=== PATIENT | male | born 1965 | race Caucasian/White ===

== ENCOUNTER → 2016-10-06 | Outpatient (CLI) | payer OTHER ==
[~2016-10-06] MED LIST: ALBUAER2 INH; AZIT500T26 PO; CYCL0.052 OPB; FLUT1INH INH; GFNSR600 PO; GLC/500 PO; HYDR5LIQ PO; INSU100I2 SC; INSUINJ14 SC; IPRA1AER2 INH; IPRASOL34 INH; LEVO1TAB33 PO; LIRA18IN SQ; LISI5TAB PO; LPT/20 PO; LPT/40 PO; LVQ500 PO; MORP1TAB11 PO; MTR800 PO; OXYC15TA89 PO; OXYC1TAB3 PO; PRED10TA PO; PRED20TA PO; PRT/40 PO; VARE1PAK15 PO; [UNRECOGNIZED DRUG - CODE] PO; [UNRECOGNIZED DRUG - OTHER] PO
== END | disposition home or self-care (01) ==
LOC: C.RDSM 14:36
PROVIDERS: ATTEND Physical Medicine & Rehabilitation Sports Medicine
DX: M25.562 Pain in left knee (principal)

== ENCOUNTER → 2017-02-14 | Outpatient (CLI) | payer OTHER | END | disposition home or self-care (01) | LOC: C.LABPBG 08:43 | PROVIDERS: ATTEND Neuromusculoskeletal Medicine & OMM | DX: Z00.00 Encounter for general adult medical examination without abnormal findings (principal); Z11.59 Encounter for screening for other viral diseases; R35.1 Nocturia ==

== ENCOUNTER → 2017-04-05 | Day surgery (SDC) | payer OTHER ==
[2017-03-31 09:17] VITALS: BMI 34.0
[~2017-04-05] VITALS: Ht 167.6 cm; Wt 96.4 kg
[~2017-04-05] MED LIST changes: -ALBUAER2 INH; -AZIT500T26 PO; -INSUINJ14 SC; +LIDOCAINE HCL 2% 2 ML VIAL (20MG/ML) ONE; -LIRA18IN SQ; -LPT/20 PO; +PROPOFOL IV EMULSION 10 MG/ML 20 ML VIAL IV ONE; +SODIUM CHLORIDE 0.9% 500ML 500 ML IV ONE; -[UNRECOGNIZED DRUG - CODE] PO
[2017-04-05 09:14] VITALS: Ht 167.6 cm; Wt 96.4 kg
--- NOTE | 2017-04-05 10:20 | Endo History and Physical ---
History & Physical Date of Service: Apr 05, 2017. Chief Complaint: Reflux, dysphagia Referring Physician: Dr. Lomas History of Present Illness dysphagia Past Surgical History Hx Cardiac Surgery: No Hx Internal Defibrillator: No Hx Pacemaker: No Hx Abdominal Surgery: No Hx of Implantable Prosthesis: No Hx Post-Op Nausea and Vomiting: No Hx Cancer Surgery: No Hx Thoracic Surgery: Yes (LOWER LFT LOBE RESECTION, MULTIPLE BRONCHOSCOPIES, RIBS LFT 6-7 PLATES) Hx Orthopedic: Yes (CERVICAL FUSION (FULL ROM), LT KNEE SURGERY X2) Hx Urinary Tract Surgery: No Family History None Social History Smoking Status: Former Smoker Hx Substance Use: Yes (SEE MED REC) Hx Alcohol Use: No Allergies Coded Allergies: Fentanyl (Verified Allergy, Unknown, RASH WITH PATCH, 03/31/17) Current Medications Reported Home Medications Medications Dose Route/Sig Max Daily Dose Days Date Category Humalog Kwikpen (Insulin Lispro (Human)) 100 Unit/Ml Inj 10 Units SC UD PRN 03/31/17 Reported Glucophage (Metformin Hcl) 500 Mg Tab 500 Mg PO BID 03/31/17 Reported [Slimmetry] 1 Tab PO BID 03/31/17 Reported Oxycontin (Oxycodone Hcl) 15 Mg Tab 15 Mg PO QID 03/31/17 Reported Morphine Sulfate Er (Morphine Sulfate) 15 Mg Tab 1 Tab PO BID 03/31/17 Reported Prinivil (Lisinopril) 5 Mg Tab 5 Mg PO QAM 03/31/17 Reported Lipitor (Atorvastatin) 40 Mg Tab 40 Mg PO QAM 03/31/17 Reported Breo Ellipta (Fluticasone Furoate-Vilanterol) 1 Inh Inh 1 Inha INH QAM 05/22/14 Reported Ibuprofen 800 Mg Tab 800 Mg PO TID PRN 05/22/14 Reported Pantoprazole Sodium (Pantoprazole) 40 Mg Tab 40 Mg PO BID 05/22/14 Reported Combivent Respimat (Ipratropium-Albuterol) 1 Aer Aer 1 Puff INH Q4H PRN 05/22/14 Reported Restasis (Cyclosporine (Ophth)) 0.05 % Emu 1 Drop OPB BID 05/22/14 Reported Duoneb (Albuterol/Ipratropium) Farnaz 1 Treatment INH QID PRN 10/01/13 Reported Mucinex Ext Rel (Guaifenesin) 600 Mg Tabcr 600-1,200 Mg PO Q12 PRN 02/10/12 Reported Vital Signs Weight (Kilograms): 96.36 Height (Feet): 5 Height (Inches): 6 Date Time Temp Pulse Resp B/P (MAP) Pulse Ox O2 Delivery O2 Flow Rate FiO2 04/05/17 09:19 36.7 80 20 121/81 (94) 96 Room Air Physical Exam General Appearance: no apparent distress Respiratory/Chest: Auscultation: breath sounds normal Cardiovascular: Heart Auscultation: RRR Abdomen: Inspection & Palpation: soft Liver: non-tender Assessment and Plan stable for EGD
--- NOTE | 2017-04-05 10:41 | Discharge Instructions ---
Endoscopy Patient Instructions Date / Procedure(s) Performed Apr 05, 2017. EGD Allergy Information Coded Allergies: Fentanyl (Verified Allergy, Unknown, RASH WITH PATCH, 03/31/17) Discharge Date / Findings Apr 05, 2017. normal s/p dilatation. Medication Instructions Stopped Medication(s): Advil and Oxycodone Provider Instructions Activity Restrictions - No exercising or heavy lifting for 24 hours. - Do not drink alcohol the day of the procedure. - Do not drive a car or operate machinery until the day after the procedure. - Do not make any important decisions or sign important papers in 24 hours after the procedure. Following Day: - Return to full activity which may include returning to work/school. Diet Start your diet with liquids and light foods (jello, soup, juice, toast). Then eat your usual diet if not nauseated. Treatment For Common After Affects For mild abdominal pain, bloating, or excessive gas: - Rest - Eat lightly - Lie on right side Follow-Up Information Follow-up with Dr. Lomas as scheduled Anesthesia Information What You Should Know You have had a procedure that required some medicine to reduce anxiety and discomfort. This treatment is called moderate sedation. After receiving the treatment, you may be sleepy, but you will be able to breathe on your own. The effects of the treatment may last for several hours. Follow these instructions along with Activity/Diet recommendations noted above: * Do NOT do anything where dizziness or clumsiness would be dangerous. * Rest quietly at home today, then you can be up and about tomorrow. * Have a responsible person stay with you the rest of today. * You may have had an I.V. today. If so, you may take the dressing off later today. Recommendations Call your doctor if: * Trouble breathing * Continuous vomiting for more than 24 hours * Temperature above 101 degrees * Severe abdominal pain or bloating * Pain not relieved by pain medicine ordered * There is increased drainage or redness from any incision * A large amount of rectal bleeding greater than 2-3 tablespoons. (If you had a polyp/s removed or have hemorrhoids, a small amount of blood - from the rectum is to be expected.) * You have any unanswered questions or concerns. IN THE EVENT OF A SERIOUS EMERGENCY, GO TO THE NEAREST EMERGENCY ROOM Your discharge instructions were prepared by provider Aly Hopkins. Patient Instructions Signature Page John Ashley Patient (or Guardian) Signature/Date: I have read and understand the instructions given to me by my caregivers. Caregiver/RN/Doctor Signature/Date: The above-named patient and/or guardian has received patient instructions on this date. + Original Patient Signature Page (only) stays with chart. Please make copy for patient.
--- NOTE | 2017-04-05 10:57 | GI REPORT ---
Procedure Date: 04/05/2017 10:15 AM Procedure: Upper GI endoscopy Indications: Dysphagia, Heartburn Medicines: See the Anesthesia note for documentation of the administered medications Complications: No immediate complications. Estimated Blood Loss: Estimated blood loss: none. Procedure: Pre-Anesthesia Assessment: - Prior to the procedure, a History and Physical was performed, and patient medications, allergies and sensitivities were reviewed. The patient's tolerance of previous anesthesia was reviewed. - The risks and benefits of the procedure and the sedation options and risks were discussed with the patient. All questions were answered and informed consent was obtained. - Patient identification and proposed procedure were verified prior to the procedure by the physician and the nurse. The procedure was verified in the pre-procedure area. - Pre-procedure physical examination revealed no contraindications to sedation. - After reviewing the risks and benefits, the patient was deemed in satisfactory condition to undergo the procedure. After obtaining informed consent, the endoscope was passed under direct vision. Throughout the procedure, the patient's blood pressure, pulse, and oxygen saturations were monitored continuously. The scope was introduced through the mouth, and advanced to the third part of duodenum. The upper GI endoscopy was accomplished without difficulty. The patient tolerated the procedure well. Findings: Areas of ectopic gastric mucosa were found in the upper third of the esophagus. The rest of the examined esophagus was normal. The scope was withdrawn. Dilation was performed with a Lincoln dilator with no resistance at 52 Fr because of symptoms. The stomach was normal. The examined duodenum was normal. The cardia and gastric fundus were normal on retroflexion. Impression: - Ectopic gastric mucosa in the upper third of the esophagus. - Normal esophagus otherwise ( no obvious stricture). Dilated for symptoms. - Normal stomach. - Normal examined duodenum. - No specimens collected. Recommendation: - Discharge patient to home. Aly Hopkins M.D. Aly Hopkins MD 04/05/2017 10:56:50 AM This report has been signed electronically. Note Initiated On: 04/05/2017 10:15 AM I attest to the content of the Intraoperative Record and orders documented therein, exceptions below
[2017-04-05 11:12] VITALS: BP 121/76; PULSE 75; O2SAT 97
--- NOTE | 2017-04-05 11:13 | Anesthesiology Progress Note ---
Anesthesia Post Op Note Date & Time Apr 05, 2017 at 11:12 Vital Signs Pain Intensity: 0 Vital Signs Past 12 Hours Date Time Temp Pulse Resp B/P (MAP) Pulse Ox O2 Delivery O2 Flow Rate FiO2 04/05/17 10:57 79 20 118/78 (91) 97 Room Air 04/05/17 10:42 78 18 153/99 (117) 98 Room Air 04/05/17 09:19 36.7 80 20 121/81 (94) 96 Room Air Notes Mental Status: alert / awake / arousable, participated in evaluation Pt Amnestic to Procedure: Yes Nausea / Vomiting: adequately controlled Pain: adequately controlled Airway Patency, RR, SpO2: stable & adequate BP & HR: stable & adequate Hydration State: stable & adequate Anesthetic Complications: no major complications apparent patient had some subjective dyspnea on emergence in recovery. o2 sats acceptable on room air and good air movement on exam. he was not in distress. i offered a nebulizer treatment which he declined and he felt back to his subjective baseline breathing within 10 minutes.
== END | disposition home or self-care (01) ==
LOC: C.GI 08:40
PROVIDERS: ATTEND Internal Medicine Gastroenterology
DX: K21.9 Gastro-esophageal reflux disease without esophagitis (principal); R13.10 Dysphagia, unspecified; R12 Heartburn; Z98.1 Arthrodesis status; Z87.891 Personal history of nicotine dependence; J44.9 Chronic obstructive pulmonary disease, unspecified; G47.33 Obstructive sleep apnea (adult) (pediatric); E78.5 Hyperlipidemia, unspecified; I71.4 Abdominal aortic aneurysm, without rupture; M19.90 Unspecified osteoarthritis, unspecified site; M93.962 Osteochondropathy, unspecified, left lower leg; E11.9 Type 2 diabetes mellitus without complications; Z79.84 Long term (current) use of oral hypoglycemic drugs; Z79.4 Long term (current) use of insulin

== ENCOUNTER → 2017-04-25 | Outpatient (CLI) | payer OTHER ==
[~2017-04-25] MED LIST changes: -LIDOCAINE HCL 2% 2 ML VIAL (20MG/ML) ONE; -PROPOFOL IV EMULSION 10 MG/ML 20 ML VIAL IV ONE; -SODIUM CHLORIDE 0.9% 500ML 500 ML IV ONE
--- NOTE | 2017-04-25 09:23 | DIAGNOSTIC IMAGING REPORT ---
AORTIC ANEURYSM RETRO SUYAPA CLINICAL HISTORY: AAA aneurysm TECHNIQUE: Ultrasound COMPARISON STUDY: CT 11/02/2011 FINDINGS: Distal abdominal aorta has a maximum diameter 4.3 cm. This is increased from the prior study of 2.7 cm. Moderate generalized atherosclerotic change and ectasia of all remaining components of the abdominal aorta as well as proximal iliac vasculature. IMPRESSION: Aneurysm distal abdominal aorta having a maximum diameter 4.3 cm. This is increased from a prior study of 2.7 cm. The above report was generated using voice recognition software. It may contain grammatical, syntax or spelling errors. Electronically signed by: August Stephens M.D. 04/25/2017 9:21 AM Dictated Date/Time: 04/25/2017 9:19 AM
== END | disposition home or self-care (01) ==
LOC: C.ULTR 08:37
PROVIDERS: ATTEND Neuromusculoskeletal Medicine & OMM
DX: I71.4 Abdominal aortic aneurysm, without rupture (principal)

== ENCOUNTER 2017-05-02 08:57 | Inpatient (IN) | payer OTHER ==
[~2017-05-02] VITALS: Ht 167.6 cm; Wt 98.3 kg
[~2017-05-02 08:57] MED LIST changes: -HYDR5LIQ PO; -LEVO1TAB33 PO; -LVQ500 PO; -OXYC1TAB3 PO; -PRED10TA PO; -PRED20TA PO; -VARE1PAK15 PO
[2017-05-02 11:12] VITALS: BP 171/80; PULSE 69; TEMP 36.9; O2SAT 94
[2017-05-02] MEDS ORDERED: PRED20TA PO (12:36)
[2017-05-02] MEDS ORDERED: LEVO1TAB33 PO (12:36)
[2017-05-02] MEDS ORDERED: GLUCOSE 10 TABS/TUBE PO PRN (13:00)
[2017-05-02] MEDS ORDERED: ZOLPIDEM TARTRATE 5 MG TAB PO PRN (13:00)
[2017-05-02] MEDS ORDERED: DEXTROSE 50% 50 ML SYR IV PRN (13:00)
[2017-05-02] MEDS ORDERED: GLUCOSE 40% GEL 15 GM TUBE PO PRN (13:00)
[2017-05-02] MEDS ORDERED: GLUCAGON FOR INJ 1 MG VIAL SQ PRN (13:00)
[2017-05-02] MEDS ORDERED: ONDANSETRON INJ 2 MG/ML 2 ML VIAL IV PRN ×2 (13:00)
[2017-05-02] MEDS ORDERED: ACETAMINOPHEN 325 MG TAB PO PRN (13:00)
[2017-05-02 13:14] LABS: BASO % 0.1 %; BASO ABS # 0.01 K/uL (0-0.2); COMPLETE YES; EOS % 1.3 %; HEMATOCRIT 43.4 % (42-52); IG% 0.2 %; LYMPH % 27.6 %; LYMPH ABS # 3.75 K/uL (1.2-3.4); MEAN CELL VOLUME 79.8 fL (80-100); MEAN CORPUSCULAR HGB CONC 31.3 g/dl (32-36); MEAN PLATELET VOLUME 10.5 fL (7.4-10.4); NEUT % 63.8 %; PLATELET COUNT 228 K/uL (130-400); RED BLOOD COUNT 5.44 M/uL (4.7-6.1); WHITE BLOOD COUNT 13.58 K/uL (4.8-10.8)
[2017-05-02 13:15] VITALS: O2SAT 94; BMI 34.3
[2017-05-02] MEDS ORDERED: OXYC1TAB3 PO (13:21)
[2017-05-02] MEDS ORDERED: VARE1PAK15 PO (13:28)
[2017-05-02] MEDS ORDERED: LEVALBUTEROL 1.25MG/0.5ML NEB INH PRN (13:30)
[2017-05-02] MEDS ORDERED: IPRATROPIUM BROMIDE NEB SOLN 0.02% 2.5 ML VIAL INH PRN (13:30)
[2017-05-02] MEDS ORDERED: PATIENT'S HEIGHT AND/OR WEIGHT NEEDED SCH (13:30)
[2017-05-02] MEDS ORDERED: PIPERACILL/TAZOBAC IV 3.375 GM in DEXTROSE 5% 100ML 100 ML IV ONE (13:38)
[2017-05-02 13:39] LABS: BUN/CREATININE RATIO 9.1 (10-20); CREATININE 1.1 mg/dl (0.60-1.40); MAGNESIUM 2.4 mg/dl (1.8-2.4); POTASSIUM 3.9 mmol/L (3.5-5.1)
[2017-05-02 13:42] LABS: ALB/GLOB RATIO 0.9 (0.9-2)
[2017-05-02] MEDS ORDERED: VANCOMYCIN INJ 2,250 MG in SODIUM CHLORIDE 0.9% 500ML 500 ML IV STA (13:58)
--- NOTE | 2017-05-02 13:58 | DIAGNOSTIC IMAGING REPORT ---
CHEST ONE VIEW PORTABLE CLINICAL HISTORY: copd exacerbation dyspnea COMPARISON STUDY: 05/20/2014 FINDINGS: Findings consistent with prior operative repair of rib fractures on the left. Lungs are considered clear. Diaphragms smooth. No evidence for cardiac enlargement. IMPRESSION: No acute process. Pre-existing postoperative changes to several left ribs with unchanging chronic pleural thickening left lateral chest. The above report was generated using voice recognition software. It may contain grammatical, syntax or spelling errors. Electronically signed by: August Stephens M.D. 05/02/2017 1:57 PM Dictated Date/Time: 05/02/2017 1:56 PM
[2017-05-02] MEDS ORDERED: VARENICLINE (CHANTIX) 1 MG TAB PO ONE (14:00)
[2017-05-02] MEDS: IPRATROPIUM BROMIDE NEB SOLN 0.02% 2.5 ML VIAL INH SCH ×2 (14:03→19:31)
[2017-05-02] MEDS: LEVALBUTEROL 1.25MG/0.5ML NEB INH SCH ×2 (14:03→19:31)
[2017-05-02 14:04] VITALS: PULSE 66; O2SAT 97
[2017-05-02] MEDS: METHYLPREDNISOLONE IV 60 MG in SYRINGE 0 ML IV SCH ×2 (14:21→21:10)
[2017-05-02] MEDS: OXYCODONE HCL IR 5 MG TAB (IMMEDIATE RELEASE) PO PRN ×2 (14:27→20:38)
[2017-05-02] MEDS ORDERED: LEVALBUTEROL/IPRATROPIUM NEB INH SCH (15:00)
[2017-05-02 15:10] VITALS: BP 153/78; PULSE 71; TEMP 36.6; O2SAT 94
--- NOTE | 2017-05-02 16:43 | Pharmacy Progress Note ---
Pharmacy Antibiotic Consult Date of Service: May 02, 2017. Pharmacy Dosing Scope Pharmacy is consulted to initiate Vancomycin IV dosing therapy, order appropriate labs and adjust drug dose/frequency. Subjective The patient is a 52 year old male admitted on May 02, 2017 at 11:02. Objective Height (Feet): 5 Height (Inches): 6.00 Weight (Kilograms): 96.364 Lab Results (24hrs): Test 05/02/17 12:57 White Blood Count 13.58 K/uL (4.8-10.8) Red Blood Count 5.44 M/uL (4.7-6.1) Hemoglobin 13.6 g/dL (14.0-18.0) Hematocrit 43.4 % (42-52) Mean Corpuscular Volume 79.8 fL (80-100) Mean Corpuscular Hemoglobin 25.0 pg (25-34) Mean Corpuscular Hemoglobin Concent 31.3 g/dl (32-36) Platelet Count 228 K/uL (130-400) Mean Platelet Volume 10.5 fL (7.4-10.4) Neutrophils (%) (Auto) 63.8 % Lymphocytes (%) (Auto) 27.6 % Monocytes (%) (Auto) 7.0 % Eosinophils (%) (Auto) 1.3 % Basophils (%) (Auto) 0.1 % Neutrophils # (Auto) 8.67 K/uL (1.4-6.5) Lymphocytes # (Auto) 3.75 K/uL (1.2-3.4) Monocytes # (Auto) 0.95 K/uL (0.11-0.59) Eosinophils # (Auto) 0.17 K/uL (0-0.5) Basophils # (Auto) 0.01 K/uL (0-0.2) RDW Standard Deviation 43.0 fL (36.4-46.3) RDW Coefficient of Variation 14.9 % (11.5-14.5) Immature Granulocyte % (Auto) 0.2 % Immature Granulocyte # (Auto) 0.03 K/uL (0.00-0.02) Sodium Level 139 mmol/L (136-145) Potassium Level 3.9 mmol/L (3.5-5.1) Chloride Level 106 mmol/L (98-107) Carbon Dioxide Level 24 mmol/L (21-32) Anion Gap 9.0 mmol/L (3-11) Blood Urea Nitrogen 10 mg/dl (7-18) Creatinine 1.10 mg/dl (0.60-1.40) Est Creatinine Clear Calc Drug Dose 84.4 ml/min Estimated GFR () 88.4 Estimated GFR (Non- 76.2 BUN/Creatinine Ratio 9.1 (10-20) Random Glucose 107 mg/dl (70-99) Calcium Level 9.0 mg/dl (8.5-10.1) Magnesium Level 2.4 mg/dl (1.8-2.4) Total Bilirubin 0.2 mg/dl (0.2-1) Aspartate Amino Transf (AST/SGOT) 27 U/L (15-37) Alanine Aminotransferase (ALT/SGPT) 42 U/L (12-78) Alkaline Phosphatase 118 U/L (45-117) Total Protein 8.2 gm/dl (6.4-8.2) Albumin 3.8 gm/dl (3.4-5.0) Globulin 4.4 gm/dl (2.5-4.0) Albumin/Globulin Ratio 0.9 (0.9-2) Micro Results: Item Value Date Time MRSA DNA Surveillance Screen Ordered 05/02/17 1328 Nasal Pending Recent Pertinent Medications Item Value Date Time Vancomycin HCl 545 ml @ 200 mls/hr 05/02/17 1358 2250 mg/Sodium NOW STAT/IV 05/02/17 1426 Chloride Piperacillin Sod/ 115 ml @ 230 mls/hr 05/02/17 1338 Tazobactam Sod NOW ONCE/IV 05/02/17 1426 3.375 gm/Dextrose Levofloxacin 500 100 ml @ 100 mls/hr 05/02/17 1600 mg/Prmx DAILY@1600/IV Assessment & Plan [age] yo male patient admitted with COPD exacerbation empirically starting IV Vancomycin, IV Zosyn and IV Levofloxacin Loading dose: Vancomycin 2250 mg (~23 mg/kg) IV X 1 dose then: Vancomycin 1250 mg (~13 mg/kg) IV every 12 hours. Goal peak level estimate: between 25 - 40 mcg/mL. Goal trough level estimate: between 15 - 20 mcg/mL. Peak and trough or random level has been ordered for: 05/04/17 prior to the 1400 hours dose. Pharmacy will continue to follow and will adjust dose/frequency as necessary. Thank you
[2017-05-02] MEDS ORDERED: PIPERACILL/TAZOBAC CONSULT ACTIVE PRN (16:45)
[2017-05-02] MEDS: LEVOFLOXACIN / D5W 500 MG in PREMIXED IN D5W 100 ML IV SCH (16:59)
[2017-05-02] MEDS ORDERED: OXYCODONE HCL 15 MG TABCR (OXYCONTIN) PO SCH (17:00)
[2017-05-02 18:00] VITALS: O2SAT 94
[2017-05-02] MEDS: INSULIN ASPART 100 UNITS/ML 3 ML PEN SC SCH ×2 (18:25→20:25)
[2017-05-02 19:33] VITALS: PULSE 69; O2SAT 96
[2017-05-02] MEDS ORDERED: GUAIFENESIN 200 MG TAB PO SCH (20:00)
[2017-05-02] MEDS: MoRPHine SULFATE CR 15 MG TAB (MS CONTIN) PO SCH (20:22)
[2017-05-02] MEDS: PIPERACILL/TAZOBAC IV 3.375 GM in DEXTROSE 5% 100ML IV SCH (20:22)
[2017-05-02] MEDS: PANTOprazole SOD 40 MG TAB PO SCH (20:22)
[2017-05-02] MEDS ORDERED: GUAIFENESIN 600 MG TABCR PO PRN (21:00)
[2017-05-02 21:40] LABS: CKMB/CK RATIO 1.4 (0-3.0)
[2017-05-03] VITALS (10 sets, daily range): BP systolic 117–147; BP diastolic 60–74; PULSE 64–78; TEMP 36.5–37.2; O2SAT 92–98
[2017-05-03] MEDS: LEVALBUTEROL 1.25MG/0.5ML NEB INH SCH ×5 (01:32→19:48)
[2017-05-03] MEDS: IPRATROPIUM BROMIDE NEB SOLN 0.02% 2.5 ML VIAL INH SCH ×5 (01:32→19:48)
[2017-05-03] MEDS: PIPERACILL/TAZOBAC IV 3.375 GM in DEXTROSE 5% 100ML IV SCH (04:37)
[2017-05-03] MEDS: OXYCODONE HCL IR 5 MG TAB (IMMEDIATE RELEASE) PO PRN ×3 (04:37→15:51)
[2017-05-03 04:51] LABS: BASO % 0.1 %; BASO ABS # 0.01 K/uL (0-0.2); COMPLETE YES; EOS % 0.1 %; HEMATOCRIT 40.5 % (42-52); IG% 0.3 %; LYMPH % 8.4 %; LYMPH ABS # 1.08 K/uL (1.2-3.4); MEAN CELL VOLUME 79.3 fL (80-100); MEAN CORPUSCULAR HGB CONC 32.8 g/dl (32-36); MEAN PLATELET VOLUME 10.6 fL (7.4-10.4); MONO % 2.6 %; NEUT % 88.5 %; PLATELET COUNT 215 K/uL (130-400); RED BLOOD COUNT 5.11 M/uL (4.7-6.1); WHITE BLOOD COUNT 12.92 K/uL (4.8-10.8)
[2017-05-03] MEDS: METHYLPREDNISOLONE IV 60 MG in SYRINGE 0 ML IV SCH ×3 (05:02→21:56)
[2017-05-03 05:06] LABS: PARTIAL THROMBOPLASTIN RATIO 1.1; PROTHROMBIN TIME (PATIENT) 10.7 SECONDS (9.0-12.0)
[2017-05-03 05:08] LABS: BLOOD UREA NITROGEN 12 mg/dl (7-18); BUN/CREATININE RATIO 9.9 (10-20); CALCIUM 8.7 mg/dl (8.5-10.1); CARBON DIOXIDE 26 mmol/L (21-32); CHLORIDE 107 mmol/L (98-107); GLUCOSE 287 mg/dl (70-99); MAGNESIUM 2.5 mg/dl (1.8-2.4); POTASSIUM 4.4 mmol/L (3.5-5.1); SODIUM 140 mmol/L (136-145)
[2017-05-03 05:13] LABS: CKMB/CK RATIO 2.2 (0-3.0)
[2017-05-03] MEDS: ATORVASTATIN 20 MG TAB PO SCH (07:45)
[2017-05-03] MEDS: LISINOPRIL 5 MG TAB PO SCH (07:45)
[2017-05-03] MEDS: PANTOprazole SOD 40 MG TAB PO SCH ×2 (07:45→20:31)
[2017-05-03] MEDS: MoRPHine SULFATE CR 15 MG TAB (MS CONTIN) PO SCH ×2 (07:45→20:31)
[2017-05-03] MEDS: VARENICLINE (CHANTIX) 1 MG TAB PO SCH (07:45)
[2017-05-03] MEDS: INSULIN ASPART 100 UNITS/ML 3 ML PEN SC SCH ×4 (09:11→20:39)
--- NOTE | 2017-05-03 10:37 | History and Physical ---
History & Physical Date & Time of Service: May 03, 2017 at 10:25 Chief Complaint: Copd Exacerbation Primary Care Physician: Oriana Burrell DO History of Present Illness Source: patient, clinic records The patient is a 52-year-old male referred from his PCPs office worsening shortness of breath over the past week. He was seen in the outpatient office and given a course of Medrol Dosepak and Levaquin, along with these his home nebulizers. His symptoms have continued to worsen, with significant chest tightness and shortness of breath, and is being directly admitted to the hospital for further treatment. He has not had any recent travels or sick exposures. Past Medical/Surgical History Medical Problems: (1) Chronic obstructive lung disease Status: Chronic (2) Diab Juliana Wo Compl, Type Ii Or Unspec Type, Not Uncntrld Status: Chronic (3) Hyperlipidemia Nec/Nos Status: Chronic (4) Hypertension Nos Status: Chronic (5) Lobectomy of lung Status: Resolved (6) Pleurisy W/O Effus Or Tb Status: Chronic (7) Pneumonia, Organism Nos Status: Chronic Family History Diabetes mellitus Heart disease Lung disease Social History Smoking Status: Current Every Day Smoker Smokeless Tobacco Use: No Alcohol Use: none Drug Use: none Marital Status: Housing status: lives with family Occupational Status: unemployed Immunizations History of Influenza Vaccine: Yes Influenza Vaccine Date: May 24, 2011 History of Tetanus Vaccine?: Yes History of Pneumococcal: Yes Pneumococcal Date: Nov 02, 2005 History of Hepatitis B Vaccine: No Multi-Drug Resistant Organisms History of MDRO: No Allergies Coded Allergies: Fentanyl (Verified Allergy, Unknown, RASH WITH PATCH, 03/31/17) Home Medications Scheduled Atorvastatin (Lipitor), 40 MG PO QAM Cyclosporine (Ophth) (Restasis), 1 DROP OPB BID Fluticasone Furoate-Vilanterol (Breo Ellipta), 1 INHA INH QAM Levofloxacin (Levaquin), 1 TAB PO DAILY Lisinopril (Prinivil), 5 MG PO QAM Metformin Hcl (Glucophage), 500 MG PO BID Morphine Sulfate (Morphine Sulfate Er), 1 TAB PO BID Pantoprazole (Pantoprazole Sodium), 40 MG PO BID Varenicline Tartrate (Chantix Starting Month Pa), PO UD Scheduled PRN Ibuprofen (Ibuprofen), 800 MG PO TID PRN for Pain Insulin Lispro (Human) (Humalog Kwikpen), 10 UNITS SC UD PRN for >200 BS Ipratropium-Albuterol (Duoneb), 1 TREATMENT INH QID PRN for SOB/Wheezing Ipratropium-Albuterol (Combivent Respimat), 1 PUFF INH Q4H PRN for Shortness of Breath Oxycodone Immediate Rel Tab (Roxicodone Ir), 3 TAB PO QID PRN for Pain Miscellaneous Medications Prednisone (Prednisone), 20 MG PO Review of Systems The patient denies palpitations, cough, lower extremity swelling, vision change , hearing change, sore throat, fevers, chills, sweats, weight change, fatigue, nausea, vomiting, diarrhea or constipation, abdominal pain, pelvic pain, blood in urine or stool, dysuria, urinary frequency or urgency, lightheadedness, dizziness, headache, memory loss, rash, abnormal bruising or bleeding, imbalance , focal or generalized weakness, numbness or tingling in arms or legs, generalized arthralgias or myalgias, back or neck pain, night sweats. The review of systems is otherwise negative other than for that already noted above, and at least 10 systems have been reviewed. Physical Exam Vital Signs Date Time Temp Pulse Resp B/P (MAP) Pulse Ox O2 Delivery O2 Flow Rate FiO2 05/03/17 08:59 Room Air 05/03/17 08:58 96 Room Air 05/03/17 07:20 36.5 71 18 147/74 (98) 96 Room Air 05/03/17 01:32 71 16 95 Room Air 05/03/17 00:00 Room Air 05/03/17 00:00 36.7 65 18 146/69 (94) 94 Room Air 05/02/17 19:33 69 16 96 Room Air 05/02/17 18:00 94 Room Air 05/02/17 15:10 36.6 71 18 153/78 (103) 94 Room Air 05/02/17 14:04 66 16 97 Room Air 05/02/17 13:15 94 Room Air 05/02/17 11:12 36.9 69 20 171/80 (110) 94 Room Air The patient is awake, well-developed and adequately nourished, alert and oriented 3, normocephalic and atraumatic, sitting upright on the edge of the bed and in no acute distress. HEENT--PERRL, EOMI, mucous membranes and oropharynx normal. Neck--supple, no JVD or bruits, thyroid normal, trachea midline, no adenopathy. Heart--normal S1 and S2, no extra beats, no murmurs, rubs or gallops. Lungs--scattered wheezes diminished breath sounds bilaterally. No respiratory distress, no accessory muscle use. Abdomen--normal bowel sounds and soft, nontender and nondistended, no hernias or masses, no organomegaly. Extremities--no cyanosis, clubbing or edema. There are good distal pulses b/l. Dermatologic--normal skin turgor, normal color, warm and dry, no abnormal lymph nodes, no rash. Neurologic--cranial nerves II through XII grossly intact, motor and sensory examination normal. Rheumatologic--normal range of motion, nontender, muscles and joints. Psychiatric--normal affect. Diagnostics Laboratory Results Results Past 24 Hours Test 05/02/17 12:57 05/02/17 16:24 05/02/17 20:22 05/02/17 21:05 Range/Units White Blood Count 13.58 4.8-10.8 K/uL Red Blood Count 5.44 4.7-6.1 M/uL Hemoglobin 13.6 14.0-18.0 g/dL Hematocrit 43.4 42-52 % Mean Corpuscular Volume 79.8 80-100 fL Mean Corpuscular Hemoglobin 25.0 25-34 pg Mean Corpuscular Hemoglobin Concent 31.3 32-36 g/dl Platelet Count 228 130-400 K/uL Mean Platelet Volume 10.5 7.4-10.4 fL Neutrophils (%) (Auto) 63.8 % Lymphocytes (%) (Auto) 27.6 % Monocytes (%) (Auto) 7.0 % Eosinophils (%) (Auto) 1.3 % Basophils (%) (Auto) 0.1 % Neutrophils # (Auto) 8.67 1.4-6.5 K/uL Lymphocytes # (Auto) 3.75 1.2-3.4 K/uL Monocytes # (Auto) 0.95 0.11-0.59 K/uL Eosinophils # (Auto) 0.17 0-0.5 K/uL Basophils # (Auto) 0.01 0-0.2 K/uL RDW Standard Deviation 43.0 36.4-46.3 fL RDW Coefficient of Variation 14.9 11.5-14.5 % Immature Granulocyte % (Auto) 0.2 % Immature Granulocyte # (Auto) 0.03 0.00-0.02 K/uL Sodium Level 139 136-145 mmol/L Potassium Level 3.9 3.5-5.1 mmol/L Chloride Level 106 98-107 mmol/L Carbon Dioxide Level 24 21-32 mmol/L Anion Gap 9.0 3-11 mmol/L Blood Urea Nitrogen 10 7-18 mg/dl Creatinine 1.10 0.60-1.40 mg/dl Est Creatinine Clear Calc Drug Dose 84.4 ml/min Estimated GFR () 88.4 Estimated GFR (Non- 76.2 BUN/Creatinine Ratio 9.1 10-20 Random Glucose 107 70-99 mg/dl Calcium Level 9.0 8.5-10.1 mg/dl Magnesium Level 2.4 1.8-2.4 mg/dl Total Bilirubin 0.2 0.2-1 mg/dl Aspartate Amino Transf (AST/SGOT) 27 15-37 U/L Alanine Aminotransferase (ALT/SGPT) 42 12-78 U/L Alkaline Phosphatase 118 45-117 U/L Total Protein 8.2 6.4-8.2 gm/dl Albumin 3.8 3.4-5.0 gm/dl Globulin 4.4 2.5-4.0 gm/dl Albumin/Globulin Ratio 0.9 0.9-2 Bedside Glucose 155 290 70-99 mg/dl Total Creatine Kinase 153 39-308 U/L Creatine Kinase MB 2.2 0.5-3.6 ng/ml Creatine Kinase MB Ratio 1.4 0-3.0 Troponin I < 0.015 0-0.045 ng/ml Test 05/03/17 04:42 05/03/17 07:40 Range/Units White Blood Count 12.92 4.8-10.8 K/uL Red Blood Count 5.11 4.7-6.1 M/uL Hemoglobin 13.3 14.0-18.0 g/dL Hematocrit 40.5 42-52 % Mean Corpuscular Volume 79.3 80-100 fL Mean Corpuscular Hemoglobin 26.0 25-34 pg Mean Corpuscular Hemoglobin Concent 32.8 32-36 g/dl Platelet Count 215 130-400 K/uL Mean Platelet Volume 10.6 7.4-10.4 fL Neutrophils (%) (Auto) 88.5 % Lymphocytes (%) (Auto) 8.4 % Monocytes (%) (Auto) 2.6 % Eosinophils (%) (Auto) 0.1 % Basophils (%) (Auto) 0.1 % Neutrophils # (Auto) 11.45 1.4-6.5 K/uL Lymphocytes # (Auto) 1.08 1.2-3.4 K/uL Monocytes # (Auto) 0.33 0.11-0.59 K/uL Eosinophils # (Auto) 0.01 0-0.5 K/uL Basophils # (Auto) 0.01 0-0.2 K/uL RDW Standard Deviation 42.7 36.4-46.3 fL RDW Coefficient of Variation 14.7 11.5-14.5 % Immature Granulocyte % (Auto) 0.3 % Immature Granulocyte # (Auto) 0.04 0.00-0.02 K/uL Prothrombin Time 10.7 9.0-12.0 SECONDS Prothromb Time International Ratio 1.0 0.9-1.1 Activated Partial Thromboplast Time 27.5 21.0-31.0 SECONDS Partial Thromboplastin Ratio 1.1 Sodium Level 140 136-145 mmol/L Potassium Level 4.4 3.5-5.1 mmol/L Chloride Level 107 98-107 mmol/L Carbon Dioxide Level 26 21-32 mmol/L Anion Gap 7.0 3-11 mmol/L Blood Urea Nitrogen 12 7-18 mg/dl Creatinine 1.20 0.60-1.40 mg/dl Est Creatinine Clear Calc Drug Dose 77.3 ml/min Estimated GFR () 79.5 Estimated GFR (Non- 68.6 BUN/Creatinine Ratio 9.9 10-20 Random Glucose 287 70-99 mg/dl Calcium Level 8.7 8.5-10.1 mg/dl Magnesium Level 2.5 1.8-2.4 mg/dl Total Creatine Kinase 136 39-308 U/L Creatine Kinase MB 3.0 0.5-3.6 ng/ml Creatine Kinase MB Ratio 2.2 0-3.0 Troponin I < 0.015 0-0.045 ng/ml Bedside Glucose 281 70-99 mg/dl Microbiology Results 05/02/17 MRSA DNA Surveillance Screen - Final, Complete Specimen Negative for MRSA by DNA Probe Diagnostic Radiology Patient Name: JACKIE POST Unit Number: [id number] Dictated: 05/02/[id number] Transcribed: 05/02/17 1356 MS Printed Date/Time: [~ rep prt dt]/[~ rep prt tm] [~ rep ct labl] - [~ rep ct ivnm] [facility] [place] [address] Dictated: 05/02/17 1356 Transcribed: 05/02/17 1356 MS Printed Date/Time: [~ rep prt dt]/[~ rep prt tm] [~ rep ct labl] - [~ rep ct ivnm] [facility] PORTABLE CLINICAL HISTORY: copd exacerbation dyspnea COMPARISON STUDY: 05/20/2014 FINDINGS: Findings consistent with prior operative repair of rib fractures on the left. Lungs are considered clear. Diaphragms smooth. No evidence for cardiac enlargement. IMPRESSION: No acute process. Pre-existing postoperative changes to several left ribs with unchanging chronic pleural thickening left lateral chest. The above report was generated using voice recognition software. It may contain grammatical, syntax or spelling errors. Electronically signed by: August Stephens M.D. 05/02/2017 1:57 PM Dictated Date/Time: 05/02/2017 1:56 PM The status of this report is Signed. Draft = Not yet reviewed or approved by Radiologist. Signed = Reviewed and approved by Radiologist. <AttendingPhy>Kirit Salmeron MD</AttendingPhy> <FamilyPhy>Oriana Burrell, DO</FamilyPhy> <PrimaryPhy>Oriana Burrell, DO</PrimaryPhy> <UnitNumber> [id number]</UnitNumber> <VisitNumber>[id number]</VisitNumber> <PatientName> JACKIE POST</PatientName> <DateOfBirth>1965</DateOfBirth> <Location>[facility] </Location> <ServiceDate></ServiceDate> <MNE>ESINDI</MNE> <OrderingPhy> Margarito Carney M.D.</OrderingPhy> <OrderingPhyMNE>f rep ord dr ahumada</ OrderingPhyMNE> <DictatingPhyMNE>f rep dict dr ahumada</DictatingPhyMNE> <CCListMNE> f rep ct brandyn</CCListMNE> <AdmittingPhyMNE>f pt admit dr ahumada</AdmittingPhyMNE> < AttendingPhyMNE>f pt attend dr ahumada</AttendingPhyMNE> <ConsultingPhyMNE>f pt consult dr ahumada</ConsultingPhyMNE> <FamilyPhyMNE>f pt fam dr ahumada</FamilyPhyMNE> <OtherPhyMNE>f pt other dr ahumada</OtherPhyMNE> < PrimaryPhyMNE>f pt prim care dr ahumada</PrimaryPhyMNE> <ReferringPhyMNE>f pt referring dr ahumada</ReferringPhyMNE> EKG EKG shows normal sinus rhythm at 66 bpm, right bundle branch block, no change compared to 10/01/2013 Impression Assessment and Plan COPD exacerbation-- Admitted to the medical floor. Ceftriaxone 1 g IV daily. Levofloxacin 500 mg IV every 24 hours. Guaifenesin extended release 600 mg by mouth twice a day. Solu-Medrol 60 mg IV every 8 hours. Xopenex/Atrovent high flow nebulizer every 6 hours while awake and every 2 hours when necessary. Hold Combivent and Breo Ellipta. Diabetes mellitus-- Hold metformin. Place on Accu-Cheks before meals and at bedtime with NovoLog coverage per scale. Follow blood sugars closely while on IV steroids. Hypertension-- Continue lisinopril 5 mg by mouth daily. GERD--continue pantoprazole 40 mg by mouth daily. Tobacco cessation-- patient was about to start Chantix Start Chantix 0.5 mg by mouth daily. Hyperlipidemia-- Continue atorvastatin 20 mg by mouth daily. Abdominal aortic aneurysm-- 4.3 cm in size. This will be continued to follow by his PCP in the outpatient setting. Osteoarthritis-- continue morphine sulfate ER 15 mg by mouth twice a day and Roxicodone 15 mg by mouth 4 times a day when necessary. Dry eye-- Continue Restasis. Level of Care Med/Surg Advanced Directives Existing Advance Directive: No Existing Living Will: Yes Existing Power of Greeting Card Maker: Yes Resuscitation Status FULL RESUSCITATION VTE Prophylaxis VTE Risk Assessment Done? Y/N: Yes Risk Level: Moderate Given or contraindicated: SCD's Social Service Consult None Apply
[2017-05-03] MEDS ORDERED: INSULIN GLARGINE SOLOSTAR 100 UNITS/ML 3 ML PEN SC SCH (11:30)
[2017-05-03] MEDS: GUAIFENESIN 600 MG TABCR PO SCH ×2 (11:59→20:41)
[2017-05-03] MEDS: LEVOFLOXACIN / D5W 500 MG in PREMIXED IN D5W 100 ML IV SCH (15:51)
--- NOTE | 2017-05-03 16:50 | Medical Student: [facility] ---
Med Student History & Physical Date & Time of Service: May 03, 2017 at 16:23 Chief Complaint: Copd Exacerbation Primary Care Physician: Oriana Burrell DO History of Present Illness Source: patient, clinic records, hospital records Pt is a 52 yo male with a hx of COPD, HTN and T2DM who experienced increased chest tightness, cough and difficulty moving air over the last week. He presented to his PCP four days ago and was prescribed Prednisone and levofloxacin. He was also completing duo-nebs 3-4x daily. He was also smoking 6 cigarettes per day. Three days later he did not notice any relief from the abx and steroids and was directly admitted to the hospital. He does note that he was around some people with flu-like symptoms last week. He denies any s/s of infection including productive cough, fever, chills, sweats. Past Medical/Surgical History PMH: COPD T2Dm HTN Hyperlipidemia Abdominal Aortic Aneurysms. OA in Left Knee PSH: Left Lower Lobectomy. Left 6th and 7th rib plating dt recurrent fractures Left knee arthroscopy Vasectomy C5-C6 surgery in 1993 Breast lumpectomy - benign calcification. Family History Mother - -COPD Father - - Emphysema Younger Brother - GA at age 49 Father: COPD Mother: COPD Sibling(s): heart disease Social History Smoking Status: Current Every Day Smoker (6 cigarettes daily. Prior 35 year, 1.5 ppd smoking history.) Smokeless Tobacco Use: No Alcohol Use: occasionally (wine or beer once a week. ) Drug Use: none Marital Status: Housing status: lives with family Occupational Status: disabled, other ([employer]) Immunizations History of Influenza Vaccine: Yes Influenza Vaccine Date: May 24, 2011 History of Tetanus Vaccine?: Yes History of Pneumococcal: Yes Pneumococcal Date: Nov 02, 2005 History of Hepatitis B Vaccine: No Allergies Coded Allergies: Fentanyl (Verified Allergy, Unknown, RASH WITH PATCH, 03/31/17) Medications Atorvastatin (Lipitor), 40 MG PO QAM Cyclosporine (Ophth) (Restasis), 1 DROP OPB BID Fluticasone Furoate-Vilanterol (Breo Ellipta), 1 INHA INH QAM Ibuprofen (Ibuprofen), 800 MG PO TID PRN for Pain Insulin Lispro (Human) (Humalog Kwikpen), 10 UNITS SC UD PRN for >200 BS Ipratropium-Albuterol (Duoneb), 1 TREATMENT INH QID PRN for SOB/Wheezing Ipratropium-Albuterol (Combivent Respimat), 1 PUFF INH Q4H PRN for Shortness of Breath Levofloxacin (Levaquin), 1 TAB PO DAILY Lisinopril (Prinivil), 5 MG PO QAM Metformin Hcl (Glucophage), 500 MG PO BID Morphine Sulfate (Morphine Sulfate Er), 1 TAB PO BID Oxycodone Immediate Rel Tab (Roxicodone Ir), 3 TAB PO QID PRN for Pain Pantoprazole (Pantoprazole Sodium), 40 MG PO BID Prednisone (Prednisone), 20 MG PO Varenicline Tartrate (Chantix Starting Month Pa), PO UD Review of Systems Constitutional: + fatigue (not sleeping well dt cough), No fever, No chills, No sweats, No weakness Eyes: No worsening of vision ENT: No hearing loss, No nasal symptoms, No sore throat, No trouble swallowing Respiratory: + cough (non-productive), + shortness of breath Cardiovascular: No chest pain, No palpitations Abdomen: No pain, No nausea, No vomiting, No diarrhea, No constipation Musculoskeletal: + joint pain (left knee ), + problem reported (left rib pain) Genitourinary - Male: No hematuria, No dysuria, No urinary frequency Neurologic: No weakness, No numbness/tingling Integumentary: No rash, No itch Physical Exam Vital Signs (24 Hours) Date Time Temp Pulse Resp B/P (MAP) Pulse Ox O2 Delivery O2 Flow Rate FiO2 05/03/17 15:29 37.2 74 16 117/65 (82) 92 Room Air 05/03/17 14:11 76 16 98 Room Air 05/03/17 11:17 64 16 97 Room Air 05/03/17 11:02 36.6 78 18 127/60 (82) 95 Room Air 05/03/17 08:59 Room Air 05/03/17 08:58 96 Room Air 05/03/17 07:20 36.5 71 18 147/74 (98) 96 Room Air 05/03/17 01:32 71 16 95 Room Air 05/03/17 00:00 Room Air 05/03/17 00:00 36.7 65 18 146/69 (94) 94 Room Air 05/02/17 19:33 69 16 96 Room Air 05/02/17 18:00 94 Room Air General Appearance: WD/WN, + mild distress, + obese Head: normocephalic, atraumatic Eyes: PERRL, EOMI ENT: hearing grossly normal Neck: supple, no adenopathy, thyroid normal, no JVD Respiratory/Chest: no accessory muscle use, + decreased breath sounds ( bilaterally. ), + pertinent finding (exhalation difficulty present while talking ) Cardiovascular: regular rate, rhythm, no edema, no JVD, + systolic murmur Abdomen/GI: normal bowel sounds, soft, no organomegaly, no pulsatile mass ( none appreciated) Extremities/Musculoskelatal: normal inspection, no calf tenderness, no pedal edema Neurologic/Psych: alert, normal mood/affect, oriented x 3 Skin: normal color, warm/dry, no rash Diagnostics Laboratory Results Results Past 24 Hours Test 05/02/17 16:24 05/02/17 20:22 05/02/17 21:05 05/03/17 04:42 Range/Units Bedside Glucose 155 290 70-99 mg/dl Total Creatine Kinase 153 136 39-308 U/L Creatine Kinase MB 2.2 3.0 0.5-3.6 ng/ml Creatine Kinase MB Ratio 1.4 2.2 0-3.0 Troponin I < 0.015 < 0.015 0-0.045 ng/ml White Blood Count 12.92 4.8-10.8 K/uL Red Blood Count 5.11 4.7-6.1 M/uL Hemoglobin 13.3 14.0-18.0 g/dL Hematocrit 40.5 42-52 % Mean Corpuscular Volume 79.3 80-100 fL Mean Corpuscular Hemoglobin 26.0 25-34 pg Mean Corpuscular Hemoglobin Concent 32.8 32-36 g/dl Platelet Count 215 130-400 K/uL Mean Platelet Volume 10.6 7.4-10.4 fL Neutrophils (%) (Auto) 88.5 % Lymphocytes (%) (Auto) 8.4 % Monocytes (%) (Auto) 2.6 % Eosinophils (%) (Auto) 0.1 % Basophils (%) (Auto) 0.1 % Neutrophils # (Auto) 11.45 1.4-6.5 K/uL Lymphocytes # (Auto) 1.08 1.2-3.4 K/uL Monocytes # (Auto) 0.33 0.11-0.59 K/uL Eosinophils # (Auto) 0.01 0-0.5 K/uL Basophils # (Auto) 0.01 0-0.2 K/uL RDW Standard Deviation 42.7 36.4-46.3 fL RDW Coefficient of Variation 14.7 11.5-14.5 % Immature Granulocyte % (Auto) 0.3 % Immature Granulocyte # (Auto) 0.04 0.00-0.02 K/uL Prothrombin Time 10.7 9.0-12.0 SECONDS Prothromb Time International Ratio 1.0 0.9-1.1 Activated Partial Thromboplast Time 27.5 21.0-31.0 SECONDS Partial Thromboplastin Ratio 1.1 Sodium Level 140 136-145 mmol/L Potassium Level 4.4 3.5-5.1 mmol/L Chloride Level 107 98-107 mmol/L Carbon Dioxide Level 26 21-32 mmol/L Anion Gap 7.0 3-11 mmol/L Blood Urea Nitrogen 12 7-18 mg/dl Creatinine 1.20 0.60-1.40 mg/dl Est Creatinine Clear Calc Drug Dose 77.3 ml/min Estimated GFR () 79.5 Estimated GFR (Non- 68.6 BUN/Creatinine Ratio 9.9 10-20 Random Glucose 287 70-99 mg/dl Calcium Level 8.7 8.5-10.1 mg/dl Magnesium Level 2.5 1.8-2.4 mg/dl Test 05/03/17 07:40 05/03/17 11:43 Range/Units Bedside Glucose 281 196 70-99 mg/dl Impression Assessment and Plan Pt is 52 year old male with hx of COPD, T2DM and HTN who presented for admission with COPD exacerbation refractory to PO treatment. Plan: Neuro * Pain Medications- continue on Morphine Sulfate ER 15 mg and Roxicodone 15 mg PRN. * Ambien 5 mg PRN Cardiovascular * HTN - continue home Lisinopril 5 mg daily. * AAA - monitored outpatient. Will see Dr. Paredes in May. * Hyperlipidemia - continue Atorvastatin 20 mg daily. Pulmonology * COPD * Guaifenesin 1200 mg q 12 hrs * Levofloxacin 500 mg IV daily. * Atrovent q6 hrs scheduled, PRN. * Levalbuterol q 6 scheduled, PRN. * Methylprednisolone 60 mg q 8 hrs. * Aggressive pulmonary toilet - ISB and up and walking as tolerated. GI * GERD - continue home Protonix 40 mg bid. Renal * No concerns at this time. Daily BMP. Endocrine * T2DM * Hold Metformin. SSI, blood glucose checks per nursing protocol. * Diabetic Diet. MSK * Left Knee OA and Left rib plating - continue on Morphine Sulfate ER 15 mg and Roxicodone 15 mg PRN. Infectious Disease * No concerns at this time. Continue to monitor for s/s of infection. Hematology * no concerns at this time. Daily CBC. Level of Care Med/Surg Advanced Directives Existing Advance Directive: No Existing Living Will: Yes Existing Power of [employer] App[employer] Tech: Yes Resuscitation Status FULL RESUSCITATION
[2017-05-03] MEDS ORDERED: CHLORPH/HYDROCOD EXT REL LIQ 5ML UDP PO PRN (18:45)
[2017-05-03] MEDS: INSULIN GLARGINE SOLOSTAR 100 UNITS/ML 3 ML PEN SC SCH (20:40)
[2017-05-04] VITALS (7 sets, daily range): BP systolic 103–154; BP diastolic 64–74; PULSE 64–82; TEMP 36.5–37; O2SAT 93–98; BMI 34.7
[2017-05-04] MEDS: LEVALBUTEROL 1.25MG/0.5ML NEB INH SCH ×4 (01:33→19:48)
[2017-05-04] MEDS: IPRATROPIUM BROMIDE NEB SOLN 0.02% 2.5 ML VIAL INH SCH ×4 (01:33→19:48)
--- NOTE | 2017-05-04 05:12 | Progress Note ---
Subjective Date of Service: May 03, 2017. Subjective Pt evaluation today including: conversation w/ patient, physical exam, chart review, lab review, review of studies (cxr), review of inpatient medication list Pain: chronic - ribs PO Intake: normal Voiding: no voiding problems still with cough, largely nonproductive still with dyspnea wheezing ongoing "I can't take a deep breath" despite the above he is walking the hallways frequently declines nicoderm patch Review of Systems Constitutional: No fever Respiratory: No sputum Cardiac: + see HPI, + chest pain, No orthopnea Abdomen: No pain Objective Vital Signs Date Time Temp Pulse Resp B/P (MAP) Pulse Ox O2 Delivery O2 Flow Rate FiO2 05/03/17 19:05 77 18 95 Room Air 05/03/17 16:00 92 Room Air 05/03/17 15:29 37.2 74 16 117/65 (82) 92 Room Air 05/03/17 14:11 76 16 98 Room Air 05/03/17 11:17 64 16 97 Room Air 05/03/17 11:02 36.6 78 18 127/60 (82) 95 Room Air 05/03/17 08:59 Room Air 05/03/17 08:58 96 Room Air 05/03/17 07:20 36.5 71 18 147/74 (98) 96 Room Air 05/03/17 01:32 71 16 95 Room Air 05/03/17 00:00 Room Air 05/03/17 00:00 36.7 65 18 146/69 (94) 94 Room Air Physical Exam General Appearance: no apparent distress ENT: pharynx normal Neck: no JVD Respiratory/Chest: no respiratory distress, no accessory muscle use, + wheezing (mild), + pertinent finding (airation fair at best with restriction in air movement) Cardiovascular: regular rate, rhythm, no gallop, + systolic murmur (1-2/6 LLSB) Abdomen: normal bowel sounds, non tender, soft, no organomegaly Extremities: no pedal edema Neurologic/Psychiatric: alert, oriented x 3 Laboratory Results Last 24 Hours Test 05/03/17 04:42 05/03/17 07:40 05/03/17 11:43 05/03/17 16:47 White Blood Count 12.92 K/uL Red Blood Count 5.11 M/uL Hemoglobin 13.3 g/dL Hematocrit 40.5 % Mean Corpuscular Volume 79.3 fL Mean Corpuscular Hemoglobin 26.0 pg Mean Corpuscular Hemoglobin Concent 32.8 g/dl Platelet Count 215 K/uL Mean Platelet Volume 10.6 fL Neutrophils (%) (Auto) 88.5 % Lymphocytes (%) (Auto) 8.4 % Monocytes (%) (Auto) 2.6 % Eosinophils (%) (Auto) 0.1 % Basophils (%) (Auto) 0.1 % Neutrophils # (Auto) 11.45 K/uL Lymphocytes # (Auto) 1.08 K/uL Monocytes # (Auto) 0.33 K/uL Eosinophils # (Auto) 0.01 K/uL Basophils # (Auto) 0.01 K/uL RDW Standard Deviation 42.7 fL RDW Coefficient of Variation 14.7 % Immature Granulocyte % (Auto) 0.3 % Immature Granulocyte # (Auto) 0.04 K/uL Prothrombin Time 10.7 SECONDS Prothromb Time International Ratio 1.0 Activated Partial Thromboplast Time 27.5 SECONDS Partial Thromboplastin Ratio 1.1 Sodium Level 140 mmol/L Potassium Level 4.4 mmol/L Chloride Level 107 mmol/L Carbon Dioxide Level 26 mmol/L Anion Gap 7.0 mmol/L Blood Urea Nitrogen 12 mg/dl Creatinine 1.20 mg/dl Est Creatinine Clear Calc Drug Dose 77.3 ml/min Estimated GFR () 79.5 Estimated GFR (Non- 68.6 BUN/Creatinine Ratio 9.9 Random Glucose 287 mg/dl Calcium Level 8.7 mg/dl Magnesium Level 2.5 mg/dl Total Creatine Kinase 136 U/L Creatine Kinase MB 3.0 ng/ml Creatine Kinase MB Ratio 2.2 Troponin I < 0.015 ng/ml Bedside Glucose 281 mg/dl 196 mg/dl 282 mg/dl Test 05/03/17 19:46 Bedside Glucose 335 mg/dl Assessment and Plan 52yo male - 1. COPD exacerbation - ongoing. leave steroids as is - currently getting about 2mg/kg/day of solumedrol add incentive nehemiah add mucinex BID aggressive pulm toilet no obvious pneumonia on imaging - stop zosyn, stop vanco reasonable to cont levaquin 2. microcytic anemia - check iron studies in am 3. uncontrolled T2DM - due to steroids. check a1c in am. add lantus - initially once daily but suspect may need BID dosing adjust novolog as needed 4. DVT proph - add lovenox 40mg daily. 5. tobacco dependence - patient determined to quit and requests we continue chantix while hospitalized. 6. HTN - controlled. 7. chronic pain syndrome - continue outpatient meds. apparently he had multiple rib fractures in the past requiring plating and takes chronic narcotics for this. Continued [facility] stay due to: multiple IV medications needed Discharge planning: home
[2017-05-04] MEDS: METHYLPREDNISOLONE IV 60 MG in SYRINGE 0 ML IV SCH ×2 (06:02→14:28)
[2017-05-04] MEDS: OXYCODONE HCL IR 5 MG TAB (IMMEDIATE RELEASE) PO PRN ×3 (06:17→22:41)
[2017-05-04 07:15] LABS: BUN/CREATININE RATIO 17.7 (10-20); CREATININE 1.1 mg/dl (0.60-1.40); POTASSIUM 4.5 mmol/L (3.5-5.1)
[2017-05-04 07:19] LABS: FERRITIN 84.2 ng/ml (8.0-388.0)
[2017-05-04 07:27] LABS: ESTIMATED AVERAGE GLUCOSE 143 mg/dl; HA1C FLAG Normal (Normal)
[2017-05-04] MEDS: PANTOprazole SOD 40 MG TAB PO SCH ×2 (08:50→20:53)
[2017-05-04] MEDS: VARENICLINE (CHANTIX) 1 MG TAB PO SCH (08:50)
[2017-05-04] MEDS: ATORVASTATIN 20 MG TAB PO SCH (08:50)
[2017-05-04] MEDS: LISINOPRIL 5 MG TAB PO SCH (08:50)
[2017-05-04] MEDS: GUAIFENESIN 600 MG TABCR PO SCH ×2 (08:51→20:53)
[2017-05-04] MEDS: MoRPHine SULFATE CR 15 MG TAB (MS CONTIN) PO SCH ×2 (08:51→20:53)
[2017-05-04] MEDS: ENOXAPARIN 40 MG/0.4 ML SYR SQ SCH (08:51)
[2017-05-04] MEDS: INSULIN ASPART 100 UNITS/ML 3 ML PEN SC SCH ×4 (08:59→20:51)
[2017-05-04] MEDS: INSULIN GLARGINE SOLOSTAR 100 UNITS/ML 3 ML PEN SC SCH ×2 (09:13→20:49)
[2017-05-04] MEDS ORDERED: VANCOMYCIN TROUGH SCH (13:30)
[2017-05-04] MEDS: FLUTICASONE/SALMETEROL (ADVAIR) 500/50 INH 14 PUFF INH SCH ×2 (15:59→20:52)
[2017-05-04] MEDS: LEVOFLOXACIN 500 MG TAB PO SCH (16:09)
--- NOTE | 2017-05-04 16:23 | Medical Student: [facility] ---
Med Student Progress Note Date of Service May 04, 2017. Subjective Pt evaluation today including: conversation w/ patient, conversation w/ family , physical exam, chart review, lab review, review of inpatient medication list Pt is a 52 year old male who was admitted two days ago for a COPD exacerbation refractory to PO meds. Pt states that he was able to get some "much needed sleep " overnight with the assistance of the anti-tussive medication. He notes that his chest feels less tight today and that he is breathing a little bit better. He has been up and walking and can obtain 1750 on his ISB. He does request a nicotine patch "to do everything possible to make sure to quit smoking" while inpt. He does not have any complaints otherwise and is looking forward to going home as soon as possible. Review of Systems Constitutional: + fatigue, No fever, No chills, No sweats, No weakness ENT: No nasal symptoms, No sore throat, No trouble swallowing Respiratory: + cough (dry), No sputum Cardiac: No chest pain, No orthopnea, No palpitations Abdomen: No pain, No nausea, No vomiting, No diarrhea, No constipation Musculoskeletal: + joint pain (knee pain, rib pain) Male : No dysuria, No urinary frequency Neurologic: No weakness, No numbness/tingling Skin: No rash, No itch Objective Vital Signs Date Time Temp Pulse Resp B/P (MAP) Pulse Ox O2 Delivery O2 Flow Rate FiO2 05/04/17 14:44 36.5 64 18 103/64 (77) 95 Room Air 05/04/17 14:06 65 16 98 Room Air 05/04/17 11:27 Room Air 05/04/17 11:06 37.0 74 18 154/73 (100) 96 Room Air 05/04/17 10:58 Room Air 05/04/17 07:14 76 12 96 Room Air 05/04/17 00:54 36.6 67 19 132/74 (93) 93 Room Air 05/04/17 00:00 Room Air 05/03/17 19:05 77 18 95 Room Air 05/03/17 16:00 92 Room Air Physical Exam General Appearance: WD/WN, no apparent distress ENT: hearing grossly normal, pharynx normal Neck: no adenopathy, thyroid normal, no JVD Respiratory/Chest: no accessory muscle use, + decreased breath sounds (at bases bilaterally), + wheezing (in mid lung ziegler. ), + pertinent finding ( improved air movement since yesterday. ) Cardiovascular: regular rate, rhythm, + systolic murmur (early. 09/13) Abdomen: non tender, soft, no organomegaly Extremities: non-tender, normal inspection, no pedal edema Neurologic/Psychiatric: alert, normal mood/affect, oriented x 3 Skin: normal color, warm/dry, no rash Laboratory Results Last 24 Hours Test 05/03/17 16:47 05/03/17 19:46 05/04/17 05:56 05/04/17 06:46 Bedside Glucose 282 mg/dl 335 mg/dl 207 mg/dl Sodium Level 139 mmol/L Potassium Level 4.5 mmol/L Chloride Level 108 mmol/L Carbon Dioxide Level 23 mmol/L Anion Gap 8.0 mmol/L Blood Urea Nitrogen 19 mg/dl Creatinine 1.10 mg/dl Est Creatinine Clear Calc Drug Dose 84.4 ml/min Estimated GFR () 88.4 Estimated GFR (Non- 76.2 BUN/Creatinine Ratio 17.7 Random Glucose 226 mg/dl Estimated Average Glucose 143 mg/dl Hemoglobin A1c 6.6 % Calcium Level 9.0 mg/dl Iron Level 86 mcg/dl Total Iron Binding Capacity 335 mcg/dl Transferrin 258 mg/dl Transferrin % Saturation 24 % Ferritin 84.2 ng/ml Test 05/04/17 07:40 05/04/17 08:12 05/04/17 11:25 Bedside Glucose 212 mg/dl 209 mg/dl 275 mg/dl Assessment and Plan Assessment and Plan: Pt is 52 year old male with hx of COPD, T2DM and HTN who presented for admission with COPD exacerbation refractory to PO treatment. Plan: Neuro * Pain Medications- continue on Morphine Sulfate ER 15 mg and Roxicodone 15 mg PRN. * Ambien 5 mg PRN Cardiovascular * HTN - continue home Lisinopril 5 mg daily. * AAA - monitored outpatient. Will see Dr. Paredes in May. * Hyperlipidemia - continue Atorvastatin 20 mg daily. Pulmonology * COPD * Guaifenesin 1200 mg q 12 hrs * Levofloxacin 500 mg IV switched to PO. * Atrovent q6 hrs scheduled, and PRN. * Levalbuterol q 6 scheduled, and PRN. * Methylprednisolone 60 mg q 12 hrs - since improved clinically overnight. * Advair diskus in place of home Breo - BID. * Aggressive pulmonary toilet - ISB and up and walking as tolerated. * Smoking Cessation * Begin 7 mg Nicotine Patch * Continue Chantix 0.5 mg q day. GI * GERD - continue home Protonix 40 mg bid. Renal * No concerns at this time. Daily BMP. Endocrine * T2DM * Hold Metformin. SSI, blood glucose checks per nursing protocol. * Diabetic Diet. * A1c 6.6 - thus DM is well controlled at home. Suspect current episodes of hyperglycemia are dt steroid use. MSK * Left Knee OA and Left rib plating - continue on Morphine Sulfate ER 15 mg and Roxicodone 15 mg PRN. Infectious Disease * No concerns at this time. Continue to monitor for s/s of infection. Hematology * Microcytic Anemia with normal iron studies. ? Thalassemia or ACD. Dispo:Med/Surg Full Resuscitation DVT PPX: Lovenox Continued [facility] stay due to: multiple IV medications needed Discharge planning: home
[2017-05-04] MEDS ORDERED: INSULIN HUMAN REGULAR PER UNIT 8 UNITS in SYRINGE 0 ML IV STA (20:43)
[2017-05-04] MEDS ORDERED: INSULIN HUMAN REGULAR PER UNIT 8 UNITS in SYRINGE 7.92 ML IV SCH (21:00)
[2017-05-04] MEDS: METHYLPREDNISOLONE IV 30 MG in SYRINGE 0 ML IV SCH (22:35)
[2017-05-05 00:29] VITALS: BP 133/64; PULSE 65; TEMP 36.8; O2SAT 94
[2017-05-05] MEDS: INSULIN ASPART 100 UNITS/ML 3 ML PEN SC SCH ×4 (00:42→12:40)
--- NOTE | 2017-05-05 01:33 | Progress Note ---
Subjective Date of Service: late entry for visit on May 04, 2017. Subjective Pt evaluation today including: conversation w/ patient, conversation w/ family ( at bedside), physical exam, chart review, lab review Pain: chronic rib pain only PO Intake: normal Voiding: no voiding problems breathing is improved still w/ cough but not as severe still no sputum production walking the hallways w/o difficulty hyperglycemia remains asks for pulmonary consult after discharge Review of Systems Constitutional: No fever, No chills Cardiac: No orthopnea Abdomen: + constipation, No pain Objective Vital Signs Date Time Temp Pulse Resp B/P (MAP) Pulse Ox O2 Delivery O2 Flow Rate FiO2 05/05/17 00:29 36.8 65 16 133/64 (87) 94 Room Air 05/05/17 00:00 Room Air 05/04/17 19:51 82 16 97 Room Air 05/04/17 16:00 95 Room Air 05/04/17 14:44 36.5 64 18 103/64 (77) 95 Room Air 05/04/17 14:06 65 16 98 Room Air 05/04/17 11:27 Room Air 05/04/17 11:06 37.0 74 18 154/73 (100) 96 Room Air 05/04/17 10:58 Room Air 05/04/17 07:14 76 12 96 Room Air Physical Exam General Appearance: no apparent distress ENT: pharynx normal Neck: no JVD Respiratory/Chest: no respiratory distress, no accessory muscle use, + wheezing (mild), + pertinent finding (airation/air movement improved today, especially posteriorly at the bases) Cardiovascular: regular rate, rhythm, no gallop, + systolic murmur (2/6 LSB) Abdomen: normal bowel sounds, non tender, soft, no organomegaly Extremities: no pedal edema Neurologic/Psychiatric: alert, oriented x 3 Laboratory Results Last 24 Hours Test 05/04/17 05:56 05/04/17 06:46 05/04/17 07:40 05/04/17 08:12 Sodium Level 139 mmol/L Potassium Level 4.5 mmol/L Chloride Level 108 mmol/L Carbon Dioxide Level 23 mmol/L Anion Gap 8.0 mmol/L Blood Urea Nitrogen 19 mg/dl Creatinine 1.10 mg/dl Est Creatinine Clear Calc Drug Dose 84.4 ml/min Estimated GFR () 88.4 Estimated GFR (Non- 76.2 BUN/Creatinine Ratio 17.7 Random Glucose 226 mg/dl Estimated Average Glucose 143 mg/dl Hemoglobin A1c 6.6 % Calcium Level 9.0 mg/dl Iron Level 86 mcg/dl Total Iron Binding Capacity 335 mcg/dl Transferrin 258 mg/dl Transferrin % Saturation 24 % Ferritin 84.2 ng/ml Bedside Glucose 207 mg/dl 212 mg/dl 209 mg/dl Test 05/04/17 11:25 05/04/17 17:10 05/04/17 20:14 05/05/17 00:37 Bedside Glucose 275 mg/dl 263 mg/dl 310 mg/dl 196 mg/dl Assessment and Plan 52yo male - 1. COPD exacerbation - ongoing but improved today. Decrease solumedrol to 30mg q8h. cont aggressive pulmonary toilet including incentive nehemiah cont mucinex; cont duonebs no obvious pneumonia on imaging cont levaquin but change to PO formulation we do not have breo on formulary at [facility] - use advair 500/50 BID while hospitalized; change back to breo at d/c 2. microcytic anemia - iron studies nl. could have thalaseemia. outpatient f/u. 3. uncontrolled T2DM - due to steroids. restart metformin 500mg BID increase lantus to BID dosing increase novolog correction factor and carb ratio should also improve w/ cutting back steroids 4. DVT proph - lovenox 40mg daily. 5. tobacco dependence - patient determined to quit and requests we continue chantix while hospitalized. 6. HTN - controlled. 7. chronic pain syndrome - continue outpatient meds. apparently he had multiple rib fractures in the past requiring plating and takes chronic narcotics for this. 8. constipation - add senna and miralax patient requesting to establish care with pulmonary as outpatient - this appt has been set up (see d/c instructions) updated progressing maybe 1-2 more days Continued [facility] stay due to: multiple IV medications needed Discharge planning: home
[2017-05-05 01:55] VITALS: PULSE 87; O2SAT 95
[2017-05-05] MEDS: IPRATROPIUM BROMIDE NEB SOLN 0.02% 2.5 ML VIAL INH SCH ×2 (01:55→07:08)
[2017-05-05] MEDS: LEVALBUTEROL 1.25MG/0.5ML NEB INH SCH ×2 (01:55→07:08)
[2017-05-05] MEDS: OXYCODONE HCL IR 5 MG TAB (IMMEDIATE RELEASE) PO PRN ×2 (05:16→12:34)
[2017-05-05] MEDS: METHYLPREDNISOLONE IV 30 MG in SYRINGE 0 ML IV SCH (05:17)
[2017-05-05 07:10] VITALS: PULSE 61; O2SAT 96
[2017-05-05] MEDS: FLUTICASONE/SALMETEROL (ADVAIR) 500/50 INH 14 PUFF INH SCH (07:45)
[2017-05-05] MEDS: ATORVASTATIN 20 MG TAB PO SCH (07:46)
[2017-05-05] MEDS: VARENICLINE (CHANTIX) 1 MG TAB PO SCH (07:46)
[2017-05-05] MEDS: PANTOprazole SOD 40 MG TAB PO SCH (07:47)
[2017-05-05] MEDS: LISINOPRIL 5 MG TAB PO SCH (07:47)
[2017-05-05] MEDS: MoRPHine SULFATE CR 15 MG TAB (MS CONTIN) PO SCH (07:47)
[2017-05-05] MEDS: ENOXAPARIN 40 MG/0.4 ML SYR SQ SCH (07:48)
[2017-05-05] MEDS: GUAIFENESIN 600 MG TABCR PO SCH (07:48)
[2017-05-05 07:49] VITALS: BP 136/70; PULSE 63; TEMP 36.5; O2SAT 95
[2017-05-05] MEDS: INSULIN GLARGINE SOLOSTAR 100 UNITS/ML 3 ML PEN SC SCH (07:51)
[2017-05-05] MEDS ORDERED: SENNA 8.6 MG TAB PO SCH (08:00)
[2017-05-05] MEDS ORDERED: POLYETHYLENE (MIRALAX) 17 GM PACK PO SCH (08:00)
[2017-05-05] MEDS ORDERED: METFORMIN HCL 500 MG TAB PO SCH (08:00)
[2017-05-05] MEDS: LEVOFLOXACIN 500 MG TAB PO SCH (12:34)
[2017-05-05] MEDS ORDERED: INSU100I2 SC (12:42)
[2017-05-05] MEDS ORDERED: HYDR5LIQ PO (12:42)
[2017-05-05] MEDS ORDERED: LVQ500 PO (12:42)
[2017-05-05] MEDS ORDERED: PRED10TA PO (12:42)
--- NOTE | 2017-05-05 12:47 | Discharge Instructions ---
Discharge Instructions Date of Service May 05, 2017. Admission Reason for Admission: Copd Exacerbation Discharge Discharge Diagnosis / Problem: copd exacerbation Discharge Goals Goal(s): Diagnostic testing, Therapeutic intervention Activity Recommendations Activity Limitations: resume your previous activity . Current Hospital Diet Patient's current hospital diet: Diabetes Type 2 Diet Discharge Diet Recommended Diet: Diabetes Type 2 Diet Pending Studies Studies pending at discharge: no Laboratory Results Hemoglobin A1c Test 05/04/17 05:56 Range/Units Estimated Average Glucose 143 mg/dl Hemoglobin A1c 6.6 H 4.5-5.6 % Medical Emergencies . Who to Call and When: Medical Emergencies: If at any time you feel your situation is an emergency, please call 911 immediately. . Non-Emergent Contact Non-Emergency issues call your: Primary Care Provider, Avionics Manager Call Non-Emergent contact if: temperature is above 101, your pain is unusual for you . . "Provider Documentation" section prepared by Leno Smith. . VTE Core Measure Inpt VTE Proph given/why not?: SCD's
[2017-05-05 13:03] VITALS: Ht 167.6 cm; Wt 98.3 kg
[2017-05-05 13:16] VITALS: BP 136/70; PULSE 63; TEMP 36.5; O2SAT 95
[2017-05-05] MEDS ORDERED: NICOTINE 7 MG/24 HR TDSY TD SCH (13:30)
--- NOTE | 2017-05-05 15:36 | Medical Student: [facility] ---
Discharge Summary Admission Date: May 02, 2017 at 13:05 Discharge Date: May 05, 2017 Discharge Disposition: Home Principal Diagnosis: COPD exacerbation Problems/Secondary Diagnoses: T2DM, HTN Immunizations: Have You Had Influenza Vaccine: Yes Influenza Vaccine Date: May 24, 2011 History of Tetanus Vaccine?: Yes History of Pneumococcal: Yes Pneumococcal Date: Nov 02, 2005 History of Hepatitis B Vaccine: No Discharge Exam Review of Systems: Constitutional: No fever, No chills, No sweats, No weakness Respiratory: + cough, + sputum, + wheezing, + dyspnea on exertion (much improved) Cardiovascular: No chest pain, No palpitations Abdomen: No pain, No nausea, No vomiting, No diarrhea, No constipation Musculoskeletal: No joint pain, No swelling Genitourinary - Male: No dysuria, No urinary frequency Neurologic: No weakness, No numbness/tingling Physical Exam: General Appearance: WD/WN, no apparent distress (resting comfortably in bed) Eyes: PERRL, EOMI ENT: hearing grossly normal, pharynx normal Neck: supple, no adenopathy, thyroid normal Respiratory/Chest: no respiratory distress, no accessory muscle use, + wheezing (bilaterally, improved. ) Cardiovascular: regular rate, rhythm, no JVD, + systolic murmur (2/6, early systolic) Abdomen / GI: normal bowel sounds, non tender, soft, no organomegaly Extremities: normal inspection, no calf tenderness, no pedal edema Neurologic/Psychiatric: alert, normal mood/affect, oriented x 3 Skin: normal color, warm/dry, no rash Hospital Course Mr. Ashley is a 52 year old male with COPD, T2DM and HTN who was admitted four days ago for a COPD exacerbation (chest tightness,shortness of breath, nonproductive cough) refractory to PO Levaquin and prednisone 20mg. He was admitted to the floor and placed on 60 mg of IV salu medrol q 8 hrs and IV Levaquin, in addition to his home medications. A CXR was obtained that showed no acute process. On the third day of admission his symptoms had improved and his dose of salu medrol was decreased by 50%. On the fourth and final day of admission he was give PO Levaquin and 40mg of Prednisone that he will taper over the coming weeks. The patient experienced significant increases in blood glucoses and required rather high doses of lantus (20 units bid) and novolog for control. D/c instruction include SSI while he completes the prednisone taper. Total Time Spent: Greater than 30 minutes This includes examination of the patient, discharge planning, medication reconciliation, and communication with other providers. Discharge Instructions Please refer to the electronic Patient Visit Report (Discharge Instructions) for additional information. Follow-Up Congratulations on quitting smoking! This is very important for your lung health. Follow-up with your PCP in the next week. Pulmonology appt will be scheduled for you. It is important to keep this appointment. Follow instructions given for insulin requirements based on blood sugars.
--- NOTE | 2017-05-05 18:11 | Discharge Summary ---
Discharge Summary Date of Service May 05, 2017. Discharge Summary Admission Date: May 02, 2017 at 13:05 Discharge Date: May 05, 2017 Discharge Disposition: Home Principal Diagnosis: copd exacerbation with bronchitis Immunizations: Have You Had Influenza Vaccine: Yes Influenza Vaccine Date: May 24, 2011 History of Tetanus Vaccine?: Yes History of Pneumococcal: Yes Pneumococcal Date: Nov 02, 2005 History of Hepatitis B Vaccine: No Medication Reconciliation New Medications: Prednisone Tab (Prednisone) 10 Mg Tab 10 MG PO UD, #42 TAB 4 pills a day x 4 days then 3 pills a day x 4 days then 2 pills a day x 4 days then 1 pill a day Hydrocodone Polistirex-Chlorph (Hydrocodone Polistirex/Ch 10-8 mg/5Ml) 1 Liq Liq 5 ML PO Q12H PRN for Cough, #50 ML Levofloxacin (Levofloxacin) 500 Mg Tab 500 MG PO DAILY@11, #6 TAB Changed Medications: Insulin Lispro (Human) (Humalog Kwikpen) 100 Unit/Ml Inj 10 UNITS SC ACHS, #1 PEN 6 Refills (Changed from: UD; Removed Reason; Refills: ) 150-200 5 units 201-250 10 units 251-300 15 units 301-350 20 unit 351+ call your doctor for advice Continued Medications: Atorvastatin (Lipitor) 40 Mg Tab 40 MG PO QAM Cyclosporine (Ophth) (Restasis) 0.05 % Emu 1 DROP OPB BID Fluticasone Furoate-Vilanterol (Breo Ellipta) 1 Inh Inh 1 INHA INH QAM Ibuprofen (Ibuprofen) 800 Mg Tab 800 MG PO TID PRN for Pain Ipratropium-Albuterol (Duoneb) Farnaz 1 TREATMENT INH QID, #120 INHA and every 2 hours as needed Lisinopril (Prinivil) 5 Mg Tab 5 MG PO QAM Metformin Hcl (Glucophage) 500 Mg Tab 500 MG PO BID Morphine Sulfate (Morphine Sulfate Er) 15 Mg Tab 1 TAB PO BID Oxycodone Immediate Rel Tab (Roxicodone Ir) 5 Mg Tab 3 TAB PO QID PRN for Pain for 30 Days, #120 TAB Pantoprazole (Pantoprazole Sodium) 40 Mg Tab 40 MG PO BID Varenicline Tartrate (Chantix Starting Month Pa) 1 Lam Lam PO UD for 28 Days, #1 PKT Discontinued Medications: Ipratropium-Albuterol (Combivent Respimat) 1 Aer Aer 1 PUFF INH Q4H PRN for Shortness of Breath Levofloxacin (Levaquin) 500 Mg Tab 1 TAB PO DAILY for 7 Days, TAB Prednisone (Prednisone) 20 Mg Tab 20 MG PO, TAB TAPER DOSE. STARTED SUNDAY 04/29 Discharge Exam Review of Systems: Constitutional: No fever, No chills Respiratory: No cough, No sputum, No dyspnea on exertion Cardiovascular: No chest pain, No orthopnea Musculoskeletal: No joint pain, No muscle pain, No swelling Physical Exam: General Appearance: WD/WN, no apparent distress Neck: supple Respiratory/Chest: chest non-tender, lungs clear, normal breath sounds Cardiovascular: regular rate, rhythm, no murmur Abdomen / GI: normal bowel sounds, non tender, soft Hospital Course 52yo male -with copd exacerbation with bronchitis COPD exacerbation - taper solumedrol to oral steroids mucinex may be continued otc, ; cont duonebs pt states has enought at home levaquin to treat bronchitis advair 500/50 BID while hospitalized; change back to breo at d/c uncontrolled T2DM - due to steroids. restart metformin 500mg BID will have on sliding scale at discharge to hope will improve as we taper steroids, given instructions to test 4 times a day and follow up with pcp next week tobacco dependence - councelled, patient determined to quit and will continue chantix HTN - controlled. chronic pain syndrome - secondary to multiple rib fractures requiring surgery, chronic opiate therapy. Constipation - add senna and miralax, in hospital but pt thinks he can get back on track at home without RX known AAA will need outpt follow up as recent change in size, no bruit heard on exam patient requesting to establish care with pulmonary as outpatient - this appt has been set up (see d/c instructions) Total Time Spent: Greater than 30 minutes This includes examination of the patient, discharge planning, medication reconciliation, and communication with other providers. Discharge Instructions Please refer to the electronic Patient Visit Report (Discharge Instructions) for additional information.
== END 2017-05-05 13:50 | disposition home or self-care (01) | DRG 192 ==
LOC: UNDOADMIN 11:02 → C.4E 11:02
PROVIDERS: ADMIT Internal Medicine; ATTEND Internal Medicine
DX: J44.1 Chronic obstructive pulmonary disease with (acute) exacerbation (principal); D50.9 Iron deficiency anemia, unspecified; E11.9 Type 2 diabetes mellitus without complications; I10 Essential (primary) hypertension; E78.5 Hyperlipidemia, unspecified; F17.200 Nicotine dependence, unspecified, uncomplicated; K21.9 Gastro-esophageal reflux disease without esophagitis; G89.29 Other chronic pain; K59.00 Constipation, unspecified; Z87.01 Personal history of pneumonia (recurrent); Z83.3 Family history of diabetes mellitus; Z82.49 Family history of ischemic heart disease and other diseases of the circulatory system

== ENCOUNTER → 2017-08-23 | Outpatient (CLI) | payer OTHER ==
[~2017-08-23] MED LIST changes: -GFNSR600 PO; +HYDR5LIQ PO; -IPRA1AER2 INH; +LVQ500 PO; -OXYC15TA89 PO; +OXYC1TAB3 PO; +PANT40TA2 PO; +PRED10TA PO; -PRT/40 PO; +VARE1PAK15 PO; -[UNRECOGNIZED DRUG - OTHER] PO
[2017-08-23 12:43] LABS: HEMOGLOBIN A1C 6.4 % (4.5-5.6)
[2017-08-23 12:44] LABS: ALBUMIN 3.6 gm/dl (3.4-5.0); ALT/SGPT 36 U/L (12-78); AST/SGOT 26 U/L (15-37); BLOOD UREA NITROGEN 7 mg/dl (7-18); CALCIUM 8.7 mg/dl (8.5-10.1); CARBON DIOXIDE 27 mmol/L (21-32); CREATININE 0.97 mg/dl (0.60-1.40); GLUCOSE 111 mg/dl (70-99); POTASSIUM 4.3 mmol/L (3.5-5.1); SODIUM 136 mmol/L (136-145)
[2017-08-23 12:48] LABS: ALKALINE PHOSPHATASE 114 U/L (45-117); CHOLESTEROL 202 mg/dl (0-200); LDL CHOLESTEROL CALCULATED 135 mg/dl; TOTAL PROTEIN 8.2 gm/dl (6.4-8.2)
== END | disposition home or self-care (01) ==
LOC: C.LABPBG 09:28
PROVIDERS: ATTEND Family Medicine
DX: Z00.00 Encounter for general adult medical examination without abnormal findings (principal); E11.9 Type 2 diabetes mellitus without complications; E78.5 Hyperlipidemia, unspecified

== ENCOUNTER → 2017-11-23 | Outpatient (CLI) | payer OTHER ==
[~2017-11-23] MED LIST changes: -PRED10TA PO
--- NOTE | 2017-11-23 09:00 | DIAGNOSTIC IMAGING REPORT ---
CHEST 2 VIEWS ROUTINE HISTORY: Cough. COMPARISON: Chest 05/02/2017. FINDINGS: No focal lung consolidations to suggest pneumonia. No evidence for pulmonary edema. The heart is normal in size. Cervical spinal fusion hardware. Suture material within the left lung base. Metallic plates along the left lateral ribs. IMPRESSION: No significant change compared to the prior study. No acute process. Electronically signed by: Cody Benedict M.D. 11/23/2017 8:59 AM Dictated Date/Time: 11/23/2017 8:58 AM
== END | disposition home or self-care (01) ==
LOC: C.RAD1850 08:45
PROVIDERS: ATTEND Physician Assistant
DX: R05 Cough (principal)

== ENCOUNTER 2019-06-12 14:11 | Inpatient (IN) ==
[2019-06-12] MEDS ORDERED: GLUCOSE 40% GEL 15 GM TUBE PO PRN (15:49)
[2019-06-12] MEDS ORDERED: MoRPHine SULFATE 2 MG/ML CARP IV PRN (15:49)
[2019-06-12] MEDS ORDERED: GLUCOSE 10 TABS/TUBE PO PRN (15:49)
[2019-06-12] MEDS ORDERED: ACETAMINOPHEN 325 MG TAB PO PRN (15:49)
[2019-06-12] MEDS ORDERED: CARBOHYDRATES FOR HYPOGLYCEMIA PO PRN (15:49)
[2019-06-12] MEDS ORDERED: GLUCAGON FOR INJ 1 MG VIAL SQ PRN (15:49)
[2019-06-12] MEDS ORDERED: ALBUTEROL 0.5% NEB SOLN 2.5 MG/0.5 ML VIAL NEB PRN (15:49)
[2019-06-12] MEDS ORDERED: DEXTROSE 50% 50 ML SYRINGE IV PRN (15:49)
[2019-06-12] MEDS ORDERED: IBUPROFEN 800 MG TAB PO PRN (16:00)
[2019-06-12] MEDS: HYDROCODONE/ACETAMOPHEN 5/325MG TAB PO SCH (16:31)
[2019-06-12 16:38] LABS: Basophils # (auto) 0.02 K/uL (0-0.2); Basophils % (auto) 0.1 %; Eosinophils # (auto) 0.18 K/uL (0-0.5); Eosinophils % (auto) 1.3 %; Hematocrit (blood only) 42.3 % (42-52); Hemoglobin 13.9 g/dL (14.0-18.0); Immature Granulocytes # (auto) 0.02 K/uL (0.00-0.02); Immature Granulocytes % (auto) 0.1 %; Lymphocytes # (auto) 3.74 K/uL (1.2-3.4); Lymphocytes % (auto) 27.5 %; Mean Corpuscular Hemoglobin 25.8 pg (25-34); Mean Corpuscular Hgb Conc 32.9 g/dL (32-36); Mean Corpuscular Volume 78.6 fL (80-100); Mean Platelet Volume 9.8 fL (7.4-10.4); Monocytes % (auto) 8.8 %; Neutrophils # (auto) 8.42 K/uL (1.4-6.5); Neutrophils % (auto) 62.2 %; Platelet Count 195 K/uL (130-400); RDW Coefficient of Variation 15.3 % (11.5-14.5); Red Blood Count 5.38 M/uL (4.7-6.1); White Blood Count 13.58 K/uL (4.8-10.8)
[2019-06-12 16:54] LABS: BUN Creatinine Ratio 10.3 (10-20); Blood Urea Nitrogen 11 mg/dl (7-18); C Reactive Protein < 0.29 mg/dl (0-0.29); Calcium 9.3 mg/dl (8.5-10.1); Carbon Dioxide 28 mmol/L (21-32); Chloride 106 mmol/L (98-107); Est GFR (African American) 87.1; Est GFR (Non-African American) 75.2; Glucose 138 mg/dl (70-99); Magnesium 2.3 mg/dl (1.8-2.4); Phosphorus 4.8 mg/dl (2.5-4.9); Potassium 3.9 mmol/L (3.5-5.1); Sodium 139 mmol/L (136-145)
[2019-06-12 16:55] LABS: D Dimer 790 ug/L FEU (0-500)
[2019-06-12 16:59] LABS: NT Pro B Type Natriuretic Pept 223 pg/ml (0-900); Troponin I 0.026 ng/ml (0-0.045)
[2019-06-12] MEDS ORDERED: PATIENT'S HEIGHT AND/OR WEIGHT NEEDED SCH (17:15)
[2019-06-12] MEDS: lisinopriL 20 MG TAB PO SCH (17:37)
[2019-06-12] MEDS: AMLODIPINE BESYLATE 5 MG TAB PO SCH (17:37)
[2019-06-12] MEDS: PANTOprazole 40 MG TAB PO SCH (17:38)
[2019-06-12] MEDS: INSULIN ASPART 100 UNITS/ML 3 ML PEN SC SCH ×2 (18:02→21:10)
[2019-06-12] MEDS: ALBUT/IPRATROP 3MG/0.5MG NEB 3 ML VIAL NEB SCH ×2 (19:14→23:20)
--- NOTE | 2019-06-12 19:38 | History & Physical Report ---
Date of Service June 12, 2019 Assessment & Plan (1) COPD (chronic obstructive pulmonary disease): Patient with COPD presenting in acute exacerbation. Symptoms have been ongoing for the last month and a half, fairly refractory to outpatient treatmentreceived 2 courses of steroids and antibiotics as well. Patient with no respiratory distress however with very poor air movement and persistent symptoms of dyspnea on exertion and shortness of breath. Patient also with left-sided pleuritic rib pain from prior fracture with some splinting. Patient with elevated d-dimer of 790. CTA chest negative for PE or pneumonia. -Admit to medical floor -Duo nebs every 4 hours -Albuterol every 2 hours as needed -Solu-Medrol 40 mg IV 3 times daily -Incentive spirometry -Pain control Present on Admission?: Yes (2) Left rib fracture: Chronic. Patient takes hydrocodone for pain relief. He was to have a nerve block which was postponed. -Continue hydrocodone -Morphine as needed -Incentive spirometry Present on Admission?: Yes (3) GERD (gastroesophageal reflux disease): Chronic. Stable. -Continue Protonix 40 mg p.o. daily Present on Admission?: Yes (4) Hyperlipidemia: Chronic. -Continue Crestor 40 mg p.o. nightly Present on Admission?: Yes (5) Type 2 diabetes mellitus: Chronic. Blood sugar = 138 at present. Patient reports taking Lantus 25 units in the morning. -Lantus 10 units twice daily -Insulin sliding scale -May need to adjust due to IV steroid use -Goal blood sugar 100-140 while inpatient Present on Admission?: Yes (6) Benign essential hypertension: Blood pressure well controlled, presently 126/74. Continue lisinopril and amlodipine. -Continue to monitor Present on Admission?: Yes (7) Vitamin D deficiency: Chronic. -Holding vitamin D supplement while inpatient. May continue on discharge Chronic dry eye -continue cyclosporine drops FENHep-Lock. Monitor electrolytes and replete as needed. Consistent carb diet as tolerated. 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 Patient presents from PCPs office with persistent dyspnea, COPD exacerbation refractory to outpatient therapy. He reports that his dyspnea has been ongoing for the last month and a half. He was seen by his primary care provider on May 02 with complaint of 3 days of cough, congestion and dyspnea on exertion. He was treated with prednisone 40 mg p.o. daily x5 days and azithromycin with no improvement in symptoms. He was seen again in the outpatient setting on May 31 with productive cough and shortness of breath. At that time he was prescribed a 10-day prednisone taper. He was seen by Dr. izaguirre on June 04 and had his prednisone taper increased and was started on doxycycline 100 mg p.o. twice daily. He was seen in the pulmonary clinic on June 05 and was started on Brovana and Qvar for 3 days. Patient with persistent symptoms. He was seen by Dr. Izaguirre again today in follow-up was still complaining of dyspnea on exertion and shortness of breath as well as chest tightness and cough productive for small amounts of white sputum. He was subsequently sent to the ER for inpatient management.. Upon arrival he was found to be afebrile, hemodynamically stable, no respiratory distress. He complains of chest tightness as well as left-sided rib pain specifically with inspiration. He comes that he was to have a nerve block performed for his chronic pain from rib fracture however, this was placed on hold secondary to him being on antibiotics for COPD. Patient denies fevers/chills/sweats/malaise. Denies chest pain/palpitations/dizziness/syncope. Denies nausea/vomiting/abdominal pain/diarrhea/constipation. No additional complaints at this time Allergies Allergy/AdvReac Type Severity Reaction Status Date / Time fentanyl Allergy Unknown RASH WITH Verified 06/12/19 13:07 PATCH Home Medications Home Medications Medication Instructions Recorded Confirmed Type albuterol sulfate HFA 90 2 puff INHALATION Q6H PRN 01/31/19 06/12/19 History mcg/actuation aerosol inhaler cholecalciferol (vitamin D3) 25 1,000 unit PO QAM tab 01/31/19 06/12/19 History mcg (1,000 unit) tablet insulin aspar prt-insulin aspart 10 unit SUBCUT DIRECTED PRN #10 01/31/19 06/12/19 Rx 100 unit/mL (70-30) subcutaneous ml soln lisinopril 20 mg tablet 20 mg PO QAM #30 tab 01/31/19 06/12/19 Rx metformin 500 mg tablet 500 mg PO BID #60 tab 01/31/19 06/12/19 Rx pantoprazole 40 mg tablet,delayed 40 mg PO QAM #30 tab 01/31/19 06/12/19 Rx release rosuvastatin 40 mg tablet 40 mg PO HS #30 tab 01/31/19 06/12/19 Rx insulin glargine (U-100) 100 25 units SQ DAILY #15 ml 02/06/19 06/12/19 Rx unit/mL (3 mL) subcutaneous pen cyclosporine 0.05 % eye drops in a See Rx Instructions OPHTHALMIC 03/27/19 06/12/19 Rx dropperette (EYE) Q12H PRN #60 ea flash glucose sensor kit #1 ea 03/29/19 06/12/19 Rx flash glucose sensor kit #1 ea 03/29/19 06/12/19 Rx amlodipine [Norvasc] 10 mg PO QAM 04/01/19 06/12/19 History fluticasone furoate-vilanterol 1 inh INHALATION QAM 04/01/19 06/12/19 History [Breo Ellipta] ibuprofen 800 mg tablet See Rx Instructions .ROUTE 04/16/19 06/12/19 Rx .COMPLEX #270 tablet hydrocodone 5 mg-acetaminophen 325 1 tab PO BID #60 tab 05/03/19 06/12/19 Rx mg tablet doxycycline hyclate 100 mg tablet 100 mg PO BID 10 Days #20 tab 06/04/19 06/12/19 Rx ipratropium-albuterol 0.5 mg-3 3 ml INH QID #90 ml 06/05/19 06/12/19 Rx mg(2.5 mg base)/3 mL nebulization soln miscellaneous medical supply misc #1 ea 06/06/19 06/12/19 Rx Past Med/Surg History Social History Preferred Language: [place] Communication Ability: Effective Visual Impairment: No Limitations Hearing Ability: Normal Radio Sportscaster Required: No Beliefs That Will Affect Care: None marital status: marital status details: 3 children Current Living Situation: Spouse current occupational status: disabled Other Information That Helps Us Care for You: No Feels Safe at Home: Yes Safety Concerns: Feels Safe At This Time Smoking Status: Current every day smoker Tobacco Type: cigarettes ; packs per day: 0.5 ; Cigarettes Per Day: 5 ; Do You Dip or Chew Tobacco: No ; Hx Alcohol Use: Yes Alcohol type: wine Alcohol type Comment: Drank heavily around 01/14, now 6 pack per week 10/15, 08/18-rare, 03/19 none Hx Substance Use: No Childhood Exposure to Second-Hand Smoke: Yes Other Diet Comment: regular caffeine: Yes during the past year weight has: decreased > 10 lbs Dental Care, Regularly: No Physical Activity Frequency: Other Seatbelt Use: always Sunscreen Use: No Review of Systems Review of Systems: All systems reviewed & are unremarkable except as noted in HPI & below Physical Exam Physical Exam: General: patient resting comfortably, NAD, non-toxic in appearance, AA&O x 4 Skin: warm, dry, intact, no rashes or lesions HEENT: NC/AT, PERRL, EOMI, anicteric sclera, conjunctiva without injection, external ear normal to inspection and nontender, nares patent, moist mucus membranes, dentition intact, no oropharyngeal lesions, neck supple, trachea m idline, no LAD, no thyromegaly, no JVD Heart: +S1/S2, regular, no m/r/g Lungs: Markedly diminished breath sounds bilaterally, few scattered end expiratory wheezing heard at the apices, + pleuritic pain left side, + rib tenderness to palpation. No crepitus Abd: +BS, soft, NT/ND, no masses/organomegaly/ascites Ext: warm, 2+ pulses in UE/LE bilaterally, no clubbing/cyanosis or edema Neuro: nonfocal, patient AA&O x 4, speech intact, no facial droop, moving all extremities on command with equal strength 5/5 Results & Data Vital Signs (Past 12 Hours) Vital Signs Temp Pulse Resp BP Pulse Ox 06/12/19 19:14 71 17 95 06/12/19 15:29 36.6 C 87 18 149/79 H 94 Laboratory Results Lab Results 06/12/19 06/12/19 06/12/19 Range/Units 16:22 16:22 16:22 WBC 13.58 H (4.8-10.8) K/uL RBC 5.38 (4.7-6.1) M/uL Hgb 13.9 L (14.0-18.0) g/dL Hct 42.3 (42-52) % MCV 78.6 L (80-100) fL MCH 25.8 (25-34) pg MCHC 32.9 (32-36) g/dL RDW Std Deviation 44.0 (36.4-46.3) fL RDW Coeff of Ledy 15.3 H (11.5-14.5) % Plt Count 195 (130-400) K/uL MPV 9.8 (7.4-10.4) fL Immature Gran % (Auto) 0.1 % Neut % (Auto) 62.2 % Lymph % (Auto) 27.5 % [place] % (Auto) 8.8 % Eos % (Auto) 1.3 % Baso % (Auto) 0.1 % Immature Gran # (Auto) 0.02 (0.00-0.02) K/uL Neut # (Auto) 8.42 H (1.4-6.5) K/uL Lymph # (Auto) 3.74 H (1.2-3.4) K/uL [place] # (Auto) 1.20 H (0.11-0.59) K/uL Eos # (Auto) 0.18 (0-0.5) K/uL Baso # (Auto) 0.02 (0-0.2) K/uL D-Dimer 790 H* (0-500) ug/L FEU Sodium Cancelled Potassium Cancelled Chloride Cancelled Carbon Dioxide Cancelled Anion Gap Cancelled BUN Cancelled Creatinine Cancelled Est Cr Clr Drug Dosing Cancelled Est GFR ( Amer) Cancelled Est GFR (Non-Af Amer) Cancelled BUN/Creatinine Ratio Cancelled Glucose Cancelled POC Glucose (70-99) Calcium Cancelled Phosphorus (2.5-4.9) mg/dl Magnesium (1.8-2.4) mg/dl Troponin I (0-0.045) ng/ml C-Reactive Protein (0-0.29) mg/dl NT-Pro-B Natriuret Pep (0-900) pg/ml 06/12/19 06/12/19 06/12/19 Range/Units 16:22 17:01 20:42 WBC (4.8-10.8) K/uL RBC (4.7-6.1) M/uL Hgb (14.0-18.0) g/dL Hct (42-52) % MCV (80-100) fL MCH (25-34) pg MCHC (32-36) g/dL RDW Std Deviation (36.4-46.3) fL RDW Coeff of Ledy (11.5-14.5) % Plt Count (130-400) K/uL MPV (7.4-10.4) fL Immature Gran % (Auto) % Neut % (Auto) % Lymph % (Auto) % [place] % (Auto) % Eos % (Auto) % Baso % (Auto) % Immature Gran # (Auto) (0.00-0.02) K/uL Neut # (Auto) (1.4-6.5) K/uL Lymph # (Auto) (1.2-3.4) K/uL [place] # (Auto) (0.11-0.59) K/uL Eos # (Auto) (0-0.5) K/uL Baso # (Auto) (0-0.2) K/uL D-Dimer (0-500) ug/L FEU Sodium 139 Potassium 3.9 Chloride 106 Carbon Dioxide 28 Anion Gap 5.0 BUN 11 Creatinine 1.10 Est Cr Clr Drug Dosing Not Reportable Est GFR ( Amer) 87.1 Est GFR (Non-Af Amer) 75.2 BUN/Creatinine Ratio 10.3 Glucose 138 H POC Glucose 116 H 126 H (70-99) Calcium 9.3 Phosphorus 4.8 (2.5-4.9) mg/dl Magnesium 2.3 (1.8-2.4) mg/dl Troponin I 0.026 (0-0.045) ng/ml C-Reactive Protein < 0.29 (0-0.29) mg/dl NT-Pro-B Natriuret Pep 223 (0-900) pg/ml Diagnostic Findings CT ANGIOGRAM OF THE CHEST CLINICAL HISTORY: Chest tightness. COMPARISON STUDY: Chest x-ray dated 04/01/2019. Chest CT scans dated 10/05/2018 and 05/15/2013. TECHNIQUE: Following the IV administration of 120 cc of Optiray 320, CT angiogram of the chest was performed from the upper abdomen to the thoracic inlet utilizing the pulmonary embolus protocol. Images are reviewed in the axial, sagittal, and coronal planes. 3-D MIPS images are created and assessed. IV contrast was administered without complication. A dose lowering technique was utilized adhering to the principles of ALARA. CT DOSE: 772.57 mGy.cm FINDINGS: Thyroid: Imaged portions of the thyroid gland are normal in size and attenuation. Thoracic aorta: There is atherosclerotic calcification of the thoracic aorta, which is normal in caliber and demonstrates standard 3-vessel arch anatomy. No dissection is seen. Pulmonary vasculature: The pulmonary trunk is normal in caliber. There are no filling defects identified in main, lobar, or segmental pulmonary branches to suggest pulmonary embolus. Heart: The heart is normal in size and without pericardial effusion. The coronary arteries are densely calcified. Lungs and pleural spaces: Emphysematous change is identified. Postoperative change is noted in the lingula. There is bibasilar scarring/atelectasis, greatest in the right middle lobe and lingula. No airspace consolidation or pleural effusion is identified. Mild diffuse peribronchial thickening is noted. The trachea and central airways are clear. A calcified granuloma is noted at the left lung base. Mediastinum: There is no mediastinal lymphadenopathy. There are calcified mediastinal nodes. Ana: There is no hilar adenopathy. Calcified left hilar nodes are noted. Axillae: There is no axillary lymphadenopathy. Upper abdomen: Partially visualized upper abdominal viscera is within normal limits. Skeletal structures: No lytic or blastic bony lesions are seen. Fusion hardware is noted in the lower cervical spine. There has been buttress plate fixation of left lateral 6th and 7th rib fractures. There is a nonunited left lateral 7th rib fracture anterior to the buttress plate. This was also seen on the 04/01/2019 rib series. Additional chronic/healed left-sided rib fractures are noted. No acute fracture is seen. IMPRESSION: 1. There is no evidence of pulmonary embolus in the main, lobar, or segmental pulmonary arteries. 2. Emphysema an postoperative change in the lingula are similar to previous. 3. There is no airspace consolidation or pleural effusion. 4. Mild diffuse peribronchial thickening suggests reactive airway disease. Clinical correlation will be required. 5. There are chronic left-sided rib fractures as above with postoperative change. There is a nonunited fracture of the left lateral 7th rib which was also seen on 04/01/2019. Electronically signed by: Jose Alberto Domingo M.D. 06/12/2019 8:44 PM Dictated: 06/12/192034 Transcribed: 06/12/192034 Code Status & VTE Plan Code Status Full code VTE Prophylaxis Plan VTE Prophylaxis will be ordered: Yes PG Care Time/CCT Total # of Minutes Spent Total Time Spent with Patient: Total time spent is greater than 50% in coordination of care (as documented) at patient's floor/unit and/or counseling patient: (1) COPD (chronic obstructive pulmonary disease) COPD type: emphysema Emphysema type: unspecified Qualified Code(s): J43.9 - Emphysema, unspecified (2) GERD (gastroesophageal reflux disease) Esophagitis presence: esophagitis presence not specified Qualified Code(s): K21.9 - Gastro-esophageal reflux disease without esophagitis (3) Hyperlipidemia Hyperlipidemia type: unspecified Qualified Code(s): E78.5 - Hyperlipidemia, unspecified (4) Type 2 diabetes mellitus Diabetes mellitus [facility] insulin use: with medical terminologist use Diabetes mellitus complication status: without complication Qualified Code(s): E11.9 - Type 2 diabetes mellitus without complications; Z79.4 - intermediate (current) use of insulin
[2019-06-12] MEDS ORDERED: OPTIRAY 320 125ml IV PRN (20:01)
--- NOTE | 2019-06-12 20:45 | CT Scan Report ---
CT ANGIOGRAM OF THE CHEST CLINICAL HISTORY: Chest tightness. COMPARISON STUDY: Chest x-ray dated 04/01/2019. Chest CT scans dated 10/05/2018 and 05/15/2013. TECHNIQUE: Following the IV administration of 120 cc of Optiray 320, CT angiogram of the chest was pe rformed from the upper abdomen to the thoracic inlet utilizing the pulmonary embolus protocol. Images are reviewed in the axial, sagittal, and coronal planes. 3-D MIPS images are created and assessed. I V contrast was administered without complication. A dose lowering technique was utilized adhering to the principles of ALARA. CT DOSE: 772.57 mGy.cm FINDINGS: Thyroid: Imaged portions of the thyroid gland are normal in size and attenuation. Thoracic aorta: There is atherosclerotic calcification of the thoracic aorta, which is normal in bubba radha and demonstrates standard 3-vessel arch anatomy. No dissection is seen. Pulmonary vasculature: The pulmonary trunk is normal in caliber. There are no filling defects identif ied in main, lobar, or segmental pulmonary branches to suggest pulmonary embolus. Heart: The heart is normal in size and without pericardial effusion. The coronary arteries are densel y calcified. Lungs and pleural spaces: Emphysematous change is identified. Postoperative change is noted in the li ngula. There is bibasilar scarring/atelectasis, greatest in the right middle lobe and lingula. No air space consolidation or pleural effusion is identified. Mild diffuse peribronchial thickening is noted . The trachea and central airways are clear. A calcified granuloma is noted at the left lung base. Mediastinum: There is no mediastinal lymphadenopathy. There are calcified mediastinal nodes. Ana: There is no hilar adenopathy. Calcified left hilar nodes are noted. Axillae: There is no axillary lymphadenopathy. Upper abdomen: Partially visualized upper abdominal viscera is within normal limits. Skeletal structures: No lytic or blastic bony lesions are seen. Fusion hardware is noted in the lower cervical spine. There has been buttress plate fixation of left lateral 6th and 7th rib fractures. Th ere is a nonunited left lateral 7th rib fracture anterior to the buttress plate. This was also seen o n the 04/01/2019 rib series. Additional chronic/healed left-sided rib fractures are noted. No acute fr acture is seen. IMPRESSION: 1. There is no evidence of pulmonary embolus in the main, lobar, or segmental pulmonary arteries. 2. Emphysema an postoperative change in the lingula are similar to previous. 3. There is no airspace consolidation or pleural effusion. 4. Mild diffuse peribronchial thickening suggests reactive airway disease. Clinical correlation will be required. 5. There are chronic left-sided rib fractures as above with postoperative change. There is a nonunite d fracture of the left lateral 7th rib which was also seen on 04/01/2019. Electronically signed by: Jose Alberto Domingo M.D. 06/12/2019 8:44 PM
[2019-06-12] MEDS: ROSUVASTATIN CALCIUM 20 MG TAB PO SCH (21:10)
[2019-06-12] MEDS: INSULIN GLARGINE SOLOSTAR 100 UNITS/ML 3 ML PEN SC SCH (21:10)
[2019-06-12] MEDS: methylPREDNISolone 40 MG in SYRINGE 0 ML IV SCH (21:10)
[2019-06-12] MEDS: ENOXAPARIN INJ 40 MG/0.4 ML SYR SQ SCH (21:44)
[2019-06-12] MEDS: LIDOCAINE 5% 1 PATCH TD SCH (23:04)
[2019-06-13] MEDS: RESTASIS: ORDER AWAITING ACTION SCH ×3 (00:04→16:05)
[2019-06-13] MEDS: ALBUT/IPRATROP 3MG/0.5MG NEB 3 ML VIAL NEB SCH ×6 (03:17→23:14)
[2019-06-13] MEDS: MoRPHine SULFATE 2 MG/ML CARP IV PRN ×3 (05:43→20:55)
[2019-06-13] MEDS: lisinopriL 20 MG TAB PO SCH (08:17)
[2019-06-13] MEDS: NICOTINE 7 MG/24 HR TDSY TD SCH (08:18)
[2019-06-13] MEDS: INSULIN GLARGINE SOLOSTAR 100 UNITS/ML 3 ML PEN SC SCH (08:19)
[2019-06-13] MEDS: INSULIN ASPART 100 UNITS/ML 3 ML PEN SC SCH ×4 (08:21→20:38)
[2019-06-13] MEDS: PANTOprazole 40 MG TAB PO SCH (08:21)
[2019-06-13] MEDS: AMLODIPINE BESYLATE 5 MG TAB PO SCH (08:21)
[2019-06-13] MEDS: methylPREDNISolone 40 MG in SYRINGE 0 ML IV SCH ×3 (08:31→20:40)
[2019-06-13] MEDS: HYDROCODONE/ACETAMOPHEN 5/325MG TAB PO SCH (08:31)
[2019-06-13] MEDS: guaiFENesin 600 MG TABCR PO SCH ×2 (10:51→20:40)
[2019-06-13] MEDS: FLUTICASONE/SALMETEROL 250/50 (ADVAIR) 14 PUFF/1 INHALER INH SCH ×2 (13:52→20:40)
--- NOTE | 2019-06-13 16:17 | Hospitalist Progress Note ---
Date of Service June 13, 2019 Assessment & Plan (1) COPD (chronic obstructive pulmonary disease): With refractory symptoms / ongoing exacerbation since April 2019. Previously followed with Dr Bennett; now with NANCY Macias. Continues to smoke. Smoking cessation discussed. CTA chest reviewed. Uncertain if having frequent respiratory viruses/bacteria leading to prolonged/refractory symptoms (sounds like has had similar course as well). Plan - * flutter valve and incentive spirometry * IV solumedrol 40mg TID * use advair in sahil of Breo * duonebs q4h * add mucinex 1200mg BID * consider adding mucomyst to his nebs * I discussed his case with Dr Daniel who will consult in am; he advised ABG in am * smoking cessation * chronic left rib pain, etc likely making symptoms worse * cannot r/o sinus disease or GERD contributing to ongoing symptoms * if any sputum send for culture (2) Left rib fracture: Chronic. Multiple. s/p plating procedure years ago at [facility] to help promote healing and pain - was not successful. Patient takes hydrocodone for pain relief on chronic basis - PDMP shows 60 tabs of such monthly. Due to coughing patient asking for adjustment while inpatient; will make it q6h prn for now. needs bowel regimen. (3) GERD (gastroesophageal reflux disease): Continue Protonix 40 mg p.o. daily Cannot rule out that GERD is contributing to chronic cough/COPD issues (4) Hyperlipidemia: Continue Crestor 40 mg p.o. nightly (5) Type 2 diabetes mellitus: Uncontrolled- due to steroid use. Increase lantus - may need double his usual dose. Titrate novolog correction and carb ratio. Low threshold for insulin infusion for optimal control, if necessary. Most recent a1c was <7%. (6) Benign essential hypertension: Continue lisinopril and amlodipine. Controlled. 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 this is despite 2 rounds of steroids and 2 rounds of abx. he continues to smoke. has asthma and has also had respiratory illnesses in the same time frame. 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 [place] but no travel since. no other unusual sick contacts. c/o chronic sinus issues but no significant drainage. cough is largely dry - occasional sputum. he also c/o left sided chest wall pain from prior plating procedure done for left-sided rib fractures. the plating procedure was done at [facility] and was "experimental". sounds like it was ineffective as it was done to help with rib healing and promote pain control - neither happened. he follows w/ pain management and is under a pain contract. has received nerve blocks in the past for the chronic rib pain as well. Review of Systems Constitutional: + weight loss (some weight loss over last few months; 5+ pounds); no fever and no chills Ear, Nose, Mouth, Throat: no nasal congestion and no sinus pain/pressure Respiratory: + cough, + chest congestion, + dyspnea, + dyspnea on exertion, + sputum production and + wheezing; no change in sputum and no hemoptysis Cardiovascular: no chest pain, no orthopnea, no paroxysmal nocturnal dyspnea and no edema Gastrointestinal: no abdominal pain, no belching, no heartburn, no nausea and no vomiting Physical Exam Constitutional: + obese; no acute distress and no altered mental status ENMT: Mouth: + oropharynx abnormality (crowded posterior pharynx; no thrush; MMM) Respiratory: no respiratory distress Auscultation: + diminished lung sounds (overall poor airmovement all lung segments) and + wheezes; no rales Cardiovascular: Rate/Rhythm: regular rate and regular rhythm Heart Sounds: normal S1, normal S2 and + murmur (2/6 systolic RUSB/LSB) Vessels: posterior tibial pulses present and dorsalis pedis pulses present; no JVD Extremities: no edema Gastrointestinal (Abdomen): normal bowel sounds, soft, nontender, no hepatosplenomegaly Psychiatric: Orientation: alert and oriented x 3 Results & Data Vital Signs (Past 12 Hours) Vital Signs Temp Pulse Resp BP Pulse Ox 06/13/19 16:10 122/64 06/13/19 15:12 36.7 C 111 H 20 182/78 H 95 06/13/19 15:09 91 H 18 96 06/13/19 11:05 85 16 96 06/13/19 07:18 36.8 C 55 L 18 160/84 H 96 06/13/19 07:10 73 16 98 Laboratory Results Laboratory Results - last 24 hr 06/12/19 06/12/19 06/12/19 16:22 16:22 16:22 WBC 13.58 H RBC 5.38 Hgb 13.9 L Hct 42.3 MCV 78.6 L MCH 25.8 MCHC 32.9 RDW Std Deviation 44.0 RDW Coeff of Ledy 15.3 H Plt Count 195 MPV 9.8 Immature Gran % (Auto) 0.1 Neut % (Auto) 62.2 Lymph % (Auto) 27.5 Morrill % (Auto) 8.8 Eos % (Auto) 1.3 Baso % (Auto) 0.1 Immature Gran # (Auto) 0.02 Neut # (Auto) 8.42 H Lymph # (Auto) 3.74 H Morrill # (Auto) 1.20 H Eos # (Auto) 0.18 Baso # (Auto) 0.02 D-Dimer 790 H* Sodium Cancelled Potassium Cancelled Chloride Cancelled Carbon Dioxide Cancelled Anion Gap Cancelled BUN Cancelled Creatinine Cancelled Est Cr Clr Drug Dosing Cancelled Est GFR ( Amer) Cancelled Est GFR (Non-Af Amer) Cancelled BUN/Creatinine Ratio Cancelled Glucose Cancelled POC Glucose Calcium Cancelled Phosphorus Magnesium Troponin I C-Reactive Protein NT-Pro-B Natriuret Pep 06/12/19 06/12/19 06/12/19 16:22 17:01 20:42 WBC RBC Hgb Hct MCV MCH MCHC RDW Std Deviation RDW Coeff of Ledy Plt Count MPV Immature Gran % (Auto) Neut % (Auto) Lymph % (Auto) Morrill % (Auto) Eos % (Auto) Baso % (Auto) Immature Gran # (Auto) Neut # (Auto) Lymph # (Auto) Morrill # (Auto) Eos # (Auto) Baso # (Auto) D-Dimer Sodium 139 Potassium 3.9 Chloride 106 Carbon Dioxide 28 Anion Gap 5.0 BUN 11 Creatinine 1.10 Est Cr Clr Drug Dosing Not Reportable Est GFR ( Amer) 87.1 Est GFR (Non-Af Amer) 75.2 BUN/Creatinine Ratio 10.3 Glucose 138 H POC Glucose 116 H 126 H Calcium 9.3 Phosphorus 4.8 Magnesium 2.3 Troponin I 0.026 C-Reactive Protein < 0.29 NT-Pro-B Natriuret Pep 223 06/13/19 06/13/19 06/13/19 08:03 08:04 11:48 WBC RBC Hgb Hct MCV MCH MCHC RDW Std Deviation RDW Coeff of Ledy Plt Count MPV Immature Gran % (Auto) Neut % (Auto) Lymph % (Auto) Morrill % (Auto) Eos % (Auto) Baso % (Auto) Immature Gran # (Auto) Neut # (Auto) Lymph # (Auto) Morrill # (Auto) Eos # (Auto) Baso # (Auto) D-Dimer Sodium Potassium Chloride Carbon Dioxide Anion Gap BUN Creatinine Est Cr Clr Drug Dosing Est GFR ( Amer) Est GFR (Non-Af Amer) BUN/Creatinine Ratio Glucose POC Glucose 325 H* 298 H 207 H Calcium Phosphorus Magnesium Troponin I C-Reactive Protein NT-Pro-B Natriuret Pep Diagnostic Findings CTA chest results reviewed - emphysema, lingular post-op changes; bronchial inflammation, no lobar infiltrates; chronic left-sided rib fractures PG Care Time/CCT Total # of Minutes Spent Total Time Spent with Patient: Total time spent is greater than 50% in coordination of care (as documented) at patient's floor/unit and/or counseling patient: (1) COPD (chronic obstructive pulmonary disease) COPD type: emphysema Emphysema type: unspecified Qualified Code(s): J43.9 - Emphysema, unspecified (2) Left rib fracture Encounter type: sequela Rib fracture type: multiple ribs Fracture type: closed Qualified Code(s): S22.42XS - Multiple fractures of ribs, left side, se quela (3) GERD (gastroesophageal reflux disease) Esophagitis presence: esophagitis presence not specified Qualified Code(s): K21.9 - Gastro-esophageal reflux disease without esophagitis (4) Hyperlipidemia Hyperlipidemia type: unspecified Qualified Code(s): E78.5 - Hyperlipidemia, unspecified (5) Type 2 diabetes mellitus Diabetes mellitus senior living insulin use: with senior living use Diabetes mellitus complication status: without complication Qualified Code(s): E11.9 - Type 2 diabetes mellitus without complications; Z79.4 - ocean transportation intermediary (current) use of insulin (6) Abdominal aortic aneurysm Presence of rupture: without rupture Qualified Code(s): I71.4 - Abdominal aortic aneurysm, without rupture (7) Aortic stenosis Cardiac valve disease etiology: etiology unspecified Qualified Code(s): I35.0 - Nonrheumatic aortic (valve) stenosis
[2019-06-13] MEDS: HYDROCODONE/ACETAMOPHEN 5/325MG TAB PO PRN (17:39)
[2019-06-13] MEDS: ROSUVASTATIN CALCIUM 20 MG TAB PO SCH (20:40)
[2019-06-13] MEDS: LIDOCAINE 5% 1 PATCH TD SCH (20:41)
[2019-06-13] MEDS: ENOXAPARIN INJ 40 MG/0.4 ML SYR SQ SCH (20:42)
[2019-06-13] MEDS ORDERED: INSULIN GLARGINE SOLOSTAR 100 UNITS/ML 3 ML PEN SC SCH (21:00)
[2019-06-14] MEDS: RESTASIS: ORDER AWAITING ACTION SCH ×2 (00:17→08:53)
[2019-06-14] MEDS: HYDROCODONE/ACETAMOPHEN 5/325MG TAB PO PRN ×3 (00:18→12:13)
[2019-06-14] MEDS ORDERED: INSULIN ASPART PER SC STA (00:45)
[2019-06-14] MEDS ORDERED: INSULIN ASPART PER UNIT 10 UNITS in SYRINGE 0 ML SC STA (01:14)
[2019-06-14] MEDS: ALBUT/IPRATROP 3MG/0.5MG NEB 3 ML VIAL NEB SCH ×3 (03:18→11:21)
[2019-06-14 06:38] LABS: Calcium 8.8 mg/dl (8.5-10.1); Creatinine Clr Calc Pharmacy 75.9 ml/min; Est GFR (Non-African American) 69.1; Potassium 4.3 mmol/L (3.5-5.1)
[2019-06-14 06:42] LABS: Ferritin 74.9 ng/ml (8-388)
[2019-06-14] MEDS: guaiFENesin 600 MG TABCR PO SCH (08:48)
[2019-06-14] MEDS: PANTOprazole 40 MG TAB PO SCH (08:48)
[2019-06-14] MEDS: AMLODIPINE BESYLATE 5 MG TAB PO SCH (08:48)
[2019-06-14] MEDS: NICOTINE 7 MG/24 HR TDSY TD SCH (08:48)
[2019-06-14] MEDS: FLUTICASONE/SALMETEROL 250/50 (ADVAIR) 14 PUFF/1 INHALER INH SCH (08:49)
[2019-06-14] MEDS: methylPREDNISolone 40 MG in SYRINGE 0 ML IV SCH (08:50)
[2019-06-14] MEDS: INSULIN ASPART 100 UNITS/ML 3 ML PEN SC SCH ×2 (08:53→12:16)
--- NOTE | 2019-06-14 08:54 | Hospitalist Progress Note ---
Date of Service June 14, 2019 Results & Data Vital Signs (Past 12 Hours) Vital Signs Temp Pulse Resp BP Pulse Ox 06/14/19 07:12 36.4 C L 79 18 145/64 H 95 06/14/19 07:01 86 19 95 06/13/19 23:19 36.7 C 80 20 150/62 H 96 06/13/19 23:15 102 H 22 96 Laboratory Results 06/14/19 06/14/19 06/14/19 Range/Units 07:47 05:29 05:09 ABG pH Cancelled ABG pCO2 Cancelled ABG pO2 Cancelled ABG HCO3 Cancelled ABG O2 Saturation Cancelled ABG Base Excess Cancelled Linus Test Cancelled Barometric Pressure Cancelled Oxygen Given Cancelled Sodium 138 (136-145) mmol/L Potassium 4.3 (3.5-5.1) mmol/L Chloride 106 (98-107) mmol/L Carbon Dioxide 27 (21-32) mmol/L Anion Gap 5.0 (3-11) BUN 22 H D (7-18) mg/dl Creatinine 1.18 (0.6-1.4) mg/dl Est Cr Clr Drug Dosing 75.9 ml/min Est GFR ( Amer) 80.0 Est GFR (Non-Af Amer) 69.1 BUN/Creatinine Ratio 19.0 (10-20) Glucose 207 H (70-99) mg/dl POC Glucose 216 H (70-99) Calcium 8.8 (8.5-10.1) mg/dl Iron 80 (35-175) mcg/dl Transferrin 259 (200-360) mg/dl Transferrin % Sat 22 (20-50) % Ferritin 74.9 (8-388) ng/ml 06/14/19 06/14/19 06/14/19 Range/Units 00:12 00:11 00:09 ABG pH ABG pCO2 ABG pO2 ABG HCO3 ABG O2 Saturation ABG Base Excess Linus Test Barometric Pressure Oxygen Given Sodium (136-145) mmol/L Potassium (3.5-5.1) mmol/L Chloride (98-107) mmol/L Carbon Dioxide (21-32) mmol/L Anion Gap (3-11) BUN (7-18) mg/dl Creatinine (0.6-1.4) mg/dl Est Cr Clr Drug Dosing ml/min Est GFR ( Amer) Est GFR (Non-Af Amer) BUN/Creatinine Ratio (10-20) Glucose (70-99) mg/dl POC Glucose 329 H* 330 H* 334 H* (70-99) Calcium (8.5-10.1) mg/dl Iron (35-175) mcg/dl Transferrin (200-360) mg/dl Transferrin % Sat (20-50) % Ferritin (8-388) ng/ml 06/13/19 06/13/19 06/13/19 Range/Units 20:21 20:18 16:56 ABG pH ABG pCO2 ABG pO2 ABG HCO3 ABG O2 Saturation ABG Base Excess Linus Test Barometric Pressure Oxygen Given Sodium (136-145) mmol/L Potassium (3.5-5.1) mmol/L Chloride (98-107) mmol/L Carbon Dioxide (21-32) mmol/L Anion Gap (3-11) BUN (7-18) mg/dl Creatinine (0.6-1.4) mg/dl Est Cr Clr Drug Dosing ml/min Est GFR ( Amer) Est GFR (Non-Af Amer) BUN/Creatinine Ratio (20) Glucose (70-99) mg/dl POC Glucose 335 H* 350 H* 183 H (70-99) Calcium (8.5-10.1) mg/dl Iron (35-175) mcg/dl Transferrin (200-360) mg/dl Transferrin % Sat (20-50) % Ferritin (8-388) ng/ml 06/13/19 Range/Units 11:48 ABG pH ABG pCO2 ABG pO2 ABG HCO3 ABG O2 Saturation ABG Base Excess Linus Test Barometric Pressure Oxygen Given Sodium (136-145) mmol/L Potassium (3.5-5.1) mmol/L Chloride (98-107) mmol/L Carbon Dioxide (21-32) mmol/L Anion Gap (3-11) BUN (7-18) mg/dl Creatinine (0.6-1.4) mg/dl Est Cr Clr Drug Dosing ml/min Est GFR ( Amer) Est GFR (Non-Af Amer) BUN/Creatinine Ratio (10-20) Glucose (70-99) mg/dl POC Glucose 207 H (70-99) Calcium (8.5-10.1) mg/dl Iron (35-175) mcg/dl Transferrin (200-360) mg/dl Transferrin % Sat (20-50) % Ferritin (8-388) ng/ml PG Care Time/CCT Total # of Minutes Spent Total Time Spent with Patient: Total time spent is greater than 50% in coordination of care (as documented) at patient's floor/unit and/or counseling patient:
[2019-06-14] MEDS ORDERED: SENNA 8.6 MG TAB PO SCH (09:00)
[2019-06-14] MEDS ORDERED: INSULIN GLARGINE SOLOSTAR 100 UNITS/ML 3 ML PEN SC SCH (09:00)
[2019-06-14] MEDS ORDERED: POLYETHYLENE (MIRALAX) 17 GM PACK PO SCH (09:00)
[2019-06-14] MEDS: MoRPHine SULFATE 2 MG/ML CARP IV PRN (09:10)
--- NOTE | 2019-06-14 10:23 | Pulmonary Consultation ---
Date of Consultation June 14, 2019 Assessment & Plan (1) COPD exacerbation: I think the patient is stable to be discharged home. He needs a 7-day course of 40 mg of prednisone. No taper is required. Recommend switching him to Trelegy inhaler to simplify his regimen. He could use duo nebs and albuterol as needed. He needs pulmonary rehab and will think about this. He also needs to completely abstain from smoking. He has nicotine patches and gum at home. I advised him to set a date along with his . They will consider this. He does have severe COPD and chronic bronchitis phenotype and may benefit from Roflumilast in the future. He also needs to adhere to his CPAP, but a cknowledges that he cannot afford it currently despite being on Medicare. He should follow-up with sleep clinic. I would like to follow-up with him in the clinic. Present on Admission?: Yes (2) Severe chronic obstructive pulmonary disease: Present on Admission?: Yes (3) Obesity (BMI 30.0-34.9): Present on Admission?: Yes (4) TIESHA and COPD overlap syndrome: (5) Nocturnal hypoxemia: Present on Admission?: Yes History of Present Illness Reason for Consultation: COPD Requesting Physician: Dr. Salmeron Attending Physician: Kirit Salmeron History of Present Illness 54-year-old male with past medical history of COPD (FEV1 36% predicted and FEV1 with significant postbronchodilator on spirometry in 2018), CPAP noncompliant with therapy, obesity and history of hypertension who came to the hospital due to increasing shortness of breath. He was directly admitted by his primary care physician a couple days ago. He has been on at least two courses of antibiotics over the last month or 2. He has been followed by the pulmonary clinic and is last been seen by NANCY Peters. He has had 2 doses of steroids as well with some mild improvement in symptoms, and he has been noticing worsening cough with some thick productive sputum. He notes that he is able to ambulate around the hallways several times. His symptoms have improved since admission. He has been on IV Solu-Medrol. He has not had any fevers. He had some mild left-sided chest pain which is old to him. He had prior rib fractures and titanium rods placed in the left. He apparently had a biopsy of his lung about 30 years ago on the left side. He uses Brio Ellipta at home and DuoNeb's 4 times a day. He also uses albuterol twice a day. He does endorse a 14 pound weight loss over the last month and a half. Weight loss has been unintentional. He did have a CT scan this admission that demonstrated emphysema and thickened bronchi bilaterally. No concerning nodules seen. Patient has smoked for 35 years. He smokes about 3 to 4 cigarettes a day now. He has smoked upwards of 2 packs/day at his height. 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 He did not see any combat. His is a heavy smoker and smokes at home. They do open to lower at home as well. They have all unit air conditioning and forced oil heating in the house. They have some carpeting in the house as well. Allergies Allergy/AdvReac Type Severity Reaction Status Date / Time fentanyl Allergy Unknown RASH WITH Verified 06/12/19 13:07 PATCH Home Medications Home Medications Medication Instructions Recorded Confirmed Type albuterol sulfate HFA 90 2 puff INHALATION Q6H PRN 01/31/19 06/12/19 History mcg/actuation aerosol inhaler cholecalciferol (vitamin D3) 25 1,000 unit PO QAM tab 01/31/19 06/12/19 History mcg (1,000 unit) tablet insulin aspar prt-insulin aspart 10 unit SUBCUT DIRECTED PRN #10 01/31/19 06/12/19 Rx 100 unit/mL (70-30) subcutaneous ml soln lisinopril 20 mg tablet 20 mg PO QAM #30 tab 01/31/19 06/12/19 Rx metformin 500 mg tablet 500 mg PO BID #60 tab 01/31/19 06/12/19 Rx pantoprazole 40 mg tablet,delayed 40 mg PO QAM #30 tab 01/31/19 06/12/19 Rx release rosuvastatin 40 mg tablet 40 mg PO HS #30 tab 01/31/19 06/12/19 Rx insulin glargine (U-100) 100 25 units SQ DAILY #15 ml 02/06/19 06/12/19 Rx unit/mL (3 mL) subcutaneous pen cyclosporine 0.05 % eye drops in a See Rx Instructions OPHTHALMIC 03/27/19 06/12/19 Rx dropperette (EYE) Q12H PRN #60 ea flash glucose sensor kit #1 ea 03/29/19 06/12/19 Rx flash glucose sensor kit #1 ea 03/29/19 06/12/19 Rx amlodipine [Norvasc] 10 mg PO QAM 04/01/19 06/12/19 History fluticasone furoate-vilanterol 1 inh INHALATION QAM 04/01/19 06/12/19 History [Breo Ellipta] ibuprofen 800 mg tablet See Rx Instructions .ROUTE 04/16/19 06/12/19 Rx .COMPLEX #270 tablet hydrocodone 5 mg-acetaminophen 325 1 tab PO BID #60 tab 05/03/19 06/12/19 Rx mg tablet doxycycline hyclate 100 mg tablet 100 mg PO BID 10 Days #20 tab 06/04/19 06/12/19 Rx ipratropium-albuterol 0.5 mg-3 3 ml INH QID #90 ml 06/05/19 06/12/19 Rx mg(2.5 mg base)/3 mL nebulization soln miscellaneous medical supply misc #1 ea 06/06/19 06/12/19 Rx Patient History Medical History Hx of fracture of rib (Resolved) fx 6-7 from coughing - Surigical intervention - titanium plates - surgery in [place] - 5 yr ago GERD (gastroesophageal reflux disease) (Chronic) Aortic stenosis (Chronic) mild-moderate per 06/01/18 echo Diverticular disease (Chronic) Hyperlipidemia (Chronic) Vitamin D deficiency (Chronic) Type 2 diabetes mellitus (Chronic) Steatohepatitis, non-alcoholic (Chronic) Osteoarthritis (Chronic) Nocturnal hypoxemia (Chronic) Impotence, organic (Chronic) Dry eye syndrome (Chronic) Diaphragmatic hernia (Chronic) COPD (chronic obstructive pulmonary disease) (Chronic) Benign essential hypertension (Chronic) Asthma-COPD overlap syndrome (Chronic) Chronic obstructive pulmonary disease (Resolved) Diabetes mellitus, type 2 (Resolved) Hypertension (Resolved) Surgical History History of lobectomy of lung (Chronic) removal lower left d/t benign tumor - 20 yr ago History of abdominal aortic aneurysm (AAA) repair (Resolved 06/07/18) 07 Jun 2018; Dr. Paredes History of colonoscopy (Resolved) @ [facility] History of tooth extraction (Resolved) History of vasectomy (Resolved) Hx of resection of rib (Resolved) January 16, 2014 S/P cervical spinal fusion C5-C6, C6-C7 Status post arthroscopic partial medial meniscectomy L knee x 2 Family History Uncle Amyotrophic lateral sclerosis Father Cardiac disorder Grandmother Cardiac disorder Mother Lung disease Brother Myocardial infarction Social History Preferred Language: Norwegian Communication Ability: Effective Visual Impairment: No Limitations Hearing Ability: Normal Skirt Maker Required: No Beliefs That Will Affect Care: None marital status: marital status details: 3 children Current Living Situation: Spouse current occupational status: disabled Other Information That Helps Us Care for You: No Feels Safe at Home: Yes Safety Concerns: Feels Safe At This Time Smoking Status: Current every day smoker Tobacco Type: cigarettes ; packs per day: 0.5 ; Cigarettes Per Day: 5 ; Do You Dip or Chew Tobacco: No ; Second Hand Exposure: No ; Hx Alcohol Use: Yes Alcohol type: wine Alcohol type Comment: Drank heavily around 01/14, now 6 pack per week 10/15, 08/18-rare, 03/19 none Hx Substance Use: No Childhood Exposure to Second-Hand Smoke: Yes Other Diet Comment: regular caffeine: Yes during the past year weight has: decreased > 10 lbs Dental Care, Regularly: No Physical Activity Frequency: Other Seatbelt Use: always Sunscreen Use: No Review of Systems Review of Systems: All systems reviewed & are unremarkable except as noted in HPI & below Physical Exam Constitutional: WD/WN, vitals as above Eyes: PERRL, conjunctivae normal, anicteric sclerae ENMT: external ear and nose normal, oropharynx normal Neck: normal visual inspection Respiratory: normal respiratory effort, lungs clear to auscultation Cardiovascular: RRR, no murmur, no edema Gastrointestinal (Abdomen): normal bowel sounds, soft, nontender, no hepatosplenomegaly Musculoskeletal: no cyanosis or clubbing, extremities motor strength 5/5 Skin: Old scar noted on the left chest Neurologic: PERRL, EOMI, accommodation nl, no face palsy, no dysarthria Psychiatric: A+Ox3, euthymic affect Lymphatic: no cervical or axillary lymphadenopathy Results & Data Vital Signs (Past 12 Hours) Vital Signs Temp Pulse Resp BP Pulse Ox 06/14/19 07:12 97.5 F L 79 18 145/64 H 95 06/14/19 07:01 86 19 95 06/13/19 23:19 98.1 F 80 20 150/62 H 96 06/13/19 23:15 102 H 22 96 I personally reviewed pertinent labs and chest imaging PG Care Time/CCT Total # of Minutes Spent Total Time Spent with Patient: Total time spent is greater than 50% in coordination of care (as documented) at patient's floor/unit and/or counseling patient:
[2019-06-14] MEDS: lisinopriL 20 MG TAB PO SCH (10:25)
--- NOTE | 2019-06-14 10:35 | Discharge Summary ---
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 Patient presents from PCPs office with persistent dyspnea, COPD exacerbation refractory to outpatient therapy. He reports that his dyspnea has been ongoing for the last month and a half. He was seen by his primary care provider on May 02 with complaint of 3 days of cough, congestion and dyspnea on exertion. He was treated with prednisone 40 mg p.o. daily x5 days and azithromy maurilio with no improvement in symptoms. He was seen again in the outpatient setting on May 31 with productive cough and shortness of breath. At that time he was prescribed a 10-day prednisone taper. He was seen by Dr. burrell on June 04 and had his prednisone taper increased and was started on doxycycline 100 mg p.o. twice daily. He was seen in the pulmonary clinic on June 05 and was started on Brovana and Qvar for 3 days. Patient with persistent symptoms. He was seen by Dr. Burrell again today in follow-up was still complaining of dyspnea on exertion and shortness of breath as well as chest tightness and cough productive for small amounts of white sputum. He was subsequently sent to the ER for inpatient management.. Upon arrival he was found to be afebrile, hemodynamically stable, no respiratory distress. He complains of chest tightness as well as left-sided rib pain specifically with inspiration. He comes that he was to have a nerve block performed for his chronic pain from rib fracture however, this was placed on hold secondary to him being on antibiotics for COPD. Patient denies fevers/chills/sweats/malaise. Denies chest pain/palpitations/dizziness/syncope. Denies nausea/vomiting/abdominal pain/diarrhea/constipation. No additional complaints at this time Admission Exam Per Admitting Provider General: patient resting comfortably, NAD, non-toxic in appearance, AA&O x 4 Skin: warm, dry, intact, no rashes or lesions HEENT: NC/AT, PERRL, EOMI, anicteric sclera, conjunctiva without injection, external ear normal to inspection and nontender, nares patent, moist mucus membranes, dentition intact, no oropharyngeal lesions, neck supple, trachea midline, no LAD, no thyromegaly, no JVD Heart: +S1/S2, regular, no m/r/g Lungs: Markedly diminished breath sounds bilaterally, few scattered end expiratory wheezing heard at the apices, + pleuritic pain left side, + rib tenderness to palpation. No crepitus Abd: +BS, soft, NT/ND, no masses/organomegaly/ascites Ext: warm, 2+ pulses in UE/LE bilaterally, no clubbing/cyanosis or edema Neuro: nonfocal, patient AA&O x 4, speech intact, no facial droop, moving all extremities on command with equal strength 5/5 Principal Diagnosis COPD Exacerbation Discharge Exam Constitutional WD/WN, vitals as above Eyes PERRL, conjunctivae normal, anicteric sclerae ENMT external ear and nose normal, oropharynx normal Respiratory normal respiratory effort; no respiratory distress and no labored breathing Auscultation: + crackles (bibasilar crackles); no wheezes Cardiovascular RRR, no murmur, no edema Gastrointestinal (Abdomen) normal bowel sounds, soft, nontender, no hepatosplenomegaly Musculoskeletal no cyanosis or clubbing, extremities motor strength 5/5 Skin no rashes, warm and dry Neurologic PERRL, EOMI, accommodation nl, no face palsy, no dysarthria Psychiatric A+Ox3, euthymic affect Lymphatic no cervical or axillary lymphadenopathy Discharge Data Allergies Allergy/AdvReac Type Severity Reaction Status Date / Time fentanyl Allergy Unknown RASH WITH Verified 06/12/19 13:07 PATCH Consultations 06/13/19 23:00 Consult Pulmonology Routine Ordered Studies 06/12/19 17:10 CT angio chest PE protocol Urgent Hospital Course (1) COPD (chronic obstructive pulmonary disease): With refractory symptoms / ongoing exacerbation since April 2019. Previously followed with Dr Bennett; now with NANCY Macias. Continues to smoke. Smoking cessation discussed. CTA without evidence of PE. * Flutter valve and incentive spirometry * IV Solumedrol 40mg TID * Advair and duonebs * Mucinex 1200mg BID * Consult pulmonary -- rec to discharge with 40mg prednisone taper and trelegy inhaler. Discussed importance of not only smoking cessation but smoking in the house as well. Patient's significant other with upwards of two packs daily. -To follow up with Dr. 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 s/p plating procedure years ago at [facility] to help promote healing and pain - was not successful. * Patient takes hydrocodone for pain relief on chronic basis - PDMP shows 60 tabs of such monthly. * Patient received q6h while inpatient to help with coughing. * Requested additional medication at discharge, but per conversation with Pain Management, advised against. (3) GERD (gastroesophageal reflux disease): * Protonix 40 mg p.o. daily * Cannot rule out that GERD is contributing to chronic cough/COPD issues (4) Hyperlipidemia: * Continue Crestor 40 mg p.o. nightly (5) Type 2 diabetes mellitus: Uncontrolled- due to steroid use. Had not been taking any novolog prior to steroid use. Most recent A1c <7% Sent with lantus 25, Novolog (6) Benign essential hypertension: * Controlled * Lisinopril and amlodipine. 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 * 20+ years ago (10) Aortic stenosis: * murmur on exam c/w * may need ECHO as outpatient for further workup as patient without ACS (11) Tobacco dependence: * nicoderm patch * psychologist counseling to quit (12) Chronic pain syndrome: * followed by [facility] Pain management * on pain contract * PDMP reviewed * previously was on oxycodone; now on hydrocone BID at home * 2nd to chronic left-sided chest wall pain from multiple chronic rib fractures (13) Obesity (BMI 30.0-34.9): * with comorbidities including T2DM, HTN, hyperlipidemia (14) DVT prophylaxis: lovenox 40mg daily while inpatient Total Time Total Time Spent Total Time Spent (In Minutes): 45 Discharge Plan Discharge Items Patient Disposition: Home - Self-Care Reason For Visit: COPD EXCABERBATION Discharge Diagnosis: COPD Exacerbation Health Concerns: You have been hospitalized for an acute medical problem. During your stay at [facility], we have made an effort to correct the problem that brought you to the hospital while keeping you as comfortable as possible. Medications were used to bring your condition under control and your discharge instructions will include directions for any medications you should take after leaving the hospital. Please make sure you see your Primary Care Provider as part of your follow up plan. Activity: Resume your previous activity Non-emergency contact: Primary Care Provider Call non-emergency contact if: you have any medication questions and your symptoms worsen Follow-up/Referrals: Oriana Burrell, [Primary Care Provider] - Diet: Carb Consistent or DM2 and Heart Healthy Addtl Attending Provider Instructions: You have been sent a prescription for Trelegy. It has been electronically sent to [facility] as requested. Please take as instructed. - You should ONLY take your duoneb and albuterol NEEDED during this time. - You may add mucinex over the counter to thin secretions, and may continue to use your flutter valve to loosen things up. You have also been sent a prescription for prednisone (40mg) to be taken for seven days. You may require additional insulin while on prednisone therapy: -- Continue to take 25 units Lantus daily. -- Prescription sent for straight Novolog -- please take 15 units after lunch and dinner. -- HOLD your 70-30 Novolog during this time -- RESUME home Metformin TONIGHT It is recommended that you abstain from all smoking. Nicotine gum and patches are appropriate smoking cessation. It is also recommended that no one smoke in the house, as this may further worsen your breathing. You will be set up with an appointment with Dr. Jimenes for further evaluation and possible initiation of additional maintenance medications. You may also want to discuss sleep study/CPAP during that time. Please attend all follow up appointments. You should be seen by your primary care provider in the next 3-5 days. Report to the emergency room with any worsening shortness of breath, or for any symptoms that are concerning for you. Pending Studies at Discharge: No Stand-Alone Forms: My [employer], Smoking Cessation Medications and DC Order Prescriptions: New Trelegy Ellipta 100-62.5-25 mcg blister with device 1 puffs INH DAILY 90 Days Qty: 60 RF: 0 prednisone 20 mg tablet 40 mg PO DAILY 7 Days Qty: 14 RF: 0 Novolog Flexpen U-100 Insulin 100 unit/mL (3 mL) insulin pen 15 units SQ BID Qty: 15 RF: 0 Continued Lantus Solostar U-100 Insulin 100 unit/mL (3 mL) insulin pen 25 units SQ DAILY Qty: 15 RF: 5 Restasis 0.05 % dropperette See Rx Instructions ophthalmic (eye) Q12H PRN (Reason: dry eyes) Qty: 60 RF: 2 FreeStyle Fern 14 Day Sensor kit .ROUTE .MEDSUPPLY Qty: 1 RF: 0 FreeStyle Fern 14 Day Sensor kit .ROUTE .MEDSUPPLY Qty: 1 RF: 0 ibuprofen 800 mg tablet See Rx Instructions .ROUTE .COMPLEX Qty: 270 RF: 0 hydrocodone-acetaminophen 5-325 mg tablet 1 tab PO BID Qty: 60 RF: 0 miscellaneous medical supply misc .ROUTE .MEDSUPPLY Qty: 1 RF: 0 lisinopril 20 mg tablet 20 mg PO QAM Qty: 30 RF: 3 metformin 500 mg tablet 500 mg PO BID Qty: 60 RF: 0 rosuvastatin [Crestor] 40 mg tablet 40 mg PO HS Qty: 30 RF: 0 cholecalciferol (vitamin D3) 1,000 unit tablet 1,000 unit PO QAM RF: 0 ipratropium-albuterol 0.5 mg-3 mg(2.5 mg base)/3 mL solution for nebulization 3 ml INH QID Qty: 90 RF: 2 albuterol sulfate 90 mcg/actuation HFA aerosol inhaler 2 puff INHALATION Q6H PRN (Reason: Shortness Of Breath) RF: 0 amlodipine [Norvasc] 10 mg tablet 10 mg PO QAM RF: 0 Discontinued Novolog Mix 70-30 U-100 Insuln 100 unit/mL (70-30) solution 10 unit SUBCUT DIRECTED PRN (Reason: Hyperglycemia) Qty: 10 RF: 0 doxycycline hyclate 100 mg tablet 100 mg PO BID 10 Days Qty: 20 RF: 0 Breo Ellipta 200-25 mcg/dose blister with device 1 inh inhalation QAM RF: 0 No Action pantoprazole [Protonix] 40 mg tablet,delayed release (DR/EC) 40 mg PO QAM Qty: 90 RF: 1 Discharge Orders: Discharge Order (Routine); Ordered 06/14/19 Ordered By: Rehana Brown Admission Data Admit Date/Time: 06/12/19 14:51 Attending Provider: Kirit Salmeron Admit Provider: Geri Bhatt Primary Care Provider: Oriana Burrell. Other Providers: Lazaro Daniel Other Interventions: Discharge Summary Assessment (RN) Last Done: 06/14/19 11:24 DC Date/Time DO NOT enter until pt leaves facility: 06/14/19 13:08 Supervising Physician Co-Signing Physician Notes Attending Attestation & Discharge Note: Pt seen/examined, chart reviewed, discharge care plan d/w PA Rehana Brown. I agree w/ the simpson components of her documentation. 54yo male with COPD, T2DM, and ongoing tobacco dependence who presented with COPD exacerbation. Refractory symptoms since late Apr 2019. Underwent CTA chest - no PE but evidence of bronchial inflammation & prior left- sided rib fractures w/ nonunion. Treated in customary fashion with IV steroids, nebs, pulmonary toilet. Made rapid improvement in all pulmonary symptoms. Never required NC O2. Seen by pulmonary who will f/u with him in the clinic; repeat PFTs will be obtained then. Will complete prednisone taper post-d/c. Advised to quit smoking. Discharge exam: gen - NAD neck - No JVD heart - RRR, s1 s2, 2/6 systolic murmur RUSB lungs - airation improved relative to prior exams; no wheeze; no rales abd - soft NT ND BS+ ext - no edema Kirit Salmeron MD
[2019-06-15] MEDS ORDERED: predniSONE 50 MG TAB PO SCH (09:00)
== END 2019-06-14 13:08 | disposition home or self-care (01) | DRG 191 ==
LOC: SUATTDRO 14:51 → 4W 14:51

== ENCOUNTER 2019-12-02 04:53 | Inpatient (IN) ==
[2019-12-02] MEDS ORDERED: methylPREDNISolone 125 MG/2 ML VIAL IV STA (04:57)
[2019-12-02] MEDS ORDERED: LORazepam 1 MG/2 ML VIAL IV STA (04:57)
[2019-12-02] MEDS ORDERED: ALBUT/IPRATROP 3MG/0.5MG NEB 3 ML VIAL NEB ONE (04:57)
[2019-12-02 05:10] LABS: Basophils # (auto) 0.02 K/uL (0-0.2); Basophils % (auto) 0.2 %; Eosinophils # (auto) 0.03 K/uL (0-0.5); Eosinophils % (auto) 0.4 %; Hemoglobin 13.9 g/dL (14.0-18.0); Immature Granulocytes # (auto) 0.03 K/uL (0.00-0.02); Immature Granulocytes % (auto) 0.4 %; Lymphocytes % (auto) 19.9 %; Mean Corpuscular Hemoglobin 25.1 pg (25-34); Mean Corpuscular Hgb Conc 30.9 g/dL (32-36); Mean Corpuscular Volume 81.2 fL (80-100); Mean Platelet Volume 9.9 fL (7.4-10.4); Monocytes # (auto) 0.89 K/uL (0.11-0.59); Monocytes % (auto) 11.1 %; Neutrophils # (auto) 5.47 K/uL (1.4-6.5); Platelet Count 228 K/uL (130-400); RDW Coefficient of Variation 15.4 % (11.5-14.5); RDW Standard Deviation 45.4 fL (36.4-46.3); Red Blood Count 5.54 M/uL (4.7-6.1); White Blood Count 8.04 K/uL (4.8-10.8)
--- NOTE | 2019-12-02 05:17 | Emergency Department Note ---
History of Present Illness General Chief complaint: Respiratory Distress Stated complaint: Respiratory Distress Time Seen by Provider: 12/02/19 04:57 Source: patient and EMS Mode of arrival: EMS Limitations: physical limitation and clinical acuity History of Present Illness Provider complaint: shortness of breath Onset (ago): day(s) 2 Exacerbated By: + movement Associated symptoms: + chest pain and + cough This is a 54 yo man brought in by EMS for shortness of breath that started Tuesday. Pt states on Tuesday he began feeling slightly more short of breath with increased cough. Patient states he has had similar episodes previously. States he does have a history of COPD and sees pulmonary, Dr. Max. States last time he saw him was in September before the pandemic. Patient does not use home oxygen, is not on chronic steroids. Patient does have several different inhalers as well as his albuterol that he uses. Patient states last night he could not sleep and was up every 1/2 hour trying to find improved breathing and comfort. Patient states tonight it was every 15 minutes and he finally felt like it was continuing to get worse so he and his called 911. Patient states he no longer smokes, however his still smokes whom he lives with. Patient denies any fevers or chills. Denies any sick contacts. Denies any known contact with a COVID positive individual. Patient denies any recent hospitalizations. Patient states he has been hospitalized before for difficulty breathing, but is never been intubated. EMS reports they did give him a DuoNeb in route and tried to start him on CPAP however he could not tolerate it due to claustrophobia. Pt seen during a time of high acuity and national emergency pandemic while wearing PPE. Home Medications Home Medications Medication Instructions Recorded Confirmed Type cholecalciferol (vitamin D3) 25 1,000 unit PO QAM tab 01/31/19 12/02/19 History mcg (1,000 unit) tablet lisinopril 20 mg tablet 20 mg PO QAM #30 tab 01/31/19 12/02/19 Rx metformin 500 mg tablet 500 mg PO BID #60 tab 01/31/19 12/02/19 Rx rosuvastatin 40 mg tablet 40 mg PO HS #30 tab 01/31/19 12/02/19 Rx amlodipine [Norvasc] 10 mg PO QAM 04/01/19 12/02/19 History ipratropium-albuterol 3 ml INH QID PRN 08/02/19 12/02/19 History Lantus Solostar U-100 Insulin 25 units SQ QAM 08/17/19 12/02/19 History Restasis 1 drp OPHTHALMIC (EYE) Q12H PRN 08/17/19 12/02/19 History gabapentin 300 mg PO HS 08/17/19 12/02/19 History albuterol sulfate 90 mcg/actuation 2 puffs INH Q4H PRN #3 inhaler 08/22/19 12/02/19 Rx breath activated powder inhaler pantoprazole [Protonix] 40 mg PO QAM PRN 09/11/19 12/02/19 History roflumilast 500 mcg tablet 500 mcg PO DAILY #30 tab 09/24/19 12/02/19 Rx insulin lispro [Humalog KwikPen 15 units SQ BIDM 10/06/19 12/02/19 History Insulin] ibuprofen 800 mg tablet 800 mg PO TID PRN #270 tab 11/05/19 12/02/19 Rx fluticasone fur. 100 mcg-umeclid 1 puffs INH DAILY #3 inhaler 11/12/19 12/02/19 Rx 62.5 mcg-vilant 25 mcg inhalat.powder hydrocodone 5 mg-acetaminophen 325 1 tab PO TID PRN #90 tab 11/21/19 12/02/19 Rx mg tablet cefuroxime axetil 500 mg tablet 500 mg PO BID #20 tab 11/30/19 12/02/19 Rx prednisone 20 mg tablet See Rx Instructions .ROUTE 11/30/19 12/02/19 Rx .COMPLEX #21 tab Allergies Allergy/AdvReac Type Severity Reaction Status Date / Time fentanyl Allergy Unknown RASH WITH Verified 12/02/19 05:34 PATCH Past Med/Surg History Medical History AAA (abdominal aortic aneurysm) s/p PEVAR (2018) Acute exacerbation of chronic obstructive pulmonary disease Aortic stenosis mild-moderate per 06/01/18 echo Asthma-COPD overlap syndrome stable Benign essential hypertension Diabetes IDDM Diaphragmatic hernia Diverticular disease Dry eye syndrome GERD (gastroesophageal reflux disease) controlled Hx of fracture of rib (Resolved) fx 6-7 from coughing s/p surigical intervention - titanium plates - 5 yr ago Hyperlipidemia Hypertension (Resolved) Obesity (BMI 30.0-34.9) (Chronic) Opioid dependence (Chronic) Osteoarthritis Sleep apnea no device 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, PCP/neurology monitoring Surgical History History of abdominal aortic aneurysm (AAA) repair (Resolved 06/07/18) repair x2 (+ stent)/PEVAR: 06/07/18:P MAC sedation at [facility] History of colonoscopy (Resolved) @ [facility] [place] History of lobectomy of lung (Inactive) removal lower left d/t benign tumor - 20 yr ago History of tooth extraction (Resolved) History of vasectomy (Resolved) Hx of arthroscopy of left knee X2 Hx of cervical spine surgery Hx of resection of rib (Resolved) January 16, 2014 Motor nerve conduction block Family History Uncle Amyotrophic lateral sclerosis Father Cardiac disorder Grandmother Cardiac disorder Mother Lung disease Brother Myocardial infarction Denies family history of Ovarian cancer Prostate cancer Breast cancer Colorectal cancer Social History Preferred Language: Hebrew Communication Ability: Effective Visual Impairment: No Limitations Hearing Ability: Normal Service Technician Required: No Beliefs That Will Affect Care: None marital status: marital status details: 3 children Current Living Situation: Spouse current occupational status: disabled Feels Safe at Home: Yes Smoking Status: Former smoker Tobacco Type: cigarettes ; packs per day: 0.5 ; Cigarettes Per Day: 5 ; Second Hand Exposure: No ; Hx Alcohol Use: Yes Alcohol type: wine Alcohol type Comment: Drank heavily around 01/14, now 6 pack per week 10/15, 08/18-rare, 03/19 none Hx Substance Use: No Childhood Exposure to Second-Hand Smoke: Yes Diet Comment: regular caffeine: Yes during the past year weight has: decreased > 10 lbs Dental Care, Regularly: No Physical Activity Frequency: Other Seatbelt Use: always Sunscreen Use: No Review of Systems Other (limited by dyspnea and work of breathing) Physical Exam Vital Signs Vital Signs - 24 hr 12/02/19 04:58 12/02/19 05:01 12/02/19 05:14 Temperature 37.7 C H Temperature Source Oral Pulse Rate 125 H 134 H 123 H Pulse Rate [Right Radial] 128 H Pulse Rate from SpO2 Sensor 125 H Pulse Rhythm Respiratory Rate 32 H 32 H 28 H Respiratory Effort / Characteristics Spontaneous Labored Short of Breath Tripoding Spontaneous Accessory Muscle Use Gasping/Agonal Labored Nasal Flaring Pursed Lip Retracting Short of Breath SOB on Exertion Respiratory Depth Normal Normal Respiratory Pattern Tachypnea Tachypnea Blood Pressure 188/143 H 183/157 H Blood Pressure Mean 158 160 Blood Pressure Position Sitting Pulse Oximetry 98 83 L 98 Oxygen Delivery Method BiPAP Room Air Room Air BiPAP Oxygen Flow Rate 9 0 Fraction of Inspired Oxygen 30 SaO2/FiO2 Ratio Sepsis Recent Fever Within 48 Hours No Sepsis New/Unexplained Change in Mental Status No Sepsis Action Taken by Nursing No Action Required Fraction of Inspired Oxygen - Titration 30 Pulse Oximetry Post Tiitration 99 12/02/19 05:15 12/02/19 05:16 12/02/19 05:30 Temperature Temperature Source Pulse Rate 124 H 128 H 125 H Pulse Rate [Right Radial] Pulse Rate from SpO2 Sensor 125 H 121 H Pulse Rhythm Regular Respiratory Rate 26 H 30 H 24 Respiratory Effort / Characteristics Respiratory Depth Respiratory Pattern Blood Pressure 173/89 H 196/100 H Blood Pressure Mean 131 141 Blood Pressure Position Pulse Oximetry 99 99 97 Oxygen Delivery Method BiPAP Oxygen Flow Rate Fraction of Inspired Oxygen 30 SaO2/FiO2 Ratio 330 Sepsis Recent Fever Within 48 Hours Sepsis New/Unexplained Change in Mental Status Sepsis Action Taken by Nursing Fraction of Inspired Oxygen - Titration Pulse Oximetry Post Tiitration 12/02/19 06:00 Temperature Temperature Source Pulse Rate 128 H Pulse Rate [Right Radial] Pulse Rate from SpO2 Sensor Pulse Rhythm Respiratory Rate 26 H Respiratory Effort / Characteristics Respiratory Depth Respiratory Pattern Blood Pressure 173/90 H Blood Pressure Mean 99 Blood Pressure Position Pulse Oximetry Oxygen Delivery Method Oxygen Flow Rate Fraction of Inspired Oxygen SaO2/FiO2 Ratio Sepsis Recent Fever Within 48 Hours Sepsis New/Unexplained Change in Mental Status Sepsis Action Taken by Nursing Fraction of Inspired Oxygen - Titration Pulse Oximetry Post Tiitration GENERAL: alert, ill appearing, well nourished, severe distress, tripoding EYE EXAM: normal conjunctiva, PERRL and EOM's grossly intact OROPHARYNX: no exudate, no erythema, lips, buccal mucosa, and tongue normal and mucous membranes are moist NECK: supple, no nuchal rigidity, no adenopathy, non-tender LUNGS: Bilateral wheezing throughout both lung ziegler, tripoding, tachypnea, increased work of breathing, mild intercostal retractions, room air oxygen saturation 80%. HEART: no murmurs, S1 normal and S2 normal, sinus tachycardia on the monitor at 118 ABDOMEN: abdomen soft, non-tender, normo-active bowel sounds, no masses, no rebound or guarding. BACK: Back is symmetrical on inspection and there is no deformity, no midline tenderness, no CVA tenderness. SKIN: no rashes and no bruising, no petechiae UPPER EXTREMITIES: upper extremities are grossly normal. FROM, nml pulses b/l. LOWER EXTREMITIES: No pitting edema. FROM, nml pulses b/l. NEURO EXAM: Normal sensorium, cranial nerves II-XII grossly intact, normal speech, no gross weakness of arms, no gross weakness of legs. Gross sensation intact. Patient cannot cooperate for additional neuro testing due to severity of illness. Patient continued to tripod and even at 1 point got out of bed on his own to get down to his knees and leaning up against the bed in order to lean further forward to aid in his breathing. Course Course 0510: IV started patient being given Ativan to try and help him tolerate BiPAP. I did discuss with patient if he could maintain BiPAP in place or was not helping that our only other option was intubation. 0520: Patient refusing ABG. 0550: Patient's work of breathing is slightly improved. Patient is tolerating BiPAP at this point. Repeat auscultation of the lungs still with bilateral wheezing but slightly improved. Patient states he feels improved. Updated patient on results and plan. Patient in agreement with plan for additional inpatient evaluation. 0611: Case discussed with Dr. Bhatt for additional inpatient evaluation and management. Administered Medications Hydrocodone Bitart/Acetaminophen ([place] 5/325) 1 tab PO TID PRN PRN Reason: Pain Stop: 12/16/19 08:09 Last Admin: 12/02/19 22:15 Dose: 1 tab Documented by: [id number] Admin: 12/02/19 15:24 Dose: 1 tab Documented by: [id number] Admin: 12/02/19 09:07 Dose: 1 tab Documented by: [id number] Amlodipine Besylate (Norvasc) 10 mg PO QAM [facility] Stop: 01/01/20 08:59 Last Admin: 12/02/19 08:55 Dose: 10 mg Documented by: [id number] Fluticasone/Vilanterol (Breo Ellipta 100/25 Mcg Inh) 1 puffs INH DAILY ALESHA Stop: 01/01/20 08:59 Last Admin: 12/02/19 08:56 Dose: 1 puffs Documented by: [id number] Gabapentin (Neurontin) 300 mg PO HS ALESHA Stop: 01/01/20 20:59 Last Admin: 12/02/19 21:19 Dose: 300 mg Documented by: [id number] Methylprednisolone 40 mg/ (Syringe) 0.64 mls @ 1.5 mls/min IV Q12H ALESHA Stop: 01/01/20 20:59 Last Admin: 12/02/19 21:19 Dose: 1.5 mls/min Documented by: [id number] Ibuprofen (Motrin) 800 mg PO TID PRN PRN Reason: Pain Stop: 01/01/20 07:52 Last Admin: 12/02/19 18:38 Dose: 800 mg Documented by: [id number] Insulin Aspart (Novolog Flexpen) 0 units SC ACHS ALESHA Stop: 01/01/20 08:14 Last Admin: 12/02/19 21:12 Dose: Not Given Documented by: [id number] Cosigned by: [id number] Admin: 12/02/19 18:38 Dose: 3 units Documented by: [id number] Cosigned by: [id number] Admin: 12/02/19 13:00 Dose: 2 units Documented by: [id number] Cosigned by: [id number] Admin: 12/02/19 08:58 Dose: 3 units Documented by: [id number] Cosigned by: [id number] Insulin Glargine (Lantus Solostar Pen) 13 units SC BID ALESHA Stop: 01/01/20 08:59 Last Admin: 12/02/19 21:19 Dose: 13 units Documented by: [id number] Cosigned by: [id number] Admin: 12/02/19 08:59 Dose: 13 units Documented by: [id number] Cosigned by: [id number] Lisinopril (Zestril) 20 mg PO QAM ALESHA Stop: 01/01/20 08:59 Last Admin: 12/02/19 08:56 Dose: 20 mg Documented by: [id number] Pantoprazole Sodium (Protonix) 40 mg PO QAM PRN PRN Reason: Acid Reflux Stop: 01/01/20 07:52 Last Admin: 12/02/19 08:55 Dose: 40 mg Documented by: [id number] Roflumilast (Daliresp) 500 mcg PO DAILY ALESHA Stop: 01/01/20 08:59 Last Admin: 12/02/19 08:55 Dose: 500 mcg Documented by: [id number] Rosuvastatin Calcium (Crestor) 40 mg PO HS ALESHA Stop: 01/01/20 20:59 Last Admin: 12/02/19 21:18 Dose: 40 mg Documented by: [id number] Discontinued Medications Acetaminophen (Tylenol) 650 mg PO NOW STA Stop: 12/02/19 07:05 Last Admin: 12/02/19 07:10 Dose: 650 mg Documented by: [id number] Albuterol (Duoneb) 12 ml NEB ONE ONE Stop: 12/02/19 04:58 Last Admin: 12/02/19 04:58 Dose: 12 ml Documented by: [id number] Azithromycin (Zithromax) 500 mg PO NOW ONE Stop: 12/02/19 08:16 Last Admin: 12/02/19 08:56 Dose: 500 mg Documented by: [id number] Lorazepam (Ativan) 1 mg in 2 mls @ 2 mls/min IV NOW STA Stop: 12/02/19 04:58 Last Admin: 12/02/19 05:15 Dose: 2 mls/min Documented by: [id number] Sodium Chloride (Nss 1000ml) 500 mls @ 999 mls/hr IV .Q31M ONE Stop: 12/02/19 08:45 Last Infusion: 12/02/19 10:19 Dose: 0 mls/hr Documented by: [id number] Admin: 12/02/19 08:55 Dose: 999 mls/hr Documented by: [id number] Methylprednisolone (Solumedrol) 125 mg IV NOW STA Stop: 12/02/19 04:58 Last Admin: 12/02/19 05:15 Dose: 125 mg Documented by: [id number] Oxycodone HCl (Roxicodone Immediate Rel) 5 mg PO NOW STA Stop: 12/02/19 18:37 Last Admin: 12/02/19 18:46 Dose: 5 mg Documented by: [id number] Critical Care Time Critical Care Time: Yes Total Critical Care Time: 44 Critical care of 44 min performed to assess and manage high likelihood of life- threatening respiratory distress/failure, involving labs, imaging, BiPAP, nebulizer treatments performed with assessment to evaluation dyspnea and hypoxia diagnosis with frequent reassessment. This time includes bedside time, treatment discussions with patient/family/consultants, documentation time and excludes procedure time. Medical Decision Making Differential Diagnosis Differential diagnoses includes but is not limited to pneumonia, bronchitis, COPD/Asthma exacerbation, pneumothorax, pulmonary embolism, congestive heart failure, acute coronary syndrome Medical Records Attestation: I reviewed the patient's medical records. Home Medications Current Medication List: was personally reviewed by me Laboratory Data Attestation: I reviewed the patient's lab results. Result diagrams: 12/02/19 05:00 12/02/19 12:54 Lab Results 12/02/19 12/02/19 12/02/19 Range/Units 05:00 05:00 05:00 WBC 8.04 (4.8-10.8) K/uL RBC 5.54 (4.7-6.1) M/uL Hgb 13.9 L (14.0-18.0) g/dL Hct 45.0 (42-52) % MCV 81.2 (80-100) fL MCH 25.1 (25-34) pg MCHC 30.9 L (32-36) g/dL RDW Std Deviation 45.4 (36.4-46.3) fL RDW Coeff of Ledy 15.4 H (11.5-14.5) % Plt Count 228 (130-400) K/uL MPV 9.9 (7.4-10.4) fL Immature Gran % (Auto) 0.4 % Neut % (Auto) 68.0 % Lymph % (Auto) 19.9 % [place] % (Auto) 11.1 % Eos % (Auto) 0.4 % Baso % (Auto) 0.2 % Immature Gran # (Auto) 0.03 H (0.00-0.02) K/uL Neut # (Auto) 5.47 (1.4-6.5) K/uL Lymph # (Auto) 1.60 (1.2-3.4) K/uL [place] # (Auto) 0.89 H (0.11-0.59) K/uL Eos # (Auto) 0.03 (0-0.5) K/uL Baso # (Auto) 0.02 (0-0.2) K/uL Sodium 139 (136-145) mmol/L Potassium 4.5 (3.5-5.1) mmol/L Chloride 108 H (98-107) mmol/L Carbon Dioxide 30 (21-32) mmol/L Anion Gap 1.0 L (3-11) BUN 19 H (7-18) mg/dl Creatinine 1.15 (0.6-1.4) mg/dl Est Cr Clr Drug Dosing 78.1 ml/min Est GFR ( Amer) 82.6 Est GFR (Non-Af Amer) 71.2 BUN/Creatinine Ratio 16.6 (10-20) Glucose 137 H (70-99) mg/dl Calcium 8.9 (8.5-10.1) mg/dl Total Bilirubin 0.2 (0.2-1) mg/dl AST 48 H (15-37) U/L ALT 31 (12-78) U/L Alkaline Phosphatase 122 H (45-117) U/L Troponin I 0.059 H* (0-0.045) ng/ml NT-Pro-B Natriuret Pep 478 (0-900) pg/ml Total Protein 8.5 H (6.4-8.2) gm/dl Albumin 3.8 (3.4-5.0) gm/dl Globulin 4.7 H (2.5-4.0) gm/dl Albumin/Globulin Ratio 0.8 L (0.9-2) Procalcitonin 0.12 (0-0.5) ng/ml Imaging Data Attestation: I personally reviewed and interpreted this imaging study as follows: My Impression: X-ray: I interpreted the following studies. Chest: A single view study of the chest was reviewed and was negative for cardiomegaly, focal infiltrate, effusion, pulmonary edema, or wide mediastinum. Hardware noted from prior rib surgery. ECG Data Attestation: I personally reviewed and interpreted this ECG as follows: Indication: + SOB/dyspnea Rate (beats per minute): 130 Rhythm: + sinus tachycardia ECG Intervals/blocks: + Right Bundle branch block and + Normal QT ECG [place]: + Normal ECG ST segments: + Nonspecific ST abnormalities Comparison ECG Date: from (10/05/2019) Change: no significant change Blood Pressure Blood Pressure Findings: Elevated blood pressure Blood Pressure Disposition: further management by hospitalist KARY Narrative An order was placed for continuous cardiac monitoring. The monitor shows a rate of 128 with sinus tachycardia rhythm. Patient presented in acute distress with significant difficulty breathing. Patient was hypoxic to 80% on room air, was barely tolerating a facemask applied by EMS and EMS stated he could not tolerate CPAP in route. Patient was given a DuoNeb prior to arrival with no improvement. Patient tripoding, tachypneic, mild retractions noted. Patient does have a significant COPD history. Patient initially refused BiPAP here, however after brief bedside conversation regarding BiPAP versus intubation, was willing to try if I could give him something to help with his claustrophobia. Patient given 1 mg Ativan and was able to tolerate BiPAP better. I remained at patient's bedside the first 15 minutes he was here carefully monitoring due to potential need for emergent intubation. Patient given a continuous nebulizer treatment, and 125 of Solu-Medrol. Patient was slowly beginning to show improvement. Patient did refuse ABG. Patient's labs otherwise fairly reassuring. Patient denied any recent illness, no known contact with any COVID positive individuals. Patient only recently quit smoking. No evidence of pneumonia or CHF on chest x-ray. Patient slowly improved on the emergency room although still on BiPAP. Patient's tachypnea was improved, and work of breathing improved. Case discussed with hospitalist for additional inpatient management. Do feel patient is still critically ill in this time and I did explain this to him. Discussed potential initiation of antibiotics with hospitalist team, they will evaluate the patient first, I deferred final decision on this to them. I do not suspect PE. No recent leg sw elling or calf tenderness. No prior history of DVT/PE. Despite elevated troponin, I do not suspect ACS. Given patient's cardiovascular risk factors, I feel this is likely secondary to demand. No acute EKG changes compared to prior. Impression & Plan Acute dyspnea, COPD (chronic obstructive pulmonary disease), Hypoxia, Elevated troponin, Hypertension, Hyperglycemia Discharge Plan Visit Data *Final* Discharge Date/Time: 12/02/19 07:31 Chief Complaint: Respiratory Distress Stated Complaint: Respiratory Distress ED Provider: Kelly Duncan Discharge Problem: Acute dyspnea, COPD (chronic obstructive pulmonary disease), Hypoxia, Elevated troponin, Hypertension, Hyperglycemia Patient Disposition: Admitted As Inpatient Discharge Instructions Interventions: ED Discharge Assessment Last Done: 12/02/19 07:31 Discharge Problem: COPD (chronic obstructive pulmonary disease) Qualifiers: COPD type: COPD with acute exacerbation Qualified Code(s): J44.1 - Chronic obstructive pulmonary disease with (acute) exacerbation Hypertension Qualifiers: Hypertension type: essential hypertension Qualified Code(s): I10 - Essential (primary) hypertension
[2019-12-02 05:28] LABS: Albumin Level 3.8 gm/dl (3.4-5.0); BUN Creatinine Ratio 16.6 (10-20); Calcium 8.9 mg/dl (8.5-10.1); Creatinine Clr Calc Pharmacy 78.1 ml/min; Est GFR (African American) 82.6; Est GFR (Non-African American) 71.2; Potassium 4.5 mmol/L (3.5-5.1)
[2019-12-02 05:37] LABS: Albumin Globulin Ratio 0.8 (0.9-2); Bilirubin,Total 0.2 mg/dl (0.2-1); Globulin 4.7 gm/dl (2.5-4.0); Total Protein 8.5 gm/dl (6.4-8.2); Troponin I 0.059 ng/ml (0-0.045)
--- NOTE | 2019-12-02 06:05 | XRay Report ---
XR chest 1V portable CLINICAL HISTORY: Resiratory Distress dyspnea COMPARISON STUDY: 10/06/2019 FINDINGS: Mild stable emphysematous change. Stable postoperative changes to several left sided ribs. Slight interstitial prominence left lung base. Lungs otherwise appear clear. IMPRESSION: 1. Slight interstitial prominence left base. 2. Chronic and postoperative change. ACT 112: Negative or not required by law. The above report was generated using voice recognition software. It may contain grammatical, syntax or spelling errors. Electronically signed by: August Stehpens M.D. 12/02/2019 6:03 AM
[2019-12-02] MEDS ORDERED: ACETAMINOPHEN 325 MG TAB PO STA (07:04)
--- NOTE | 2019-12-02 07:08 | History & Physical Report ---
Date of Service December 02, 2019 Assessment & Plan (1) COPD (chronic obstructive pulmonary disease): is a 54-year-old male with a past medical history of COPD, hypertension, Horvath, TIESHA, GERD, type 2 diabetes mellitus, AAA status post PERC repair with most recent follow-up stable at 3.8 cm, and no history of OR who presents with 2 days of increased cough and shortness of breath Acute COPD exacerbation Chest x-ray with mild left basilar prominence, left postsurgical changes, diffuse emphysema Convert outpatient inhaler to Breo DuoNebs as needed Flutter valve 4 times daily. Methylprednisolone 40 mg twice daily Azithromycin 5-day course CPAP as needed Given patient's underlying postsurgical anatomy and slight left basilar prominence with concern for worsening illness with increasing fever curve pro- Adndy ordered Troponin leak Mild elevation of troponin, suspect demand with COPD exacerbation EKG similar to prior on admission Trend troponin every 8 hours x2 Follow clinically for symptoms, no cardiac symptoms at time of admission Hypertension/HLD Continue amlodipine, Continue lisinopril Continue atorvastatin Type 2 diabetes mellitus Glucose checks AC/at bedtime Lantus 13 units twice daily Insulin aspart SSI Hold MILLED RICE BROKER metformin BMP daily Diabetic diet GERD Continue Protonix 40 mg daily IVF M: Encourage p.o. intake. NSS bolus given on transfer Diet: Type II diabetic diet DVT prophylaxis: SCDs CODE STATUS: Full code Disposition: Observation, medical with telemetry (2) Acute dyspnea: (3) Elevated troponin: (4) Steatohepatitis, non-alcoholic: (5) TIESHA and COPD overlap syndrome: (6) Asthma-COPD overlap syndrome: (7) GERD (gastroesophageal reflux disease): (8) Aortic stenosis: (9) Type 2 diabetes mellitus: (10) Benign essential hypertension: History of Present Illness Chief Complaint: Cough, shortness of breath Primary Care Provider: Oriana Burrell DO is a 54-year-old male with a past medical history of COPD, hypertension, Horvath, TIESHA, GERD, type 2 diabetes mellitus, AAA status post PERC repair with most recent follow-up stable at 3.8 cm, and no history of OR who presents with 2 days of increased cough and shortness of breath. reports that Tuesday, 2 days before admission, he developed chest tightness, mild shortness of breath, and a nonproductive cough. He denies, fever, chills, sweats, chest pain, chest pressure, palpitations, syncope, presyncope, abdominal pain, nausea/vomiting/diarrhea/constipation, rash, leg swelling. He has not had any sick contacts, has not had any recent travel. He lives at home with his who is in good health and has had no recent illness. He is experiencing lower symptoms with COPD exacerbations in the past and is followed by Dr. Matta. He was seen by his outpatient provider on Tuesday who prescribed him a 5-day prednisone burst and cefuroxime. He does not feel improved on these medications. He has been taking his prior to admission inhalers which include fluticasoneVilanterol/Umeclidinium as prescribed. Medical history: Reviewed Surgical history: Reviewed Allergies: Reviewed, fentanyl. No medication allergies Family history: Reviewed in EMR Social: Former smoker. Secondhand smoke exposure from his who is a current smoker. Rare alcohol use. No recreational drug use. CODE STATUS: Full code Allergies Allergy/AdvReac Type Severity Reaction Status Date / Time fentanyl Allergy Unknown RASH WITH Verified 12/02/19 05:34 PATCH Home Medications Home Medications Medication Instructions Recorded Confirmed Type cholecalciferol (vitamin D3) 25 1,000 unit PO QAM tab 01/31/19 12/02/19 History mcg (1,000 unit) tablet lisinopril 20 mg tablet 20 mg PO QAM #30 tab 01/31/19 12/02/19 Rx metformin 500 mg tablet 500 mg PO BID #60 tab 01/31/19 12/02/19 Rx rosuvastatin 40 mg tablet 40 mg PO HS #30 tab 01/31/19 12/02/19 Rx amlodipine [Norvasc] 10 mg PO QAM 04/01/19 12/02/19 History ipratropium-albuterol 3 ml INH QID PRN 08/02/19 12/02/19 History Lantus Solostar U-100 Insulin 25 units SQ QAM 08/17/19 12/02/19 History Restasis 1 drp OPHTHALMIC (EYE) Q12H PRN 08/17/19 12/02/19 History gabapentin 300 mg PO HS 08/17/19 12/02/19 History albuterol sulfate 90 mcg/actuation 2 puffs INH Q4H PRN #3 inhaler 08/22/19 12/02/19 Rx breath activated powder inhaler pantoprazole [Protonix] 40 mg PO QAM PRN 09/11/19 12/02/19 History roflumilast 500 mcg tablet 500 mcg PO DAILY #30 tab 09/24/19 12/02/19 Rx insulin lispro [Humalog KwikPen 15 units SQ BIDM 10/06/19 12/02/19 History Insulin] ibuprofen 800 mg tablet 800 mg PO TID PRN #270 tab 11/05/19 12/02/19 Rx fluticasone fur. 100 mcg-umeclid 1 puffs INH DAILY #3 inhaler 11/12/19 12/02/19 Rx 62.5 mcg-vilant 25 mcg inhalat.powder hydrocodone 5 mg-acetaminophen 325 1 tab PO TID PRN #90 tab 11/21/19 12/02/19 Rx mg tablet cefuroxime axetil 500 mg tablet 500 mg PO BID #20 tab 11/30/19 12/02/19 Rx prednisone 20 mg tablet See Rx Instructions .ROUTE 11/30/19 12/02/19 Rx .COMPLEX #21 tab Past Med/Surg History Medical History AAA (abdominal aortic aneurysm) s/p PEVAR (2018) Acute exacerbation of chronic obstructive pulmonary disease Aortic stenosis mild-moderate per 06/01/18 echo Asthma-COPD overlap syndrome stable Benign essential hypertension Diabetes IDDM Diaphragmatic hernia Diverticular disease Dry eye syndrome GERD (gastroesophageal reflux disease) controlled Hx of fracture of rib (Resolved) fx 6-7 from coughing s/p surigical intervention - titanium plates - 5 yr ago Hyperlipidemia Hypertension (Resolved) Obesity (BMI 30.0-34.9) (Chronic) Opioid dependence (Chronic) Osteoarthritis Sleep apnea no device 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, PCP/neurology monitoring Surgical History History of abdominal aortic aneurysm (AAA) repair (Resolved 06/07/18) repair x2 (+ stent)/PEVAR: 06/07/18:P MAC sedation at [facility] History of colonoscopy (Resolved) @ [facility] [place] History of lobectomy of lung (Inactive) removal lower left d/t benign tumor - 20 yr ago History of tooth extraction (Resolved) History of vasectomy (Resolved) Hx of arthroscopy of left knee X2 Hx of cervical spine surgery Hx of resection of rib (Resolved) January 16, 2014 Motor nerve conduction block Family History Uncle Amyotrophic lateral sclerosis Father Cardiac disorder Grandmother Cardiac disorder Mother Lung disease Brother Myocardial infarction Denies family history of Ovarian cancer Prostate cancer Breast cancer Colorectal cancer Social History Preferred Language: Telugu Communication Ability: Effective Visual Impairment: No Limitations Hearing Ability: Normal Seamless Tube Mill Operator Required: No Beliefs That Will Affect Care: None marital status: marital status details: 3 children Current Living Situation: Spouse current occupational status: disabled Feels Safe at Home: Yes Smoking Status: Former smoker Tobacco Type: cigarettes ; packs per day: 0.5 ; Cigarettes Per Day: 5 ; Second Hand Exposure: No ; Hx Alcohol Use: Yes Alcohol type: wine Alcohol type Comment: Drank heavily around 01/14, now 6 pack per week 10/15, 08/18-, 03/19 none Hx Substance Use: No Childhood Exposure to Second-Hand Smoke: Yes Diet Comment: regular caffeine: Yes during the past year weight has: decreased > 10 lbs Dental Care, Regularly: No Physical Activity Frequency: Other Seatbelt Use: always Sunscreen Use: No Review of Systems Review of Systems: Constitutional: Denies fever, chills, malaise, weight change Eyes: Denies vision change ENT: Denies ear pain, sore throat, sinus pain Cardiovascular: Denies Chest pain, chest pressure, palpitations, extremity swelling Respiratory: See HPI Gastrointestinal: Denies abdominal pain, nausea, vomiting, constipation, diarrhea Genitourinary: Denies pain with urination, urinary urgency, urinary frequency Musculoskeletal: Denies weakness, muscle aches/pain, joint aches/pain Integumentary:Denies rash, lesions, bruising Neurological: Denies endorses mild intermittent headache. Denies numbness, tingling, focal weakness Physical Exam Physical Exam: General: A&Ox3. NAD. Cooperative. Sitting up in bed wearing CPAP, appears comfortable and nontoxic. HEENT: Atraumatic, normocephalic. No JVD. Mucous membranes tacky/dry. Pulm: Air movement globally diminished, trace diffuse and expiratory wheezes. Cardiac: RRR, -mrg. Radial pulses intact and symmetrical. Abdominal: Nontender, nondistended, soft. BS present. Extremities: Intact, atraumatic. Moving all extremities equally. Sensation is soft touch intact in fingertips and toes. Results & Data Results & Data ([facility]) Vital Signs (Past 12 Hours) Vital Signs Temp Pulse Pulse Resp BP Pulse Ox 12/02/19 06:00 128 H 26 H 173/90 H 12/02/19 05:30 125 H 24 196/100 H 97 12/02/19 05:16 128 H 30 H 99 12/02/19 05:15 124 H 26 H 173/89 H 99 12/02/19 05:14 123 H 28 H 183/157 H 98 12/02/19 05:01 37.7 C H 134 H 32 H 188/143 H 83 L 12/02/19 04:58 125 H 128 H 32 H 98 Code Status & VTE Plan VTE Prophylaxis Plan VTE Prophylaxis will be ordered: Yes Supervising Physician Co-Signing Physician Notes Patient seen and examined, chart reviewed, case discussed with Dr. Palmer and I agree with his assessment and plan as documented above. Briefly, patient is a 54yo C male presenting with SOB, cough/wheeze. On arrival he was tachycardic, tachypneic with respiratory distress. He was placed on BiPAP on arrival with improvement in symptoms On exam he is afebrile, tachycardic, no respiratory distress at present. BiPAP in place Skin - no rash HEENT - NC/AT, MMM, neck supple Heart- +S1/S2, regular, tachycardic Lungs - diminished breath sounds, scattered end expiratory wheezing Abd - +BS, soft, NT/ND Ext - no edema Labs and images reviewed Assessment/Plan: -Observation to medical floor -Nebs, steroids -Trend troponin -Remainder of plan as above Resident Activity Tracking Resident Involvement: Resident Care Provided Care Provided: Adult Hospital Medicine (1) Type 2 diabetes mellitus Diabetes mellitus complication status: without complication Diabetes mellitus long term care pharmacist insulin use: with detention use Qualified Code(s): E11.9 - Type 2 diabetes mellitus without complications; Z79.4 - longterm (current) use of insulin (2) Aortic stenosis Cardiac valve disease etiology: etiology unspecified Qualified Code(s): I35.0 - Nonrheumatic aortic (valve) stenosis (3) COPD (chronic obstructive pulmonary disease) COPD type: COPD with acute exacerbation Qualified Code(s): J44.1 - Chronic obstructive pulmonary disease with (acute) exacerbation (4) GERD (gastroesophageal reflux disease) Esophagitis presence: esophagitis presence not specified Qualified Code(s): K21.9 - Gastro-esophageal reflux disease without esophagitis
--- NOTE | 2019-12-02 07:24 | Billing Data ---
Date of Service December 02, 2019 Coding Level of Care Code 49941 OBS Care - Level 3
[2019-12-02] MEDS ORDERED: PANTOprazole 40 MG TAB PO PRN (07:53)
[2019-12-02] MEDS ORDERED: CARBOHYDRATES FOR HYPOGLYCEMIA PO PRN (07:53)
[2019-12-02] MEDS ORDERED: GLUCOSE 10 TABS/TUBE PO PRN (07:53)
[2019-12-02] MEDS ORDERED: GLUCAGON FOR INJ 1 MG VIAL SQ PRN (07:53)
[2019-12-02] MEDS ORDERED: ALBUT/IPRATROP 3MG/0.5MG NEB 3 ML VIAL NEB PRN (07:53)
[2019-12-02] MEDS ORDERED: DEXTROSE 50% 50 ML SYRINGE IV PRN (07:53)
[2019-12-02] MEDS ORDERED: GLUCOSE 40% GEL 15 GM TUBE PO PRN (07:53)
[2019-12-02] MEDS ORDERED: SODIUM CHLORIDE 0.9% 1000ML 500 ML IV ONE (08:15)
[2019-12-02] MEDS ORDERED: AZITHROMYCIN 250 MG TAB PO ONE (08:15)
[2019-12-02] MEDS: ROFLUMILAST 500 MCG TAB PO SCH (08:55)
[2019-12-02] MEDS: AMLODIPINE BESYLATE 5 MG TAB PO SCH (08:55)
[2019-12-02] MEDS: lisinopriL 20 MG TAB PO SCH (08:56)
[2019-12-02] MEDS: FLUTICASONE/VILANTEROL 100/25MCG 14 PUFFS/INHALER INH SCH (08:56)
[2019-12-02] MEDS: INSULIN ASPART 100 UNITS/ML 3 ML PEN SC SCH ×4 (08:58→21:12)
[2019-12-02] MEDS: INSULIN GLARGINE SOLOSTAR 100 UNITS/ML 3 ML PEN SC SCH ×2 (08:59→21:19)
[2019-12-02] MEDS: HYDROCODONE/ACETAMOPHEN 5/325MG TAB PO PRN ×3 (09:07→22:15)
--- NOTE | 2019-12-02 10:52 | Electrocardiogram Report ---
Test Reason : Blood Pressure : / mmHG Vent. Rate : 130 BPM Atrial Rate : 130 BPM P-R Int : 138 ms QRS Dur : 124 ms QT Int : 304 ms P-R-T Axes : 078 080 046 degrees QTc Int : 447 ms Poor data quality, interpretation may be adversely affected Sinus tachycardia Right bundle branch block Abnormal ECG When compared with ECG of 05-OCT-2019 22:51, No significant change Confirmed by Joe Yancey ([id number]) on 12/02/2019 10:51:51 AM Referred By: Confirmed By:Joe Yancey
[2019-12-02] MEDS ORDERED: ACETAMINOPHEN 325 MG TAB PO PRN (12:05)
[2019-12-02 13:04] LABS: Base Excess VBG 1.8 mEq/L; Oxygen Saturation VBG 90.6 %; pH VBG 7.3 (7.36-7.41)
[2019-12-02 13:21] LABS: BUN Creatinine Ratio 19.8 (10-20); Calcium 8.7 mg/dl (8.5-10.1); Creatinine Clr Calc Pharmacy 85.5 ml/min; Est GFR (African American) 92.2; Est GFR (Non-African American) 79.5; Potassium 4.3 mmol/L (3.5-5.1)
[2019-12-02] MEDS ORDERED: OXYCODONE HCL IR 5 MG TAB (IMMEDIATE RELEASE) PO STA (18:36)
[2019-12-02] MEDS: IBUPROFEN 800 MG TAB PO PRN (18:38)
[2019-12-02] MEDS: ROSUVASTATIN CALCIUM 20 MG TAB PO SCH (21:18)
[2019-12-02] MEDS: GABAPENTIN 300 MG CAP PO SCH (21:19)
[2019-12-02] MEDS: methylPREDNISolone 40 MG in SYRINGE 0 ML IV SCH (21:19)
[2019-12-03] MEDS: IBUPROFEN 800 MG TAB PO PRN (04:27)
[2019-12-03 06:27] LABS: Albumin Globulin Ratio 0.8 (0.9-2); Albumin Level 3.3 gm/dl (3.4-5.0); BUN Creatinine Ratio 25.4 (10-20); Bilirubin,Total 0.3 mg/dl (0.2-1); Calcium 8.7 mg/dl (8.5-10.1); Creatinine Clr Calc Pharmacy 95.3 ml/min; Est GFR (African American) 105.4; Est GFR (Non-African American) 90.9; Globulin 4.2 gm/dl (2.5-4.0); Potassium 4.6 mmol/L (3.5-5.1); Total Protein 7.5 gm/dl (6.4-8.2)
[2019-12-03] MEDS: FLUTICASONE/VILANTEROL 100/25MCG 14 PUFFS/INHALER INH SCH (08:00)
[2019-12-03] MEDS: AMLODIPINE BESYLATE 5 MG TAB PO SCH (08:01)
[2019-12-03] MEDS: AZITHROMYCIN 250 MG TAB PO SCH (08:01)
[2019-12-03] MEDS: lisinopriL 20 MG TAB PO SCH (08:01)
[2019-12-03] MEDS: methylPREDNISolone 40 MG in SYRINGE 0 ML IV SCH (08:01)
[2019-12-03] MEDS: INSULIN GLARGINE SOLOSTAR 100 UNITS/ML 3 ML PEN SC SCH ×2 (08:02→20:42)
[2019-12-03] MEDS: ROFLUMILAST 500 MCG TAB PO SCH (08:02)
[2019-12-03] MEDS: HYDROCODONE/ACETAMOPHEN 5/325MG TAB PO PRN (08:10)
[2019-12-03] MEDS: INSULIN ASPART 100 UNITS/ML 3 ML PEN SC SCH ×4 (08:16→20:42)
[2019-12-03 09:46] LABS: Base Excess VBG 1.1 mEq/L; Oxygen Saturation VBG 88.7 %; pH VBG 7.35 (7.36-7.41)
[2019-12-03] MEDS: OXYCODONE HCL IR 5 MG TAB (IMMEDIATE RELEASE) PO PRN ×3 (12:14→23:42)
[2019-12-03 13:02] LABS: Basophils # (auto) 0.01 K/uL (0-0.2); Basophils % (auto) 0.1 %; Hematocrit (blood only) 42.4 % (42-52); Hemoglobin 13.3 g/dL (14.0-18.0); Immature Granulocytes # (auto) 0.03 K/uL (0.00-0.02); Immature Granulocytes % (auto) 0.3 %; Lymphocytes # (auto) 0.98 K/uL (1.2-3.4); Lymphocytes % (auto) 8.8 %; Mean Corpuscular Hemoglobin 25.3 pg (25-34); Mean Corpuscular Hgb Conc 31.4 g/dL (32-36); Mean Corpuscular Volume 80.8 fL (80-100); Mean Platelet Volume 9.9 fL (7.4-10.4); Monocytes # (auto) 0.55 K/uL (0.11-0.59); Neutrophils # (auto) 9.51 K/uL (1.4-6.5); Neutrophils % (auto) 85.8 %; Platelet Count 232 K/uL (130-400); RDW Coefficient of Variation 15.4 % (11.5-14.5); Red Blood Count 5.25 M/uL (4.7-6.1); White Blood Count 11.08 K/uL (4.8-10.8)
[2019-12-03] MEDS: LEVALBUTEROL HCL 1.25 MG/3 ML NEB NEB SCH ×2 (13:11→19:06)
[2019-12-03] MEDS: GABAPENTIN 300 MG CAP PO SCH (20:40)
[2019-12-03] MEDS: ROSUVASTATIN CALCIUM 20 MG TAB PO SCH (20:40)
[2019-12-03 21:02] LABS: Basophils # (auto) 0.03 K/uL (0-0.2); Basophils % (auto) 0.3 %; Eosinophils # (auto) 0.01 K/uL (0-0.5); Eosinophils % (auto) 0.1 %; Hematocrit (blood only) 41.8 % (42-52); Hemoglobin 13.1 g/dL (14.0-18.0); Immature Granulocytes # (auto) 0.07 K/uL (0.00-0.02); Immature Granulocytes % (auto) 0.6 %; Lymphocytes # (auto) 1.43 K/uL (1.2-3.4); Lymphocytes % (auto) 12.1 %; Mean Corpuscular Hemoglobin 24.8 pg (25-34); Mean Corpuscular Hgb Conc 31.3 g/dL (32-36); Mean Corpuscular Volume 79.2 fL (80-100); Mean Platelet Volume 10.2 fL (7.4-10.4); Monocytes # (auto) 1.36 K/uL (0.11-0.59); Monocytes % (auto) 11.5 %; Neutrophils # (auto) 8.96 K/uL (1.4-6.5); Neutrophils % (auto) 75.4 %; Platelet Count 240 K/uL (130-400); RDW Coefficient of Variation 15.1 % (11.5-14.5); RDW Standard Deviation 43.9 fL (36.4-46.3); Red Blood Count 5.28 M/uL (4.7-6.1); White Blood Count 11.86 K/uL (4.8-10.8)
--- NOTE | 2019-12-03 22:49 | Hospitalist Progress Note ---
Date of Service December 03, 2019 Assessment & Plan (1) COPD (chronic obstructive pulmonary disease): is a 54-year-old male with a past medical history of COPD, hypertension, Horvath, TIESHA, GERD, type 2 diabetes mellitus, AAA status post PERC repair with most recent follow-up stable at 3.8 cm, and no history of CA who presents with 2 days of increased cough and shortness of breath Acute COPD exacerbation Chest x-ray with mild left basilar prominence, left postsurgical changes, diffuse emphysema Convert outpatient inhaler to Breo DuoNebs as needed Flutter valve 4 times daily. Methylprednisolone 40 mg twice daily, ruba transition to daily. Azithromycin 5-day course, will not order additional antibiotics, as patient is improving. Now off bipap, on nasal cannula. will continue to taper oxygen as O2 sat goal 88-92%. Patient appears signifcantly improved, doubt COVID, will not test for this. Curious though for other viral infection, will obtain biofire: as of 4pm biofire had not been collected. -If patient is off oxygen tomorrow, will have him ambulate with pulse ox, either with provider or nurse, if desats, will then order 2 step. Update: BIOFIRE POSITIVE FOR RSV. Troponin leak Mild elevation of troponin, suspect demand with COPD exacerbation EKG similar to prior on admission Trend troponin every 8 hours x2 Follow clinically for symptoms, no cardiac symptoms at time of admission Hypertension/HLD Continue amlodipine, Continue lisinopril Continue atorvastatin Type 2 diabetes mellitus Glucose checks AC/at bedtime Lantus 13 units twice daily Insulin aspart SSI Hold ACOUSTICAL INSTALLER metformin BMP daily Diabetic diet GERD Continue Protonix 40 mg daily Diet: Type II diabetic diet DVT prophylaxis: SCDs CODE STATUS: Full code (2) Acute dyspnea: (3) Elevated troponin: (4) Steatohepatitis, non-alcoholic: (5) TIESHA and COPD overlap syndrome: (6) Asthma-COPD overlap syndrome: (7) GERD (gastroesophageal reflux disease): (8) Aortic stenosis: (9) Type 2 diabetes mellitus: (10) Benign essential hypertension: Admission and Anticipated Discharge Date Admission Date: December 03, 2019 Subjective Patient reports feeling significantly better. However he is not at his baseline. He continues to require oxygen here as it makes him feel better, but he does not take it at home. He requests a 2 step as he wants to see if he can qualify for oxygen. Review of Systems Review of Systems: All systems reviewed & are unremarkable except as noted in HPI & below Physical Exam Constitutional: WD/WN, vitals as above well developed and well nourished ENMT: external ear and nose normal, oropharynx normal Neck: trachea midline, no thyromegaly Respiratory: normal respiratory effort, lungs clear to auscultation dec reased air movement Cardiovascular: RRR, no murmur, no edema Gastrointestinal (Abdomen): normal bowel sounds, soft, nontender, no hepatosplenomegaly Musculoskeletal: no cyanosis or clubbing, extremities motor strength 5/5 Neurologic: PERRL, EOMI, accommodation nl, no face palsy, no dysarthria Psychiatric: A+Ox3, euthymic affect Results & Data Results & Data ([facility]) Vital Signs (Past 12 Hours) Vital Signs Temp Pulse Pulse Resp BP Pulse Ox 12/03/19 19:06 94 H 16 89 L 12/03/19 18:01 83 12/03/19 15:05 37.0 C 87 18 160/76 H 91 12/03/19 13:11 77 19 94 12/03/19 12:37 36.8 C 97 H 17 161/93 H 92 PG Care Time/CCT Total # of Minutes Spent Total Time Spent with Patient: Total time spent is greater than 50% in coordination of care (as documented) at patient's floor/unit and/or counseling patient: Coding Level of Care Code 84757 Subseq Hosp Care Lvl 3 Diagnoses COPD (chronic obstructive pulmonary disease) J44.1 COPD type: COPD with acute exacerbation Acute dyspnea R06.00 Elevated troponin R79.89 Steatohepatitis, non-alcoholic K75.81 TIESHA and COPD overlap syndrome G47.33; J44.9 Asthma-COPD overlap syndrome J44.9 GERD (gastroesophageal reflux disease) K21.9 Esophagitis presence: esophagitis presence not specified Aortic stenosis I35.0 Cardiac valve disease etiology: etiology unspecified Type 2 diabetes mellitus E11.9; Z79.4 Diabetes mellitus complication status: without complication Diabetes mellitus alf insulin use: with intermodal owner operator truck driver use Benign essential hypertension I10 Time Spent (min) 35 (1) Type 2 diabetes mellitus Diabetes mellitus complication status: without complication Diabetes mellitus alf insulin use: with alf use Qualified Code(s): E11.9 - Type 2 diabetes mellitus without complications; Z79.4 - termite control representative (current) use of insulin (2) Aortic stenosis Cardiac valve disease etiology: etiology unspecified Qualified Code(s): I35.0 - Nonrheumatic aortic (valve) stenosis (3) COPD (chronic obstructive pulmonary disease) COPD type: COPD with acute exacerbation Qualified Code(s): J44.1 - Chronic obstructive pulmonary disease with (acute) exacerbation (4) GERD (gastroesophageal reflux disease) Esophagitis presence: esophagitis presence not specified Qualified Code(s): K21.9 - Gastro-esophageal reflux disease without esophagitis
[2019-12-03 23:52] LABS: Adenovirus PCR Not Detected (NotDetected); Bordetella parapertussis PCR Not Detected (NotDetected); Bordetella pertussis PCR Not Detected (NotDetected); Chlamydia pneumoniae PCR Not Detected (NotDetected); Coronavirus 229E PCR Not Detected (NotDetected); Coronavirus HKU1 PCR Not Detected (NotDetected); Coronavirus NL63 PCR Not Detected (NotDetected); Coronavirus OC43PCR Not Detected (NotDetected); Human Metapneumovirus PCR Not Detected (NotDetected); Influenza A PCR Not Detected (NotDetected); Influenza B PCR Not Detected (NotDetected); Mycoplasma pneumoniae PCR Not Detected (NotDetected); Parainfluenza Virus 1 PCR Not Detected (NotDetected); Parainfluenza Virus 2 PCR Not Detected (NotDetected); Parainfluenza Virus 3 PCR Not Detected (NotDetected); Parainfluenza Virus 4 PCR Not Detected (NotDetected); Rhinovirus/Enterovirus PCR Not Detected (NotDetected)
[2019-12-03 23:53] LABS: Respiratory Syncytial VirusPCR DETECTED (NotDetected)
[2019-12-04] MEDS: BENZONATATE 100 MG CAPSULE PO PRN ×2 (00:36→09:21)
[2019-12-04] MEDS: guaiFENesin SUGAR FREE 100 MG/5 ML UDC PO PRN ×2 (00:36→09:21)
[2019-12-04] MEDS: LEVALBUTEROL HCL 1.25 MG/3 ML NEB NEB SCH (00:45)
[2019-12-04] MEDS: OXYCODONE HCL IR 5 MG TAB (IMMEDIATE RELEASE) PO PRN ×2 (05:10→09:21)
[2019-12-04] MEDS ORDERED: UMECLIDINIUM BROMIDE 62.5MCG/BLISTER 7 PUFFS/INHALER INH SCH (09:00)
[2019-12-04] MEDS ORDERED: methylPREDNISolone 40 MG in SYRINGE 0 ML IV SCH (09:00)
[2019-12-04] MEDS: ROFLUMILAST 500 MCG TAB PO SCH (09:11)
[2019-12-04] MEDS: lisinopriL 20 MG TAB PO SCH (09:11)
[2019-12-04] MEDS: AZITHROMYCIN 250 MG TAB PO SCH (09:11)
[2019-12-04] MEDS: AMLODIPINE BESYLATE 5 MG TAB PO SCH (09:11)
[2019-12-04] MEDS: FLUTICASONE/VILANTEROL 100/25MCG 14 PUFFS/INHALER INH SCH (09:12)
[2019-12-04] MEDS: INSULIN GLARGINE SOLOSTAR 100 UNITS/ML 3 ML PEN SC SCH (09:13)
[2019-12-04] MEDS: INSULIN ASPART 100 UNITS/ML 3 ML PEN SC SCH ×2 (09:14→12:28)
--- NOTE | 2019-12-04 16:16 | Discharge Summary ---
Date of Service December 04, 2019 Admission HPI Per Admitting Provider is a 54-year-old male with a past medical history of COPD, hypertension, Horvath, TIESHA, GERD, type 2 diabetes mellitus, AAA status post PERC repair with most recent follow-up stable at 3.8 cm, and no history of TX who presents with 2 days of increased cough and shortness of breath. reports that Tuesday, 2 days before admission, he developed chest tightness, mild shortness of breath, and a nonproductive cough. He denies, fever, chills, sweats, chest pain, chest pressure, palpitations, syncope, presyncope, abdominal pain, nausea/vomiting/diarrhea/constipation, rash, leg swelling. He has not had any sick contacts, has not had any recent travel. He lives at home with his who is in good health and has had no recent illness. He is experiencing lower symptoms with COPD exacerbations in the past and is followed by Dr. Matta. He was seen by his outpatient provider on Tuesday who prescribed him a 5-day prednisone burst and cefuroxime. He does not feel improved on these medications. He has been taking his prior to admission inhalers which include fluticasoneVilanterol/Umeclidinium as prescribed. Medical history: Reviewed Surgical history: Reviewed Allergies: Reviewed, fentanyl. No medication allergies Family history: Reviewed in EMR Social: Former smoker. Secondhand smoke exposure from his who is a current smoker. Rare alcohol use. No recreational drug use. CODE STATUS: Full code Principal Diagnosis COPD exacerbation related to RSV infection (acute hypoxic respiratory failure related to RSV inflicted COPD exacerbation POA) Discharge Exam vitals noted nad heent nc at mmm breathing unlabored no accessory muscles good effort no conversational dyspnea no respiratory distress. skin no rashes no pallor or icterus. neuro no focal deficits. Discharge Data Allergies Allergy/AdvReac Type Severity Reaction Status Date / Time fentanyl Allergy Unknown RASH WITH Verified 12/02/19 05:34 PATCH Consultations 12/02/19 06:16 ED Decision to Admit Stat 12/04/19 09:02 Consult Case Management - Discharge Planning Routine Hospital Course (1) COPD (chronic obstructive pulmonary disease): is a 54-year-old male with a past medical history of COPD, hypertension, Horvath, TIESHA, GERD, type 2 diabetes mellitus, AAA status post PERC repair with most recent follow-up stable at 3.8 cm, and no history of TX who presents with 2 days of increased cough and shortness of breath Acute COPD exacerbation w acute hypoxic respiratory failure caused by RSV infection POA fortunately improved quickly. stable for home - still needs O2 with exertion but otherwise doing well on RA - stable for discharge. home O2 set up. steroid taper, finish course of zithromax myocardial demand ischemia Mild elevation of troponin, suspect demand with COPD exacerbation/hypoxia EKG similar to prior on admission no cardiac symptoms or concern on true TX - but would recommend ongoing clinical f/u with low threshold for formal stress testing once he is recovered from COPD exacerbation -asa 81mg daily for presumed secondary risk reduction; much of the rest of his med regimen (ACEi, statin) are rounding out a rather robust CAD med management regimen anyway. to monitor for sx, outpt PCP f/u +/- formal stress testing as above Hypertension/HLD continue home meds Type 2 diabetes mellitus A1c in august was 6.8%; stable for home/outpt f/u GERD Continue Protonix 40 mg daily Diet: Type II diabetic diet DVT prophylaxis: SCDs utilized during his stay CODE STATUS: Full code stable for home see discharge instructions for further details (2) Acute dyspnea: (3) Elevated troponin: (4) Steatohepatitis, non-alcoholic: (5) TIESHA and COPD overlap syndrome: (6) Asthma-COPD overlap syndrome: (7) GERD (gastroesophageal reflux disease): (8) Aortic stenosis: (9) Type 2 diabetes mellitus: (10) Benign essential hypertension: Total Time Total Time Spent Total Time Spent (In Minutes): >30 Discharge Plan Discharge Items Patient Disposition: Home - Home Health Services Reason For Visit: COPD EXACERBATION Discharge Diagnosis: COPD exacerbation - related to RSV (see below) Activity: Per Instructions section Non-emergency contact: Primary Care Provider and Tutor Coordinator Call non-emergency contact if: you have any medication questions, your symptoms worsen, your pain is not controlled, your pain is worsening, your pain is unusual for you, your pain is concerning for you, you have a fever, your rectal temperature is above 100.4, your temperature is above 101, your temperature is above 101.5, your wound has increased redness, your wound has increased drainage and your wound pain has increased Follow-up/Referrals: Ricotta,Oriana M., DO [Primary Care Provider] - Lazaro Daniel MD [Physician] - 12/11/19 1:00 pm (Please, follow up at the [facility] Pulmonology with Dr. Hermelinda mejia. I have arranged an appointment for you with Dr. Daniel on TuesdayDecember 10 at 1:00 pm. *THIS APPOINTMENT WILL MOST LIKELY BE A TELEPHONIC OR VIRTUAL VISIT. If you have any questions, call the office at [phone].) Diet: Carb Consistent or DM2 and Heart Healthy Addtl Attending Provider Instructions: COPD exacerbation - -this time it appears that you picked up a viral infection - RSV (respiratory syncytial virus) which is pretty notorious at causing fairly ugly respiratory infections -fortunately you're getting better and are safe to go home -at this time you're needing oxygen with exertion - this is being set up for you at home -we'll need to finish a course of antibiotics with zithromax (azithromycin) 250mg for another 2 days (which will complete a 5 day course of treatment) - next dose tomorrow (despite RSV being a viral infection, there is a lot of data that strongly shows that when you have a COPD exacerbation you get better faster /stay better more when we treat with specifically antibiotics that cover what are called "atypical bacteria" (such as mycoplasma) -- whether it's that there is more of a propensity for people with COPD to get bacterial overgrowth on top of a viral infection or if it's because of a pulmonary anti-inflammatory effect is not clear - but usually antibiotics such as zithromax work the best in this situation -we'll also need to finish a course of steroids (prednisone) to stay on top of the inflammation that is in your lungs -i've sent a prescription for oxycodone to help with the rib pain as you rec over; obviously due to problems with constipation, mental slowing, and physical dependency, 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 -as we discussed, for COPD we have three classes of inhalers to have someone on --- the trelegy has all 3 in one, the breo and incruse they were giving you here add up to all three classes as well (the breo has 2, the incruse has 1) - so when you go home, go back to taking your trelegy as before, but keep the breo and incruse in the back of the cabinet together so that if you were to run out of trelegy you could use breo + incruse as a backup pulmonary rehab -as we discussed, while you're waiting for formal pulmonary rehab to start, you can at least start to gently work for progress at home -- the main "gist" of pulmonary rehab is a gradual increase in exercise with close monitoring as a safety net. while you won't want to push as hard as they might have you push at formal pulmonary rehab, at home you can try to do a little more each day than you did the day before, and use symptoms and your pulse ox readings as a guide -for now, don't push to anything that makes you feel significantly short of breath - just push "a little" to where you know you're working harder than you have before. if you feel true shortness of breath or any chest discomfort, then stop what you're doing and rest; but if you're feeling OK then follow your pulse ox readings and as long as your number stay above 90 and you're feeling OK it's OK to continue -once you're able to start formal pulmonary rehab, they can guide you better, but since it's unclear when we'll be able to get that started, it's better to at least start to work towards improvement so that you don't waste time troponin bump -when you first came in, the ER did what they have to do - which is "cast a wide net" of testing - during this they caught a minimal elevation of a heart enzyme called troponin. when people have COPD exacerbations - especially as sick as you were when you arrived, it's very common to see a little bump in troponin just relative to how hard your body is working; that said, i usually look at ANY troponin elevation with scrutiny - to be on the safe side, once you're over the COPD exacerbation and able to do so, i would recommend a treadmill stress test just to make sure there's no overt signs of strain on your heart under "fair" conditions -otherwise for now about the only change would be adding an 81mg aspirin to your daily regimen (and probably therefore trying to hold off on the ibuprofen if you can to protect your stomach) -- the rest of your medications for blood pressure and cholesterol actually constitute a very good heart regimen Pending Studies at Discharge: No Stand-Alone Forms: My [facility], Smoking Cessation Medications and DC Order Prescriptions: New azithromycin [Zithromax] 250 mg Tablet 250 mg PO QAM Qty: 2 RF: 0 oxycodone 5 mg Tablet 5 mg PO Q4H PRN (Reason: breakthrough pain, severe) Qty: 8 RF: 0 aspirin 81 mg tablet,delayed release (DR/EC) 81 mg PO DAILY Qty: 30 RF: 0 prednisone 10 mg tablet 10 mg PO UD Qty: 42 RF: 0 Continued albuterol sulfate 90 mcg/actuation aerosol powdr breath activated 2 puffs INH Q4H PRN (Reason: Shortness Of Breath) Qty: 3 RF: 1 ibuprofen 800 mg tablet 800 mg PO TID PRN (Reason: Pain) Qty: 270 RF: 0 Trelegy Ellipta 100-62.5-25 mcg blister with device 1 puffs INH DAILY Qty: 3 RF: 1 hydrocodone-acetaminophen 5-325 mg tablet 1 tab PO TID PRN (Reason: pain) Qty: 90 RF: 0 lisinopril 20 mg tablet 20 mg PO QAM Qty: 30 RF: 3 metformin 500 mg tablet 500 mg PO BID Qty: 60 RF: 0 rosuvastatin [Crestor] 40 mg tablet 40 mg PO HS Qty: 30 RF: 0 cholecalciferol (vitamin D3) 1,000 unit tablet 1,000 unit PO QAM RF: 0 roflumilast 500 mcg tablet 500 mcg PO DAILY Qty: 30 RF: 2 gabapentin 100 mg capsule 300 mg PO HS RF: 0 Restasis 0.05 % dropperette 1 drp ophthalmic (eye) Q12H PRN (Reason: dry eyes) RF: 0 Lantus Solostar U-100 Insulin 100 unit/mL (3 mL) insulin pen 25 units SQ QAM RF: 0 pantoprazole [Protonix] 40 mg tablet,delayed release (DR/EC) 40 mg PO QAM PRN (Reason: Acid Reflux) RF: 0 amlodipine [Norvasc] 10 mg tablet 10 mg PO QAM RF: 0 ipratropium-albuterol 0.5 mg-3 mg(2.5 mg base)/3 mL solution for nebulization 3 ml INH QID PRN (Reason: Shortness Of Breath) RF: 0 insulin lispro [Humalog KwikPen Insulin] 100 unit/mL insulin pen 15 units SQ BIDM RF: 0 Discontinued prednisone 20 mg tablet See Rx Instructions .Route .COMPLEX Qty: 21 RF: 0 cefuroxime axetil 500 mg tablet 500 mg PO BID Qty: 20 RF: 0 Discharge Orders: Discharge Order (Routine); Ordered 12/04/19 Ordered By: Johnnie Burgos Admission Data Admit Date/Time: 12/03/19 09:39 Attending Provider: Johnnie Burgos Admit Provider: Gt Palmer Primary Care Provider: Oriana Burrell. Other Providers: Geri Bhatt ; Carlos Hull Other Interventions: Discharge Summary Assessment (RN) Last Done: 12/04/19 13:06 DC Date/Time DO NOT enter until pt leaves facility: 12/04/19 14:04 Coding Level of Care Code D/C Day Management >30 mins Diagnoses COPD (chronic obstructive pulmonary disease) J44.1 COPD type: COPD with acute exacerbation Acute dyspnea R06.00 Elevated troponin R79.89 Steatohepatitis, non-alcoholic K75.81 TIESHA and COPD overlap syndrome G47.33; J44.9 Asthma-COPD overlap syndrome J44.9 GERD (gastroesophageal reflux disease) K21.9 Esophagitis presence: esophagitis presence not specified Aortic stenosis I35.0 Cardiac valve disease etiology: etiology unspecified Type 2 diabetes mellitus E11.9; Z79.4 Diabetes mellitus [facility] insulin use: with [facility] use Diabetes mellitus complication status: without complication Benign essential hypertension I10
== END 2019-12-04 14:04 | disposition home or self-care (01) | DRG 190 ==
LOC: ED 04:53 → 2N 04:53 → SUATTDRO 06:53 → 2N 07:31 → SUATTDRO 12-03 09:39

== ENCOUNTER 2024-01-21 11:47 | Inpatient (IN) ==
--- NOTE | 2024-01-21 11:58 | Emergency Department Note ---
Impression & Plan Acute exacerbation of chronic obstructive pulmonary disease, Acute bronchitis ED Provider Note NAME: JACKIE POST AGE: 58 SEX: M : 1965 ARRIVES VIA: Ambulance INFORMANT: Patient, EMS ED PROVIDER(S): Joe Perez DO CHIEF COMPLAINT: Shortness of breath HPI: The patient is a 58-year-old male who presented to the emergency department for shortness of breath. The patient describes shortness of breath that began over the course the last few weeks. He has a history of COPD. He has been noticing worsening coughing especially with exertion. He has been compliant with his outpatient medications. He has been on steroids multiple times since the beginning of the year. The patient went to see his family doctor this week and was advised to come to the emergency department for admission. His family doctor discussed his condition with his primary pulmonary physician as well. He was not started on steroids at that time. The patient received 2 DuoNeb treatments prior to arrival. He states his shortness of breath is mildly improved. He denies having any orthopnea. He denies having any chest pain except with cough. He denies having any lower extremity swelling. ROS: See above HPI for pertinent positives & negatives. A total of 10 systems reviewed and were otherwise negative. PAST MEDICAL HISTORY: See Below PAST SURGICAL HISTORY: See Below FAMILY HISTORY: See Below SOCIAL HISTORY: See Below HOME MEDICATIONS: See Below ALLERGIES: See Below VITALS: See Below PHYSICAL EXAMINATION: GENERAL: The patient is awake and alert. The patient is very anxious appearing. EYES: The conjunctivae are clear. The pupils are round and reactive. EARS, NOSE, MOUTH AND THROAT: The nose is without any evidence of any deformity. NECK: The neck is nontender and supple. RESPIRATORY: Shallow respirations were noted. Diminished breath sounds are noted throughout with expiratory wheezing in all lung ziegler. There was mild conversational dyspnea appreciated. CARDIOVASCULAR: Regular rate and rhythm noted there no murmurs rubs or gallops normal S1 normal S2. GASTROINTESTINAL: The abdomen is soft. Abdomen is nontender. MUSCULOSKELETAL/EXTREMITIES: There is no evidence of gross deformity full range of motion is noted in the hips and shoulders. SKIN: There is no obvious evidence of any rash. There are no petechiae, pallor or cyanosis noted. NEUROLOGIC: Patient is awake alert and oriented x3 MEDICAL DECISION MAKING: The patient is a 58-year-old male who presented to the emergency department for an evaluation of difficulty breathing. The patient is a history of COPD. The patient has had a cough which is minimally productive over the course the last several days. The patient was seen by his family doctor and it was advised to come to the emergency department for inpatient management. Initially the patient did not wish to come and he stayed at home for a few more days. He continued to worsen until today he called 911. The patient was treated with DuoNeb therapy prior to arrival. He was further treated with IV fluids DuoNeb therapy as well as IV steroids in the emergency department. On reevaluation he was minimally improved. Given the ongoing symptoms for several days I do not feel the patient would be a good candidate for outpatient management. I discussed patient's condition with the on-call [facility] hospitalist. The patient did have borderline oxygen saturation and was placed on supplemental oxygen. Triage Nursing notes reviewed. Prior medical records reviewed Vital Signs: reviewed and remarkable for hypertension tachycardia and hypoxia. Differential diagnosis: Reactive airway disease, pneumonia, pneumothorax, COPD, CHF, infections, cardiac ischemia, pulmonary embolism, musculoskeletal, gastrointestinal, as well as other pathologies. ER treatment provided: See below Diagnostics interpreted by me: ECG: EKG was obtained in the emergency department. My interpretation is sinus tachycardia at 102 bpm. There was ectopy noted. Right bundle branch block pattern was noted with nonspecific ST depressions noted. This was compared to a tracing from March 08, 2022. There is an increase in the rate otherwise no significant changes were noted. Cardiac Monitoring: An order was placed for continuous cardiac monitoring. The monitor shows a rate of 122 bpm with sinus tachycardia. Laboratory studies: As stated above and show below. Imaging studies: See below. Radiographic imaging was reviewed by myself Consultation(s): I discussed this case with Dr. Miranda [facility] ED COURSE: Procedures: none Critical Care: I have personally spent greater than 45 minutes of critical care time in the direct management of this patient. This includes bedside care, interpretation of diagnostic studies, and testing, discussion with consultants, patient, and family members, and other required patient management activities. This 45 minutes is in excess of all separately billable procedures. 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 Hypertension Osteoarthritis, knee PVD (peripheral vascular disease) Chronic dyspnea COPD, group D, by GOLD 2017 classification History of tobacco abuse "once in awhile" Coronary artery calcification Type 2 diabetes mellitus IDDM Opioid dependence (Chronic) Asthma-COPD overlap syndrome GERD (gastroesophageal reflux disease) controlled Aortic stenosis mild-moderate per 06/01/18 echo Diverticular disease Hyperlipidemia Osteoarthritis Dry eye syndrome Diaphragmatic hernia Medical History COVID Esophageal dysphagia Esophageal dysphagia 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, PCP/neurology monitoring Sleep apnea no device AAA (abdominal aortic aneurysm) s/p PEVAR (2017)--pt states is currently 3.2cm Hx of fracture of rib fx 6-7 from coughing s/p surigical intervention - titanium plates - 7 yr ago Hypertension Surgical History S/P cataract extraction (04/2022) b/l eyes History of left cataract surgery History of bronchoscopy History of colonoscopy History of esophagogastroduodenoscopy (EGD) History of arthroplasty of left knee (08/2020) partial replacement Hx of arthroscopy of left knee X2 Hx of cervical spine surgery Hx of resection of rib January 16, 2014 History of vasectomy History of abdominal aortic aneurysm (AAA) repair (06/07/18) repair x2 (+ stent)/PEVAR: 06/07/18:P MAC sedation at [facility] History of tooth extraction 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 Family History Uncle Amyotrophic lateral sclerosis Father Cardiac disorder Grandmother Cardiac disorder Mother Lung disease Brother Myocardial infarction Family history of diabetes mellitus Other No family history of adverse response to anesthesia Denies family history of Ovarian cancer Prostate cancer Breast cancer Colorectal cancer Social History Smoking Status: Former smoker Tobacco Type: Cigarettes Age Started Using Tobacco: 17; Age Quit Using Tobacco: 56; packs per day: 0.5; Cigarettes Per Day: 10; Second Hand Exposure: No; Do You Dip or Chew Tobacco: No; Hx Alcohol Use: Yes Alcohol type: wine Alcohol Intake Frequency: Monthly or Less Hx Substance Use: No Preferred Language: Indonesian Communication Ability: Effective Visual Impairment: No Limitations Hearing Ability: Normal Baker Helper Required: No Beliefs That Will Affect Care: Buddhism Buddhism Beliefs: SHINTO marital status: marital status details: 3 children Current Living Situation: Spouse current occupational status: disabled How many Children do You have: 3 Feels Safe at Home: Yes Childhood Exposure to Second-Hand Smoke: Yes Diet: regular Diet Comment: regular caffeine: Yes during the past year weight has: remained stable Dental Care, Regularly: No Physical Activity Frequency: Daily Seatbelt Use: always Sunscreen Use: No Assistive Devices: Denture - Upper and Nebulizer Allergies Allergies Allergy/AdvReac Type Severity Reaction Status Date / Time fentanyl Allergy Mild RASH WITH Verified 01/13/24 10:31 PATCH Home Meds Home Medications Medication Instructions Recorded Confirmed cholecalciferol (vitamin D3) 25 1,000 unit PO QAM 01/31/19 01/13/24 mcg (1,000 unit) tablet losartan 100 mg tablet 100 mg PO QAM 12/09/21 01/13/24 insulin lispro 100 unit/mL 15 unit subcut BID 04/02/22 01/13/24 subcutaneous pen (Humalog KwikPen (U-100) Insulin) aspirin 81 mg tablet,delayed 81 mg PO DAILY 09/01/23 01/13/24 release alirocumab [Praluent Pen] 150 mg subcut .bi-weekly 10/26/23 01/13/24 Previous Rx's Medication Instructions Recorded rosuvastatin 40 mg tablet (Crestor) 40 mg PO HS #30 tabs 01/31/19 insulin glargine 100 unit/mL (3 25 unit (0.25 mL) subcut QAM #15 mL 08/05/20 mL) subcutaneous pen (Lantus Solostar U-100 Insulin) carvedilol 3.125 mg tablet (Coreg) 3.125 mg PO BID #60 tabs 08/28/20 flash glucose sensor (FreeStyle #1 ea 09/10/21 Fern 14 Day Sensor kit) amlodipine 10 mg tablet (Norvasc) 10 mg PO QAM #90 tabs 05/18/22 semaglutide 0.25 mg or 0.5 mg (2 0.5 mg (0.736 mL) subcut .weekly 01/31/23 mg/3 mL) subcutaneous pen injector #9 mL sildenafil 25 mg tablet (Viagra) 25 mg PO UD PRN Sexual Activity 04/13/23 #90 tabs ibuprofen 800 mg tablet 800 mg PO TID PRN Pain #270 tabs 08/09/23 albuterol sulfate 90 mcg/actuation 2 inh inhalation Q6H PRN shortness 08/17/23 breath activated powder inhaler of breath or wheezing #3 Inhalers fluticasone fur. 200 mcg-umeclid 1 inh inhalation DAILY #3 Inhalers 08/17/23 62.5 mcg-vilant 25 mcg inhalat.powder (Trelegy Ellipta) roflumilast 500 mcg tablet 50 mcg (0.1 x 500 mcg) PO QAM #90 09/15/23 tabs ipratropium 0.5 mg-albuterol 3 mg 3 ml inhalation QID PRN Shortness 12/05/23 (2.5 mg base)/3 mL nebulization Of Breath #90 mL soln ondansetron HCl 8 mg tablet 8 mg PO Q8H PRN nausea and 12/12/23 vomiting #10 tabs pantoprazole 40 mg tablet,delayed 40 mg PO BID #60 tabs 12/26/23 release oxycodone 5 mg tablet 5 mg PO Q4H PRN breakthrough pain, 01/13/24 severe #10 tabs Results & Data (ED) Vital Signs Vital Signs - 24 hr 01/21/24 12:00 01/21/24 12:05 01/21/24 12:59 Temperature 36.7 C Temperature Source Oral Pulse Rate 104 H 104 H Pulse Rate [Apical] 109 H Pulse Rhythm Respiratory Rate 24 20 Respiratory Effort / Characteristics Spontaneous Labored Short of Breath Respiratory Depth Deep Blood Pressure 110/89 Blood Pressure [Right Arm] Blood Pressure Mean 96 Blood Pressure Mean [Right Arm] Blood Pressure Position Sitting Blood Pressure Position [Right Arm] Pulse Oximetry 97 91 Oxygen Delivery Method Nasal Cannula Room Air Oxygen Flow Rate 2 Sepsis Recent Fever Within 48 Hours No Sepsis New/Unexplained Change in Mental Status N/A Sepsis Action Taken by Nursing No Action Required Oxygen Flow Rate - Titration Pulse Oximetry Post Tiitration 01/21/24 13:20 01/21/24 13:28 01/21/24 13:30 Temperature Temperature Source Pulse Rate 123 H Pulse Rate [Apical] 114 H Pulse Rhythm Regular Respiratory Rate 22 24 Respiratory Effort / Characteristics Labored Short of Breath Tripoding Respiratory Depth Deep Blood Pressure Blood Pressure [Right Arm] 162/91 H Blood Pressure Mean Blood Pressure Mean [Right Arm] 114 Blood Pressure Position Blood Pressure Position [Right Arm] Sitting Pulse Oximetry 93 91 91 Oxygen Delivery Method Nasal Cannula Nasal Cannula Room Air Oxygen Flow Rate 2 2 0 Sepsis Recent Fever Within 48 Hours Sepsis New/Unexplained Change in Mental Status Sepsis Action Taken by Nursing Oxygen Flow Rate - Titration 2 Pulse Oximetry Post Tiitration 95 Home Medications Current Medication List: was personally reviewed by me Laboratory Data Attestation: I reviewed the patient's lab results. 01/21/24 12:03 01/21/24 12:03 Lab Results 01/21/24 01/21/24 01/21/24 Range/Units 12:03 12:30 12:51 WBC 9.49 (4.8-10.8) K/ul RBC 5.45 (4.70-6.10) M/uL Hgb 13.2 L (14.0-18.0) g/dl Hct 42.5 (42.0-52.0) % MCV 78.0 L (80.0-100.0) fL MCH 24.2 L (25.0-34.0) pg MCHC 31.1 L (32.0-36.0) g/dL RDW Std Deviation 40.9 (36.4-46.3) fL RDW Coeff of Ledy 14.7 H (11.5-14.5) % Plt Count 267 (130-400) K/uL MPV 9.4 (9.4-12.4) fL Immature Gran % (Auto) 0.3 % Neut % (Auto) 73.4 % Lymph % (Auto) 17.4 % [place] % (Auto) 6.5 % Eos % (Auto) 2.0 % Baso % (Auto) 0.4 % Neut # (Auto) 6.96 H (1.40-6.50) K/uL Lymph # (Auto) 1.65 (1.20-3.40) K/uL [place] # (Auto) 0.62 H (0.11-0.59) K/uL Eos # (Auto) 0.19 (0.00-0.50) K/uL Baso # (Auto) 0.04 (0.00-0.20) K/uL Immature Gran # (Auto) 0.03 (0.01-0.20) K/uL PT 10.5 (9.0-12.0) Seconds INR 1.0 (0.9-1.1) APTT 27 (21-31) Seconds PTT Ratio 1.0 VBG pH 7.35 L (7.36-7.41) VBG pCO2 57 H (38-50) mmHg VBG pO2 48 mmHg VBG HCO3 32 mmol/L VBG O2 Saturation 83.3 % VBG Base Excess 4.3 mEq/L Sodium 135 L (136-145) mmol/L Potassium 4.4 (3.5-5.1) mmol/L Chloride 98 (98-107) mmol/L Carbon Dioxide 30 (21-32) mmol/L Anion Gap 7 (3-11) BUN 7 (6-23) mg/dl Creatinine 1.05 (0.6-1.4) mg/dl Est Cr Clr Drug Dosing 81.0 ml/min Est GFR ( Amer) 89.6 ml/min Est GFR (Non-Af Amer) 77.3 ml/min BUN/Creatinine Ratio 6.7 L (10-20) Glucose 152 H (70-99(Fasting)) mg/dl Calcium 9.6 (8.6-10.3) mg/dl Magnesium 2.1 (1.7-2.4) mg/dl Total Bilirubin 0.4 (0.2-1.0) mg/dl AST 18 (13-39) U/L ALT 10 (7-52) U/L Alkaline Phosphatase 103 (34-104) U/L Troponin I High Sens 27.5 H (0-20) pg/ml C-Reactive Protein 3.52 H (0-0.5) mg/dl B-Natriuretic Peptide 100 (0-100) pg/ml Total Protein 8.5 H (6.0-8.3) gm/dl Albumin 4.2 (3.4-5.0) gm/dl Globulin 4.3 H (2.5-4.0) gm/dl Albumin/Globulin Ratio 1.0 (0.9-2) Procalcitonin 0.05 (0-0.5) ng/ml Urine Color Yellow Urine Appearance Clear (Clear) Urine pH 7.0 (4.5-7.5) Ur Specific [place] 1.006 (1.000-1.030) Urine Protein Trace H (Negative) Urine Glucose (UA) Negative (Negative) Urine Ketones Negative (Negative) Urine Blood Negative (Negative) Urine Nitrite Negative (Negative) Urine Bilirubin Negative (Negative) Urine Urobilinogen Negative (Negative) Ur Leukocyte Esterase Negative (Negative) Urine WBC (Auto) 0-5 (0-5) /hpf Urine RBC (Auto) 0-2 (0-2) /hpf U Hyaline Cast (Auto) 0-2 (0-2) /lpf U Epithel Cells (Auto) 0-2 (0-2) /hpf Urine Bacteria (Auto) None Seen (None Seen) Adenovirus (PCR) Not Detected (NotDetected) B. pertussis DNA (PCR) Not Detected (NotDetected) B.parapertussis DNA PCR Not Detected (NotDetected) C. pneumoniae DNA (PCR) Not Detected (NotDetected) Coronavirus OC43 (PCR) Not Detected (NotDetected) Coronavirus HKU1 (PCR) Not Detected (NotDetected) Coronavirus 229E (PCR) Not Detected (NotDetected) SARS-CoV-2 (PCR) Not Detected (NotDetected) Coronavirus NL63 (PCR) Not Detected (NotDetected) Human Metapneumovir PCR Not Detected (NotDetected) Influenza Type A (PCR) Not Detected (NotDetected) Influenza Type B (PCR) Not Detected (NotDetected) M. pneumoniae (PCR) Not Detected (NotDetected) Parainfluenza 1 (PCR) Not Detected (NotDetected) Parainfluenza 2 (PCR) Not Detected (NotDetected) Parainfluenza 3 (PCR) Not Detected (NotDetected) Parainfluenza 4 (PCR) Not Detected (NotDetected) RSV (PCR) Not Detected (NotDetected) Entero/Rhino (PCR) DETECTED A (NotDetected) Administered Medications Discontinued Medications Albuterol (Albut/Ipratrop 3mg/0.5mg Neb 3 Ml Vial) 12 ml NEB ONE ONE; Protocol Stop: 01/21/24 11:53 Last Admin: 01/21/24 12:00 Dose: 12 ml Documented By: TIMOTHY Sodium Chloride (Nss) 500 mls @ 999 mls/hr IV .Q31M STA Stop: 01/21/24 12:22 Last Admin: 01/21/24 12:46 Dose: 999 mls/hr Documented By: RICHY Methylprednisolone (Methylprednisolone 125 Mg/2 Ml Vial) 125 mg IV NOW STA Stop: 01/21/24 11:53 Last Admin: 01/21/24 12:46 Dose: 125 mg Documented By: RICHY Morphine Sulfate (Morphine Sulfate 4 Mg/Ml 1 Ml Carp\\Vial) 4 mg IV NOW STA Stop: 01/21/24 13:01 Last Admin: 01/21/24 13:12 Dose: 4 mg Documented By: RICHY Ondansetron HCl (Ondansetron Inj 2 Mg/Ml 2 Ml Vial) 4 mg IV NOW STA Stop: 01/21/24 13:01 Last Admin: 01/21/24 13:12 Dose: 4 mg Documented By: RICHY Imaging Data Attestation: I personally reviewed and interpreted this imaging study as follows: My Impression: 1 view chest x-ray was obtained in the emergency department. My interpretation is no free air or definite infiltrate, final report below. Radiologist's Impression: Chest X-Ray 01/21/24 11:52 XR chest 1V portable HISTORY: 58 years-old Male Dyspnea COMPARISON: 07/25/2023 TECHNIQUE: AP view of the chest FINDINGS: Cardiomediastinal and hilar silhouettes are within normal limits. Emphysema with chronic interstitial coarsening. Surgical suture material the left lung base. Left rib fusion hardware with chronic fracture deformities. Lungs are clear. No pneumothorax or pleural effusion. IMPRESSION: Emphysema without acute process. ACT 112: Negative or not required by law. The above report was generated using voice recognition software. It may contain grammatical, syntax or spelling errors. Electronically signed by: Mukesh Price M.D. 01/21/2024 1:06 PM Discharge Plan Visit Data Chief Complaint: Respiratory Problems ED Provider: Joe Perez Discharge Problem: Acute exacerbation of chronic obstructive pulmonary disease, Acute bronchitis Patient Disposition: Being Evaluated by Hospitalist Forms Stand Alone Forms: My [facility] Prescriptions Prescriptions: No Action carvedilol [Coreg] 3.125 mg tablet 3.125 mg PO BID Qty: 60 3RF Rx Instructions: must administer with a meal/food (to replace Bystolic, Bystolic is not covered) (DME) Netflix 14 Day Sensor Kit See Dose Instructions .ROUTE .MEDSUPPLY Qty: 1 0RF Dose Instruction: As directed Rx Instructions: As directed, testing QID. Dx: E11.9 amlodipine [Norvasc] 10 mg tablet 10 mg PO QAM Qty: 90 3RF sildenafil [Viagra] 25 mg tablet 25 mg PO UD PRN (Reason: Sexual Activity) Qty: 90 0RF Rx Instructions: 25 mg PO 30 prior to intercourse.; ibuprofen 800 mg tablet 800 mg PO TID PRN (Reason: Pain) Qty: 270 1RF roflumilast 500 mcg tablet 50 mcg PO QAM Qty: 90 3RF ipratropium-albuterol 0.5 mg-3 mg(2.5 mg base)/3 mL solution for nebulization 3 ml INH QID PRN (Reason: Shortness Of Breath) Qty: 90 3RF pantoprazole 40 mg tablet,delayed release (DR/EC) 40 mg PO BID Qty: 60 5RF rosuvastatin [Crestor] 40 mg tablet 40 mg PO HS Qty: 30 0RF cholecalciferol (vitamin D3) 1,000 unit tablet 1,000 unit PO QAM semaglutide 0.25 mg or 0.5 mg (2 mg/3 mL) pen injector 0.5 mg subcut .weekly Qty: 9 3RF alirocumab [Praluent Pen] 150 mg subcut .bi-weekly aspirin 81 mg tablet,delayed release (DR/EC) 81 mg PO DAILY Lantus Solostar U-100 Insulin 100 unit/mL (3 mL) insulin pen 25 unit SQ QAM Qty: 15 5RF Rx Instructions: took 25 units losartan 100 mg tablet 100 mg PO QAM albuterol sulfate 90 mcg/actuation aerosol powdr breath activated 2 inh inhalation Q6H PRN (Reason: shortness of breath or wheezing) Qty: 3 3RF Trelegy Ellipta 200-62.5-25 mcg blister with device 1 inh inhalation DAILY Qty: 3 3RF oxycodone 5 mg tablet 5 mg PO Q4H PRN (Reason: breakthrough pain, severe) Qty: 10 0RF ondansetron HCl 8 mg tablet 8 mg PO Q8H PRN (Reason: nausea and vomiting) Qty: 10 0RF insulin lispro [Humalog KwikPen Insulin] 100 unit/mL insulin pen 15 unit SQ BID Rx Instructions: 15 Units subcut twice a day; WITH SLIDING SCALE PER BLOOD SUGAR Referrals Referrals: Oriana Burrell DO [Primary Care Provider] - Discharge Problem: Acute bronchitis Qualifiers: Bronchitis organism: unspecified organism Qualified Code(s): J20.9 - Acute bronchitis, unspecified
[2024-01-21] MEDS: ALBUT/IPRATROP 3MG/0.5MG NEB 3 ML VIAL NEB ONE (12:00)
[2024-01-21 12:21] LABS: Base Excess VBG 4.3 mEq/L; HCO3 VBG 32 mmol/L; Oxygen Saturation VBG 83.3 %; PCO2 VBG 57 mmHg (38-50); PO2 VBG 48 mmHg; pH VBG 7.35 (7.36-7.41)
[2024-01-21 12:29] LABS: Basophils # (auto) 0.04 K/uL (0.00-0.20); Basophils % (auto) 0.4 %; Eosinophils # (auto) 0.19 K/uL (0.00-0.50); Hematocrit (blood only) 42.5 % (42.0-52.0); Hemoglobin 13.2 g/dl (14.0-18.0); Immature Granulocytes # (auto) 0.03 K/uL (0.01-0.20); Immature Granulocytes % (auto) 0.3 %; Lymphocytes # (auto) 1.65 K/uL (1.20-3.40); Lymphocytes % (auto) 17.4 %; Mean Corpuscular Hemoglobin 24.2 pg (25.0-34.0); Mean Corpuscular Hgb Conc 31.1 g/dL (32.0-36.0); Mean Platelet Volume 9.4 fL (9.4-12.4); Monocytes # (auto) 0.62 K/uL (0.11-0.59); Monocytes % (auto) 6.5 %; Neutrophils # (auto) 6.96 K/uL (1.40-6.50); Neutrophils % (auto) 73.4 %; Platelet Count 267 K/uL (130-400); RDW Coefficient of Variation 14.7 % (11.5-14.5); RDW Standard Deviation 40.9 fL (36.4-46.3); Red Blood Count 5.45 M/uL (4.70-6.10); White Blood Count 9.49 K/ul (4.8-10.8)
[2024-01-21 12:42] LABS: Albumin Level 4.2 gm/dl (3.4-5.0); BUN Creatinine Ratio 6.7 (10-20); Bilirubin,Total 0.4 mg/dl (0.2-1.0); C Reactive Protein 3.52 mg/dl (0-0.5); Calcium 9.6 mg/dl (8.6-10.3); Est GFR (African American) 89.6 ml/min; Est GFR (Non-African American) 77.3 ml/min; Globulin 4.3 gm/dl (2.5-4.0); Magnesium 2.1 mg/dl (1.7-2.4); Potassium 4.4 mmol/L (3.5-5.1); Total Protein 8.5 gm/dl (6.0-8.3)
[2024-01-21] MEDS: SODIUM CHLORIDE 0.9% 500 ML IV STA (12:46)
[2024-01-21] MEDS: methylPREDNISolone 125 MG/2 ML VIAL IV STA (12:46)
[2024-01-21 12:49] LABS: Troponin I High Sensitivity 27.5 pg/ml (0-20)
[2024-01-21 13:05] LABS: Partial Thromboplastin Time 27 Seconds (21-31); Prothrombin Time 10.5 Seconds (9.0-12.0)
--- NOTE | 2024-01-21 13:07 | XRay Report ---
XR chest 1V portable HISTORY: 58 years-old Male Dyspnea COMPARISON: 07/25/2023 TECHNIQUE: AP view of the chest FINDINGS: Cardiomediastinal and hilar silhouettes are within normal limits. Emphysema with chronic interstitial coarsening. Surgical suture material the left lung base. Left rib fusion hardware with chronic fract ure deformities. Lungs are clear. No pneumothorax or pleural effusion. IMPRESSION: Emphysema without acute process. ACT 112: Negative or not required by law. The above report was generated using voice recognition software. It may contain grammatical, syntax o r spelling errors. Electronically signed by: Mukesh Price M.D. 01/21/2024 1:06 PM
[2024-01-21 13:10] LABS: Adenovirus PCR Not Detected (NotDetected); Bordetella parapertussis PCR Not Detected (NotDetected); Bordetella pertussis PCR Not Detected (NotDetected); Chlamydia pneumoniae PCR Not Detected (NotDetected); Coronavirus 229E PCR Not Detected (NotDetected); Coronavirus CoV-2 (COVID19)PCR Not Detected (NotDetected); Coronavirus HKU1 PCR Not Detected (NotDetected); Coronavirus NL63 PCR Not Detected (NotDetected); Coronavirus OC43PCR Not Detected (NotDetected); Human Metapneumovirus PCR Not Detected (NotDetected); Influenza A PCR Not Detected (NotDetected); Influenza B PCR Not Detected (NotDetected); Mycoplasma pneumoniae PCR Not Detected (NotDetected); Parainfluenza Virus 1 PCR Not Detected (NotDetected); Parainfluenza Virus 2 PCR Not Detected (NotDetected); Parainfluenza Virus 3 PCR Not Detected (NotDetected); Parainfluenza Virus 4 PCR Not Detected (NotDetected); Respiratory Syncytial VirusPCR Not Detected (NotDetected); Rhinovirus/Enterovirus PCR DETECTED (NotDetected)
[2024-01-21] MEDS: MoRPHine SULFATE 4 MG/ML 1 ML CARP\\VIAL IV STA (13:12)
[2024-01-21] MEDS: ONDANSETRON INJ 2 MG/ML 2 ML VIAL IV STA (13:12)
[2024-01-21 13:15] LABS: Appearance Urine Clear (Clear); Bacteria Urine Automated None Seen (None Seen); Bilirubin Urine Negative (Negative); Blood Urine Negative (Negative); Cast Urine Automated 0-2 /lpf (0-2); Color Urine Yellow; Epithelial Cell Urine Auto 0-2 /hpf (0-2); Glucose Urine UA Negative (Negative); Ketones Urine Negative (Negative); Leukocyte Esterase Urine Negative (Negative); Nitrite Urine Negative (Negative); Protein Urine Trace (Negative); RBC Urine Automated 0-2 /hpf (0-2); Specific Gravity Urine 1.006 (1.000-1.030); Urobilinogen Urine Negative (Negative); WBC Urine Automated 0-5 /hpf (0-5)
--- NOTE | 2024-01-21 13:48 | History & Physical Report ---
Date of Service January 21, 2024 Assessment & Plan (1) Acute exacerbation of chronic obstructive pulmonary disease: Plan: Admit to the PCU/telemetry on pulse oximetry Currently hemodynamically stable, stable on 2 L nasal cannula, sinus tachycardia Presented to the ED today for ongoing shortness of breath consistent with recurrent COPD exacerbations Found to be rhinovirus positive today in the ED, chest x-ray negative for acute findings When at rest and not in a coughing fit the patient is relatively stable, however, he is significantly bronchospastic when he begins to cough Status post 125 mg IV Solu-Medrol, an hour-long albuterol treatment, 4 mg IV m orphine, 500 mL normal saline, and 4 mg IV Zofran in the ED Will continue treatment for COPD/asthma exacerbation with 60 mg IV Solu-Medrol 3 times daily, 4 times daily DuoNebs, twice daily budesonide and formoterol nebs, every 6 hours as needed guaifenesin/codeine, incentive spirometry, flutter therapy, every 12 hours doxycycline As needed O2 to keep SpO2 between 89-92% Will try and obtain sputum culture however, he has been unable to provide a sample in the recent past SQ Lovenox for DVT prophylaxis Heart healthy/diabetes #2 diet AM CBC, BMP, mag, PT/INR (2) Rhinovirus infection: Plan: See acute on chronic COPD exacerbation (3) Elevated troponin: Plan: Initial high-sensitivity troponin elevated at 27 Patient denies chest pain at rest, only has bilateral rib pain when he is coughing, denies any chest pain with inspiration No acute ST segment or T wave changes on ECG today Likely due to demand Will follow 2-hour repeat high-sensitivity troponin and continue to monitor on telemetry for now Continue home aspirin and statin (4) Tachycardia: Plan: Patient has been in sinus tachycardia in the low 100s to 120s since arrival Suspect he became more tachycardic after the hour-long albuterol nebulizing treatment he received in the ED May need to convert albuterol nebulizers to levalbuterol if remains persistently tachycardic moving forward Continue to monitor on telemetry (5) Tobacco dependence: Plan: Patient stopped smoking approximately 3 days ago, he is motivated to quit pe rmanently due to his declining respiratory status over the past year States he has been using nicotine gum outpatient Will continue as needed nicotine gum for now, can add on nicotine patch later at patient's request Continue to stress the importance of cessation moving forward (6) Type 2 diabetes mellitus: Plan: Hold semaglutide Monitor BSG ACHS, goal is 110/60 Patient normally takes 5 units of glargine in the a.m., suspect he will have increased hyperglycemia with high-dose IV steroids Will start 15 units Lantus twice daily for now Start correction factor 45 and carb ratio of 15 Pharmacy glycemic consult has been placed for IV steroids Adjust regimen as needed Plan The patient was discussed with Dr. Miranda at the time of the admission History of Present Illness Chief Complaint: SOB Primary Care Provider: Oriana Burrell DO is a 58-year-old male with a past medical history significant for tobacco dependence, asthmaCOPD overlap syndrome, esophageal dysphagia TIESHA, aortic stenosis, GERD, diabetes mellitus type 2, and peripheral arterial disease who presented to the [facility] ED on 01/21/2024 via EMS due to ongoing shortness of breath. Patient has been having recurrent COPD exacerbations outpatient which his PCP has been trying to treat with recurrent courses of steroids tapers. However, he continued to have progressively worsening symptoms and called EMS this morning. EMS reported that the patient remained stable on room air, he was given 2 DuoNeb treatments and route. On arrival to the ED he was noted to be tachycardic with heart rate in the 110s but otherwise stable. Labs were significant for a VBG pH of 7.35, pCO2 of 57, pCO2 within normal limits, initial high-sensitivity troponin of 27, negative Pro-Dandy and full respiratory bio fire positive for rhinovirus. Chest x-ray was read as emphysema without acute process. Prior to admission the patient was given an hour-long DuoNeb treatment, 125 mg IV Solu-Medrol, 500 mL normal saline, 4 mg IV morphine, and 4 mg IV Zofran. Patient was sitting in a bedside chair, leaning forward in tripod position, but in no acute distress at the time of exam with his significant other at bedside. He is currently stable on 2 L nasal cannula. States that since August of this year he has had recurrent COPD exacerbations requiring multiple courses of oral steroids, he feels as though he has never gotten back to his baseline since August. Quit smoking approximately 3 days ago, he knows he needs to quit completely in order to improve his respiratory status and is motivated. Has been using his home breathing treatments/nebulizer treatments as prescribed without improvement in symptoms. He was instructed by his PCP/sanitation worker hosing machinery to come to the ED today as he has failed outpatient treatment multiple times now. When asked, states that his most severe symptoms are spasms with coughs making it very difficult for him to get air in along with bilateral rib pain with his coughs. Denies chest pain at rest, productive cough, hemoptysis, ABD pain, nausea/vomiting, dysuria, hematuria, melena, diarrhea, lower extremity swelling, recent trauma. He is a full code. Please refer to Dr. Miranda's attestation for any changes to the treatment plan Allergies Allergy/AdvReac Type Severity Reaction Status Date / Time fentanyl Allergy Mild RASH WITH Verified 01/21/24 14:18 PATCH Home Medications Medication Instructions Recorded Confirmed Type cholecalciferol (vitamin D3) 25 1,000 unit PO QAM 01/31/19 01/21/24 History mcg (1,000 unit) tablet rosuvastatin 40 mg tablet (Crestor) 40 mg PO HS #30 tabs 01/31/19 01/21/24 Rx insulin glargine 100 unit/mL (3 25 unit (0.25 mL) subcut QAM #15 mL 08/05/20 01/21/24 Rx mL) subcutaneous pen (Lantus Solostar U-100 Insulin) carvedilol 3.125 mg tablet (Coreg) 3.125 mg PO BID #60 tabs 08/28/20 01/21/24 Rx flash glucose sensor (FreeStyle #1 ea 09/10/21 01/13/24 Rx Fern 14 Day Sensor kit) losartan 100 mg tablet 100 mg PO QAM 12/09/21 01/21/24 History insulin lispro 100 unit/mL 15 unit subcut BID 04/02/22 01/21/24 History subcutaneous pen (Humalog KwikPen (U-100) Insulin) amlodipine 10 mg tablet (Norvasc) 10 mg PO QAM #90 tabs 05/18/22 01/21/24 Rx sildenafil 25 mg tablet (Viagra) 25 mg PO UD PRN Sexual Activity 04/13/23 01/21/24 Rx #90 tabs ibuprofen 800 mg tablet 800 mg PO TID PRN Pain #270 tabs 08/09/23 01/21/24 Rx albuterol sulfate 90 mcg/actuation 2 inh inhalation Q6H PRN shortness 08/17/23 01/21/24 Rx breath activated powder inhaler of breath or wheezing #3 Inhalers aspirin 81 mg tablet,delayed 81 mg PO DAILY 09/01/23 01/21/24 History release roflumilast 500 mcg tablet 50 mcg (0.1 x 500 mcg) PO QAM #90 09/15/23 01/21/24 Rx tabs ipratropium 0.5 mg-albuterol 3 mg 3 ml inhalation QID PRN Shortness 12/05/23 01/21/24 Rx (2.5 mg base)/3 mL nebulization Of Breath #90 mL soln ondansetron HCl 8 mg tablet 8 mg PO Q8H PRN nausea and 12/12/23 01/21/24 Rx vomiting #10 tabs pantoprazole 40 mg tablet,delayed 40 mg PO BID #60 tabs 12/26/23 01/21/24 Rx release oxycodone 5 mg tablet 5 mg PO Q4H PRN breakthrough pain, 01/13/24 01/21/24 Rx severe #10 tabs alirocumab 150 mg/mL subcutaneous 150 mg subcut UD 01/21/24 01/21/24 History pen injector (Praluent Pen) fluticasone fur. 200 mcg-umeclid 1 inh inhalation HS 01/21/24 01/21/24 History 62.5 mcg-vilant 25 mcg inhalat.powder (Trelegy Ellipta) semaglutide 0.25 mg or 0.5 mg (2 2 mg subcut WK 01/21/24 01/21/24 History mg/3 mL) subcutaneous pen injector (Ozempic) Past Med/Surg History Problem List (Updated 01/22/24 @ 12:02 by Rehana Brown PA-C) Diastolic heart failure Hyperkalemia Microcytosis TIESHA (obstructive sleep apnea) Tachycardia Elevated troponin Rhinovirus infection Acute bronchitis (Acute) Acute exacerbation of chronic obstructive pulmonary disease (Acute) Abnormal ECG Impotence, organic Nocturnal hypoxemia Steatohepatitis, non-alcoholic Vitamin D deficiency Intercostal neuralgia (Chronic) Cervical radiculopathy Abdominal aortic aneurysm Tobacco dependence Chronic pain syndrome Obesity (BMI 30.0-34.9) Severe chronic obstructive pulmonary disease (Chronic) TIESHA and COPD overlap syndrome Cubital tunnel syndrome 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 Hypertension Osteoarthritis, knee PVD (peripheral vascular disease) Chronic dyspnea COPD, group D, by GOLD 2017 classification History of tobacco abuse "once in awhile" Coronary artery calcification Type 2 diabetes mellitus IDDM Opioid dependence (Chronic) Asthma-COPD overlap syndrome GERD (gastroesophageal reflux disease) controlled Aortic stenosis mild-moderate per 06/01/18 echo Diverticular disease Hyperlipidemia Osteoarthritis Dry eye syndrome Diaphragmatic hernia Medical History COVID Esophageal dysphagia Esophageal dysphagia 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, PCP/neurology monitoring Sleep apnea no device AAA (abdominal aortic aneurysm) s/p PEVAR (2017)--pt states is currently 3.2cm Hx of fracture of rib fx 6-7 from coughing s/p surigical intervention - titanium plates - 7 yr ago Hypertension Surgical History S/P cataract extraction (04/2022) b/l eyes History of left cataract surgery History of bronchoscopy History of colonoscopy History of esophagogastroduodenoscopy (EGD) History of arthroplasty of left knee (08/2020) partial replacement Hx of arthroscopy of left knee X2 Hx of cervical spine surgery Hx of resection of rib January 16, 2014 History of vasectomy History of abdominal aortic aneurysm (AAA) repair (06/07/18) repair x2 (+ stent)/PEVAR: 06/07/18:P MAC sedation at [facility] History of tooth extraction 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 Family History Uncle Amyotrophic lateral sclerosis Father Cardiac disorder Grandmother Cardiac disorder Mother Lung disease Brother Myocardial infarction Family history of diabetes mellitus Other No family history of adverse response to anesthesia Denies family history of Ovarian cancer Prostate cancer Breast cancer Colorectal cancer Social History Smoking Status: Current some day smoker Tobacco Type: Cigarettes Age Started Using Tobacco: 17; Age Quit Using Tobacco: 56; packs per day: 0.5; Cigarettes Per Day: 10; Second Hand Exposure: No; Do You Dip or Chew Tobacco: No; Hx Alcohol Use: Yes Alcohol type: wine Alcohol Intake Frequency: Monthly or Less Hx Substance Use: No Preferred Language: Telugu Communication Ability: Effective Visual Impairment: No Limitations Hearing Ability: Normal Credit Operations Processor Required: No Beliefs That Will Affect Care: None marital status: marital status details: 3 children Current Living Situation: Spouse current occupational status: disabled How many Children do You have: 3 Feels Safe at Home: Yes Childhood Exposure to Second-Hand Smoke: Yes Diet: regular Diet Comment: regular caffeine: Yes during the past year weight has: remained stable Dental Care, Regularly: No Physical Activity Frequency: Daily Seatbelt Use: always Sunscreen Use: No Assistive Devices: Denture - Upper and Nebulizer Physical Exam Physical Exam: Physical Exam: General: In mild distress during coughing episodes, stated age, ill but non- toxic appearing HEENT: Normocephalic, atraumatic, no scleral icterus, pupils around round, symmetrical, and reactive to light, moist mucus membranes, trachea midline, no thyromegaly Chest/Pulm: Mild respiratory distress, symmetrical chest expansion, expiratory wheezing throughout Cardiac: tachycardic rate, regular rhythm, no murmurs noted Abdomen: Negative for ascites and bruising, normoactive bowel sounds, soft, non-tender to palpation throughout Musculoskeletal: Symmetrical and without signs of acute trauma, upper and lower extremities with full ROM, no atrophy, spasticity, or flaccidity Extremities: Radial, dorsalis pedis, and posterior tibial pulses are intact and symmetrical, no edema noted in the BL LE's Skin: Warm, dry, no rashes , lesions, or scars noted Neuro: Alert and oriented to person, place, month, year, and president, no focal defects, no tremors noted Psych: Mild distress during severe coughing episodes, but polite and cooperative during the exam Results & Data Results & Data Vital Signs (Past 12 Hours) Vital Signs Temp Pulse Pulse Resp BP BP Pulse Ox 01/21/24 13:30 91 01/21/24 13:28 123 H 24 91 01/21/24 13:20 114 H 22 162/91 H 93 01/21/24 12:59 104 H 01/21/24 12:05 36.7 C 104 H 20 110/89 91 01/21/24 12:00 109 H 24 97 O2 Del Method O2 Flow Rate 01/21/24 13:30 Room Air 0 01/21/24 13:28 Nasal Cannula 2 01/21/24 13:20 Nasal Cannula 2 01/21/24 12:59 01/21/24 12:05 Room Air 01/21/24 12:00 Nasal Cannula 2 Laboratory Results Abnormal lab results 01/21/24 01/21/24 Range/Units 12:03 12:51 Hgb 13.2 L (14.0-18.0) g/dl MCV 78.0 L (80.0-100.0) fL MCH 24.2 L (25.0-34.0) pg MCHC 31.1 L (32.0-36.0) g/dL RDW Coeff of Ledy 14.7 H (11.5-14.5) % Neut # (Auto) 6.96 H (1.40-6.50) K/uL Stokes # (Auto) 0.62 H (0.11-0.59) K/uL VBG pH 7.35 L (7.36-7.41) VBG pCO2 57 H (38-50) mmHg Sodium 135 L (136-145) mmol/L BUN/Creatinine Ratio 6.7 L (10-20) Glucose 152 H (70-99(Fasting)) mg/dl Troponin I High Sens 27.5 H (0-20) pg/ml C-Reactive Protein 3.52 H (0-0.5) mg/dl Total Protein 8.5 H (6.0-8.3) gm/dl Globulin 4.3 H (2.5-4.0) gm/dl Urine Protein Trace H (Negative) Entero/Rhino (PCR) DETECTED A (NotDetected) Diagnostic Findings Chest X-Ray 01/21/24 11:52 XR chest 1V portable HISTORY: 58 years-old Male Dyspnea COMPARISON: 07/25/2023 TECHNIQUE: AP view of the chest FINDINGS: Cardiomediastinal and hilar silhouettes are within normal limits. Emphysema with chronic interstitial coarsening. Surgical suture material the left lung base. Left rib fusion hardware with chronic fracture deformities. Lungs are clear. No pneumothorax or pleural effusion. IMPRESSION: Emphysema without acute process. ACT 112: Negative or not required by law. The above report was generated using voice recognition software. It may contain grammatical, syntax or spelling errors. Electronically signed by: Mukesh Price M.D. 01/21/2024 1:06 PM ECG Additional Comments: Sinus tachycardia with Premature atrial complexes with Aberrant conduction Right bundle branch block Abnormal ECG When compared with ECG of 08-MAR-2022 11:58, Aberrant conduction is now Present Vent. rate has increased BY 45 BPM T wave inversion now evident in Anterior leads Code Status & VTE Plan Code Status Full code VTE Prophylaxis Plan VTE Prophylaxis will be ordered: Yes Supervising Physician Co-Signing Physician Notes I personally saw and examined the patient. I verified all simpson points and agree with Arnaud Santos PA-C with the following exceptions and/or additions: 58 year old male presents ot the ER with shortness of breath. Known COPD and feels like prior exacerbations. Non-productive cough. O/E HS RRR, no murmurs, no respiratory distress, expiratory wheezing, no crackles. Abdo SNT A/P COPD exacerbation - Much improved when see in 203 from when PA seen in the ER. No longer in respiratory distress. Solu-medrol, duonebs, formoterol/budesonide Nebs BID, doxycycline. Ibuprofen ALESHA as he reports taking this regularly at home Nicotine patch given per patient request for craving but declines nicotine gum Notably patient refused Lovenox for VTE Prophylaxis - benefits and risks of this medications was discussed with the patient who demonstrated understanding PG Care Time/CCT Total # of Minutes Spent Total Time Spent with Patient: Total time spent is greater than 50% in coordination of care (as documented) at patient's floor/unit and/or counseling patient: Coding [place] [address] INT INP/OBS CARE 3/75MIN Patient Type Established Medical Decision Making High Complexity Diagnoses Acute exacerbation of chronic obstructive pulmonary disease J44.1 Rhinovirus infection B34.8 Elevated troponin R79.89 Tachycardia R00.0 Tobacco dependence F17.200 Type 2 diabetes mellitus without complication, with long-term current use of insulin E11.9; Z79.4 Diabetes mellitus complication status: without complication Diabetes mellitus terminal computer operator insulin use: with terminal computer operator use (6) Type 2 diabetes mellitus Diabetes mellitus complication status: without complication Diabetes mellitus terminal computer operator insulin use: with terminal computer operator use Qualified Code(s): E11.9 - Type 2 diabetes mellitus without complications; Z79.4 - FDC (current) use of insulin
[2024-01-21] MEDS ORDERED: GLUCOSE 40% GEL 15 GM TUBE PO PRN (13:50)
[2024-01-21] MEDS ORDERED: DEXTROSE 50% 50 ML SYRINGE IV PRN (13:50)
[2024-01-21] MEDS ORDERED: PHARMACY GLYCEMIC MGMT CONSULT PRN (13:50)
[2024-01-21] MEDS ORDERED: GLUCOSE 10 TAB/TUBE PO PRN (13:50)
[2024-01-21] MEDS ORDERED: CARBOHYDRATES FOR HYPOGLYCEMIA PO PRN (13:50)
[2024-01-21] MEDS ORDERED: GLUCAGON FOR INJ 1 MG VIAL SQ PRN (13:50)
[2024-01-21] MEDS ORDERED: ACETAMINOPHEN 325 MG TAB PO PRN (13:53)
[2024-01-21] MEDS ORDERED: NICOTINE POLACRILEX 2 MG GUM MT PRN (14:19)
[2024-01-21] MEDS: ALBUT/IPRATROP 3MG/0.5MG NEB 3 ML VIAL NEB SCH (14:36)
[2024-01-21] MEDS: ACETAMINOPHEN 1,000 MG/100 ML VIAL IV STA (15:15)
[2024-01-21] MEDS: INSULIN ASPART PER UNIT CHARGE SC SCH (15:51)
[2024-01-21] MEDS: guaiFENesin/CODEINE 100MG/10MG 5ML UDC PO STA (15:53)
[2024-01-21] MEDS: DOXYCYCLINE HYCLATE 100 MG in DEXTROSE 5% MINI-B 100 ML IV ONE (15:57)
[2024-01-21] MEDS: guaiFENesin 600 MG TABCR PO SCH (16:16)
--- NOTE | 2024-01-21 17:54 | Electrocardiogram Report ---
Test Reason : Blood Pressure : / mmHG Vent. Rate : 102 BPM Atrial Rate : 102 BPM P-R Int : 138 ms QRS Dur : 134 ms QT Int : 366 ms P-R-T Axes : 085 093 047 degrees QTc Int : 477 ms Sinus tachycardia with Premature atrial complexes with Aberrant conduction Right bundle branch block Abnormal ECG When compared with ECG of 08-MAR-2022 11:58, Aberrant conduction is now Present Vent. rate has increased BY 45 BPM T wave inversion now evident in Anterior leads Confirmed by Jose Vieira ([id number]) on 01/21/2024 5:53:53 PM Referred By: REFERRED SELF Confirmed By:Bobby Vieira
[2024-01-21] MEDS ORDERED: guaiFENesin/CODEINE 100MG/10MG 5ML UDC PO PRN (19:05)
[2024-01-21] MEDS: BUDESONIDE 0.5 MG/2 ML VIAL (PULMICORT) NEB SCH (19:46)
[2024-01-21] MEDS: FORMOTEROL 20 MCG/2 ML VIAL NEB SCH (19:46)
[2024-01-21] MEDS ORDERED: LANTUS PER UNIT CHARGE SQ SCH (21:00)
[2024-01-21] MEDS: LANTUS PER UNIT CHARGE SC SCH (21:21)
[2024-01-21] MEDS: ENOXAPARIN INJ 40 MG/0.4 ML SYR SQ SCH (21:22)
[2024-01-21] MEDS: guaiFENesin/CODEINE 100MG/10MG 5ML UDC PO PRN (21:54)
[2024-01-21] MEDS: NICOTINE 14 MG/24 HR PATCH TD SCH (22:22)
[2024-01-21] MEDS: IBUPROFEN 800 MG TAB PO SCH (22:23)
[2024-01-21] MEDS: ROSUVASTATIN CALCIUM 20 MG TAB PO SCH (22:24)
[2024-01-21] MEDS: PANTOprazole 40 MG TAB PO SCH (22:25)
[2024-01-22] MEDS: DOXYCYCLINE HYCLATE 100 MG in DEXTROSE 5% MINI-B 100 ML IV SCH (03:29)
[2024-01-22 07:24] LABS: Basophils # (auto) 0.01 K/uL (0.00-0.20); Basophils % (auto) 0.1 %; Hematocrit (blood only) 42.2 % (42.0-52.0); Hemoglobin 12.9 g/dl (14.0-18.0); Immature Granulocytes # (auto) 0.07 K/uL (0.01-0.20); Immature Granulocytes % (auto) 0.4 %; Lymphocytes # (auto) 0.86 K/uL (1.20-3.40); Lymphocytes % (auto) 5.4 %; Mean Corpuscular Hemoglobin 24.2 pg (25.0-34.0); Mean Corpuscular Hgb Conc 30.6 g/dL (32.0-36.0); Mean Platelet Volume 9.2 fL (9.4-12.4); Monocytes # (auto) 0.85 K/uL (0.11-0.59); Monocytes % (auto) 5.4 %; Neutrophils # (auto) 14.05 K/uL (1.40-6.50); Neutrophils % (auto) 88.7 %; Platelet Count 258 K/uL (130-400); RDW Coefficient of Variation 14.6 % (11.5-14.5); RDW Standard Deviation 41.5 fL (36.4-46.3); Red Blood Count 5.34 M/uL (4.70-6.10); White Blood Count 15.84 K/ul (4.8-10.8)
--- NOTE | 2024-01-22 07:42 | Hospitalist Progress Note ---
Date of Service January 22, 2024 Assessment & Plan (1) Acute exacerbation of chronic obstructive pulmonary disease: Plan: On 2L, sinus tachycardia on admission w/ SOB and COPD exacerbation w/ positive biofire testing +rhinovirus with significant bronchospasm w/ coughing fit Status post 125 mg IV Solu-Medrol, an hour-long albuterol treatment, 4 mg IV morphine, 500 mL normal saline, and 4 mg IV Zofran in the ED On admission, to continue treatment for COPD/asthma exacerbation with 60 mg IV Solu-Medrol 3 times daily, 4 times daily DuoNebs, twice daily budesonide and formoterol nebs, every 6 hours as needed guaifenesin/codeine, incentive spirometry, flutter therapy, every 12 hours doxycycline and supplemental O2. Sputum cx as able to obtain and Lovenox SQ for DVT proph 01/21 Admitted for acute COPD exacerbation, suspected 2nd to rhinovirus infection on biofire testing. * Typically follows with Dr Daniel, also has moderate aortic stenosis (prior to Aug visit did have some syncopal type sx reported) * Per prior pulm notes "The single most important factor which can be modified to help reduce the number of exacerbations and progression of COPD symptoms is for him to quit smoking and avoid secondhand smoke exposure" however HAD NOW QUIT as of 3 days ago and using nicotine patch/lozenges (patch to R arm in place on exam) - continued cessation encouraged * Does also have hx esophageal narrowing requiring "stretches" in the past. Last EGD in system 2021 w/ Case noting mildly severe reflux esophagitis and recs to continue PPI BID and discussed to limit ibuprofen and made PRN rather than scheduled. MCV <80 but iron studies alright and TSH wnl s/p 125IV solumedrol w/ albuterol neb tx, 500ccNSS and zofran/morphine CXR on admission w/ Emphysema without acute process Solumedrol continued 60mg TID this morning, but decreasing to 40mg TID for today given significant improvement in wheezing and plan for BID dosing for tomorrow Duonebs QID changed to levalbuteral scheduled Continue pulmonary toilet w/ incentive spirometer. ADDED flutter valve (RN to provide) ADDED hypertonic saline NEBS, first dose now, to help w/ expectorating sputum. Also added mucinex PO BID. Cough syrup available prn WBC elevation suspected 2nd to steroids, afebrile Follow up sputum cx Labs/exam in AM (2) Diastolic heart failure: Plan: Prior ECHO w/ normal EF, does have aortic stenosis, moderate. BNP 100 on admission/CXR w/o acute process but provided 500cc NSS and high dose steroids Appeared slightly volume up, provided 20mg IV lasix but also to help w/ hyperkalemia Monitor volume status - may need additional lasix dosing pending weight gain w/ reduction in IV steroids as above and will monitor daily weights/I&Os (3) Aortic stenosis: Plan: noted, lasix IV x 1 as above. Monitoring on telemetry. minimal trop elevation likely demand ischemia from tachycardia/COPD exacerbation and trended down on repeat. No CP reported Monitor volume status as above (4) Hyperkalemia: Plan: Labs not yet back this AM but was already provided losartan 100mg PO, placed on hold for now. BP 146/58 Ordered 10u regular insulin/Dextrose/calcium gluconate, lasix 20mg IV x 1 for volume overload, possible from IVF on admit/high dose steroids w/ fluid retention w/ patient w/ moderate at baseline Repeat labs pending for this evening/further adjustments/meds as needed and continued telemetry monitoring/BMP in AM (5) Rhinovirus infection: Plan: suspected as cause for above Isolation precautions, tx as above (6) Elevated troponin: Plan: 27.5--> [address] changes on EKG or CP reported and suspect demand ischemia as above and will monitor on tele for next 24 hours but downgrade if no issues (7) Tachycardia: Plan: 2nd to exacerbation/coughing fit/rhinovirus as above and tx as outlined Improvement in HR since tx and changed duoneb to levalbuterol telemetry w/ NSR, downgrade in AM if no issues but continued monitoring given K 5.5 as above on AM labs (8) Tobacco dependence: Plan: Quit 3 days prior to admission, motivated to stop. Patch in place to R arm on exam, has been using the lozenges as does not like the gum Continued cessation encouraged (9) Type 2 diabetes mellitus: Plan: Hold omezmpic, BSG AC/HS and pharmacy on consult for glycemic management while on high dose steroids. Last POC 96/well controlled and will monitor w/ reduction in steroids (10) Microcytosis: Plan: Review of labs w/ MCV consistently <80 Do note patient w/ ibuprofen on his home medication list Iron studies added for AM labs as well as TSH as not last checked since 2021 -- no acute issue. Educated to limit NSAIDs/changed to prn. (11) TIESHA (obstructive sleep apnea): Plan continued inpatient stay Admission and Anticipated Discharge Date Admission Date: January 21, 2024 Supervising Physician Co-Signing Physician Notes The patient was not seen by me. The chart was reviewed. Case discussed with NANCY Bridges. Agree with assessment and plan Subjective Eval this morning, sitting up in bed. Continued coughing fits at times but wheezing much improved. Able to expectorate sputum last night for sample, yellowish in color. On Doxy. Has been using incentive spirometer every hour. No flutter valve in room, asked RN to provide. Discussed nebs, inquired about hypertonic saline and was added. He used to get bronched all the time w/ Dr Gold, recently been following w/ Dr Daniel but getting second opinion. Quit smoking last week, patch to his R arm, also uses lozenges. Discussed K/meds and lasix provided. Did have some LE edema this morning and improved since treatment and will monitor on steroids to see if needing any additional dosing. Plan to decreased steroids for today/to alert of any worsening. Consideration for pulm consult if needed but wanting to hold off for now. Does take ibuprofen TID, encouraged limiting. He thinks could be fine on once daily, discussed changed to prn. Has been ambulating in the room, inquiring about declining SQ proph. Will add SCDs, ambulation in room encouraged and discussed can decline if desired and ambulating/SCDs. Questions/concerns addressed at this time. Physical Exam Physical Exam: General: WD/WN male sitting up in bed, female in room, NAD, on computer HEENT: head atraumatic, normocephalic, mmm, trachea midline Resp; diminished in the bases, no significant wheezing at present, able to talk in complete sentences, occassional cough, on room air CV: RRR, +systolic murmur, trace pedal edema, no calf tenderness, pulses present GI: +BS, soft/NT : no aguilar MSK/Neuro: non focal, answering questions appropriately, no slurred speech/facial droop or confusion noted Psych: Aox3, cooperative with exam Results & Data Results & Data Vital Signs (Past 12 Hours) Vital Signs Temp Pulse Resp BP Pulse Ox O2 Del Method O2 Flow Rate 01/22/24 07:21 36.4 C L 65 18 171/77 H 100 Room Air, Nebulizer 01/22/24 07:13 106 H 18 91 Room Air 01/22/24 02:16 36.6 C 76 19 160/70 H 93 Room Air 01/21/24 22:30 36.6 C 89 20 134/65 92 Room Air 01/21/24 20:10 36.4 C L 87 18 153/68 H 93 Room Air 01/21/24 20:00 Room Air 01/21/24 19:49 105 H 18 90 Nasal Cannula 2 01/21/24 19:42 36.7 C 95 H 24 150/68 H 91 Room Air Laboratory Results 01/22/24 01/22/24 01/22/24 Range/Units 11:24 10:25 07:20 WBC (4.8-10.8) K/ul RBC (4.70-6.10) M/uL Hgb (14.0-18.0) g/dl Hct (42.0-52.0) % MCV (80.0-100.0) fL MCH (25.0-34.0) pg MCHC (32.0-36.0) g/dL RDW Std Deviation (36.4-46.3) fL RDW Coeff of Ledy (11.5-14.5) % Plt Count (130-400) K/uL MPV (9.4-12.4) fL Immature Gran % (Auto) % Neut % (Auto) % Lymph % (Auto) % Carson % (Auto) % Eos % (Auto) % Baso % (Auto) % Neut # (Auto) (1.40-6.50) K/uL Lymph # (Auto) (1.20-3.40) K/uL Carson # (Auto) (0.11-0.59) K/uL Eos # (Auto) (0.00-0.50) K/uL Baso # (Auto) (0.00-0.20) K/uL Immature Gran # (Auto) (0.01-0.20) K/uL PT (9.0-12.0) Seconds INR (0.9-1.1) APTT (21-31) Seconds PTT Ratio VBG pH (7.36-7.41) VBG pCO2 (38-50) mmHg VBG pO2 mmHg VBG HCO3 mmol/L VBG O2 Saturation % VBG Base Excess mEq/L Sodium (136-145) mmol/L Potassium (3.5-5.1) mmol/L Chloride (98-107) mmol/L Carbon Dioxide (21-32) mmol/L Anion Gap (3-11) BUN (6-23) mg/dl Creatinine (0.6-1.4) mg/dl Est Cr Clr Drug Dosing ml/min Est GFR ( Amer) ml/min Est GFR (Non-Af Amer) ml/min BUN/Creatinine Ratio (10-20) Glucose (70-99(Fasting)) mg/dl POC Glucose 96 175 H 127 H (70-99) mg/dl Calcium (8.6-10.3) mg/dl Magnesium (1.7-2.4) mg/dl Iron (35-175) mcg/dl TIBC (250-450) mcg/dl Unsaturated IBC (155-355) mcg/dl Transferrin % Sat (20-50) % Ferritin (8-388) ng/ml Total Bilirubin (0.2-1.0) mg/dl AST (13-39) U/L ALT (7-52) U/L Alkaline Phosphatase (34-104) U/L Troponin I High Sens (0-20) pg/ml C-Reactive Protein (0-0.5) mg/dl B-Natriuretic Peptide (0-100) pg/ml Total Protein (6.0-8.3) gm/dl Albumin (3.4-5.0) gm/dl Globulin (2.5-4.0) gm/dl Albumin/Globulin Ratio (0.9-2) Procalcitonin (0-0.5) ng/ml TSH (0.300-4.500) uIu/ml Urine Color Urine Appearance (Clear) Urine pH (4.5-7.5) Ur Specific [place] (1.000-1.030) Urine Protein (Negative) Urine Glucose (UA) (Negative) Urine Ketones (Negative) Urine Blood (Negative) Urine Nitrite (Negative) Urine Bilirubin (Negative) Urine Urobilinogen (Negative) Ur Leukocyte Esterase (Negative) Urine WBC (Auto) (0-5) /hpf Urine RBC (Auto) (0-2) /hpf U Hyaline Cast (Auto) (0-2) /lpf U Epithel Cells (Auto) (0-2) /hpf Urine Bacteria (Auto) (None Seen) Adenovirus (PCR) (NotDetected) B. pertussis DNA (PCR) (NotDetected) B.parapertussis DNA PCR (NotDetected) C. pneumoniae DNA (PCR) (NotDetected) Coronavirus OC43 (PCR) (NotDetected) Coronavirus HKU1 (PCR) (NotDetected) Coronavirus 229E (PCR) (NotDetected) SARS-CoV-2 (PCR) (NotDetected) Coronavirus NL63 (PCR) (NotDetected) Human Metapneumovir PCR (NotDetected) Influenza Type A (PCR) (NotDetected) Influenza Type B (PCR) (NotDetected) M. pneumoniae (PCR) (NotDetected) Parainfluenza 1 (PCR) (NotDetected) Parainfluenza 2 (PCR) (NotDetected) Parainfluenza 3 (PCR) (NotDetected) Parainfluenza 4 (PCR) (NotDetected) RSV (PCR) (NotDetected) Entero/Rhino (PCR) (NotDetected) 01/22/24 01/21/24 01/21/24 Range/Units 07:05 20:46 15:20 WBC 15.84 H (4.8-10.8) K/ul RBC 5.34 (4.70-6.10) M/uL Hgb 12.9 L (14.0-18.0) g/dl Hct 42.2 (42.0-52.0) % MCV 79.0 L (80.0-100.0) fL MCH 24.2 L (25.0-34.0) pg MCHC 30.6 L (32.0-36.0) g/dL RDW Std Deviation 41.5 (36.4-46.3) fL RDW Coeff of Ledy 14.6 H (11.5-14.5) % Plt Count 258 (130-400) K/uL MPV 9.2 L (9.4-12.4) fL Immature Gran % (Auto) 0.4 % Neut % (Auto) 88.7 % Lymph % (Auto) 5.4 % Carson % (Auto) 5.4 % Eos % (Auto) 0.0 % Baso % (Auto) 0.1 % Neut # (Auto) 14.05 H (1.40-6.50) K/uL Lymph # (Auto) 0.86 L (1.20-3.40) K/uL Carson # (Auto) 0.85 H (0.11-0.59) K/uL Eos # (Auto) 0.00 (0.00-0.50) K/uL Baso # (Auto) 0.01 (0.00-0.20) K/uL Immature Gran # (Auto) 0.07 (0.01-0.20) K/uL PT 10.6 (9.0-12.0) Seconds INR 1.0 (0.9-1.1) APTT (21-31) Seconds PTT Ratio VBG pH (7.36-7.41) VBG pCO2 (38-50) mmHg VBG pO2 mmHg VBG HCO3 mmol/L VBG O2 Saturation % VBG Base Excess mEq/L Sodium 135 L (136-145) mmol/L Potassium 5.5 H D (3.5-5.1) mmol/L Chloride 101 (98-107) mmol/L Carbon Dioxide 28 (21-32) mmol/L Anion Gap 6 (3-11) BUN 17 (6-23) mg/dl Creatinine 1.17 (0.6-1.4) mg/dl Est Cr Clr Drug Dosing 70.5 ml/min Est GFR ( Amer) 78.6 ml/min Est GFR (Non-Af Amer) 67.8 ml/min BUN/Creatinine Ratio 14.5 (10-20) Glucose 141 H (70-99(Fasting)) mg/dl POC Glucose 193 H 206 H (70-99) mg/dl Calcium 9.6 (8.6-10.3) mg/dl Magnesium 2.2 (1.7-2.4) mg/dl Iron 46 (35-175) mcg/dl TIBC 321 (250-450) mcg/dl Unsaturated IBC 275 (155-355) mcg/dl Transferrin % Sat 14 L (20-50) % Ferritin 102.0 (8-388) ng/ml Total Bilirubin (0.2-1.0) mg/dl AST (13-39) U/L ALT (7-52) U/L Alkaline Phosphatase (34-104) U/L Troponin I High Sens (0-20) pg/ml C-Reactive Protein (0-0.5) mg/dl B-Natriuretic Peptide (0-100) pg/ml Total Protein (6.0-8.3) gm/dl Albumin (3.4-5.0) gm/dl Globulin (2.5-4.0) gm/dl Albumin/Globulin Ratio (0.9-2) Procalcitonin (0-0.5) ng/ml TSH 1.012 (0.300-4.500) uIu/ml Urine Color Urine Appearance (Clear) Urine pH (4.5-7.5) Ur Specific [place] (1.000-1.030) Urine Protein (Negative) Urine Glucose (UA) (Negative) Urine Ketones (Negative) Urine Blood (Negative) Urine Nitrite (Negative) Urine Bilirubin (Negative) Urine Urobilinogen (Negative) Ur Leukocyte Esterase (Negative) Urine WBC (Auto) (0-5) /hpf Urine RBC (Auto) (0-2) /hpf U Hyaline Cast (Auto) (0-2) /lpf U Epithel Cells (Auto) (0-2) /hpf Urine Bacteria (Auto) (None Seen) Adenovirus (PCR) (NotDetected) B. pertussis DNA (PCR) (NotDetected) B.parapertussis DNA PCR (NotDetected) C. pneumoniae DNA (PCR) (NotDetected) Coronavirus OC43 (PCR) (NotDetected) Coronavirus HKU1 (PCR) (NotDetected) Coronavirus 229E (PCR) (NotDetected) SARS-CoV-2 (PCR) (NotDetected) Coronavirus NL63 (PCR) (NotDetected) Human Metapneumovir PCR (NotDetected) Influenza Type A (PCR) (NotDetected) Influenza Type B (PCR) (NotDetected) M. pneumoniae (PCR) (NotDetected) Parainfluenza 1 (PCR) (NotDetected) Parainfluenza 2 (PCR) (NotDetected) Parainfluenza 3 (PCR) (NotDetected) Parainfluenza 4 (PCR) (NotDetected) RSV (PCR) (NotDetected) Entero/Rhino (PCR) (NotDetected) 01/21/24 01/21/24 01/21/24 Range/Units 14:14 12:51 12:30 WBC (4.8-10.8) K/ul RBC (4.70-6.10) M/uL Hgb (14.0-18.0) g/dl Hct (42.0-52.0) % MCV (80.0-100.0) fL MCH (25.0-34.0) pg MCHC (32.0-36.0) g/dL RDW Std Deviation (36.4-46.3) fL RDW Coeff of Ledy (11.5-14.5) % Plt Count (130-400) K/uL MPV (9.4-12.4) fL Immature Gran % (Auto) % Neut % (Auto) % Lymph % (Auto) % Carson % (Auto) % Eos % (Auto) % Baso % (Auto) % Neut # (Auto) (1.40-6.50) K/uL Lymph # (Auto) (1.20-3.40) K/uL Carson # (Auto) (0.11-0.59) K/uL Eos # (Auto) (0.00-0.50) K/uL Baso # (Auto) (0.00-0.20) K/uL Immature Gran # (Auto) (0.01-0.20) K/uL PT (9.0-12.0) Seconds INR (0.9-1.1) APTT (21-31) Seconds PTT Ratio VBG pH (7.36-7.41) VBG pCO2 (38-50) mmHg VBG pO2 mmHg VBG HCO3 mmol/L VBG O2 Saturation % VBG Base Excess mEq/L Sodium (136-145) mmol/L Potassium (3.5-5.1) mmol/L Chloride (98-107) mmol/L Carbon Dioxide (21-32) mmol/L Anion Gap (3-11) BUN (6-23) mg/dl Creatinine (0.6-1.4) mg/dl Est Cr Clr Drug Dosing ml/min Est GFR ( Amer) ml/min Est GFR (Non-Af Amer) ml/min BUN/Creatinine Ratio (10-20) Glucose (70-99(Fasting)) mg/dl POC Glucose (70-99) mg/dl Calcium (8.6-10.3) mg/dl Magnesium (1.7-2.4) mg/dl Iron (35-175) mcg/dl TIBC (250-450) mcg/dl Unsaturated IBC (155-355) mcg/dl Transferrin % Sat (20-50) % Ferritin (8-388) ng/ml Total Bilirubin (0.2-1.0) mg/dl AST (13-39) U/L ALT (7-52) U/L Alkaline Phosphatase (34-104) U/L Troponin I High Sens 27.0 H (0-20) pg/ml C-Reactive Protein (0-0.5) mg/dl B-Natriuretic Peptide 100 (0-100) pg/ml Total Protein (6.0-8.3) gm/dl Albumin (3.4-5.0) gm/dl Globulin (2.5-4.0) gm/dl Albumin/Globulin Ratio (0.9-2) Procalcitonin (0-0.5) ng/ml TSH (0.300-4.500) uIu/ml Urine Color Yellow Urine Appearance Clear (Clear) Urine pH 7.0 (4.5-7.5) Ur Specific [place] 1.006 (1.000-1.030) Urine Protein Trace H (Negative) Urine Glucose (UA) Negative (Negative) Urine Ketones Negative (Negative) Urine Blood Negative (Negative) Urine Nitrite Negative (Negative) Urine Bilirubin Negative (Negative) Urine Urobilinogen Negative (Negative) Ur Leukocyte Esterase Negative (Negative) Urine WBC (Auto) 0-5 (0-5) /hpf Urine RBC (Auto) 0-2 (0-2) /hpf U Hyaline Cast (Auto) 0-2 (0-2) /lpf U Epithel Cells (Auto) 0-2 (0-2) /hpf Urine Bacteria (Auto) None Seen (None Seen) Adenovirus (PCR) (NotDetected) B. pertussis DNA (PCR) (NotDetected) B.parapertussis DNA PCR (NotDetected) C. pneumoniae DNA (PCR) (NotDetected) Coronavirus OC43 (PCR) (NotDetected) Coronavirus HKU1 (PCR) (NotDetected) Coronavirus 229E (PCR) (NotDetected) SARS-CoV-2 (PCR) (NotDetected) Coronavirus NL63 (PCR) (NotDetected) Human Metapneumovir PCR (NotDetected) Influenza Type A (PCR) (NotDetected) Influenza Type B (PCR) (NotDetected) M. pneumoniae (PCR) (NotDetected) Parainfluenza 1 (PCR) (NotDetected) Parainfluenza 2 (PCR) (NotDetected) Parainfluenza 3 (PCR) (NotDetected) Parainfluenza 4 (PCR) (NotDetected) RSV (PCR) (NotDetected) Entero/Rhino (PCR) (NotDetected) 01/21/24 Range/Units 12:03 WBC 9.49 (4.8-10.8) K/ul RBC 5.45 (4.70-6.10) M/uL Hgb 13.2 L (14.0-18.0) g/dl Hct 42.5 (42.0-52.0) % MCV 78.0 L (80.0-100.0) fL MCH 24.2 L (25.0-34.0) pg MCHC 31.1 L (32.0-36.0) g/dL RDW Std Deviation 40.9 (36.4-46.3) fL RDW Coeff of Ledy 14.7 H (11.5-14.5) % Plt Count 267 (130-400) K/uL MPV 9.4 (9.4-12.4) fL Immature Gran % (Auto) 0.3 % Neut % (Auto) 73.4 % Lymph % (Auto) 17.4 % Carson % (Auto) 6.5 % Eos % (Auto) 2.0 % Baso % (Auto) 0.4 % Neut # (Auto) 6.96 H (1.40-6.50) K/uL Lymph # (Auto) 1.65 (1.20-3.40) K/uL Carson # (Auto) 0.62 H (0.11-0.59) K/uL Eos # (Auto) 0.19 (0.00-0.50) K/uL Baso # (Auto) 0.04 (0.00-0.20) K/uL Immature Gran # (Auto) 0.03 (0.01-0.20) K/uL PT 10.5 (9.0-12.0) Seconds INR 1.0 (0.9-1.1) APTT 27 (21-31) Seconds PTT Ratio 1.0 VBG pH 7.35 L (7.36-7.41) VBG pCO2 57 H (38-50) mmHg VBG pO2 48 mmHg VBG HCO3 32 mmol/L VBG O2 Saturation 83.3 % VBG Base Excess 4.3 mEq/L Sodium 135 L (136-145) mmol/L Potassium 4.4 (3.5-5.1) mmol/L Chloride 98 (98-107) mmol/L Carbon Dioxide 30 (21-32) mmol/L Anion Gap 7 (3-11) BUN 7 (6-23) mg/dl Creatinine 1.05 (0.6-1.4) mg/dl Est Cr Clr Drug Dosing 81.0 ml/min Est GFR ( Amer) 89.6 ml/min Est GFR (Non-Af Amer) 77.3 ml/min BUN/Creatinine Ratio 6.7 L (10-20) Glucose 152 H (70-99(Fasting)) mg/dl POC Glucose (70-99) mg/dl Calcium 9.6 (8.6-10.3) mg/dl Magnesium 2.1 (1.7-2.4) mg/dl Iron (35-175) mcg/dl TIBC (250-450) mcg/dl Unsaturated IBC (155-355) mcg/dl Transferrin % Sat (20-50) % Ferritin (8-388) ng/ml Total Bilirubin 0.4 (0.2-1.0) mg/dl AST 18 (13-39) U/L ALT 10 (7-52) U/L Alkaline Phosphatase 103 (34-104) U/L Troponin I High Sens 27.5 H (0-20) pg/ml C-Reactive Protein 3.52 H (0-0.5) mg/dl B-Natriuretic Peptide (0-100) pg/ml Total Protein 8.5 H (6.0-8.3) gm/dl Albumin 4.2 (3.4-5.0) gm/dl Globulin 4.3 H (2.5-4.0) gm/dl Albumin/Globulin Ratio 1.0 (0.9-2) Procalcitonin 0.05 (0-0.5) ng/ml TSH (0.300-4.500) uIu/ml Urine Color Urine Appearance (Clear) Urine pH (4.5-7.5) Ur Specific [place] (1.000-1.030) Urine Protein (Negative) Urine Glucose (UA) (Negative) Urine Ketones (Negative) Urine Blood (Negative) Urine Nitrite (Negative) Urine Bilirubin (Negative) Urine Urobilinogen (Negative) Ur Leukocyte Esterase (Negative) Urine WBC (Auto) (0-5) /hpf Urine RBC (Auto) (0-2) /hpf U Hyaline Cast (Auto) (0-2) /lpf U Epithel Cells (Auto) (0-2) /hpf Urine Bacteria (Auto) (None Seen) Adenovirus (PCR) Not Detected (NotDetected) B. pertussis DNA (PCR) Not Detected (NotDetected) B.parapertussis DNA PCR Not Detected (NotDetected) C. pneumoniae DNA (PCR) Not Detected (NotDetected) Coronavirus OC43 (PCR) Not Detected (NotDetected) Coronavirus HKU1 (PCR) Not Detected (NotDetected) Coronavirus 229E (PCR) Not Detected (NotDetected) SARS-CoV-2 (PCR) Not Detected (NotDetected) Coronavirus NL63 (PCR) Not Detected (NotDetected) Human Metapneumovir PCR Not Detected (NotDetected) Influenza Type A (PCR) Not Detected (NotDetected) Influenza Type B (PCR) Not Detected (NotDetected) M. pneumoniae (PCR) Not Detected (NotDetected) Parainfluenza 1 (PCR) Not Detected (NotDetected) Parainfluenza 2 (PCR) Not Detected (NotDetected) Parainfluenza 3 (PCR) Not Detected (NotDetected) Parainfluenza 4 (PCR) Not Detected (NotDetected) RSV (PCR) Not Detected (NotDetected) Entero/Rhino (PCR) DETECTED A (NotDetected) Diagnostic Findings Chest X-Ray 01/21/24 11:52 XR chest 1V portable HISTORY: 58 years-old Male Dyspnea COMPARISON: 07/25/2023 TECHNIQUE: AP view of the chest FINDINGS: Cardiomediastinal and hilar silhouettes are within normal limits. Emphysema with chronic interstitial coarsening. Surgical suture material the left lung base. Left rib fusion hardware with chronic fracture deformities. Lungs are clear. No pneumothorax or pleural effusion. IMPRESSION: Emphysema without acute process. ACT 112: Negative or not required by law. The above report was generated using voice recognition software. It may contain grammatical, syntax or spelling errors. Electronically signed by: Mukesh Price M.D. 01/21/2024 1:06 PM PG Care Time/CCT Total # of Minutes Spent Total Time Spent with Patient: Total time spent is greater than 50% in coordination of care (as documented) at patient's floor/unit and/or counseling patient: Coding Level of Care Code 93610 SUB INP/OBS CARE 3/50MIN Diagnoses Acute exacerbation of chronic obstructive pulmonary disease J44.1 Diastolic heart failure I50.30 Aortic valve stenosis, etiology of cardiac valve disease unspecified I35.0 Cardiac valve disease etiology: etiology unspecified Hyperkalemia E87.5 Rhinovirus infection B34.8 Elevated troponin R79.89 Tachycardia R00.0 Tobacco dependence F17.200 Type 2 diabetes mellitus without complication, with long-term current use of insulin E11.9; Z79.4 Diabetes mellitus complication status: without complication Diabetes mellitus senior living insulin use: with senior living use Microcytosis R71.8 TIESHA (obstructive sleep apnea) G47.33 (3) Aortic stenosis Cardiac valve disease etiology: etiology unspecified Qualified Code(s): I35.0 - Nonrheumatic aortic (valve) stenosis (9) Type 2 diabetes mellitus Diabetes mellitus complication status: without complication Diabetes mellitus terminal gauger insulin use: with senior living use Qualified Code(s): E11.9 - Type 2 diabetes mellitus without complications; Z79.4 - group home (current) use of insulin
[2024-01-22 07:50] LABS: Prothrombin Time 10.6 Seconds (9.0-12.0)
[2024-01-22 07:55] LABS: BUN Creatinine Ratio 14.5 (10-20); Calcium 9.6 mg/dl (8.6-10.3); Creatinine Clr Calc Pharmacy 70.5 ml/min; Est GFR (African American) 78.6 ml/min; Est GFR (Non-African American) 67.8 ml/min; Potassium 5.5 mmol/L (3.5-5.1); Thyroid Stimulating Hormone 1.012 uIu/ml (0.300-4.500)
[2024-01-22] MEDS: oxyCODONE HCL IR 5 MG TAB (IMMEDIATE RELEASE) PO PRN (08:14)
[2024-01-22] MEDS: LANTUS PER UNIT CHARGE SC SCH (08:15)
[2024-01-22] MEDS: LOSARTAN POTASSIUM 50 MG TAB PO SCH (08:16)
[2024-01-22] MEDS: carvediloL 3.125 MG TAB PO SCH (08:16)
[2024-01-22] MEDS: ASPIRIN 81 MG ECTAB PO SCH (08:17)
[2024-01-22] MEDS: amLODIPine BESYLATE 5 MG TAB PO SCH (08:17)
[2024-01-22] MEDS: CHOLECALCIFEROL 25 MCG (1000 UNITS) TAB PO SCH (08:17)
[2024-01-22] MEDS: methylPREDNISolone 60 MG in SYRINGE 0 ML IV SCH (08:18)
[2024-01-22 08:32] LABS: Magnesium 2.2 mg/dl (1.7-2.4)
[2024-01-22] MEDS ORDERED: ROFLUMILAST 500 MCG TAB PO SCH (09:00)
[2024-01-22] MEDS ORDERED: methylPREDNISolone 125 MG/2 ML VIAL IV SCH (09:00)
[2024-01-22] MEDS: ROFLUMILAST 500 MCG TAB PO SCH (09:46)
[2024-01-22] MEDS: INSULIN HUMAN REGULAR PER UNIT 10 UNITS in SYRINGE 9.9 ML IV STA ×2 (09:46→14:36)
[2024-01-22] MEDS: DEXTROSE 50% 50 ML SYRINGE IV ONE (09:52)
[2024-01-22] MEDS: FUROSEMIDE INJ 20 MG/2 ML VIAL IV ONE ×2 (09:52→14:36)
[2024-01-22] MEDS: CALCIUM GLUCONATE 1,000 MG/60 ML BAG IV STA (09:53)
[2024-01-22] MEDS: SODIUM CHLOR 7% 4 ML NEB NEB SCH (12:24)
[2024-01-22 13:32] LABS: Calcium 9.7 mg/dl (8.6-10.3); Creatinine Clr Calc Pharmacy 68.2 ml/min; Est GFR (African American) 75.5 ml/min; Est GFR (Non-African American) 65.1 ml/min; Magnesium 2.1 mg/dl (1.7-2.4); Potassium 5.6 mmol/L (3.5-5.1)
[2024-01-22] MEDS: PATIROMER CALCIUM SORBITEX 8.4 GM PACK PO ONE (14:35)
[2024-01-22] MEDS: CALCIUM GLUCONATE 1,000 MG/60 ML BAG IV ONE (14:36)
[2024-01-22] MEDS: DEXTROSE 50% 50 ML SYRINGE IV STA (14:36)
[2024-01-22] MEDS: methylPREDNISolone 40 MG in SYRINGE 0 ML IV SCH ×2 (14:37→20:45)
--- NOTE | 2024-01-22 15:00 | Pharmacy Report ---
Pharmacy Glycemic Short Note 2 - Date of Service January 22, 2024 - Glycemic Short BSG Results (Last 24 hours): 01/21/24 01/21/24 01/22/24 15:20 20:46 07:05 Glucose 141 H POC Glucose 206 H 193 H 01/22/24 01/22/24 01/22/24 07:20 10:25 11:24 Glucose POC Glucose 127 H 175 H 96 01/22/24 13:01 Glucose 106 H POC Glucose OUTPATIENT ANTIDIABETIC REGIMEN: * Ozempic 0.5mg Qwk * Lantus 25 units SQ QAM * Humalog 15 units SQ BID * HbA1c 6.5% (06/13/23), pending (01/13/24) ASSESSMENT: * is a 58 YOM admitted with a COPD exacerbation and a history of T2DM. Pharmacy has been consulted to assist with glycemic management while inpatient. * Fasting BSG this AM within goal range, continue home basal dosage and scale at night (0.2-0.3 units/kg) * Hyperkalemic this AM, repeat level still elevated, received multiple rounds of insulin/dextrose to treat, complicating glycemic management. BSGs slightly below goal range or within goal range today. No adjustments to Novolog at this time. PLAN FOR INPATIENT GLYCEMIC CONTROL: * Hold outpatient oral diabetes medications * Basal insulin * Lantus 25 units SQ QAM * Lantus 0-25 units SQ HS (see eMAR for additional details) * Bolus insulin * NovoLog per scale ACHS or Q6hrs while NPO * Goal Range: Low 110 mg/dL - High 140 mg/dL * Correction Factor: 20 mg/dL/unit * Nutritional / Prandial insulin per carb ratio of 1 unit per 5 grams CHO consumed
[2024-01-22] MEDS: LEVALBUTEROL HCL 0.63 MG/3 ML NEB NEB SCH (15:10)
[2024-01-22] MEDS: guaiFENesin 600 MG TABCR PO SCH (20:28)
[2024-01-22 21:35] LABS: BUN Creatinine Ratio 13.3 (10-20); Calcium 9.4 mg/dl (8.6-10.3); Est GFR (African American) 58.2 ml/min; Est GFR (Non-African American) 50.2 ml/min
[2024-01-23 06:47] LABS: Hematocrit (blood only) 37.2 % (42.0-52.0); Hemoglobin 11.4 g/dl (14.0-18.0); Mean Corpuscular Hemoglobin 23.9 pg (25.0-34.0); Mean Corpuscular Hgb Conc 30.6 g/dL (32.0-36.0); Platelet Count 269 K/uL (130-400); RDW Coefficient of Variation 14.4 % (11.5-14.5); RDW Standard Deviation 40.4 fL (36.4-46.3); Red Blood Count 4.77 M/uL (4.70-6.10)
[2024-01-23 07:23] LABS: Albumin Level 3.8 gm/dl (3.4-5.0); BUN Creatinine Ratio 17.6 (10-20); Bilirubin,Total 0.2 mg/dl (0.2-1.0); Calcium 9.4 mg/dl (8.6-10.3); Creatinine Clr Calc Pharmacy 69.7 ml/min; Est GFR (Non-African American) 66.5 ml/min; Globulin 3.8 gm/dl (2.5-4.0); Magnesium 2.2 mg/dl (1.7-2.4); Total Protein 7.6 gm/dl (6.0-8.3)
[2024-01-23 07:34] LABS: Basophils # (auto) 0.02 K/uL (0.00-0.20); Basophils % (auto) 0.1 %; Immature Granulocytes # (auto) 0.17 K/uL (0.01-0.20); Immature Granulocytes % (auto) 0.8 %; Lymphocytes # (auto) 0.97 K/uL (1.20-3.40); Lymphocytes % (auto) 4.6 %; Monocytes # (auto) 0.78 K/uL (0.11-0.59); Monocytes % (auto) 3.7 %; Neutrophils # (auto) 18.96 K/uL (1.40-6.50); Neutrophils % (auto) 90.8 %
[2024-01-23 07:35] LABS: Estimated Average Glucose 140 mg/dl; Hemoglobin A1C 6.5 % (4.5-5.6)
--- NOTE | 2024-01-23 07:43 | Hospitalist Progress Note ---
Date of Service January 23, 2024 Assessment & Plan (1) Acute exacerbation of chronic obstructive pulmonary disease: Plan: On 2L, sinus tachycardia on admission w/ SOB and COPD exacerbation w/ positive biofire testing +rhinovirus with significant bronchospasm w/ coughing fit s/p 125 mg IV Solu-Medrol, an hour-long albuterol treatment, 4 mg IV morphine, 500 mL normal saline, and 4 mg IV Zofran in the ED. Admit w/ solumedrol 60 TID, duonebs, budesonide/formoterol nebs, doxycycline BID, O2 prn. Lovenox Sq for DVT proph 01/22 Admitted for acute COPD exacerbation, suspected 2nd to rhinovirus infection on biofire testing. Also suspect possible PNA despite negative CXR given ongoing for >1wk * Typically follows with Dr Daniel, also has moderate aortic stenosis (prior to Aug visit did have some syncopal type sx reported) * Per prior pulm notes "The single most important factor which can be modified to help reduce the number of exacerbations and progression of COPD symptoms is for him to quit smoking and avoid secondhand smoke exposure" however HAD NOW QUIT as of 3 days ago and using nicotine patch/lozenges (patch to R arm in place on exam) - continued cessation encouraged * Does also have hx esophageal narrowing requiring "stretches" in the past. Last EGD in system 2021 w/ Dr Henning noting mildly severe reflux esophagitis and recs to continue PPI BID and discussed to limit ibuprofen and made PRN rather than scheduled. MCV <80 but iron studies alright and TSH wnl CXR on admission w/ Emphysema without acute process Solumedrol decreased to 40mg BID, increasing to TID given wheezing on exam but suspect from volume overload from IVF/steroids/fluid retention in patient w/ moderate aortic stenosis on prior ECHO Levalbuterol nebs charles, albuterol neb x 1 for bronchospasm Continue budeosonide nebs/formoterol Hypertonic saline and mucinex added /16 as well as flutter valve to help w/ expectoration with some improvement. Continue incentive spirometer -Prior bronchs w/ Dr Gold in past/mucus plugging (also noted on outpt CT w/ plugging/bronchitis) Cough syrup and oxycodone available for pain WBC elevation suspected 2nd to steroids, afebrile Sputum cx -- pin-point growth/re-incubating --> NOW GROWING STREP PNEUMO, CEFTRIAXONE IV ORDERED-f/u final cx/sensitivities s/p 2 doses of lasix 20mg IV for volume overload/retention (?possibly from steroids) but also to help w/ hyperkalemia as below) CXR report negative however weight UP 2-3lb, BNP now ELEVATED 317 Lasix 40mg IV x 1, monitor for additional dosing in AM but likely benefit from at least daily dosing while on IV steroids Repeat ECHO to eval any worsening EF in patient w/ moderate aortic stenosis on prior ECHO Monitor daily weight, I&Os Continue to monitor on telemetry, no arrhythmia however given prior elevated K which is normal/losartan on hold and if stable could downgrade in AM Labs/exam in AM (2) Pneumonia: Plan: sputum cx now w/ strep on prelim, ceftriaxone added and follow up final cx/sensitivities. remains on doxy for CAP and pulm toilet/meds as outlined (3) Diastolic heart failure: Plan: Prior ECHO w/ normal EF in 2022 w/ moderate aortic stenosis at that time Was given 500cc NSS on admission, high dose steroids Weight 88.6kg from 87.7kg, +ORTHOPNEA Lasix 40mg IV x 1 and monitor response/additional dosing as needed Repeat ECHO - mod-severe and volume status now normalized (4) Aortic stenosis: Plan: ?worsened Lasix IV as above for weight gain/volume overload/orthopnea/elevated BNP Repeat ECHO pending for further eval Monitor volume status ADDENDUM: on review of echo from 01/22 he does have mod-severe aortic stenosis, normal EF, IVC collapsible and RA pressure 5 so no longer volume overloaded. (5) Hyperkalemia: Plan: K elevated to 5.5 on AM labs 01/21 however already given his losartan and was 5.6 on repeat despite a glu/dextrose/insulin Repeat labs up to 6.0 and did receive second round a glu/dextrose/insulin with dose patiromer and K 5.0 on AM labs Diet changed to LOW K losartan remains on hold Lasix IV as above Telemetry without issue and if stable in AM can consider downgrade of telemetry or to med/tele (6) Rhinovirus infection: Plan: suspected as cause for above Isolation precautions, tx as above (7) Elevated troponin: Plan: 27.5--> [address] changes on EKG or CP reported and suspect demand ischemia as above and will monitor on tele for next 24 hours given hyperkalemia and downgrade if able (8) Tachycardia: Plan: 2nd to exacerbation/coughing fit/rhinovirus as above and tx as outlined Improvement in HR since tx and changed duoneb to levalbuterol and no issue on telemetry. Downgrade in AM if K stable/no issues (9) Tobacco dependence: Plan: Quit 3 days prior to admission, motivated to stop. Patch in place to R arm on exam, has been using the lozenges as does not like the gum Continued cessation encouraged (10) Type 2 diabetes mellitus: Plan: Hold omezmpic, BSG AC/HS and pharmacy on consult for glycemic management while on high dose steroids. Monitor BSgs/appreciate glycemic assistance (11) Microcytosis: Plan: Review of labs w/ MCV consistently <80 Do note patient w/ ibuprofen on his home medication list Iron studies added for AM labs as well as TSH as not last checked since 2021 -- no acute issue. Educated to limit NSAIDs/changed to prn and has NOT used Peripheral smear ordered for further eval IF not already having colonoscopy should be arranged for screening. Had EGD in past w/ Dr Case for severe reflux and can be arranged outpt. No bleeding reported and remains on PPI BID (12) TIESHA (obstructive sleep apnea): Plan: CPAP/BiPAP ordered on admission however does not wear at baseline Overnight sleep study ordered (mary w/ his orthopnea/diastolic heart failure) and would rec outpt sleep study/CPAP/BiPAP as needed Plan continued inpatient stay Admission and Anticipated Discharge Date Admission Date: January 21, 2024 Subjective Evaluated this morning, ambulating in the room, tripoding at times due to coughing fit. Did discuss weight up. He reports he is UNABLE to lay flat in bed. They did CXR this morning but as discussed weights up and suspect needing a little more diuresis w/ the wheezing. Able to cough up a little more sputum w/ the flutter valve but does have bronchospams and will continue IV steroids but change back to TID for now and likely additional lasix for this evening. No fever/chills but discussed possible bacterial PNA Physical Exam Physical Exam: General: WD/WN male walking in room, having coughing fit/bronchspasm from recent flutter valve/hypertonic saline treatment HEENT: head atraumatic, normocephalic, mmm, trachea midline Resp; diminished in the bases, +wheezing, on room air 92% CV: RRR, +HARSH systolic murmur, S1, quiet S2, 1+ b/l LE edema, no calf tenderness GI: +BS, softf, slight distension but nontender : no aguilar MSK/Neuro: non focal, answering questions appropriately, no slurred speech/facial droop or confusion noted Psych: Aox3, cooperative with exam Results & Data Results & Data Vital Signs (Past 12 Hours) Vital Signs Temp Pulse Pulse Resp BP Pulse Ox O2 Del Method 01/23/24 07:18 71 15 93 Room Air 01/23/24 07:08 36.4 C L 61 16 138/64 94 Room Air 01/23/24 07:00 64 01/22/24 23:33 89 16 90 Room Air 01/22/24 22:35 36.8 C 67 19 122/60 90 Room Air 01/22/24 20:01 Room Air FiO2 01/23/24 07:18 21 01/23/24 07:08 01/23/24 07:00 01/22/24 23:33 01/22/24 22:35 01/22/24 20:01 Laboratory Results 01/23/24 01/23/24 01/23/24 Range/Units 07:46 07:08 06:26 WBC 20.90 H (4.8-10.8) K/ul RBC 4.77 (4.70-6.10) M/uL Hgb 11.4 L (14.0-18.0) g/dl Hct 37.2 L (42.0-52.0) % MCV 78.0 L (80.0-100.0) fL MCH 23.9 L (25.0-34.0) pg MCHC 30.6 L (32.0-36.0) g/dL RDW Std Deviation 40.4 (36.4-46.3) fL RDW Coeff of Ledy 14.4 (11.5-14.5) % Plt Count 269 (130-400) K/uL MPV 10.0 (9.4-12.4) fL Immature Gran % (Auto) 0.8 % Neut % (Auto) 90.8 % Lymph % (Auto) 4.6 % [place] % (Auto) 3.7 % Eos % (Auto) 0.0 % Baso % (Auto) 0.1 % Neut # (Auto) 18.96 H (1.40-6.50) K/uL Lymph # (Auto) 0.97 L (1.20-3.40) K/uL [place] # (Auto) 0.78 H (0.11-0.59) K/uL Eos # (Auto) 0.00 (0.00-0.50) K/uL Baso # (Auto) 0.02 (0.00-0.20) K/uL Immature Gran # (Auto) 0.17 (0.01-0.20) K/uL Peripher Smr Path Cons Sodium 135 L (136-145) mmol/L Potassium 5.0 (3.5-5.1) mmol/L Chloride 102 (98-107) mmol/L Carbon Dioxide 28 (21-32) mmol/L Anion Gap 5 (3-11) BUN 21 (6-23) mg/dl Creatinine 1.19 D (0.6-1.4) mg/dl Est Cr Clr Drug Dosing 69.7 ml/min Est GFR ( Amer) 77.0 ml/min Est GFR (Non-Af Amer) 66.5 ml/min BUN/Creatinine Ratio 17.6 (10-20) Glucose 128 H (70-99(Fasting)) mg/dl POC Glucose 150 H (70-99) mg/dl Estimat Average Glucose 140 mg/dl Hemoglobin A1c 6.5 H (4.5-5.6) % Calcium 9.4 (8.6-10.3) mg/dl Magnesium 2.2 Total Bilirubin 0.2 (0.2-1.0) mg/dl AST 14 (13-39) U/L ALT 8 (7-52) U/L Alkaline Phosphatase 81 (34-104) U/L B-Natriuretic Peptide 317 H (0-100) pg/ml Total Protein 7.6 (6.0-8.3) gm/dl Albumin 3.8 (3.4-5.0) gm/dl Globulin 3.8 (2.5-4.0) gm/dl Albumin/Globulin Ratio 1.0 (0.9-2) 25-OH Vitamin D Total 28.7 L TNP 01/22/24 01/22/24 01/22/24 Range/Units 21:03 19:40 16:19 WBC (4.8-10.8) K/ul RBC (4.70-6.10) M/uL Hgb (14.0-18.0) g/dl Hct (42.0-52.0) % MCV (80.0-100.0) fL MCH (25.0-34.0) pg MCHC (32.0-36.0) g/dL RDW Std Deviation (36.4-46.3) fL RDW Coeff of Ledy (11.5-14.5) % Plt Count (130-400) K/uL MPV (9.4-12.4) fL Immature Gran % (Auto) % Neut % (Auto) % Lymph % (Auto) % [place] % (Auto) % Eos % (Auto) % Baso % (Auto) % Neut # (Auto) (1.40-6.50) K/uL Lymph # (Auto) (1.20-3.40) K/uL [place] # (Auto) (0.11-0.59) K/uL Eos # (Auto) (0.00-0.50) K/uL Baso # (Auto) (0.00-0.20) K/uL Immature Gran # (Auto) (0.01-0.20) K/uL Peripher Smr Path Cons Sodium 132 L (136-145) mmol/L Potassium 6.0 H (3.5-5.1) mmol/L Chloride 100 (98-107) mmol/L Carbon Dioxide 28 (21-32) mmol/L Anion Gap 4 (3-11) BUN 20 (6-23) mg/dl Creatinine 1.50 H (0.6-1.4) mg/dl Est Cr Clr Drug Dosing 55.0 ml/min Est GFR ( Amer) 58.2 ml/min Est GFR (Non-Af Amer) 50.2 ml/min BUN/Creatinine Ratio 13.3 (10-20) Glucose 134 H (70-99(Fasting)) mg/dl POC Glucose 132 H 202 H (70-99) mg/dl Estimat Average Glucose mg/dl Hemoglobin A1c (4.5-5.6) % Calcium 9.4 (8.6-10.3) mg/dl Magnesium Total Bilirubin (0.2-1.0) mg/dl AST (13-39) U/L ALT (7-52) U/L Alkaline Phosphatase (34-104) U/L B-Natriuretic Peptide (0-100) pg/ml Total Protein (6.0-8.3) gm/dl Albumin (3.4-5.0) gm/dl Globulin (2.5-4.0) gm/dl Albumin/Globulin Ratio (0.9-2) 25-OH Vitamin D Total 01/22/24 01/22/24 01/22/24 Range/Units 13:01 13:01 11:24 WBC (4.8-10.8) K/ul RBC (4.70-6.10) M/uL Hgb (14.0-18.0) g/dl Hct (42.0-52.0) % MCV (80.0-100.0) fL MCH (25.0-34.0) pg MCHC (32.0-36.0) g/dL RDW Std Deviation (36.4-46.3) fL RDW Coeff of Ledy (11.5-14.5) % Plt Count (130-400) K/uL MPV (9.4-12.4) fL Immature Gran % (Auto) % Neut % (Auto) % Lymph % (Auto) % [place] % (Auto) % Eos % (Auto) % Baso % (Auto) % Neut # (Auto) (1.40-6.50) K/uL Lymph # (Auto) (1.20-3.40) K/uL [place] # (Auto) (0.11-0.59) K/uL Eos # (Auto) (0.00-0.50) K/uL Baso # (Auto) (0.00-0.20) K/uL Immature Gran # (Auto) (0.01-0.20) K/uL Peripher Smr Path Cons Sodium 136 (136-145) mmol/L Potassium 5.6 H (3.5-5.1) mmol/L Chloride 102 (98-107) mmol/L Carbon Dioxide 25 (21-32) mmol/L Anion Gap 9 (3-11) BUN 17 (6-23) mg/dl Creatinine 1.21 (0.6-1.4) mg/dl Est Cr Clr Drug Dosing 68.2 ml/min Est GFR ( Amer) 75.5 ml/min Est GFR (Non-Af Amer) 65.1 ml/min BUN/Creatinine Ratio 14.0 (10-20) Glucose 106 H (70-99(Fasting)) mg/dl POC Glucose 96 (70-99) mg/dl Estimat Average Glucose mg/dl Hemoglobin A1c (4.5-5.6) % Calcium 9.7 (8.6-10.3) mg/dl Magnesium 2.1 Cancelled Total Bilirubin (0.2-1.0) mg/dl AST (13-39) U/L ALT (7-52) U/L Alkaline Phosphatase (34-104) U/L B-Natriuretic Peptide (0-100) pg/ml Total Protein (6.0-8.3) gm/dl Albumin (3.4-5.0) gm/dl Globulin (2.5-4.0) gm/dl Albumin/Globulin Ratio (0.9-2) 25-OH Vitamin D Total Diagnostic Findings Chest X-Ray 01/23/24 07:00 XR chest 2V PA/lateral CLINICAL HISTORY: f/u eval pna/congestion on steroids TECHNIQUE: 2 views of the chest were obtained. Comparison: Comparison is made to chest radiograph 01/21/2024 FINDINGS: Left sixth and seventh rib plate and screw fixation hardware and ACDF are seen. Left lung base surgical changes are again seen. Calcified aortic knob is seen. The lungs are clear. No evidence of pleural effusion or pneumothorax. IMPRESSION: No acute abnormalities and in particular no radiographic evidence of pneumonia. ACT 112: Negative or not required by law. Electronically signed by: Vinnie Cespedes M.D. 01/23/2024 9:29 AM PG Care Time/CCT Total # of Minutes Spent Total Time Spent with Patient: Total time spent is greater than 50% in coordination of care (as documented) at patient's floor/unit and/or counseling patient: Coding Level of Care Code 55982 SUB INP/OBS CARE 3/50MIN Diagnoses Acute exacerbation of chronic obstructive pulmonary disease J44.1 Pneumonia J18.9 Diastolic heart failure I50.30 Aortic valve stenosis, etiology of cardiac valve disease unspecified I35.0 Cardiac valve disease etiology: etiology unspecified Hyperkalemia E87.5 Rhinovirus infection B34.8 Elevated troponin R79.89 Tachycardia R00.0 Tobacco dependence F17.200 Type 2 diabetes mellitus without complication, with long-term current use of insulin E11.9; Z79.4 Diabetes mellitus complication status: without complication Diabetes mellitus detention insulin use: with detention use Microcytosis R71.8 TIESHA (obstructive sleep apnea) G47.33 (4) Aortic stenosis Cardiac valve disease etiology: etiology unspecified Qualified Code(s): I35.0 - Nonrheumatic aortic (valve) stenosis (10) Type 2 diabetes mellitus Diabetes mellitus complication status: without complication Diabetes mellitus 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
--- NOTE | 2024-01-23 09:31 | XRay Report ---
XR chest 2V PA/lateral CLINICAL HISTORY: f/u eval pna/congestion on steroids TECHNIQUE: 2 views of the chest were obtained. Comparison: Comparison is made to chest radiograph 01/21/2024 FINDINGS: Left sixth and seventh rib plate and screw fixation hardware and ACDF are seen. Left lung base surgic al changes are again seen. Calcified aortic knob is seen. The lungs are clear. No evidence of pleural effusion or pneumothorax. IMPRESSION: No acute abnormalities and in particular no radiographic evidence of pneumonia. ACT 112: Negative or not required by law. Electronically signed by: Vinnie Cespedes M.D. 01/23/2024 9:29 AM
[2024-01-23] MEDS: ALBUTEROL 0.5% NEB SOLN 2.5 MG/0.5 ML VIAL NEB STA (10:05)
[2024-01-23] MEDS: FUROSEMIDE 40 MG/4 ML VIAL IV ONE (10:59)
--- NOTE | 2024-01-23 12:14 | Pharmacy Report ---
Pharmacy Glycemic Short Note 2 - Date of Service January 23, 2024 - Glycemic Short BSG Results (Last 24 hours): 01/22/24 01/22/24 01/22/24 13:01 16:19 19:40 Glucose 106 H POC Glucose 202 H 132 H 01/22/24 01/23/24 01/23/24 21:03 06:26 07:08 Glucose 134 H 128 H POC Glucose 150 H 01/23/24 11:25 Glucose POC Glucose 75 OUTPATIENT ANTIDIABETIC REGIMEN: * Ozempic 2 mg SC every Tuesday * Lantus 25 units SC AM * Humalog 15 units SC BID * HbA1c: 6.5% (01/23/24) ASSESSMENT: 01/22: * Patient received 28 units of insulin yesterday, 25 basal + 3 bolus. BSGs were 634-80-578-132 mg/dL. * Fasting BSG was 150 mg/dL this AM. Continued 25 units of basal which matches home dose. Will discontinue HS basal. * Received 10 units of bolus insulin this AM and lunchtime BSG dropped to 75 mg/dL. Lunchtime also trended down yesterday. Will loosen carb ratio from 5 to 7 for now and see how patient does. Continues on SoluMedrol 40 mg IV TID which doesn't seem to be having a huge effect on BSGs yet. 01/21: * is a 58 YOM admitted with a COPD exacerbation and a history of T2DM. Pharmacy has been consulted to assist with glycemic management while inpatient. * Fasting BSG this AM within goal range, continue home basal dosage and scale at night (0.2-0.3 units/kg) * Hyperkalemic this AM, repeat level still elevated, received multiple rounds of insulin/dextrose to treat, complicating glycemic management. BSGs slightly below goal range or within goal range today. No adjustments to Novolog at this time. PLAN FOR INPATIENT GLYCEMIC CONTROL: * Basal insulin * Lantus 25 units SC AM * Bolus insulin * NovoLog per scale ACHS or Q6hrs while NPO * Goal Range: Low 110 mg/dL - High 140 mg/dL * Correction Factor: 20 mg/dL/unit * Nutritional / Prandial insulin per carb ratio of 1 unit per 7 grams CHO consumed
[2024-01-23] MEDS: cefTRIAXone SODIUM 2,000 MG/50 ML BAG IV SCH (16:09)
[2024-01-23] MEDS: methylPREDNISolone 40 MG in SYRINGE 0 ML IV SCH (16:09)
--- NOTE | 2024-01-23 18:34 | XCELERA ---
[id number]
[2024-01-24 05:59] LABS: Hematocrit (blood only) 38.3 % (42.0-52.0); Hemoglobin 12.1 g/dl (14.0-18.0); Mean Corpuscular Hemoglobin 24.4 pg (25.0-34.0); Mean Corpuscular Hgb Conc 31.6 g/dL (32.0-36.0); Mean Corpuscular Volume 77.4 fL (80.0-100.0); Mean Platelet Volume 9.7 fL (9.4-12.4); Platelet Count 331 K/uL (130-400); RDW Coefficient of Variation 14.6 % (11.5-14.5); RDW Standard Deviation 40.1 fL (36.4-46.3); Red Blood Count 4.95 M/uL (4.70-6.10)
[2024-01-24 06:15] LABS: Albumin Level 3.8 gm/dl (3.4-5.0); BUN Creatinine Ratio 22.8 (10-20); Bilirubin,Total 0.2 mg/dl (0.2-1.0); Calcium 8.8 mg/dl (8.6-10.3); Creatinine Clr Calc Pharmacy 67.6 ml/min; Est GFR (Non-African American) 63.9 ml/min; Globulin 3.8 gm/dl (2.5-4.0); Magnesium 2.2 mg/dl (1.7-2.4); Potassium 4.3 mmol/L (3.5-5.1); Total Protein 7.6 gm/dl (6.0-8.3)
[2024-01-24 06:54] LABS: Basophils # (auto) 0.02 K/uL (0.00-0.20); Basophils % (auto) 0.1 %; Hypersegmented Neutrophils 1+; Immature Granulocytes # (auto) 0.21 K/uL (0.01-0.20); Immature Granulocytes % (auto) 1.1 %; Lymphocytes # (auto) 0.91 K/uL (1.20-3.40); Lymphocytes % (auto) 4.6 %; Monocytes # (auto) 0.73 K/uL (0.11-0.59); Monocytes % (auto) 3.7 %; Neutrophils # (auto) 18.13 K/uL (1.40-6.50); Neutrophils % (auto) 90.5 %; Polychromasia 1+
[2024-01-24] MEDS: IBUPROFEN 800 MG TAB PO PRN (08:33)
--- NOTE | 2024-01-24 10:27 | Pharmacy Report ---
Pharmacy Glycemic Short Note 2 - Date of Service January 24, 2024 - Glycemic Short BSG Results (Last 24 hours): 01/23/24 01/23/24 01/23/24 11:25 16:04 20:15 Glucose POC Glucose 75 158 H 133 H 01/24/24 01/24/24 05:27 07:40 Glucose 162 H POC Glucose 125 H OUTPATIENT ANTIDIABETIC REGIMEN: * Ozempic 2 mg SC every Tuesday * Lantus 25 units SC AM * Humalog 15 units SC BID * HbA1c: 6.5% (01/23/24) ASSESSMENT: 01/23: * received 35 units of insulin yesterday, 25 basal + 10 bolus. BSGs were 254-71-938-133 mg/dL. * Fasting BSG was 125 mg/dL this AM. Continue with previously ordered regimen, no changes necessary. * Remains on Ceftriaxone, Doxycycline and SoluMedrol 40 mg IV TID. 01/22: * Patient received 28 units of insulin yesterday, 25 basal + 3 bolus. BSGs were 803-43-161-132 mg/dL. * Fasting BSG was 150 mg/dL this AM. Continued 25 units of basal which matches home dose. Will discontinue HS basal. * Received 10 units of bolus insulin this AM and lunchtime BSG dropped to 75 mg/dL. Lunchtime also trended down yesterday. Will loosen carb ratio from 5 to 7 for now and see how patient does. Continues on SoluMedrol 40 mg IV TID which doesn't seem to be having a huge effect on BSGs yet. 01/21: * is a 58 YOM admitted with a COPD exacerbation and a history of T2DM. Pharmacy has been consulted to assist with glycemic management while inpatient. * Fasting BSG this AM within goal range, continue home basal dosage and scale at night (0.2-0.3 units/kg) * Hyperkalemic this AM, repeat level still elevated, received multiple rounds of insulin/dextrose to treat, complicating glycemic management. BSGs slightly below goal range or within goal range today. No adjustments to Novolog at this time. PLAN FOR INPATIENT GLYCEMIC CONTROL: * Basal insulin * Lantus 25 units SC AM * Bolus insulin * NovoLog per scale ACHS or Q6hrs while NPO * Goal Range: Low 110 mg/dL - High 140 mg/dL * Correction Factor: 20 mg/dL/unit * Nutritional / Prandial insulin per carb ratio of 1 unit per 7 grams CHO consumed
--- NOTE | 2024-01-24 14:02 | Discharge Summary ---
Discharge Summary Date of Service January 24, 2024 Principal Dx & Hospital Course #1 = Principal Diagnosis (1) Acute exacerbation of chronic obstructive pulmonary disease: Presented with SOB, hypoxia, sinus tachycardia on admission -COPD exacerbation w/ positive biofire testing +rhinovirus with significant bronchospasm w/ coughing fit CXR neg for PNA but with increased sputum production, checked sputum cx--> growing Strep pneumo Treated with IV steroids, doxycycline, nebs, ICS, hypertonic saline, antitussives. Ceftriaxone x 1 dose added on after Strep pneumo in sputum cx--> finish out 6 more days of high dose amox for Strep pneumo bronchitis--> Amox 1000mg po tid x 6 more days Finish out prednisone burst he already has at home-did not prescribe a new one COntinue hypertonic saline and DUonebs bid, and needs 2LNC O2 qhs for nocturnal hypoxemia Much improved, stable for dc to home COntinue to encourage smoing cessation (2) Diastolic heart failure: Acute on Chronic HFpEF Prior ECHO w/ normal EF in 2022 w/ moderate aortic stenosis at that time, now with mod-severe BNP mild elevation here and given 1 dose of IV lasix for hypervolemia, weight up, and with orthopnea F/u with Cardiology as outpt for (3) Aortic stenosis: as above (4) Hyperkalemia: K elevated to 5.5 on AM labs 01/21 however already given his losartan and was 5.6 on repeat despite a glu/dextrose/insulin Repeat labs up to 6.0 and did receive second round a glu/dextrose/insulin with dose patiromer improved Diet changed to LOW K and held losartan, gave IV lasix Ok to resume after discharge as he has never had issues with hyperkalemia in the past while on losartan (5) Rhinovirus infection: Cause for COPD exacerbation (6) Elevated troponin: 27.5--> [address] changes on EKG or CP reported and suspect demand ischemia (7) Tobacco dependence: Quit 3 days prior to admission, motivated to stop. NRT encouraged Continued cessation encouraged (8) Type 2 diabetes mellitus: Resume home Ozempic, insulin on discharge (9) Microcytosis: MCV consistently <80, transferrin sat mildly low at 14%, ferritin normal at 102 but in setting of acute infection is falsely high Had colonoscopy 2-3 years ago reportedly normal patient w/ ibuprofen on his home medication list Had EGD in past w/ Case for severe reflux and can be arranged outpt. No bleeding reported and remains on PPI BID Follow up with PCP as outpt (10) TIESHA (obstructive sleep apnea): Does not have CPAP at home Overnight sleep study ordered and failed with POx<89% for over 8 min Ordered 2LNC O2 for qhs use recommend formal sleep study Plan DVT proph-Lovenox SQ Dispo-dc to home Notes For Next Care Provider Follow mild Fe def anemia Medication Changes From Visit Added amoxicillin 1000mg po tid x 6 more days Added doxycycline 100mg po bid x 4 more days Added hypertonic saline Added guaifenesin w/ codeine prn Added small amount oxycodone 5mg po q4h prn pain of ribs from coughing Admission HPI Per Admitting Provider is a 58-year-old male with a past medical history significant for tobacco dependence, asthmaCOPD overlap syndrome, esophageal dysphagia TIESHA, aortic stenosis, GERD, diabetes mellitus type 2, and peripheral arterial disease who presented to the [facility] ED on 01/21/2024 via EMS due to ongoing shortness of breath. Patient has been having recurrent COPD exacerbations outpatient which his PCP has been trying to treat with recurrent courses of steroids tapers. However, he continued to have progressively worsening symptoms and called EMS this morning. EMS reported that the patient remained stable on room air, he was given 2 DuoNeb treatments and route. On arrival to the ED he was noted to be tachycardic with heart rate in the 110s but otherwise stable. Labs were significant for a VBG pH of 7.35, pCO2 of 57, pCO2 within normal limits, initial high-sensitivity troponin of 27, negative Pro-Dandy and full respiratory bio fire positive for rhinovirus. Chest x-ray was read as emphysema without acute process. Prior to admission the patient was given an hour-long DuoNeb treatment, 125 mg IV Solu-Medrol, 500 mL normal saline, 4 mg IV morphine, and 4 mg IV Zofran. Patient was sitting in a bedside chair, leaning forward in tripod position, but in no acute distress at the time of exam with his significant other at bedside. He is currently stable on 2 L nasal cannula. States that since August of this year he has had recurrent COPD exacerbations requiring multiple courses of oral steroids, he feels as though he has never gotten back to his baseline since August. Quit smoking approximately 3 days ago, he knows he needs to quit completely in order to improve his respiratory status and is motivated. Has been using his home breathing treatments/nebulizer treatments as prescribed without improvement in symptoms. 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 When asked, states that his most severe symptoms are spasms with coughs making it very difficult for him to get air in along with bilateral rib pain with his coughs. Denies chest pain at rest, productive cough, hemoptysis, ABD pain, nausea/vomiting, dysuria, hematuria, melena, diarrhea, lower extremity swelling, recent trauma. He is a full code. Please refer to Dr. Miranda's attestation for any changes to the treatment plan Discharge Exam Constitutional WD/WN, vitals as above Respiratory normal respiratory effort; no cough and not tachypneic Auscultation: + crackles (right base); no rhonchi and no wheezes Cardiovascular RRR, no murmur, no edema Psychiatric A+Ox3, euthymic affect Updated Medication List Medication Instructions Recorded Confirmed Type cholecalciferol (vitamin D3) 25 1,000 unit PO QAM 01/31/19 01/21/24 History mcg (1,000 unit) tablet rosuvastatin 40 mg tablet (Crestor) 40 mg PO HS #30 tabs 01/31/19 01/21/24 Rx insulin glargine 100 unit/mL (3 25 unit (0.25 mL) subcut QAM #15 mL 08/05/20 01/21/24 Rx mL) subcutaneous pen (Lantus Solostar U-100 Insulin) carvedilol 3.125 mg tablet (Coreg) 3.125 mg PO BID #60 tabs 08/28/20 01/21/24 Rx flash glucose sensor (FreeStyle #1 ea 09/10/21 01/13/24 Rx Fern 14 Day Sensor kit) losartan 100 mg tablet 100 mg PO QAM 12/09/21 01/21/24 History insulin lispro 100 unit/mL 15 unit subcut BID 04/02/22 01/21/24 History subcutaneous pen (Humalog KwikPen (U-100) Insulin) amlodipine 10 mg tablet (Norvasc) 10 mg PO QAM #90 tabs 05/18/22 01/21/24 Rx sildenafil 25 mg tablet (Viagra) 25 mg PO UD PRN Sexual Activity 04/13/23 01/21/24 Rx #90 tabs ibuprofen 800 mg tablet 800 mg PO TID PRN Pain #270 tabs 08/09/23 01/21/24 Rx albuterol sulfate 90 mcg/actuation 2 inh inhalation Q6H PRN shortness 08/17/23 01/21/24 Rx breath activated powder inhaler of breath or wheezing #3 Inhalers aspirin 81 mg tablet,delayed 81 mg PO DAILY 09/01/23 01/21/24 History release roflumilast 500 mcg tablet 50 mcg (0.1 x 500 mcg) PO QAM #90 09/15/23 01/21/24 Rx tabs ipratropium 0.5 mg-albuterol 3 mg 3 ml inhalation QID PRN Shortness 12/05/23 01/21/24 Rx (2.5 mg base)/3 mL nebulization Of Breath #90 mL soln ondansetron HCl 8 mg tablet 8 mg PO Q8H PRN nausea and 12/12/23 01/21/24 Rx vomiting #10 tabs pantoprazole 40 mg tablet,delayed 40 mg PO BID #60 tabs 12/26/23 01/21/24 Rx release alirocumab 150 mg/mL subcutaneous 150 mg subcut UD 01/21/24 01/21/24 History pen injector (Praluent Pen) fluticasone fur. 200 mcg-umeclid 1 inh inhalation HS 01/21/24 01/21/24 History 62.5 mcg-vilant 25 mcg inhalat.powder (Trelegy Ellipta) semaglutide 0.25 mg or 0.5 mg (2 2 mg subcut WK 01/21/24 01/21/24 History mg/3 mL) subcutaneous pen injector (Ozempic) amoxicillin 500 mg tablet 1,000 mg (2 x 500 mg) PO TID #36 01/24/24 Rx tabs codeine 10 mg-guaifenesin 100 mg/5 5 ml PO Q4H PRN cough #120 mL 01/24/24 Rx mL oral liquid (Guaifenesin AC) doxycycline hyclate 100 mg tablet 100 mg PO BID #8 tabs 01/24/24 Rx guaifenesin 600 mg tablet, 1,200 mg (2 x 600 mg) PO Q12 #60 01/24/24 Rx extended release 12 hr (Mucinex) tabs oxycodone 5 mg tablet 5 mg PO Q4H PRN breakthrough pain, 01/24/24 Rx severe #14 tabs sodium chloride 7 % for 4 ml NEB BIDR 2 weeks #120 mL 01/24/24 Rx nebulization Hospital Stay Data Consultations 01/21/24 13:41 ED Decision to Admit Stat Pending Results Patient Have Any Pending Studies at Discharge: No Discharge Instructions Given to Patient (Per Discharging Provider) Please finish out 6 more days of the antibiotic called amoxicillin and 4 more days of doxycycline for your bronchitis. You can continue using Duonebs twice a day along with the hypertonic saline nebs. Take your steroid taper pack you already have at home. You will need to use 2L of oxygen at bedtime via nasal cannula. It is great that you already quit smoking-keep up the good work! Total Time Total Time Spent Total Time Spent (In Minutes): 35 min Total Time Includes: Examination of the Patient, Discharge Planning and Medication Reconciliation Coding Level of Care Code 87540 INP/OBS DISCH >30 MIN Diagnoses Acute exacerbation of chronic obstructive pulmonary disease J44.1 Diastolic heart failure I50.30 Aortic valve stenosis, etiology of cardiac valve disease unspecified I35.0 Cardiac valve disease etiology: etiology unspecified Hyperkalemia E87.5 Rhinovirus infection B34.8 Elevated troponin R79.89 Tobacco dependence F17.200 Type 2 diabetes mellitus without complication, with long-term current use of insulin E11.9; Z79.4 Diabetes mellitus jail insulin use: with buttermaker helper use Diabetes mellitus complication status: without complication Microcytosis R71.8 TIESHA (obstructive sleep apnea) G47.33
== END 2024-01-24 14:24 | disposition home or self-care (01) | DRG 190 ==
LOC: ED 11:47 → SUATTDRO 13:43 → EDINP 13:43 → 2E 16:13

== ENCOUNTER 2025-03-03 16:21 | Inpatient (IN) ==
--- NOTE | 2025-03-03 16:49 | Emergency Department Note ---
Impression & Plan Acute exacerbation of chronic obstructive pulmonary disease, Leg swelling ED Provider Note Provider: Manuelito Velázquez MD CHIEF COMPLAINT: Shortness of breath, swelling HISTORY OF PRESENT ILLNESS: Patient is a 59-year-old gentleman significant history of asthma/COPD overlap, AAA, GERD, aortic stenosis, type 2 diabetes presenting here today via ambulance from his home. Patient states he was hospitalized here in the beginning of January. Earlier in February had some breathing issues and seen at his primary care office in the middle of the month. Completed a course of Levaquin and prednisone at that time with improvement. About a week ago after he finished his medication symptoms again to worsen. Now has some increased swelling of his bilateral lower legs into the abdomen. No chest pain. Reports a little bit of palpitations. States he is not had swelling like this before. Does not monitor his oxygen levels at home frequently and is not on home oxygen. No fevers reported. Has been using his nebulizers. He is on aspirin but no other blood thinners. EMS found to be hypoxic in the mid to low 80s on room air. Placed on oxygen and given 3 DuoNebs and 40 mg of IM Solu-Medrol and route to the hospital here. Patient states he does not tolerate CPAP or BiPAP masks. Request a fan to help with his breathing and to sit upright. No syncope reported. EMS reports possibility of A-fib en route. Does report he had a nuclear lung scan this past Tuesday at [facility] and was not called with any results yet. PAST MEDICAL HISTORY: As noted above MEDICATIONS: Reviewed home medications SOCIAL HISTORY: Former smoker PHYSICAL EXAM: GENERAL: alert and oriented in no acute distress on stretcher Head: normocephalic and atraumatic EYES: No injection, discharge or icterus. EOMI. NECK: Trachea midline. ENT: Mucous membranes pink and moist. LUNGS: Airway patent without stridor but significant work of breathing and mild retractions. Diminished breath sounds with some slight wheeze. HEART: Regular tachycardic rate and rhythm. No chest wall tenderness ABDOMEN: Soft and non-tender, without guarding or rebound. SKIN: Acyanotic, warm, dry, without rashes. A few small scattered healing abrasions on the right leg and knee EXTREMITIES: 1-2's bilateral lower extremity edema is minimally erythematous. A few small healing abrasions but no large abscess or wounds appreciable. NEUROLOGICAL: No focal deficits. No aphasia. No facial droop or slurred speech. EK bpm what appears to be a sinus tachycardia frequent PVCs but a lot of respiratory artifact is noted. Right bundle branch is noted. No clear acute ST segment elevation with a QTc of 517. CONTINUOUS CARDIAC MONITORING: was ordered and showed a heart rate of 100s to 120s bpm in sinus tachycardia frequent PVCs Patient's laboratory studies and imaging reviewed. Differential includes Reactive airway disease, pneumonia, pneumothorax, COPD, CHF, infections, cardiac ischemia, pulmonary embolism, musculoskeletal, gastrointestinal, as well as other pathologies. IMPRESSION/MEDICAL DECISION MAKING: Patient history of asthma COPD and now with some swelling question of there could be some fluid overload component as well. Patient placed on nasal cannula oxygen states he does not tolerate masks well at all including BiPAP or CPAP. Work of breathing has improved with oxygenation according to EMS. Not hypoxic here on 6 L nasal cannula. Fan provided to help with his dyspnea and sat upright. With some pursed lip breathing. His appearance of the biotic a VBG was ordered. BNP procalcitonin and laboratory studies were ordered. Chest x- ray obtained without evidence of pneumothorax or pneumonia. Was recently on steroids and Levaquin as an outpatient 2 weeks ago. Given additional IV Solu- Medrol here in addition the IM Solu-Medrol given by EMS. EKG and telemetry appears to show a sinus rhythm frequent PACs and do not see clear evidence of A- fib but there is lots of respiratory artifact. Did have echo based on medical records last time he was here with a normal EF but question if he has had worsening of his severe aortic stenosis with the respiratory status causing increased swelling. VBG here mild acidosis 7.27 and a CO2 of 59. No significant anemia with a very slight leukocytosis of 12.1. Troponin 37.7 improved from previous and BNP minimally elevated 169. TSH normal and electrolytes normal. COVID flu RSV testing is sent. Patient with improvement after hour-long DuoNeb here. No on oxygen satting 9091% still with a little bit of tachypnea and a fairly decent cough. Given some Mucinex to try to help with his chest congestion azithromycin for anti-inflammatory effect but I do not see clear evidence based on his labs or his x-ray of pneumonia or sepsis. [place] discussion with him and his at bedside and he was agreeable to stay for observation overnight. Given all of his swelling of the legs we will give a very one-time small dose of Lasix to see if this helps with this. I doubt cellulitis here. Cannot entirely exclude a little bit of right-sided heart failure but echo again did not show this in January. Does have aortic stenosis. Hospitalist team was contacted. DIAGNOSIS: Acute COPD exacerbation, leg swelling DISPOSITION: Hospitalist will evaluate Patient was agreeable with this plan. Past Med/Surg History Problem List (Updated 03/03/25 @ 18:16 by Manuelito Velázquez M.D.) Leg swelling (Acute) Acute exacerbation of chronic obstructive pulmonary disease (Acute) Mild pulmonary hypertension Enlarged prostate with lower urinary tract symptoms (LUTS) Dysphagia Diastolic heart failure Microcytosis TIESHA (obstructive sleep apnea) Chronic dyspnea PVD (peripheral vascular disease) COPD, group D, by GOLD 2017 classification History of tobacco abuse "once in awhile" Coronary artery calcification Osteoarthritis, knee Hypertension Ulnar neuropathy at elbow of right upper extremity Cubital tunnel syndrome Asthma-COPD overlap syndrome TIESHA and COPD overlap syndrome Severe chronic obstructive pulmonary disease (Chronic) Obesity (BMI 30.0-34.9) Chronic pain syndrome Tobacco dependence Abdominal aortic aneurysm s/p PEVAR (2018)--pt states is currently 3.2cm Intercostal neuralgia (Chronic) Hyperlipidemia Vitamin D deficiency Type 2 diabetes mellitus IDDM Steatohepatitis, non-alcoholic Osteoarthritis Nocturnal hypoxemia Impotence, organic Dry eye syndrome Diaphragmatic hernia Aortic stenosis mild-moderate per 06/01/18 echo Diverticular disease GERD (gastroesophageal reflux disease) controlled Medical History (Updated 03/03/25 @ 18:16 by Manuelito Velázquez M.D.) Acute exacerbation of chronic obstructive pulmonary disease Acute respiratory acidosis Diastolic heart failure follows joel Yancey Coronary artery calcification HTN (hypertension) Asthma-COPD overlap syndrome Intercostal neuralgia Hyperlipidemia ALONSO (nonalcoholic steatohepatitis) Hx of rotator cuff tear left shoulder, 09/2024; currently doing PT, and will receive injections starting 12/17/24 Aortic stenosis Type 2 diabetes mellitus PVD (peripheral vascular disease) Chronic dyspnea TIESHA (obstructive sleep apnea) no cpap Enlarged prostate with lower urinary tract symptoms (LUTS) started on flomax recently but stopped due to it giving pt. diarrhea Osteoarthritis Anemia hx Cervical radiculopathy Abnormal ECG hx - follows joel Yancey Opioid dependence hx, not currently on opioids Neuropathy of right radial nerve hx - resolved per pt. History of colon polyps Diverticular disease Diaphragmatic hernia Chronic pain syndrome COPD exacerbation (01/2024) H/O > admitted to [facility]- resolved - follows with pulm dr. maurer at [facility] Esophageal dysphagia 12/07/24 reports somewhat improved History of COVID-19 03/05/22, rushed to hospital [place] for low blood pressure and pulse ox 89% on RA; no actual covid symptoms, tested only because he was in the ER>resolved. Hx of fracture of rib fx 6-7 from coughing s/p surigical intervention - titanium plates - 7 yr ago Surgical History S/P cataract extraction (04/2022) History of bronchoscopy History of colonoscopy History of esophagogastroduodenoscopy (EGD) History of arthroplasty of left knee (08/2020) Hx of arthroscopy of left knee Hx of cervical spine surgery (1989) Hx of resection of rib (01/16/14) History of vasectomy History of abdominal aortic aneurysm (AAA) repair (06/07/18) History of tooth extraction History of lobectomy of lung Family History Uncle Amyotrophic lateral sclerosis Father Cardiac disorder Grandmother Cardiac disorder Mother Lung disease Brother Myocardial infarction Family history of diabetes mellitus Other No family history of adverse response to anesthesia Denies family history of Ovarian cancer Prostate cancer Breast cancer Colorectal cancer Social History Smoking Status: Former smoker Tobacco Type: Cigarettes Age Started Using Tobacco: 17; Age Quit Using Tobacco: 59; packs per day: 1; Cigarettes Per Day: 8; Second Hand Exposure: Yes; Do You Dip or Chew Tobacco: No; Hx Alcohol Use: No Hx Substance Use: No Preferred Language: [place]istanian Communication Ability: Effective Visual Impairment: No Limitations Hearing Ability: Normal Clerical Aide Teacher Required: No Beliefs That Will Affect Care: None marital status: marital status details: 3 children Current Living Situation: Spouse current occupational status: disabled How many Children do You have: 3 Feels Safe at Home: Yes Childhood Exposure to Second-Hand Smoke: Yes Diet: regular Diet Comment: regular caffeine: Yes during the past year weight has: remained stable Dental Care, Regularly: No Physical Activity Frequency: Daily Seatbelt Use: always Sunscreen Use: No Assistive Devices: CPAP, Denture - Upper and Glasses Allergies Allergies Allergy/AdvReac Type Severity Reaction Status Date / Time fentanyl Allergy Mild RASH WITH Verified 02/25/25 10:05 PATCH Home Meds Home Medications Medication Instructions Recorded Confirmed losartan 100 mg tablet 100 mg PO QAM 12/09/21 03/03/25 insulin lispro 100 unit/mL 15 unit subcut BID 04/02/22 03/03/25 subcutaneous pen (Humalog KwikPen (U-100) Insulin) aspirin 81 mg tablet,delayed 81 mg PO DAILY 09/01/23 03/03/25 release alirocumab 150 mg/mL subcutaneous 150 mg subcut UD 01/21/24 03/03/25 pen injector (Praluent Pen) ensifentrine 3 mg/2.5 mL 3 - 6 mg inhalation BID 09/10/24 03/03/25 suspension for nebulization (Ohtuvayre) albuterol sulfate 90 mcg/actuation 1 - 2 puff inhalation .Q4-6H PRN 01/09/25 03/03/25 aerosol inhaler (Ventolin HFA) shortness of breath or wheezing ezetimibe 10 mg tablet (Zetia) 10 mg PO DAILY 01/21/25 03/03/25 folic acid 1 mg tablet 1 mg PO DAILY 01/21/25 03/03/25 mecobalamin (vitamin B12) 1,000 1,000 mcg PO DAILY 01/21/25 03/03/25 mcg chewable tablet Previous Rx's Medication Instructions Recorded rosuvastatin 40 mg tablet (Crestor) 40 mg PO HS #30 tabs 01/31/19 insulin glargine 100 unit/mL (3 25 unit (0.25 mL) subcut QAM #15 mL 08/05/20 mL) subcutaneous pen (Lantus Solostar U-100 Insulin) carvedilol 3.125 mg tablet (Coreg) 3.125 mg PO BID #60 tabs 08/28/20 flash glucose sensor (FreeStyle #1 ea 09/10/21 Fern 14 Day Sensor kit) amlodipine 10 mg tablet (Norvasc) 10 mg PO QAM #90 tabs 05/18/22 ipratropium 0.5 mg-albuterol 3 mg 3 ml inhalation QID PRN Shortness 12/05/23 (2.5 mg base)/3 mL nebulization Of Breath #90 mL soln tamsulosin 0.4 mg capsule (Flomax) 0.4 mg PO DAILY #30 caps 10/02/24 fluticasone fur. 100 mcg-umeclid 1 inh inhalation DAILY #180 ea 10/03/24 62.5 mcg-vilant 25 mcg inhalat.powder (Trelegy Ellipta) ibuprofen 800 mg tablet 800 mg PO TID PRN Pain #270 tabs 12/10/24 semaglutide 2 mg/dose (8 mg/3 mL) 2 mg (0.75 mL) subcut WK DX:[id number] 12/20/24 subcutaneous pen injector #4 syringes pantoprazole 40 mg tablet,delayed 40 mg PO BID #60 tabs 01/11/25 release cyclobenzaprine 5 mg tablet 5 mg PO TID PRN muscle spasm #10 01/21/25 tabs cetirizine 10 mg tablet 10 mg PO HS #30 tabs 02/06/25 sildenafil 25 mg tablet (Viagra) 25 mg PO UD PRN Sexual Activity 02/07/25 #90 tabs levofloxacin 500 mg tablet 500 mg PO DAILY #7 tabs 02/19/25 oxycodone 5 mg tablet 5 mg PO Q8H PRN pain #15 tabs 02/19/25 Results & Data (ED) Vital Signs Vital Signs - 24 hr 03/03/25 16:22 03/03/25 16:22 03/03/25 16:22 Temperature 36.9 C Temperature Source Oral Pulse Rate 118 H Pulse Rate [Apical] Respiratory Rate 28 H Respiratory Effort / Characteristics Grunting Labored Grunting Labored Short of Breath SOB on Exertion Tripoding Respiratory Depth Shallow Shallow Respiratory Pattern Grunting Rapid/Shallow Blood Pressure 154/106 H Blood Pressure [Right Arm] Blood Pressure Mean 122 Blood Pressure Mean [Right Arm] Pulse Oximetry 95 94 Oxygen Delivery Method Nasal Cannula Nasal Cannula Nasal Cannula Oxygen Flow Rate 6 6 6 Sepsis Recent Fever Within 48 Hours No Sepsis New/Unexplained Change in Mental Status No Sepsis Action Taken by Nursing Physician Notified 03/03/25 16:49 03/03/25 16:53 03/03/25 17:34 Temperature Temperature Source Pulse Rate 111 H Pulse Rate [Apical] 109 H Respiratory Rate 24 Respiratory Effort / Characteristics Spontaneous Labored Respiratory Depth Respiratory Pattern Blood Pressure 152/93 H Blood Pressure [Right Arm] Blood Pressure Mean 124 Blood Pressure Mean [Right Arm] Pulse Oximetry 96 Oxygen Delivery Method Nasal Cannula Oxygen Flow Rate 6 Sepsis Recent Fever Within 48 Hours Sepsis New/Unexplained Change in Mental Status Sepsis Action Taken by Nursing 03/03/25 17:37 03/03/25 18:30 03/03/25 18:31 Temperature Temperature Source Pulse Rate Pulse Rate [Apical] 115 H 118 H Respiratory Rate 25 H 26 H Respiratory Effort / Characteristics Spontaneous Short of Breath Respiratory Depth Respiratory Pattern Tachypnea Blood Pressure 99/45 L Blood Pressure [Right Arm] 152/93 H 99/45 L Blood Pressure Mean 68 Blood Pressure Mean [Right Arm] 112 63 Pulse Oximetry 90 90 Oxygen Delivery Method Room Air Room Air Oxygen Flow Rate Sepsis Recent Fever Within 48 Hours Sepsis New/Unexplained Change in Mental Status Sepsis Action Taken by Nursing Laboratory Data 03/03/25 16:20 03/03/25 16:20 Lab Results 03/03/25 03/03/25 03/03/25 Range/Units 16:20 16:52 17:58 WBC 12.19 H (4.8-10.8) K/ul RBC 5.47 (4.70-6.10) M/uL Hgb 13.4 L (14.0-18.0) g/dl Hct 43.4 (42.0-52.0) % MCV 79.3 L (80.0-100.0) fL MCH 24.5 L (25.0-34.0) pg MCHC 30.9 L (32.0-36.0) g/dL RDW Std Deviation 45.1 (36.4-46.3) fL RDW Coeff of Ledy 16.2 H (11.5-14.5) % Plt Count 260 (130-400) K/uL MPV 10.4 (9.4-12.4) fL Immature Gran % (Auto) 0.4 % Neut % (Auto) 72.1 % Lymph % (Auto) 16.3 % [place] % (Auto) 9.8 % Eos % (Auto) 1.1 % Baso % (Auto) 0.3 % Neut # (Auto) 8.79 H (1.40-6.50) K/uL Lymph # (Auto) 1.99 (1.20-3.40) K/uL [place] # (Auto) 1.19 H (0.11-0.59) K/uL Eos # (Auto) 0.13 (0.00-0.50) K/uL Baso # (Auto) 0.04 (0.00-0.20) K/uL Immature Gran # (Auto) 0.05 (0.01-0.20) K/uL PT Cancelled INR Cancelled APTT Cancelled PTT Ratio Cancelled VBG pH 7.27 L (7.36-7.41) VBG pCO2 59 H (38-50) mmHg VBG pO2 57 mmHg VBG HCO3 27 mmol/L VBG O2 Saturation 87.1 % VBG Base Excess -1.0 mEq/L Sodium 136 (136-145) mmol/L Potassium 4.3 (3.5-5.1) mmol/L Chloride 99 (98-107) mmol/L Carbon Dioxide 28 (21-32) mmol/L Anion Gap 9 (3-11) BUN 9 (6-23) mg/dl Creatinine 0.93 (0.6-1.4) mg/dl Est Cr Clr Drug Dosing Not Reportable eGFR 94.00 BUN/Creatinine Ratio 9.7 L (10-20) Glucose 114 H (70-99(Fasting)) mg/dl Calcium 9.2 (8.6-10.3) mg/dl Magnesium 2.1 (1.7-2.4) mg/dl Total Bilirubin 0.5 (0.2-1.0) mg/dl AST 25 (13-39) U/L ALT 16 (7-52) U/L Alkaline Phosphatase 120 H (34-104) U/L Troponin I High Sens 37.7 H (0-20) pg/ml B-Natriuretic Peptide 169 H (0-100) pg/ml Total Protein 7.7 (6.0-8.3) gm/dl Albumin 4.4 (3.4-5.0) gm/dl Globulin 3.3 (2.5-4.0) gm/dl Albumin/Globulin Ratio 1.3 (0.9-2) Procalcitonin Cancelled TSH 3.588 (0.300-4.500) uIu/ml SARS-CoV-2 (PCR) NEGATIVE (Negative) Influenza Type A (PCR) Negative (Neg) Influenza Type B (PCR) Negative (Neg) RSV (RT-PCR) Negative (Neg) Ref Lab Test Result Cancelled Administered Medications Carvedilol (Carvedilol 3.125 Mg Tab) 3.125 mg PO BID [facility] Stop: 04/02/25 20:59 Last Admin: 03/03/25 21:46 Dose: 3.125 mg Documented By: JAC Cetirizine HCl (Cetirizine Hcl 10 Mg Tablet) 10 mg PO [facility] Stop: 04/02/25 20:59 Last Admin: 03/03/25 21:46 Dose: 10 mg Documented By: JAC Cefepime HCl (Maxipime 2000mg) 2,000 mg in 20 mls @ 5 mls/min IV Q8H [facility]; Protocol Stop: 03/08/25 21:59 Last Admin: 03/03/25 21:45 Dose: 5 mls/min Documented By: JAC Insulin Aspart (Insulin Aspart Per Unit Charge) 0 units SC [facility] Stop: 04/02/25 20:59 Last Admin: 03/03/25 21:43 Dose: 4 units Documented By: JAC Co-signed By: CHERELLE Pantoprazole Sodium (Pantoprazole 40 Mg Tab) 40 mg PO BID [facility] Stop: 04/02/25 20:59 Last Admin: 03/03/25 21:45 Dose: 40 mg Documented By: JAC Rosuvastatin Calcium (Rosuvastatin Calcium 20 Mg Tab) 40 mg PO [facility] Stop: 04/02/25 20:59 Last Admin: 03/03/25 21:45 Dose: 40 mg Documented By: JAC Discontinued Medications Albuterol (Albut/Ipratrop 3mg/0.5mg Neb 3 Ml Vial) 12 ml NEB ONE ONE; Protocol Stop: 03/03/25 16:25 Last Admin: 03/03/25 16:53 Dose: 12 ml Documented By: MIGDALIA Azithromycin (Azithromycin 250 Mg Tab) 500 mg PO NOW ONE Stop: 03/03/25 18:13 Last Admin: 03/03/25 18:43 Dose: 500 mg Documented By: TDBernie Furosemide (Furosemide Inj 20 Mg/2 Ml Vial) 20 mg IV ONE ONE Stop: 03/03/25 18:13 Last Admin: 03/03/25 18:46 Dose: 20 mg Documented By: TDM Guaifenesin (Guaifenesin 600 Mg Tabcr) 1,200 mg PO Q12 ONE Stop: 03/03/25 18:13 Last Admin: 03/03/25 18:43 Dose: 1,200 mg Documented By: TDM Methylprednisolone (Methylprednisolone 125 Mg/2 Ml Vial) 60 mg IV NOW STA Stop: 03/03/25 16:25 Last Admin: 03/03/25 16:43 Dose: 60 mg Documented By: MR Imaging Data Radiologist's Impression: Chest X-Ray 03/03/25 16:24 Chest radiograph, one view History: Dyspnea Comparison: 01/09/2025 Findings: Single AP view of the chest performed. Heart size and pulmonary vasculature are normal. Stable surgical suture at the left lung base. No effusion, consolidation, or pneumothorax. Stable hyperexpanded lungs. Stable plate-screw fixation of 2 left mid ribs. Impression: No acute process Electronically signed by Jose Alfredo 03-03-2025 5:04 PM Discharge Plan Visit Data Chief Complaint: Shortness of Breath/Dyspnea Stated Complaint: SOB ED Provider: Manuelito Velázquez Discharge Problem: Acute exacerbation of chronic obstructive pulmonary disease, Leg swelling Patient Disposition: Admitted As Inpatient Condition: Fair Discharge Instructions Interventions: ED Discharge Assessment Last Done: 03/03/25 20:45
[2025-03-03 16:50] LABS: Base Excess VBG -1.0 mEq/L; HCO3 VBG 27 mmol/L; Oxygen Saturation VBG 87.1 %; PCO2 VBG 59 mmHg (38-50); PO2 VBG 57 mmHg; pH VBG 7.27 (7.36-7.41)
[2025-03-03] MEDS: ALBUT/IPRATROP 3MG/0.5MG NEB 3 ML VIAL NEB ONE (16:53)
[2025-03-03 16:54] LABS: Hematocrit (blood only) 43.4 % (42.0-52.0); Hemoglobin 13.4 g/dl (14.0-18.0); Immature Granulocytes # (auto) 0.05 K/uL (0.01-0.20); Immature Granulocytes % (auto) 0.4 %; Mean Corpuscular Hemoglobin 24.5 pg (25.0-34.0); Mean Corpuscular Volume 79.3 fL (80.0-100.0); Platelet Count 260 K/uL (130-400); RDW Standard Deviation 45.1 fL (36.4-46.3); Red Blood Count 5.47 M/uL (4.70-6.10); White Blood Count 12.19 K/ul (4.8-10.8)
--- NOTE | 2025-03-03 17:04 | XRay Report ---
Chest radiograph, one view History: Dyspnea Comparison: 01/09/2025 Findings: Single AP view of the chest performed. Heart size and pulmonary vasculature are normal. Stable surgical suture at the left lung base. No effusion, consolidation, or pneumothorax. Stable hyperexpanded lungs. Stable plate-screw fixation of 2 left mid ribs. Impression: No acute process Electronically signed by Jose Alfredo 03-03-2025 5:04 PM
[2025-03-03 17:21] LABS: Alanine Aminotransferase 16 U/L (7-52); Albumin Globulin Ratio 1.3 (0.9-2); Alkaline Phosphatase 120 U/L (34-104); Anion Gap 9 (3-11); Bilirubin,Total 0.5 mg/dl (0.2-1.0); Blood Urea Nitrogen 9 mg/dl (6-23); Calcium 9.2 mg/dl (8.6-10.3); Carbon Dioxide 28 mmol/L (21-32); Chloride 99 mmol/L (98-107); Globulin 3.3 gm/dl (2.5-4.0); Glucose 114 mg/dl (70-99(Fasting)); Magnesium 2.1 mg/dl (1.7-2.4); Potassium 4.3 mmol/L (3.5-5.1); Sodium 136 mmol/L (136-145); Total Protein 7.7 gm/dl (6.0-8.3)
[2025-03-03 17:36] LABS: Thyroid Stimulating Hormone 3.588 uIu/ml (0.300-4.500)
[2025-03-03] MEDS ORDERED: IBUPROFEN 800 MG TAB PO PRN (18:40)
[2025-03-03] MEDS ORDERED: CYCLOBENZAPRINE HCL 5 MG TAB PO PRN (18:40)
[2025-03-03 18:43] LABS: Influenza A virus by PCR Negative (Neg); Influenza B virus by PCR Negative (Neg); SARS CoV2 RNA(COVID-19) Ceph NEGATIVE (Negative)
[2025-03-03] MEDS: AZITHROMYCIN 250 MG TAB PO ONE (18:43)
[2025-03-03] MEDS: guaiFENesin 600 MG TABCR PO ONE (18:43)
[2025-03-03] MEDS ORDERED: Patient's HEIGHT &/or WEIGHT Needed SCH (18:45)
[2025-03-03] MEDS: FUROSEMIDE INJ 20 MG/2 ML VIAL IV ONE (18:46)
[2025-03-03] MEDS ORDERED: GLUCOSE 10 TAB/TUBE PO PRN (18:48)
[2025-03-03] MEDS ORDERED: GLUCAGON FOR INJ 1 MG VIAL SQ PRN (18:48)
[2025-03-03] MEDS ORDERED: CARBOHYDRATES FOR HYPOGLYCEMIA PO PRN (18:48)
[2025-03-03] MEDS ORDERED: DEXTROSE 50% 50 ML SYRINGE IV PRN (18:48)
[2025-03-03] MEDS ORDERED: GLUCOSE 40% GEL 15 GM TUBE PO PRN (18:48)
--- NOTE | 2025-03-03 19:10 | History & Physical Report ---
Date of Service March 03, 2025 Assessment & Plan (1) Acute exacerbation of chronic obstructive pulmonary disease: (2) HTN (hypertension): (3) Asthma-COPD overlap syndrome: (4) Hyperlipidemia: (5) Aortic stenosis: (6) Type 2 diabetes mellitus: (7) TIESHA (obstructive sleep apnea): (8) Enlarged prostate with lower urinary tract symptoms (LUTS): Plan John Ashley 59 y/o M with a past medical history of stage 4 COPD, TIESHA, severe aortic stenosis and AAA s/p stenting, BPH, HLD, TIESHA w/ minimal CPAP admitted for persistent dyspnea and thick clear white sputum production not improved by steroids and Levaquin therapy initiated the week before. Acute on chronic COPD exacerbation - Maintain O2 sat 88-92%, briefly required 2L O2 in ED but now on RA satting 89- 91% - Levalbuterol Hcl nebs as needed, holding Muscarinic medications at this time - 60mg IV Methylprednisolone given in ED, 40mg IV methylprednisolone Q24H - Azithromycin 500mg started, continue 250 mg PO for next 4 days. Cefepime 2g IV Q8H - Mild rales present at LLL, and wheeze BL, 1 dose of Lasix given in ED - CBC, BMP QAM Peripheral edema - Trace, etiology potentially venous stasis related, echocardiogram w/ severe aortic stenosis EF: 55-60% - S/p 1x 20 mg Lasix Severe aortic stenosis - Seen on echo, and murmur heard at LLSB - Patient reports that he will be having TAVR soon BPH: Cont. Tamsulosin TIESHA: CPAP as tolerated HTN: Amlodipine 10mg PO QAM, Losartan 100mg PO QAM HLD: Hold Ezetimibe/rosuvastatin History of Present Illness Chief Complaint: Dyspnea, chest tightness Primary Care Provider: Oriana Burrell, John Ashley 59 y/o M with a past medical history of stage 4 COPD, TIESHA, severe aortic stenosis and AAA s/p stenting, BPH, HLD, TIESHA w/ minimal CPAP use arriving at [facility] ED due to acute SOB and chest heaviness that began when getting out his car at 1:30 pm. Patient treated himself Duonebs, Ohtuvayre (ensifentrine), and albuterol inhaler without reduction of symptoms. Patient endorses that last week he was feeling unwell with similar chest tightness, dyspnea, and productive cough of thick white sputum and reports that he was not able to complete his PFTs that were scheduled with his machinery dismantler, Dr. Yan, but did complete a nuclear medicine scan with the same team recently. Patient does say that he was treated outpatient for this potential infection vs COPD exacerbation outpatient last week with 1x dose of Solu-medrol, Levaquin, and prednisone prescription without resolution of symptoms. Patient endorses that today he felt chest heaviness but this symptom has resolved when speaking to him, and that over the past few months he was found to have elevated Troponins in the 50-70s range without any intervention completed. Currently patient endorses that he still feels SOB at rest, with resolved chest tightness/heaviness, continued production of thick white sputum, patient does report that he feels slightly better than this afternoon, but still endorses SOB as a major complaint. Patient denies chest pain, palpitations, abdominal pain, nausea, vomiting, fevers and chills. Patient is afebrile and hemodynamically stable. Allergies Allergy/AdvReac Type Severity Reaction Status Date / Time fentanyl Allergy Mild RASH WITH Verified 02/25/25 10:05 PATCH Home Medications Medication Instructions Recorded Confirmed Type rosuvastatin 40 mg tablet (Crestor) 40 mg PO HS #30 tabs 01/31/19 03/03/25 Rx insulin glargine 100 unit/mL (3 25 unit (0.25 mL) subcut QAM #15 mL 08/05/20 03/03/25 Rx mL) subcutaneous pen (Lantus Solostar U-100 Insulin) carvedilol 3.125 mg tablet (Coreg) 3.125 mg PO BID #60 tabs 08/28/20 03/03/25 Rx flash glucose sensor (FreeStyle #1 ea 09/10/21 02/25/25 Rx Fern 14 Day Sensor kit) losartan 100 mg tablet 100 mg PO QAM 12/09/21 03/03/25 History insulin lispro 100 unit/mL 15 unit subcut BID 04/02/22 03/03/25 History subcutaneous pen (Humalog KwikPen (U-100) Insulin) amlodipine 10 mg tablet (Norvasc) 10 mg PO QAM #90 tabs 05/18/22 03/03/25 Rx aspirin 81 mg tablet,delayed 81 mg PO DAILY 09/01/23 03/03/25 History release ipratropium 0.5 mg-albuterol 3 mg 3 ml inhalation QID PRN Shortness 12/05/23 03/03/25 Rx (2.5 mg base)/3 mL nebulization Of Breath #90 mL soln alirocumab 150 mg/mL subcutaneous 150 mg subcut UD 01/21/24 03/03/25 History pen injector (Praluent Pen) ensifentrine 3 mg/2.5 mL 3 - 6 mg inhalation BID 09/10/24 03/03/25 History suspension for nebulization (Ohtuvayre) tamsulosin 0.4 mg capsule (Flomax) 0.4 mg PO DAILY #30 caps 10/02/24 03/03/25 Rx fluticasone fur. 100 mcg-umeclid 1 inh inhalation DAILY #180 ea 10/03/24 03/03/25 Rx 62.5 mcg-vilant 25 mcg inhalat.powder (Trelegy Ellipta) ibuprofen 800 mg tablet 800 mg PO TID PRN Pain #270 tabs 12/10/24 03/03/25 Rx semaglutide 2 mg/dose (8 mg/3 mL) 2 mg (0.75 mL) subcut WK DX:E11.9 12/20/24 03/03/25 Rx subcutaneous pen injector #4 syringes albuterol sulfate 90 mcg/actuation 1 - 2 puff inhalation .Q4-6H PRN 01/09/25 03/03/25 History aerosol inhaler (Ventolin HFA) shortness of breath or wheezing pantoprazole 40 mg tablet,delayed 40 mg PO BID #60 tabs 01/11/25 03/03/25 Rx release cyclobenzaprine 5 mg tablet 5 mg PO TID PRN muscle spasm #10 01/21/25 03/03/25 Rx tabs ezetimibe 10 mg tablet (Zetia) 10 mg PO DAILY 01/21/25 03/03/25 History folic acid 1 mg tablet 1 mg PO DAILY 01/21/25 03/03/25 History mecobalamin (vitamin B12) 1,000 1,000 mcg PO DAILY 01/21/25 03/03/25 History mcg chewable tablet cetirizine 10 mg tablet 10 mg PO HS #30 tabs 02/06/25 03/03/25 Rx sildenafil 25 mg tablet (Viagra) 25 mg PO UD PRN Sexual Activity 02/07/25 03/03/25 Rx #90 tabs levofloxacin 500 mg tablet 500 mg PO DAILY #7 tabs 02/19/25 03/03/25 Rx oxycodone 5 mg tablet 5 mg PO Q8H PRN pain #15 tabs 02/19/25 03/03/25 Rx Past Med/Surg History Problem List (Updated 03/03/25 @ 18:16 by Manuelito Velázquez M.D.) Leg swelling (Acute) Acute exacerbation of chronic obstructive pulmonary disease (Acute) Mild pulmonary hypertension Enlarged prostate with lower urinary tract symptoms (LUTS) Dysphagia Diastolic heart failure Microcytosis TIESHA (obstructive sleep apnea) Chronic dyspnea PVD (peripheral vascular disease) COPD, group D, by GOLD 2017 classification History of tobacco abuse "once in awhile" Coronary artery calcification Osteoarthritis, knee Hypertension Ulnar neuropathy at elbow of right upper extremity Cubital tunnel syndrome Asthma-COPD overlap syndrome TIESHA and COPD overlap syndrome Severe chronic obstructive pulmonary disease (Chronic) Obesity (BMI 30.0-34.9) Chronic pain syndrome Tobacco dependence Abdominal aortic aneurysm s/p PEVAR (2018)--pt states is currently 3.2cm Intercostal neuralgia (Chronic) Hyperlipidemia Vitamin D deficiency Type 2 diabetes mellitus IDDM Steatohepatitis, non-alcoholic Osteoarthritis Nocturnal hypoxemia Impotence, organic Dry eye syndrome Diaphragmatic hernia Aortic stenosis mild-moderate per 06/01/18 echo Diverticular disease GERD (gastroesophageal reflux disease) controlled Medical History (Updated 03/03/25 @ 18:16 by Manuelito Velázquez M.D.) Acute exacerbation of chronic obstructive pulmonary disease Acute respiratory acidosis Diastolic heart failure follows joel Yancey Coronary artery calcification HTN (hypertension) Asthma-COPD overlap syndrome Intercostal neuralgia Hyperlipidemia ALONSO (nonalcoholic steatohepatitis) Hx of rotator cuff tear left shoulder, 09/2024; currently doing PT, and will receive injections starting 12/17/24 Aortic stenosis Type 2 diabetes mellitus PVD (peripheral vascular disease) Chronic dyspnea TIESHA (obstructive sleep apnea) no cpap Enlarged prostate with lower urinary tract symptoms (LUTS) started on flomax recently but stopped due to it giving pt. diarrhea Osteoarthritis Anemia hx Cervical radiculopathy Abnormal ECG hx - follows joel Yancey Opioid dependence hx, not currently on opioids Neuropathy of right radial nerve hx - resolved per pt. History of colon polyps Diverticular disease Diaphragmatic hernia Chronic pain syndrome COPD exacerbation (01/2024) H/O > admitted to [facility]- resolved - follows with pulm dr. maurer at [facility] Esophageal dysphagia 12/07/24 reports somewhat improved History of COVID-19 03/05/22, rushed to hospital [place] for low blood pressure and pulse ox 89% on RA; no actual covid symptoms, tested only because he was in the ER>resolved. Hx of fracture of rib fx 6-7 from coughing s/p surigical intervention - titanium plates - 7 yr ago Surgical History S/P cataract extraction (04/2022) History of bronchoscopy History of colonoscopy History of esophagogastroduodenoscopy (EGD) History of arthroplasty of left knee (08/2020) Hx of arthroscopy of left knee Hx of cervical spine surgery (1989) Hx of resection of rib (01/16/14) History of vasectomy History of abdominal aortic aneurysm (AAA) repair (06/07/18) History of tooth extraction History of lobectomy of lung Family History Uncle Amyotrophic lateral sclerosis Father Cardiac disorder Grandmother Cardiac disorder Mother Lung disease Brother Myocardial infarction Family history of diabetes mellitus Other No family history of adverse response to anesthesia Denies family history of Ovarian cancer Prostate cancer Breast cancer Colorectal cancer Social History Smoking Status: Never smoker Tobacco Type: Cigarettes Age Started Using Tobacco: 17; Age Quit Using Tobacco: 59; packs per day: 1; Cigarettes Per Day: 8; Second Hand Exposure: Yes; Do You Dip or Chew Tobacco: No; Hx Alcohol Use: Yes Alcohol type: wine Alcohol Intake Frequency: Monthly or Less Hx Substance Use: No Preferred Language: Guinean Communication Ability: Effective Visual Impairment: No Limitations Hearing Ability: Normal Audit Reviewer Required: No Beliefs That Will Affect Care: None marital status: marital status details: 3 children Current Living Situation: Spouse current occupational status: disabled How many Children do You have: 3 Feels Safe at Home: Yes Safety Concerns: Feels Safe At This Time Childhood Exposure to Second-Hand Smoke: Yes Diet: regular Diet Comment: regular caffeine: Yes during the past year weight has: remained stable Dental Care, Regularly: No Physical Activity Frequency: Daily Seatbelt Use: always Sunscreen Use: No Assistive Devices: Nebulizer Physical Exam Physical Exam: General: patient resting comfortably, NAD, non-toxic in appearance, answers questions appropriately. Skin: warm, dry, intact HEENT: NC/AT, anicteric sclera, conjunctiva without injection, moist mucus membranes. Heart: +S1/S2, regular, crescendo/decrescendo systolic murmur auscultated at LLSB, corresponds with severe aortic stenosis Lungs: equal air entry bilaterally, rales heard at LLL and wheeze auscultated BL at lung bases Abd: +BS, soft, NT/ND Ext: warm, no clubbing/cyanosis or edema, Sania's neg. Neuro: nonfocal, speech intact, no facial droop, moving all extremities. Results & Data Results & Data Vital Signs (Past 12 Hours) Vital Signs Temp Pulse Pulse Resp BP BP Pulse Ox 03/03/25 19:01 90 03/03/25 18:30 118 H 26 H 99/45 L 90 03/03/25 17:37 115 H 25 H 152/93 H 90 03/03/25 16:53 109 H 24 96 03/03/25 16:49 111 H 03/03/25 16:22 03/03/25 16:22 94 03/03/25 16:22 36.9 C 118 H 28 H 154/106 H 95 O2 Del Method O2 Flow Rate 03/03/25 19:01 Room Air 03/03/25 18:30 Room Air 03/03/25 17:37 Room Air 03/03/25 16:53 Nasal Cannula 6 03/03/25 16:49 03/03/25 16:22 Nasal Cannula 6 03/03/25 16:22 Nasal Cannula 6 03/03/25 16:22 Nasal Cannula 6 Supervising Physician Co-Signing Physician Notes Patient seen and examined, chart reviewed, case discussed with Dr. Cabrera and I agree with the assessment and plan as above. Patient with SOB at rest. Patient has had COPD exacerbations in the past. will admit to PCU will place on IV corticosteroids and nebs. will place on IV antibiotics and monitor. will continue azithromycin and continue cefepime Resident Activity Tracking Resident Involvement: Resident Care Provided Care Provided: Adult Hospital Medicine
[2025-03-03 21:39] LABS: INR 1.0 (0.9-1.1); Partial Thromboplastin Time 28 Seconds (21-31); Prothrombin Time 10.4 Seconds (9.0-12.0)
[2025-03-03] MEDS: INSULIN ASPART PER UNIT CHARGE SC SCH (21:43)
[2025-03-03] MEDS: CEFEPIME 2000MG 2,000 MG/20 ML SYR IV SCH (21:45)
[2025-03-03] MEDS: ROSUVASTATIN CALCIUM 20 MG TAB PO SCH (21:45)
[2025-03-03] MEDS: CETIRIZINE HCL 10 MG TABLET PO SCH (21:46)
[2025-03-04] MEDS: LEVALBUTEROL 1.25 MG/3 ML NEB NEB STA (03:23)
[2025-03-04] MEDS: LEVALBUTEROL 1.25 MG/3 ML NEB NEB SCH ×2 (07:32→12:58)
[2025-03-04] MEDS: LANTUS PER UNIT CHARGE SC SCH (08:10)
[2025-03-04] MEDS: LOSARTAN POTASSIUM 50 MG TAB PO SCH (08:11)
[2025-03-04] MEDS: FOLIC ACID 1 MG TAB PO SCH (08:11)
[2025-03-04] MEDS: TAMSULOSIN HCL 0.4 MG CAP PO SCH (08:11)
[2025-03-04] MEDS: ASPIRIN 81 MG ECTAB PO SCH (08:11)
[2025-03-04] MEDS: UMECLIDINIUM/VILANTEROL 62.5/25MCG 7 PUFFS/INHALER INH SCH (08:12)
[2025-03-04] MEDS: FLUTICASONE FUROATE 100MCG 14 PUFFS/INHALER INH SCH (08:12)
[2025-03-04] MEDS ORDERED: ' SC SCH (09:00)
[2025-03-04] MEDS ORDERED: NON-FORMULARY MEDICATION (Fluticasone-Umeclidin-Vilanter [Trelegy Ellipta] 100-62.5-25 mcg INH SCH (09:00)
[2025-03-04 10:53] VITALS: BP 107/62; TEMP 98.1
[2025-03-04 12:34] LABS: Base Excess VBG 2.4 mEq/L; HCO3 VBG 29 mmol/L; Oxygen Saturation VBG < 60.0 %; PCO2 VBG 51 mmHg (38-50); PO2 VBG 30 mmHg; pH VBG 7.36 (7.36-7.41)
[2025-03-04 12:43] LABS: Hematocrit (blood only) 41.0 % (42.0-52.0); Hemoglobin 12.7 g/dl (14.0-18.0); Mean Corpuscular Hemoglobin 24.8 pg (25.0-34.0); Mean Corpuscular Volume 80.1 fL (80.0-100.0); Platelet Count 242 K/uL (130-400); RDW Standard Deviation 46.8 fL (36.4-46.3); Red Blood Count 5.12 M/uL (4.70-6.10); White Blood Count 17.26 K/ul (4.8-10.8)
[2025-03-04 12:59] VITALS: RESP 16; O2SAT 92
[2025-03-04 13:00] LABS: Anion Gap 7.0 (3-11); Blood Urea Nitrogen 17.0 mg/dl (6-23); Calcium 9.3 mg/dl (8.6-10.3); Carbon Dioxide 29.0 mmol/L (21-32); Chloride 101.0 mmol/L (98-107); Creatinine Clr Calc Pharmacy 74.7 ml/min; Glucose 170.0 mg/dl (70-99(Fasting)); Potassium 4.8 mmol/L (3.5-5.1); Sodium 137.0 mmol/L (136-145)
[2025-03-04 13:18] LABS: Immature Granulocytes # (auto) 0.06 K/uL (0.01-0.20); Immature Granulocytes % (auto) 0.3 %
--- NOTE | 2025-03-04 14:59 | Billing Data ---
Date of Service March 03, 2025 Coding Level of Care Code 64477 SUB INP/OBS CARE MIN
--- NOTE | 2025-03-04 15:01 | Billing Data ---
Date of Service March 03, 2025 Coding Level of Care Code 63420 INT INP/OBS CARE
--- NOTE | 2025-03-04 15:41 | Discharge Summary ---
Discharge Summary Date of Service March 04, 2025 Principal Dx & Hospital Course #1 = Principal Diagnosis (1) Acute exacerbation of chronic obstructive pulmonary disease: (2) HTN (hypertension): (3) Asthma-COPD overlap syndrome: (4) Hyperlipidemia: (5) Aortic stenosis: (6) Type 2 diabetes mellitus: (7) TIESHA (obstructive sleep apnea): (8) Enlarged prostate with lower urinary tract symptoms (LUTS): Plan John Ashley 59 y/o M with a past medical history of stage 4 COPD, TIESHA, severe aortic stenosis and AAA s/p stenting, BPH, HLD, TIESHA w/ minimal CPAP admitted for persistent dyspnea and thick clear white sputum production not improved by steroids and Levaquin therapy initiated the week before. Acute on chronic COPD exacerbation - Maintain O2 sat 88-92%, briefly required 2L O2 in ED but now on RA satting 89- 91% - Levalbuterol Hcl nebs as needed, holding Muscarinic medications at this time - 60mg IV Methylprednisolone given in ED, 40mg IV methylprednisolone Q24H - Azithromycin 500mg started, continue 250 mg PO for next 4 days. Cefepime 2g IV Q8H - Mild rales present at LLL, and wheeze BL, 1 dose of Lasix given in ED - CBC, BMP QAM Peripheral edema - Trace, etiology potentially venous stasis related, echocardiogram w/ severe aortic stenosis EF: 55-60% - S/p 1x 20 mg Lasix Severe aortic stenosis - Seen on echo, and murmur heard at LLSB - Patient reports that he will be having TAVR soon BPH: Cont. Tamsulosin TIESHA: CPAP as tolerated HTN: Amlodipine 10mg PO QAM, Losartan 100mg PO QAM HLD: Hold Ezetimibe/rosuvastatin Admission HPI Per Admitting Provider John Ashley 59 y/o M with a past medical history of stage 4 COPD, TIESHA, severe aortic stenosis and AAA s/p stenting, BPH, HLD, TIESHA w/ minimal CPAP use arriving at [facility] ED due to acute SOB and chest heaviness that began when getting out his car at 1:30 pm. Patient treated himself Duonebs, Ohtuvayre (ensifentrine), and albuterol inhaler without reduction of symptoms. Patient endorses that last week he was feeling unwell with similar chest tightness, dyspnea, and productive cough of thick white sputum and reports that he was not able to complete his PFTs that were scheduled with his tile inspector, Dr. Yan, but did complete a nuclear medicine scan with the same team recently. Patient does say that he was treated outpatient for this potential infection vs COPD exacerbation outpatient last week with 1x dose of Solu-medrol, Levaquin, and prednisone prescription without resolution of symptoms. Patient endorses that today he felt chest heaviness but this symptom has resolved when speaking to him, and that over the past few months he was found to have elevated Troponins in the 50-70s range without any intervention completed. Currently patient endorses that he still feels SOB at rest, with resolved chest tightness/heaviness, continued production of thick white sputum, patient does report that he feels slightly better than this afternoon, but still endorses SOB as a major complaint. Patient denies chest pain, palpitations, abdominal pain, nausea, vomiting, fevers and chills. Patient is afebrile and hemodynamically stable. Discharge Plan Discharge Items Patient Disposition: Home - Self-Care Reason For Visit: copd exacerbation Discharge Diagnosis: copd exacerbation Condition on Discharge: Fair Activity: Resume your previous activity Non-emergency contact: Primary Care Provider Call non-emergency contact if: you have any medication questions Follow-up/Referrals: Oriana Burrell, [Primary Care Provider] - Diet: Carb Consistent or DM2 Addtl Attending Provider Instructions: You have been hospitalized for an acute medical problem. During your stay at [facility], we have made an effort to correct the problem that brought you to the hospital while keeping you as comfortable as possible. Medications were used to bring your condition under control and your discharge instructions will include directions for any medications you should take after leaving the hospital. Please make sure you see your Primary Care Provider as part of your follow up plan. Pending Studies at Discharge: No Stand-Alone Forms: [facility] [place], Smoking Cessation Medications and DC Order Prescriptions: New azithromycin 250 mg Tablet 500 mg PO PM Qty: 2 0RF cefpodoxime 200 mg tablet 200 mg PO BID Qty: 10 0RF Rx Instructions: must administer with a meal/food dextromethorphan-guaifenesin [Robitussin Cough-Chest Jaun DM] 5-100 mg/5 mL Liquid 10 ml PO Q6H PRN (Reason: cough) Qty: 500 0RF prednisone 10 mg tablet 10 mg PO DAILY Qty: 30 0RF Rx Instructions: Take 4 tablets for 3 days once daily then 3 tablets for 3 days 2 tablets for 3 days 1 tablet for 3 days azithromycin 250 mg tablet 250 mg PO MOWEFR Qty: 18 0RF Continued carvedilol [Coreg] 3.125 mg tablet 3.125 mg PO BID Qty: 60 3RF Rx Instructions: must administer with a meal/food (to replace Bystolic, Bystolic is not cov ered) (DME) Fashisme 14 Day Sensor Kit See Dose Instructions .ROUTE .MEDSUPPLY Qty: 1 0RF Dose Instruction: As directed Rx Instructions: As directed, testing QID. Dx: E11.9 amlodipine [Norvasc] 10 mg tablet 10 mg PO QAM Qty: 90 3RF ipratropium-albuterol 0.5 mg-3 mg(2.5 mg base)/3 mL solution for nebulization 3 ml INH QID PRN (Reason: Shortness Of Breath) Qty: 90 3RF Trelegy Ellipta 100-62.5-25 mcg blister with device 1 inh inhalation DAILY Qty: 180 1RF ibuprofen 800 mg tablet 800 mg PO TID PRN (Reason: Pain) Qty: 270 1RF semaglutide 2 mg/dose (8 mg/3 mL) pen injector 2 mg SUBCUT WK Qty: 4 2RF Rx Instructions: sundays pantoprazole 40 mg tablet,delayed release (DR/EC) 40 mg PO BID Qty: 60 5RF cetirizine 10 mg tablet 10 mg PO HS Qty: 30 2RF sildenafil [Viagra] 25 mg tablet 25 mg PO UD PRN (Reason: Sexual Activity) Qty: 90 0RF Rx Instructions: 25 mg PO 30 prior to intercourse.; rosuvastatin [Crestor] 40 mg tablet 40 mg PO HS Qty: 30 0RF aspirin 81 mg tablet,delayed release (DR/EC) 81 mg PO DAILY Lantus Solostar U-100 Insulin 100 unit/mL (3 mL) insulin pen 25 unit SQ QAM Qty: 15 5RF Patient Comments: 25 units losartan 100 mg tablet 100 mg PO QAM folic acid 1 mg tablet 1 mg PO DAILY ezetimibe [Zetia] 10 mg tablet 10 mg PO DAILY mecobalamin (vitamin B12) 1,000 mcg tablet,chewable 1,000 mcg PO DAILY cyclobenzaprine 5 mg tablet 5 mg PO TID PRN (Reason: muscle spasm) Qty: 10 0RF Ohtuvayre 3 mg/2.5 mL suspension for nebulization 3 - 6 mg inhalation BID Rx Instructions: 6 mg in the am and 3mg in the evening inhaled twice a day; tamsulosin [Flomax] 0.4 mg capsule 0.4 mg PO DAILY Qty: 30 2RF oxycodone 5 mg tablet 5 mg PO Q8H PRN (Reason: pain) Qty: 15 0RF insulin lispro [Humalog KwikPen Insulin] 100 unit/mL insulin pen 15 unit SQ BID Patient Comments: 15 units Rx Instructions: 15 Units subcut twice a day; WITH SLIDING SCALE PER BLOOD SUGAR anything over 200 Praluent Pen 150 mg/mL Pen Injector 150 mg subcut UD Rx Instructions: every 2 weeks albuterol sulfate [Ventolin HFA] 90 mcg/actuation HFA aerosol inhaler 1 - 2 puff inhalation .Q4-6H PRN (Reason: shortness of breath or wheezing) Rx Instructions: 1-2 puffs inhalation 1 puff INH every 4-6 hrs; PRN; Discontinued levofloxacin 500 mg tablet 500 mg PO DAILY Qty: 7 0RF Discharge Orders: Discharge Order (Routine); Ordered 03/04/25 Ordered By: Carlos Hull Admission Data Admit Date/Time: 03/03/25 18:57 Attending Provider: Carlos Hull Admit Provider: Carlos Hull Primary Care Provider: Oriana Burrell Other Providers: Carlos Hull Hospital Stay Data Consultations 03/03/25 18:25 ED Decision to Admit Stat Pending Results Patient Have Any Pending Studies at Discharge: No Discharge Instructions Given to Patient (Per Discharging Provider) You have been hospitalized for an acute medical problem. During your stay at [facility], we have made an effort to correct the problem that brought you to the hospital while keeping you as comfortable as possible. Medications were used to bring your condition under control and your discharge instructions will include directions for any medications you should take after leaving the hospital. Please make sure you see your Primary Care Provider as part of your follow up plan. Coding Diagnoses Acute exacerbation of chronic obstructive pulmonary disease J44.1 HTN (hypertension) I10 Asthma-COPD overlap syndrome J44.89 Hyperlipidemia E78.5 Aortic stenosis I35.0 Type 2 diabetes mellitus E11.9 TIESHA (obstructive sleep apnea) G47.33 Enlarged prostate with lower urinary tract symptoms (LUTS) N40.1
[2025-03-04 15:48] VITALS: PULSE 93
[2025-03-04] MEDS ORDERED: AZITHROMYCIN 250 MG TAB PO SCH (18:00)
--- NOTE | 2025-03-05 05:31 | Electrocardiogram Report ---
Test Reason : Blood Pressure : */* mmHG Vent. Rate : 109 BPM Atrial Rate : 109 BPM P-R Int : 140 ms QRS Dur : 134 ms QT Int : 384 ms P-R-T Axes : 73 107 13 degrees QTcB Int : 517 ms Poor data quality, interpretation may be adversely affected Sinus tachycardia with frequent Premature ventricular complexes Right bundle branch block Abnormal ECG When compared with ECG of 09-Jan-2025 08:10, Premature ventricular complexes are now Present Confirmed by Tito Boateng ([id number]) on 03/05/2025 5:31:01 AM Referred By: REFERRED SELF Confirmed By: Tito Boateng
== END 2025-03-04 16:08 | disposition home or self-care (01) | DRG 192 ==
LOC: ED 16:21 → 2S 18:57

== ENCOUNTER 2025-05-13 01:58 | Inpatient (IN) ==
[2025-05-13] MEDS: ALBUT/IPRATROP 3MG/0.5MG NEB 3 ML VIAL NEB STA (02:10)
[2025-05-13] MEDS: MAGNESIUM SULFATE / D5W 1 GM/100 ML BAG IV STA ×2 (02:10→03:15)
[2025-05-13 02:26] LABS: Base Excess VBG 6.1 mEq/L; HCO3 VBG 36 mmol/L; Oxygen Saturation VBG 75.2 %; PCO2 VBG 83 mmHg (38-50); PO2 VBG 48 mmHg; pH VBG 7.25 (7.36-7.41)
[2025-05-13 02:31] LABS: Hematocrit (blood only) 46.4 % (42.0-52.0); Hemoglobin 14.1 g/dl (14.0-18.0); Immature Granulocytes # (auto) 0.04 K/uL (0.01-0.20); Immature Granulocytes % (auto) 0.3 %; Mean Corpuscular Hemoglobin 24.7 pg (25.0-34.0); Mean Corpuscular Volume 81.4 fL (80.0-100.0); Platelet Count 230 K/uL (130-400); RDW Standard Deviation 41.9 fL (36.4-46.3); Red Blood Count 5.70 M/uL (4.70-6.10); White Blood Count 11.67 K/ul (4.8-10.8)
[2025-05-13 02:49] LABS: Alanine Aminotransferase 12.0 U/L (7-52); Albumin Globulin Ratio 1.0 (0.9-2); Albumin Level 4.5 gm/dl (3.4-5.0); Alkaline Phosphatase 116.0 U/L (34-104); Anion Gap 8.0 (3-11); Bilirubin,Total 0.4 mg/dl (0.2-1.0); Blood Urea Nitrogen 24.0 mg/dl (6-23); Calcium 9.9 mg/dl (8.6-10.3); Carbon Dioxide 33.0 mmol/L (21-32); Chloride 97.0 mmol/L (98-107); Creatinine Clr Calc Pharmacy 54.0 ml/min; Globulin 4.5 gm/dl (2.5-4.0); Glucose 130.0 mg/dl (70-99(Fasting)); Magnesium 2.3 mg/dl (1.7-2.4); Potassium 4.7 mmol/L (3.5-5.1); Sodium 138.0 mmol/L (136-145); Total Protein 9.0 gm/dl (6.0-8.3)
--- NOTE | 2025-05-13 02:52 | XRay Report ---
EXAM: XR chest 1V portable CLINICAL HISTORY: Dyspnea. TECHNIQUE: An X-ray image of the chest was obtained in the AP projection. COMPARISON: 03/03/2025 X-ray. FINDINGS: Pulmonary Parenchyma: Both lung ziegler are hyperinflated, with a low, flat diaphragm, suggestive of COPD. There is no evidence of consolidation, collapse, or focal opacities. No pulmonary nodules are identified. Blunting of the right costophrenic angle is suggestive of mild pleural thickening. Heart and Mediastinum: The size and shape of the heart are normal. No mediastinal widening or masses are present. No hilar or mediastinal lymphadenopathy is seen. An opacity is seen at the right cardiophrenic angle, suggestive of pericardial fat, which is stable. Bony Thorax: Old fractures of the left sixth and seventh ribs laterally, with internal fixation, are present. Soft Tissues: The soft tissues overlying the chest wall are unremarkable. IMPRESSION: 1. No acute cardiopulmonary abnormalities are identified. 2. Both lung ziegler are hyperinflated, with a low, flat diaphragm, suggestive of COPD. Stable. 3. Blunting of the right costophrenic angle is suggestive of mild pleural thickening. This is an interval new finding. 4. Old fractures of the left sixth and seventh ribs laterally, with internal fixation, are stable. Electronically signed by Ronnie Guardado 05-13-2025 02:52 AM
[2025-05-13 03:09] LABS: INR 1.0 (0.9-1.1); Prothrombin Time 10.3 Seconds (9.0-12.0)
[2025-05-13 03:23] LABS: Chlamydia pneumoniae PCR Not Detected (NotDetected); Coronavirus 229E PCR Not Detected (NotDetected); Coronavirus CoV-2 (COVID19)PCR Not Detected (NotDetected); Coronavirus HKU1 PCR Not Detected (NotDetected); Coronavirus NL63 PCR Not Detected (NotDetected); Coronavirus OC43PCR Not Detected (NotDetected); Human Metapneumovirus PCR Not Detected (NotDetected); Parainfluenza Virus 1 PCR Not Detected (NotDetected); Parainfluenza Virus 2 PCR Not Detected (NotDetected); Parainfluenza Virus 3 PCR Not Detected (NotDetected); Parainfluenza Virus 4 PCR Not Detected (NotDetected); Respiratory Syncytial VirusPCR Not Detected (NotDetected); Rhinovirus/Enterovirus PCR Not Detected (NotDetected)
[2025-05-13] MEDS: LORazepam 1 MG/1 ML SYR ED Inj Use IV STA ×2 (03:32→03:48)
--- NOTE | 2025-05-13 04:00 | Emergency Department Note ---
Impression & Plan Acute hypoxic respiratory failure, Acute exacerbation of chronic obstructive pulmonary disease (COPD) ED Provider Note ED Provider Note NAME: JACKIE POST AGE:60 SEX: Male : 1965 ARRIVES VIA: ems INFORMANT: Patient ED PROVIDER(s): Kelly Duncan DO CHIEF COMPLAINT: shortness of breath HPI: This is a 68-year-old male who presents via EMS due to concern for shortness of breath. Patient states symptoms began this evening when he was at home. He does have a history of COPD and also states he recently underwent cardiac catheterization with placement of coronary artery stents. Patient is concerned that this to be related to his heart. Patient does not routinely wear oxygen at home but does use MDI/nebulizer treatments. He denies any known sick contacts. Patient initially in extreme distress, tripoding, only able to provide history in short 2 or 3 word answers. He arrived on a nonrebreather with a DuoNeb in place. EMS reported they had given him 3 DuoNeb treatments and route as well as 80 mg of IV Solu-Medrol. Patient denied any chest pain, headaches, vomiting, or recent fevers. He denies any recent change in sputum production or cough PAST MEDICAL HISTORY:See Below PAST SURGICAL HISTORY:See Below FAMILY HISTORY:See Below SOCIAL HISTORY:See Below HOME MEDICATIONS:See Below ALLERGIES:See Below VITALS:See Below PHYSICAL EXAMINATION: GENERAL: alert, unwell appearing, well nourished, severe distress, non-toxic EYE EXAM: normal conjunctiva, PERRL and EOM's grossly intact OROPHARYNX: no exudate, no erythema, lips, buccal mucosa, and tongue normal and mucous membranes are dry NECK: supple, no nuchal rigidity, no adenopathy, non-tender LUNGS: Decreased bilaterally to auscultation. Normal chest wall mechanics, no w/r/r, tachypnea, increased work of breathing, tripoding HEART: no murmurs, S1 normal and S2 normal ABDOMEN: abdomen soft, non-tender, normo-active bowel sounds, no masses, no rebound or guarding. BACK: Back is symmetrical on inspection and there is no deformity SKIN: no rashes, petechiae, orbruising UPPER EXTREMITIES: upper extremities are grossly normal. FROM, nml pulses b/l. LOWER EXTREMITIES: No pitting edema. FROM, nml pulses b/l. NEURO EXAM: Normal sensorium, cranial nerves II-XII grossly intact, normal speech, no facial droop,nogross weakness of arms, no gross weakness of legs. Gross sensation intact. No ataxia. Vital Signs: reviewed and remarkable Differential Diagnosis: pneumonia, bronchitis, COPD/Asthma exacerbation, pneumothorax, pulmonary embolism, congestive heart failure, acute coronary syndrome, as well as others were considered MEDICAL DECISION MAKING: This is a 60-year-old male who presents emergency department due to concern for increased shortness of breath. Patient in severe distress, tripoding on arrival. He did receive nebs and Solu-Medrol prehospital hospital. We did attempt to initially place BiPAP on the patient however he could not tolerated due to significant claustrophobia. He was left on nonrebreather with continuous nebs running while other treatments were started. Labs drawn and sent, IV established, EKG and CXR performed and interpreted at bedside, and patient placed on telemetry. Nasal swab obtained and sent for viral panel. IV magnesium was also started. IV fluids were not started due to concern for possible evolving CHF. Chest x-ray did not show any acute pulmonary edema or pneumonia. Patient reexamined multiple times. EKG with sinus tachycardia, no other concerning changes. On repeat exams patient with slow improvement in air movement on auscultation. VBG showed acidemia with hypercapnia. After review of further labs as a resulted in repeat examinations, I discussed with the patient trial of low-dose anxiolytic and placement of a different form of BiPAP mask. This was discussed with respiratory was present at bedside throughout. Patient tolerated this well and was able to tolerate BiPAP for some time. Case discussed with the hospitalist team for additional evaluation and management. Repeat VBG ordered by them did show improvement. Patient was closely monitored and rechecked multiple times all he was present in the emergency department. At this time I do not suspect ACS, acute in-stent thrombosis, dissection, acute valve rupture, pericardial effusion, CHF, bacteremia/sepsis. We did discuss options for respiratory support. Patient states he does not wish to be intubated. Consultation(s): 0315: Discussed with Dr. Bhatt, OR hospitalist team, for additional evaluation and mgmt. ER Treatment Provided: See below Diagnostics Interpreted By Me: -ECG: Sinus tachycardia 116, normal axis, right bundle branch block, nonspecific ST/T wave changes -Cardiac Monitoring: An order was placed for continuous cardiac monitoring. The monitor shows a rate of 122 with sinus tachycardia rhythm. -Laboratory studies: As stated above and show below. -Imaging studies: X-ray Chest: A single view study of the chest was reviewed and was negative for cardiomegaly, focal infiltrate, effusion, pulmonary edema, or wide mediastinum. Triage Nursing Note Reviewed Prior/Outside Records Reviewed - cardiac catheterization from April 2025 reviewed Critical Care: Critical care of 62 min performed to assess and manage high likelihood of life-threatening respiratory distress, involving labs and imaging performed with assessment to evaluate dyspnea diagnosis with frequent reassessment. This time includes bedside time, treatment discussions with patient/family/consultants, documentation time and excludes procedure time. Past Med/Surg History Problem List Acute exacerbation of chronic obstructive pulmonary disease (COPD) (Acute) Acute hypoxic respiratory failure (Acute) Presence of drug-eluting stent in right coronary artery CAD (coronary artery disease) LVH (left ventricular hypertrophy) Mild pulmonary hypertension Enlarged prostate with lower urinary tract symptoms (LUTS) Diastolic heart failure Microcytosis TIESHA (obstructive sleep apnea) Chronic dyspnea PVD (peripheral vascular disease) COPD, group D, by GOLD 2017 classification History of tobacco abuse "once in awhile" Osteoarthritis, knee Hypertension Ulnar neuropathy at elbow of right upper extremity Cubital tunnel syndrome Asthma-COPD overlap syndrome TIESHA and COPD overlap syndrome Severe chronic obstructive pulmonary disease (Chronic) Obesity (BMI 30.0-34.9) Chronic pain syndrome Tobacco dependence Abdominal aortic aneurysm s/p PEVAR (2018)--pt states is currently 3.2cm Intercostal neuralgia (Chronic) Hyperlipidemia Vitamin D deficiency Type 2 diabetes mellitus IDDM Steatohepatitis, non-alcoholic Osteoarthritis Nocturnal hypoxemia Impotence, organic Dry eye syndrome Diaphragmatic hernia Aortic stenosis Severe aortic stenosis 01/10/25 Diverticular disease GERD (gastroesophageal reflux disease) controlled Medical History Leg swelling Acute exacerbation of chronic obstructive pulmonary disease Dysphagia Abnormal nuclear cardiac imaging test Coronary artery calcification Angina pectoris Acute exacerbation of chronic obstructive pulmonary disease Acute respiratory acidosis Diastolic heart failure follows jt/ Dr Yancey Coronary artery calcification HTN (hypertension) Asthma-COPD overlap syndrome Intercostal neuralgia Hyperlipidemia ALONSO (nonalcoholic steatohepatitis) Hx of rotator cuff tear left shoulder, 09/2024; currently doing PT, and will receive injections starting 12/17/24 Aortic stenosis Type 2 diabetes mellitus PVD (peripheral vascular disease) Chronic dyspnea TIESHA (obstructive sleep apnea) no cpap Enlarged prostate with lower urinary tract symptoms (LUTS) started on flomax recently but stopped due to it giving pt. diarrhea Osteoarthritis Anemia hx Cervical radiculopathy Abnormal ECG hx - follows w/ Dr Yancey Opioid dependence hx, not currently on opioids Neuropathy of right radial nerve hx - resolved per pt. History of colon polyps Diverticular disease Diaphragmatic hernia Chronic pain syndrome COPD exacerbation (01/2024) H/O > admitted to [facility]- resolved - follows with pulm dr. [facility] Esophageal dysphagia 12/07/24 reports somewhat improved History of COVID-19 03/05/22, rushed to hospital OR for low blood pressure and pulse ox 89% on RA; no actual covid symptoms, tested only because he was in the ER>resolved. Hx of fracture of rib fx 6-7 from coughing s/p surigical intervention - titanium plates - 7 yr ago Surgical History S/P cataract extraction (04/2022) b/l eyes History of bronchoscopy History of colonoscopy History of esophagogastroduodenoscopy (EGD) History of arthroplasty of left knee (08/2020) partial replacement Hx of arthroscopy of left knee X2 Hx of cervical spine surgery (1989) full rom Hx of resection of rib (01/16/14) History of vasectomy History of abdominal aortic aneurysm (AAA) repair (06/07/18) repair x2 (+ stent)/PEVAR: 06/07/18:P MAC sedation at [facility] History of tooth extraction 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 Family History Uncle Amyotrophic lateral sclerosis Father Cardiac disorder Grandmother Cardiac disorder Mother Lung disease Brother Myocardial infarction Family history of diabetes mellitus Other No family history of adverse response to anesthesia Denies family history of Ovarian cancer Prostate cancer Breast cancer Colorectal cancer Social History Smoking Status: Former smoker Tobacco Type: Cigarettes Age Started Using Tobacco: 17; Age Quit Using Tobacco: 59; packs per day: 1; Cigarettes Per Day: 8; Second Hand Exposure: Yes; Do You Dip or Chew Tobacco: No; Hx Alcohol Use: No Hx Substance Use: No Preferred Language: [place] Communication Ability: Effective Visual Impairment: No Limitations Hearing Ability: Normal 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 Beliefs That Will Affect Care: None marital status: marital status details: 3 children Current Living Situation: Spouse current occupational status: disabled How many Children do You have: 3 Feels Safe at Home: Yes Childhood Exposure to Second-Hand Smoke: Yes Diet: regular Diet Comment: regular caffeine: Yes during the past year weight has: remained stable Dental Care, Regularly: No Physical Activity Frequency: Daily Seatbelt Use: always Sunscreen Use: No Assistive Devices: None Allergies Allergies Allergy/AdvReac Type Severity Reaction Status Date / Time fentanyl Allergy Mild RASH WITH Verified 05/13/25 02:21 PATCH Home Meds Home Medications Medication Instructions Recorded Confirmed losartan 100 mg tablet 100 mg PO QAM 12/09/21 05/13/25 insulin lispro 100 unit/mL 15 unit subcut BID 04/02/22 05/13/25 subcutaneous pen (Humalog KwikPen (U-100) Insulin) aspirin 81 mg tablet,delayed 81 mg PO DAILY 09/01/23 05/13/25 release alirocumab 150 mg/mL subcutaneous 150 mg subcut UD 01/21/24 05/13/25 pen injector (Praluent Pen) ensifentrine 3 mg/2.5 mL 3 - 6 mg inhalation BID 09/10/24 05/13/25 suspension for nebulization (Ohtuvayre) ezetimibe 10 mg tablet (Zetia) 10 mg PO DAILY 01/21/25 05/13/25 folic acid 1 mg tablet 1 mg PO DAILY 01/21/25 05/13/25 mecobalamin (vitamin B12) 1,000 1,000 mcg PO DAILY 01/21/25 05/13/25 mcg chewable tablet Previous Rx's Medication Instructions Recorded rosuvastatin 40 mg tablet (Crestor) 40 mg PO HS #30 tabs 01/31/19 insulin glargine 100 unit/mL (3 25 unit (0.25 mL) subcut QAM #15 mL 08/05/20 mL) subcutaneous pen (Lantus Solostar U-100 Insulin) carvedilol 3.125 mg tablet (Coreg) 3.125 mg PO BID #60 tabs 08/28/20 flash glucose sensor (FreeStyle #1 ea 09/10/21 Fern 14 Day Sensor kit) amlodipine 10 mg tablet (Norvasc) 10 mg PO QAM #90 tabs 05/18/22 ipratropium 0.5 mg-albuterol 3 mg 3 ml inhalation QID PRN Shortness 12/05/23 (2.5 mg base)/3 mL nebulization Of Breath #90 mL soln tamsulosin 0.4 mg capsule (Flomax) 0.4 mg PO DAILY #30 caps 10/02/24 fluticasone fur. 100 mcg-umeclid 1 inh inhalation DAILY #180 ea 10/03/24 62.5 mcg-vilant 25 mcg inhalat.powder (Trelegy Ellipta) ibuprofen 800 mg tablet 800 mg PO TID PRN Pain #270 tabs 12/10/24 pantoprazole 40 mg tablet,delayed 40 mg PO BID #60 tabs 01/11/25 release cyclobenzaprine 5 mg tablet 5 mg PO TID PRN muscle spasm #10 01/21/25 tabs cetirizine 10 mg tablet 10 mg PO HS #30 tabs 02/06/25 sildenafil 25 mg tablet (Viagra) 25 mg PO UD PRN Sexual Activity 02/07/25 #90 tabs dextromethorphan-guaifenesin 5 10 ml PO Q6H PRN cough #500 mL 03/04/25 mg-100 mg/5 mL oral liquid (Robitussin Cough-Chest Congestion DM) semaglutide 2 mg/dose (8 mg/3 mL) 2 mg (0.75 mL) subcut WK DX:E11.9 03/21/25 subcutaneous pen injector #4 syringes ondansetron 8 mg disintegrating 8 mg PO Q8H PRN nausea and 04/12/25 tablet vomiting #10 tabs clopidogrel 75 mg tablet 75 mg PO DAILY #30 tabs 04/18/25 peg [id number]-sod [id number] See Rx Instructions PO .COMPLEX #2 04/24/25 178.7-7.3-0.5-1.12-0.9 gram oral mL soln (Suflave) furosemide 40 mg tablet 40 mg PO DAILY #90 tabs 04/30/25 potassium chloride 20 mEq 20 meq PO DAILY #90 tabs 04/30/25 tablet,extended release(part/cryst) (Klor-Con M) albuterol sulfate 90 mcg/actuation 1 - 2 puff inhalation .Q4-6H PRN 05/08/25 aerosol inhaler (Ventolin HFA) shortness of breath or wheezing #8.5 grams Results & Data (ED) Vital Signs Vital Signs - 24 hr 05/13/25 02:02 05/13/25 02:04 05/13/25 02:12 Temperature 36.3 C L Temperature Source Axillary Pulse Rate 126 H 137 H 121 H Pulse Rate [Apical] Respiratory Rate 25 H 24 Respiratory Effort / Characteristics Labored Respiratory Depth Respiratory Pattern Blood Pressure 129/107 H Blood Pressure [Left Arm] Blood Pressure Mean 114 Blood Pressure Mean [Left Arm] Blood Pressure Position Sitting Blood Pressure Position [Left Arm] Pulse Oximetry 99 96 Oxygen Delivery Method Nebulizer Nebulizer Oxygen Flow Rate Fraction of Inspired Oxygen Sepsis Recent Fever Within 48 Hours No Sepsis New/Unexplained Change in Mental Status N/A Sepsis Action Taken by Nursing Physician Notified 05/13/25 02:13 05/13/25 02:17 05/13/25 02:17 Temperature Temperature Source Pulse Rate Pulse Rate [Apical] 122 H Respiratory Rate 20 Respiratory Effort / Characteristics Labored Tripoding Non-Labored Spontaneous Respiratory Depth Deep Normal Respiratory Pattern Regular Blood Pressure Blood Pressure [Left Arm] Blood Pressure Mean Blood Pressure Mean [Left Arm] Blood Pressure Position Blood Pressure Position [Left Arm] Pulse Oximetry 97 97 Oxygen Delivery Method Nebulizer Room Air Nebulizer Nebulizer Oxygen Flow Rate Fraction of Inspired Oxygen Sepsis Recent Fever Within 48 Hours Sepsis New/Unexplained Change in Mental Status Sepsis Action Taken by Nursing 05/13/25 02:53 05/13/25 03:00 05/13/25 03:39 Temperature Temperature Source Pulse Rate Pulse Rate [Apical] 119 H 118 H 115 H Respiratory Rate 21 28 H 26 H Respiratory Effort / Characteristics Labored Tripoding Accessory Muscle Use Tripoding Accessory Muscle Use Respiratory Depth Respiratory Pattern Blood Pressure Blood Pressure [Left Arm] 105/79 137/79 108/83 Blood Pressure Mean Blood Pressure Mean [Left Arm] 87 98 91 Blood Pressure Position Blood Pressure Position [Left Arm] Sitting Pulse Oximetry 95 95 96 Oxygen Delivery Method Nebulizer Nebulizer Oxymask Oxygen Flow Rate 4 Fraction of Inspired Oxygen Sepsis Recent Fever Within 48 Hours Sepsis New/Unexplained Change in Mental Status Sepsis Action Taken by Nursing 05/13/25 03:54 05/13/25 04:00 Temperature Temperature Source Pulse Rate 112 H Pulse Rate [Apical] 109 H Respiratory Rate 19 18 Respiratory Effort / Characteristics Spontaneous Tripoding Respiratory Depth Deep Respiratory Pattern Blood Pressure Blood Pressure [Left Arm] 117/59 L Blood Pressure Mean Blood Pressure Mean [Left Arm] 78 Blood Pressure Position Blood Pressure Position [Left Arm] Pulse Oximetry 96 95 Oxygen Delivery Method BiPAP Oxygen Flow Rate Fraction of Inspired Oxygen 40 Sepsis Recent Fever Within 48 Hours Sepsis New/Unexplained Change in Mental Status Sepsis Action Taken by Nursing Laboratory Data 05/13/25 02:02 05/13/25 02:02 Lab Results 05/13/25 05/13/25 05/13/25 Range/Units 02:02 02:05 02:08 WBC 11.67 H (4.8-10.8) K/ul RBC 5.70 (4.70-6.10) M/uL Hgb 14.1 (14.0-18.0) g/dl POC Hgb 16.7 (14.0-18.0) g/dl Hct 46.4 (42.0-52.0) % POC Hct 49 (42-52) % MCV 81.4 (80.0-100.0) fL MCH 24.7 L (25.0-34.0) pg MCHC 30.4 L (32.0-36.0) g/dL RDW Std Deviation 41.9 (36.4-46.3) fL RDW Coeff of Ledy 14.4 (11.5-14.5) % Plt Count 230 (130-400) K/uL MPV 9.7 (9.4-12.4) fL Immature Gran % (Auto) 0.3 % Neut % (Auto) 74.9 % Lymph % (Auto) 14.6 % Ritchie % (Auto) 9.8 % Eos % (Auto) 0.3 % Baso % (Auto) 0.1 % Neut # (Auto) 8.74 H (1.40-6.50) K/uL Lymph # (Auto) 1.70 (1.20-3.40) K/uL Ritchie # (Auto) 1.14 H (0.11-0.59) K/uL Eos # (Auto) 0.04 (0.00-0.50) K/uL Baso # (Auto) 0.01 (0.00-0.20) K/uL Immature Gran # (Auto) 0.04 (0.01-0.20) K/uL PT 10.3 (9.0-12.0) Seconds INR 1.0 (0.9-1.1) VBG pH 7.25 L (7.36-7.41) VBG pCO2 83 H (38-50) mmHg VBG pO2 48 mmHg VBG HCO3 36 mmol/L VBG O2 Saturation 75.2 % VBG Base Excess 6.1 mEq/L POC Sodium 138 (135-144) mmol/L Sodium 138 (136-145) mmol/L POC Potassium 4.7 (3.3-5.0) mmol/L Potassium 4.7 (3.5-5.1) mmol/L POC Chloride 101 (101-112) mmol/L Chloride 97 L (98-107) mmol/L Carbon Dioxide 33 H (21-32) mmol/L POC Total CO2 32 H (24-31) mmol/L Anion Gap 8 (3-11) POC Anion Gap 11.0 L (16-25) mmol/L POC BUN 27 H (7-18) mg/dl BUN 24 H (6-23) mg/dl Creatinine 1.49 H (0.6-1.4) mg/dl POC Creatinine 1.6 H (0.6-1.3) mg/dl Est Cr Clr Drug Dosing 54.0 ml/min eGFR 53.06 BUN/Creatinine Ratio 16.1 (10-20) Glucose 130 H (70-99(Fasting)) mg/dl POC Glucose (other) 131 H (70-99) mg/dl Calcium 9.9 (8.6-10.3) mg/dl POC Ioniz Calcium Hunter 1.17 (1.12-1.32) mmol/l Magnesium 2.3 (1.7-2.4) mg/dl Total Bilirubin 0.4 (0.2-1.0) mg/dl AST 18 (13-39) U/L ALT 12 (7-52) U/L Alkaline Phosphatase 116 H (34-104) U/L Troponin I High Sens 41.1 H (0-20) pg/ml B-Natriuretic Peptide 222 H (0-100) pg/ml Total Protein 9.0 H (6.0-8.3) gm/dl Albumin 4.5 (3.4-5.0) gm/dl Globulin 4.5 H (2.5-4.0) gm/dl Albumin/Globulin Ratio 1.0 (0.9-2) Adenovirus (PCR) (NotDetected) B. pertussis DNA (PCR) (NotDetected) B.parapertussis DNA PCR (NotDetected) C. pneumoniae DNA (PCR) (NotDetected) Coronavirus OC43 (PCR) (NotDetected) Coronavirus HKU1 (PCR) (NotDetected) Coronavirus 229E (PCR) (NotDetected) SARS-CoV-2 (PCR) (NotDetected) Coronavirus NL63 (PCR) (NotDetected) Human Metapneumovir PCR (NotDetected) Influenza Type A (PCR) (NotDetected) Influenza Type B (PCR) (NotDetected) M. pneumoniae (PCR) (NotDetected) Parainfluenza 1 (PCR) (NotDetected) Parainfluenza 2 (PCR) (NotDetected) Parainfluenza 3 (PCR) (NotDetected) Parainfluenza 4 (PCR) (NotDetected) RSV (PCR) (NotDetected) Entero/Rhino (PCR) (NotDetected) 05/13/25 Range/Units 02:20 WBC (4.8-10.8) K/ul RBC (4.70-6.10) M/uL Hgb (14.0-18.0) g/dl POC Hgb (14.0-18.0) g/dl Hct (42.0-52.0) % POC Hct (42-52) % MCV (80.0-100.0) fL MCH (25.0-34.0) pg MCHC (32.0-36.0) g/dL RDW Std Deviation (36.4-46.3) fL RDW Coeff of Ledy (11.5-14.5) % Plt Count (130-400) K/uL MPV (9.4-12.4) fL Immature Gran % (Auto) % Neut % (Auto) % Lymph % (Auto) % Ritchie % (Auto) % Eos % (Auto) % Baso % (Auto) % Neut # (Auto) (1.40-6.50) K/uL Lymph # (Auto) (1.20-3.40) K/uL Ritchie # (Auto) (0.11-0.59) K/uL Eos # (Auto) (0.00-0.50) K/uL Baso # (Auto) (0.00-0.20) K/uL Immature Gran # (Auto) (0.01-0.20) K/uL PT (9.0-12.0) Seconds INR (0.9-1.1) VBG pH (7.36-7.41) VBG pCO2 (38-50) mmHg VBG pO2 mmHg VBG HCO3 mmol/L VBG O2 Saturation % VBG Base Excess mEq/L POC Sodium (135-144) mmol/L Sodium (136-145) mmol/L POC Potassium (3.3-5.0) mmol/L Potassium (3.5-5.1) mmol/L POC Chloride (101-112) mmol/L Chloride (98-107) mmol/L Carbon Dioxide (21-32) mmol/L POC Total CO2 (24-31) mmol/L Anion Gap (3-11) POC Anion Gap (16-25) mmol/L POC BUN (7-18) mg/dl BUN (6-23) mg/dl Creatinine (0.6-1.4) mg/dl POC Creatinine (0.6-1.3) mg/dl Est Cr Clr Drug Dosing ml/min eGFR BUN/Creatinine Ratio (10-20) Glucose (70-99(Fasting)) mg/dl POC Glucose (other) (70-99) mg/dl Calcium (8.6-10.3) mg/dl POC Ioniz Calcium Hunter (1.12-1.32) mmol/l Magnesium (1.7-2.4) mg/dl Total Bilirubin (0.2-1.0) mg/dl AST (13-39) U/L ALT (7-52) U/L Alkaline Phosphatase (34-104) U/L Troponin I High Sens (0-20) pg/ml B-Natriuretic Peptide (0-100) pg/ml Total Protein (6.0-8.3) gm/dl Albumin (3.4-5.0) gm/dl Globulin (2.5-4.0) gm/dl Albumin/Globulin Ratio (0.9-2) Adenovirus (PCR) Not Detected (NotDetected) B. pertussis DNA (PCR) Not Detected (NotDetected) B.parapertussis DNA PCR Not Detected (NotDetected) C. pneumoniae DNA (PCR) Not Detected (NotDetected) Coronavirus OC43 (PCR) Not Detected (NotDetected) Coronavirus HKU1 (PCR) Not Detected (NotDetected) Coronavirus 229E (PCR) Not Detected (NotDetected) SARS-CoV-2 (PCR) Not Detected (NotDetected) Coronavirus NL63 (PCR) Not Detected (NotDetected) Human Metapneumovir PCR Not Detected (NotDetected) Influenza Type A (PCR) Not Detected (NotDetected) Influenza Type B (PCR) Not Detected (NotDetected) M. pneumoniae (PCR) Not Detected (NotDetected) Parainfluenza 1 (PCR) Not Detected (NotDetected) Parainfluenza 2 (PCR) Not Detected (NotDetected) Parainfluenza 3 (PCR) Not Detected (NotDetected) Parainfluenza 4 (PCR) Not Detected (NotDetected) RSV (PCR) Not Detected (NotDetected) Entero/Rhino (PCR) Not Detected (NotDetected) Administered Medications Azithromycin (Zithromax) 500 mg in 255 mls @ 127.5 mls/hr IV NOW ONE Stop: 05/13/25 07:59 Last Admin: 05/13/25 06:16 Dose: 127.5 mls/hr Documented By: dmg Discontinued Medications Albuterol (Albut/Ipratrop 3mg/0.5mg Neb 3 Ml Vial) 3 ml NEB NOW STA; Protocol Stop: 05/13/25 02:02 Last Admin: 05/13/25 02:10 Dose: 3 ml Documented By: Magnesium Sulfate/Dextrose (Magnesium Sulfate / D5w) 1 gm in 100 mls @ 100 mls/hr IV NOW STA Stop: 05/13/25 03:01 Last Infusion: 05/13/25 03:16 Dose: Infused Documented By: Admin: 05/13/25 02:10 Dose: 100 mls/hr Documented By: Magnesium Sulfate/Dextrose (Magnesium Sulfate / D5w) 1 gm in 100 mls @ 100 mls/hr IV NOW STA Stop: 05/13/25 04:08 Last Infusion: 05/13/25 04:15 Dose: Infused Documented By: Admin: 05/13/25 03:15 Dose: 100 mls/hr Documented By: JAC Lorazepam (Lorazepam 1 Mg/1 Ml Syr Ed Inj Use) 0.5 mg IV ONE STA Stop: 05/13/25 03:26 Last Admin: 05/13/25 03:32 Dose: 0.5 mg Documented By: JAC Lorazepam (Lorazepam 1 Mg/1 Ml Syr Ed Inj Use) 0.5 mg IV ONE STA Stop: 05/13/25 03:40 Last Admin: 05/13/25 03:48 Dose: 0.5 mg Documented By: JAC Imaging Data Radiologist's Impression: Chest X-Ray 05/13/25 02:02 EXAM: XR chest 1V portable CLINICAL HISTORY: Dyspnea. TECHNIQUE: An X-ray image of the chest was obtained in the AP projection. COMPARISON: 03/03/2025 X-ray. FINDINGS: Pulmonary Parenchyma: Both lung ziegler are hyperinflated, with a low, flat diaphragm, suggestive of COPD. There is no evidence of consolidation, collapse, or focal opacities. No pulmonary nodules are identified. Blunting of the right costophrenic angle is suggestive of mild pleural thickening. Heart and Mediastinum: The size and shape of the heart are normal. No mediastinal widening or masses are present. No hilar or mediastinal lymphadenopathy is seen. An opacity is seen at the right cardiophrenic angle, suggestive of pericardial fat, which is stable. Bony Thorax: Old fractures of the left sixth and seventh ribs laterally, with internal fixation, are present. Soft Tissues: The soft tissues overlying the chest wall are unremarkable. IMPRESSION: 1. No acute cardiopulmonary abnormalities are identified. 2. Both lung ziegler are hyperinflated, with a low, flat diaphragm, suggestive of COPD. Stable. 3. Blunting of the right costophrenic angle is suggestive of mild pleural thickening. This is an interval new finding. 4. Old fractures of the left sixth and seventh ribs laterally, with internal fixation, are stable. Electronically signed by Ronnie Guardado 05-13-2025 02:52 AM Discharge Plan Visit Data Chief Complaint: Respiratory Distress Stated Complaint: RESPIRATORY DISTRESS ED Provider: Kelly Duncan Discharge Problem: Acute hypoxic respiratory failure, Acute exacerbation of chronic obstructive pulmonary disease (COPD) Patient Disposition: Admitted As Inpatient Condition: Fair Discharge Instructions Interventions: ED Discharge Assessment Last Done: 05/13/25 04:58
--- NOTE | 2025-05-13 04:03 | History & Physical Report ---
Date of Service May 13, 2025 Assessment & Plan (1) Acute exacerbation of chronic obstructive pulmonary disease (COPD): (2) Acute hypoxic respiratory failure: (3) Presence of drug-eluting stent in right coronary artery: (4) CAD (coronary artery disease): (5) Enlarged prostate with lower urinary tract symptoms (LUTS): (6) Hypertension: (7) Hyperlipidemia: (8) Type 2 diabetes mellitus: (9) GERD (gastroesophageal reflux disease): Plan 60yo male with multiple medical comorbidities presenting with acute respiratory failure with hypoxia and hypercarbia secondary to acute exacerbation of COPD Patient in respiratory distress upon arrival, now improved on BiPAP #Acute respiratory failure with hypoxia and hypercarbia secondary to acute exacerbation of COPD (Gold Stage IV, PFT 08/14/24 with FEV1/FVC=31, FEV1=22, FVC=55) -Admit to PCU -Check procalcitonin, BNP -Maintain BiPAP as tolerated -Supplemental O2 as needed, goal saturation 88-92% -Continue Trelegy or formulary equivalent -DuoNebs q 4 hours -Albuterol q 2 hours PRN -Mucinex 1200mg po BID -Incentive spirometry and flutter valve -Solumedrol 40mg IV TID -Azithromycin -Continue Cetirizine 10mg po qHS #CAD s/p JUANCARLOS x 2 to RCA on 04/18/25/HTN/HLP. Patient has been compliant with his medications, no missed doses. He denies chest pain. He has mild elevation of troponin at this time - likely secondary to demand ischemia in setting of hypoxia and respiratory distress -Continue ASA 81mg po daily and Plavix 75mg po daily -Continue Carvedilol 3.125mg po BID -Continue Crestor 40mg po qHS -Continue Zetia 10mg po daily -Trend troponin to peak -Continue Amlodipine -Hold Losartan for now given mild elevation in BUN/Cr #Aortic stenosis - Patient with severe and symptomatic aortic stenosis. Appears to be euvolemic at this time. He is being evaluated for possible TAVR -Avoid reduction in preload or volume overload #Diabetes -Lantus 12u BID -ISS CF18, CR8 - adjust as needed to maintain blood sugar goal 110 - 180 #GERD -Protonix 40mg po BID #BPH -Flomax 0.4mg po daily History of Present Illness Chief Complaint: respiratory distress Primary Care Provider: DO John Bradley walker is a pleasant 60yo male with history of COPD (Gold Stage 4) presenting with respiratory distress, acute respiratory failure with hypoxia and hypercarbia. Patient reports having a mild cough and some post-nasal drip for the last several days. This AM around 01:00 he developed severe shortness of breath. He went to the kitchen and took a Ohtuvayre neb (ensifentrine - a dual Phosphdiesterase 3 and 4 inhibitor). He experienced minimal relief so he took a second neb then called his and called 911. Before EMS arrived he had taken a third neb with minimal relief. EMS arrived and patient noted to be leaning forward in the tripod position over his counter with audible wheezing, flushed in appearance from coughing and increased WOB. Patient given DuoNeb x 3, Solumedrol 80mg IM by EMS. Unable to tolerate CPAP. Upon arrival to the ER patien noted to be in ongoing respiratory distress, tachycardic and tachypneic. Initial VBG with respiratory acidosis - pH=7.25, pCO2=83. Patient unable to tolerate BiPAP. Ultimately given a small dose of IV Ativan and BiPAP placed successfully - patient calm, breathing comfortably with adequate RR and tidal volumes. Repeat VBG improved to pH=7.3, pCO2=65 ER Course: Magnesium 1gm Albuterol 3mL neb Ativan 0.5 mg IV x 2 Allergies Allergy/AdvReac Type Severity Reaction Status Date / Time fentanyl Allergy Mild RASH WITH Verified 05/13/25 02:21 PATCH Home Medications Medication Instructions Recorded Confirmed Type rosuvastatin 40 mg tablet (Crestor) 40 mg PO HS #30 tabs 01/31/19 05/13/25 Rx insulin glargine 100 unit/mL (3 25 unit (0.25 mL) subcut QAM #15 mL 08/05/20 05/13/25 Rx mL) subcutaneous pen (Lantus Solostar U-100 Insulin) carvedilol 3.125 mg tablet (Coreg) 3.125 mg PO BID #60 tabs 08/28/20 05/13/25 Rx flash glucose sensor (FreeStyle #1 ea 09/10/21 05/08/25 Rx Fern 14 Day Sensor kit) losartan 100 mg tablet 100 mg PO QAM 12/09/21 05/13/25 History insulin lispro 100 unit/mL 15 unit subcut BID 04/02/22 05/13/25 History subcutaneous pen (Humalog KwikPen (U-100) Insulin) amlodipine 10 mg tablet (Norvasc) 10 mg PO QAM #90 tabs 05/18/22 05/13/25 Rx aspirin 81 mg tablet,delayed 81 mg PO DAILY 09/01/23 05/13/25 History release ipratropium 0.5 mg-albuterol 3 mg 3 ml inhalation QID PRN Shortness 12/05/23 05/13/25 Rx (2.5 mg base)/3 mL nebulization Of Breath #90 mL soln alirocumab 150 mg/mL subcutaneous 150 mg subcut UD 01/21/24 05/13/25 History pen injector (Praluent Pen) ensifentrine 3 mg/2.5 mL 3 - 6 mg inhalation BID 09/10/24 05/13/25 History suspension for nebulization (Ohtuvayre) tamsulosin 0.4 mg capsule (Flomax) 0.4 mg PO DAILY #30 caps 10/02/24 05/13/25 Rx fluticasone fur. 100 mcg-umeclid 1 inh inhalation DAILY #180 ea 10/03/24 05/13/25 Rx 62.5 mcg-vilant 25 mcg inhalat.powder (Trelegy Ellipta) ibuprofen 800 mg tablet 800 mg PO TID PRN Pain #270 tabs 12/10/24 05/13/25 Rx pantoprazole 40 mg tablet,delayed 40 mg PO BID #60 tabs 01/11/25 05/13/25 Rx release cyclobenzaprine 5 mg tablet 5 mg PO TID PRN muscle spasm #10 01/21/25 05/13/25 Rx tabs ezetimibe 10 mg tablet (Zetia) 10 mg PO DAILY 01/21/25 05/13/25 History folic acid 1 mg tablet 1 mg PO DAILY 01/21/25 05/13/25 History mecobalamin (vitamin B12) 1,000 1,000 mcg PO DAILY 01/21/25 05/13/25 History mcg chewable tablet cetirizine 10 mg tablet 10 mg PO HS #30 tabs 02/06/25 05/13/25 Rx sildenafil 25 mg tablet (Viagra) 25 mg PO UD PRN Sexual Activity 02/07/25 05/13/25 Rx #90 tabs dextromethorphan-guaifenesin 5 10 ml PO Q6H PRN cough #500 mL 03/04/25 05/13/25 Rx mg-100 mg/5 mL oral liquid (Robitussin Cough-Chest Congestion DM) semaglutide 2 mg/dose (8 mg/3 mL) 2 mg (0.75 mL) subcut WK DX:E11.9 03/21/25 05/13/25 Rx subcutaneous pen injector #4 syringes ondansetron 8 mg disintegrating 8 mg PO Q8H PRN nausea and 04/12/25 05/13/25 Rx tablet vomiting #10 tabs clopidogrel 75 mg tablet 75 mg PO DAILY #30 tabs 04/18/25 05/13/25 Rx peg 3350-sod sulf,[id number] See Rx Instructions PO .COMPLEX #2 04/24/25 05/13/25 Rx 178.7-7.3-0.5-1.12-0.9 gram oral mL soln (Suflave) furosemide 40 mg tablet 40 mg PO DAILY #90 tabs 04/30/25 05/13/25 Rx potassium chloride 20 mEq 20 meq PO DAILY #90 tabs 04/30/25 05/13/25 Rx tablet,extended release(part/cryst) (Klor-Con M) albuterol sulfate 90 mcg/actuation 1 - 2 puff inhalation .Q4-6H PRN 05/08/25 Rx aerosol inhaler (Ventolin HFA) shortness of breath or wheezing #8.5 grams Past Med/Surg History Problem List Acute exacerbation of chronic obstructive pulmonary disease (COPD) (Acute) Acute hypoxic respiratory failure (Acute) Presence of drug-eluting stent in right coronary artery CAD (coronary artery disease) LVH (left ventricular hypertrophy) Mild pulmonary hypertension Enlarged prostate with lower urinary tract symptoms (LUTS) Diastolic heart failure Microcytosis TIESHA (obstructive sleep apnea) Chronic dyspnea PVD (peripheral vascular disease) COPD, group D, by GOLD 2017 classification History of tobacco abuse "once in awhile" Osteoarthritis, knee Hypertension Ulnar neuropathy at elbow of right upper extremity Cubital tunnel syndrome Asthma-COPD overlap syndrome TIESHA and COPD overlap syndrome Severe chronic obstructive pulmonary disease (Chronic) Obesity (BMI 30.0-34.9) Chronic pain syndrome Tobacco dependence Abdominal aortic aneurysm s/p PEVAR (2017)--pt states is currently 3.2cm Intercostal neuralgia (Chronic) Hyperlipidemia Vitamin D deficiency Type 2 diabetes mellitus IDDM Steatohepatitis, non-alcoholic Osteoarthritis Nocturnal hypoxemia Impotence, organic Dry eye syndrome Diaphragmatic hernia Aortic stenosis Severe aortic stenosis 01/10/25 Diverticular disease GERD (gastroesophageal reflux disease) controlled Medical History Leg swelling Acute exacerbation of chronic obstructive pulmonary disease Dysphagia Abnormal nuclear cardiac imaging test Coronary artery calcification Angina pectoris Acute exacerbation of chronic obstructive pulmonary disease Acute respiratory acidosis Diastolic heart failure follows w/ Dr Yancey Coronary artery calcification HTN (hypertension) Asthma-COPD overlap syndrome Intercostal neuralgia Hyperlipidemia ALONSO (nonalcoholic steatohepatitis) Hx of rotator cuff tear left shoulder, 09/2024; currently doing PT, and will receive injections starting 12/17/24 Aortic stenosis Type 2 diabetes mellitus PVD (peripheral vascular disease) Chronic dyspnea TIESHA (obstructive sleep apnea) no cpap Enlarged prostate with lower urinary tract symptoms (LUTS) started on flomax recently but stopped due to it giving pt. diarrhea Osteoarthritis Anemia hx Cervical radiculopathy Abnormal ECG hx - follows w/ Dr Yancey Opioid dependence hx, not currently on opioids Neuropathy of right radial nerve hx - resolved per pt. History of colon polyps Diverticular disease Diaphragmatic hernia Chronic pain syndrome COPD exacerbation (01/2024) H/O > admitted to [facility]- resolved - follows with pulm dr. maurer at [facility] Esophageal dysphagia 12/07/24 reports somewhat improved History of COVID-19 03/05/22, rushed to hospital [place] for low blood pressure and pulse ox 89% on RA; no actual covid symptoms, tested only because he was in the ER>resolved. Hx of fracture of rib fx 6-7 from coughing s/p surigical intervention - titanium plates - 7 yr ago Surgical History S/P cataract extraction (04/2022) b/l eyes History of bronchoscopy History of colonoscopy History of esophagogastroduodenoscopy (EGD) History of arthroplasty of left knee (08/2020) partial replacement Hx of arthroscopy of left knee X2 Hx of cervical spine surgery (1989) full rom Hx of resection of rib (01/16/14) History of vasectomy History of abdominal aortic aneurysm (AAA) repair (06/07/18) repair x2 (+ stent)/PEVAR: 06/07/18:P MAC sedation at [facility] History of tooth extraction 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 Family History Uncle Amyotrophic lateral sclerosis Father Cardiac disorder Grandmother Cardiac disorder Mother Lung disease Brother Myocardial infarction Family history of diabetes mellitus Other No family history of adverse response to anesthesia Denies family history of Ovarian cancer Prostate cancer Breast cancer Colorectal cancer Social History Smoking Status: Former smoker Tobacco Type: Cigarettes Age Started Using Tobacco: 17; Age Quit Using Tobacco: 59; packs per day: 1; Cigarettes Per Day: 8; Second Hand Exposure: Yes; Do You Dip or Chew Tobacco: No; Hx Alcohol Use: No Hx Substance Use: No Preferred Language: Surinamese Communication Ability: Effective Visual Impairment: No Limitations Hearing Ability: Normal Medical Staff Physician Required: No Beliefs That Will Affect Care: None marital status: marital status details: 3 children Current Living Situation: Spouse current occupational status: disabled How many Children do You have: 3 Feels Safe at Home: Yes Childhood Exposure to Second-Hand Smoke: Yes Diet: regular Diet Comment: regular caffeine: Yes during the past year weight has: remained stable Dental Care, Regularly: No Physical Activity Frequency: Daily Seatbelt Use: always Sunscreen Use: No Assistive Devices: Nebulizer Review of Systems Review of Systems: All systems reviewed & are unremarkable except as noted in HPI & below Physical Exam Physical Exam: General: patient in respiratory distress, sitting upright in bed, oriented x 4, answering questions appropriately and following commands Skin: warm, dry, intact, no rashes or lesions HEENT: NC/AT, PERRL, EOMI, anicteric sclera, conjunctiva without injection, external ear normal to inspection and nontender, nares patent, moist mucus membranes, dentition intact, no oropharyngeal lesions, neck supple, trachea midline, no LAD, no thyromegaly, no JVD Heart: +S1/S2, regular, tachycardic, 4/6 JORDAN at right 2nd ICS with radiation across the precordium and to carotids Lungs: tachypnea, diminished air flow bilaterally, no rhonchi, scant wheezing Abd: +BS, soft, NT/ND, no masses/organomegaly/ascites Ext: warm, 2+ pulses in UE/LE bilaterally, no clubbing/cyanosis or edema Neuro: nonfocal, patient AA&O x 4, speech intact, no facial droop, moving all extremities on command with equal strength 5/5 Results & Data Results & Data Vital Signs (Past 12 Hours) Vital Signs Temp Pulse Pulse Resp BP BP Pulse Ox 05/13/25 03:54 112 H 19 96 05/13/25 03:39 115 H 26 H 108/83 96 05/13/25 03:00 118 H 28 H 137/79 95 05/13/25 02:53 119 H 21 105/79 95 05/13/25 02:17 122 H 20 97 05/13/25 02:17 97 05/13/25 02:13 05/13/25 02:12 121 H 24 96 05/13/25 02:04 137 H 05/13/25 02:02 36.3 C L 126 H 25 H 129/107 H 99 O2 Del Method O2 Flow Rate FiO2 05/13/25 03:54 40 05/13/25 03:39 Oxymask 4 05/13/25 03:00 Nebulizer 05/13/25 02:53 Nebulizer 05/13/25 02:17 Nebulizer 05/13/25 02:17 Room Air, Nebulizer 05/13/25 02:13 Nebulizer 05/13/25 02:12 Nebulizer 05/13/25 02:04 05/13/25 02:02 Nebulizer Laboratory Results Laboratory Results WBC 11.67 K/ul (4.8-10.8) H 05/13/25 02:02 RBC 5.70 M/uL (4.70-6.10) 05/13/25 02:02 Hgb 14.1 g/dl (14.0-18.0) 05/13/25 02:02 POC Hgb 16.7 g/dl (14.0-18.0) 05/13/25 02:08 Hct 46.4 % (42.0-52.0) 05/13/25 02:02 POC Hct 49 % (42-52) 05/13/25 02:08 MCV 81.4 fL (80.0-100.0) 05/13/25 02:02 MCH 24.7 pg (25.0-34.0) L 05/13/25 02:02 MCHC 30.4 g/dL (32.0-36.0) L 05/13/25 02:02 RDW Std Deviation 41.9 fL (36.4-46.3) 05/13/25 02:02 RDW Coeff of Ledy 14.4 % (11.5-14.5) 05/13/25 02:02 Plt Count 230 K/uL (130-400) 05/13/25 02:02 MPV 9.7 fL (9.4-12.4) 05/13/25 02:02 Immature Gran % (Auto) 0.3 % 05/13/25 02:02 Neut % (Auto) 74.9 % 05/13/25 02:02 Lymph % (Auto) 14.6 % 05/13/25 02:02 [place] % (Auto) 9.8 % 05/13/25 02:02 Eos % (Auto) 0.3 % 05/13/25 02:02 Baso % (Auto) 0.1 % 05/13/25 02:02 Neut # (Auto) 8.74 K/uL (1.40-6.50) H 05/13/25 02:02 Lymph # (Auto) 1.70 K/uL (1.20-3.40) 05/13/25 02:02 [place] # (Auto) 1.14 K/uL (0.11-0.59) H 05/13/25 02:02 Eos # (Auto) 0.04 K/uL (0.00-0.50) 05/13/25 02:02 Baso # (Auto) 0.01 K/uL (0.00-0.20) 05/13/25 02:02 Immature Gran # (Auto) 0.04 K/uL (0.01-0.20) 05/13/25 02:02 PT 10.3 Seconds (9.0-12.0) 05/13/25 02:02 INR 1.0 (0.9-1.1) 05/13/25 02:02 VBG pH 7.30 (7.36-7.41) L 05/13/25 04:15 VBG pCO2 65 mmHg (38-50) H 05/13/25 04:15 VBG pO2 69 mmHg 05/13/25 04:15 VBG HCO3 32 mmol/L 05/13/25 04:15 VBG O2 Saturation 94.8 % 05/13/25 04:15 VBG Base Excess 3.6 mEq/L 05/13/25 04:15 POC Sodium 138 mmol/L (135-144) 05/13/25 02:08 Sodium 138 mmol/L (136-145) 05/13/25 02:02 POC Potassium 4.7 mmol/L (3.3-5.0) 05/13/25 02:08 Potassium 4.7 mmol/L (3.5-5.1) 05/13/25 02:02 POC Chloride 101 mmol/L (101-112) 05/13/25 02:08 Chloride 97 mmol/L (98-107) L 05/13/25 02:02 Carbon Dioxide 33 mmol/L (21-32) H 05/13/25 02:02 POC Total CO2 32 mmol/L (24-31) H 05/13/25 02:08 Anion Gap 8 (3-11) 05/13/25 02:02 POC Anion Gap 11.0 mmol/L (16-25) L 05/13/25 02:08 POC BUN 27 mg/dl (7-18) H 05/13/25 02:08 BUN 24 mg/dl (6-23) H 05/13/25 02:02 Creatinine 1.49 mg/dl (0.6-1.4) H 05/13/25 02:02 POC Creatinine 1.6 mg/dl (0.6-1.3) H 05/13/25 02:08 Est Cr Clr Drug Dosing 54.0 ml/min 05/13/25 02:02 eGFR 53.06 05/13/25 02:02 BUN/Creatinine Ratio 16.1 (10-20) 05/13/25 02:02 Glucose 130 mg/dl (70-99(Fasting)) H 05/13/25 02:02 POC Glucose (other) 131 mg/dl (70-99) H 05/13/25 02:08 Calcium 9.9 mg/dl (8.6-10.3) 05/13/25 02:02 POC Ioniz Calcium Hunter 1.17 mmol/l (1.12-1.32) 05/13/25 02:08 Magnesium 2.3 mg/dl (1.7-2.4) 05/13/25 02:02 Total Bilirubin 0.4 mg/dl (0.2-1.0) 05/13/25 02:02 AST 18 U/L (13-39) 05/13/25 02:02 ALT 12 U/L (7-52) 05/13/25 02:02 Alkaline Phosphatase 116 U/L (34-104) H 05/13/25 02:02 Troponin I High Sens 41.1 pg/ml (0-20) H 05/13/25 02:02 B-Natriuretic Peptide 222 pg/ml (0-100) H 05/13/25 02:02 Total Protein 9.0 gm/dl (6.0-8.3) H 05/13/25 02:02 Albumin 4.5 gm/dl (3.4-5.0) 05/13/25 02:02 Globulin 4.5 gm/dl (2.5-4.0) H 05/13/25 02:02 Albumin/Globulin Ratio 1.0 (0.9-2) 05/13/25 02:02 Adenovirus (PCR) Not Detected (NotDetected) 05/13/25 02:20 B. pertussis DNA (PCR) Not Detected (NotDetected) 05/13/25 02:20 B.parapertussis DNA PCR Not Detected (NotDetected) 05/13/25 02:20 C. pneumoniae DNA (PCR) Not Detected (NotDetected) 05/13/25 02:20 Coronavirus OC43 (PCR) Not Detected (NotDetected) 05/13/25 02:20 Coronavirus HKU1 (PCR) Not Detected (NotDetected) 05/13/25 02:20 Coronavirus 229E (PCR) Not Detected (NotDetected) 05/13/25 02:20 SARS-CoV-2 (PCR) Not Detected (NotDetected) 05/13/25 02:20 Coronavirus NL63 (PCR) Not Detected (NotDetected) 05/13/25 02:20 Human Metapneumovir PCR Not Detected (NotDetected) 05/13/25 02:20 Influenza Type A (PCR) Not Detected (NotDetected) 05/13/25 02:20 Influenza Type B (PCR) Not Detected (NotDetected) 05/13/25 02:20 M. pneumoniae (PCR) Not Detected (NotDetected) 05/13/25 02:20 Parainfluenza 1 (PCR) Not Detected (NotDetected) 05/13/25 02:20 Parainfluenza 2 (PCR) Not Detected (NotDetected) 05/13/25 02:20 Parainfluenza 3 (PCR) Not Detected (NotDetected) 05/13/25 02:20 Parainfluenza 4 (PCR) Not Detected (NotDetected) 05/13/25 02:20 RSV (PCR) Not Detected (NotDetected) 05/13/25 02:20 Entero/Rhino (PCR) Not Detected (NotDetected) 05/13/25 02:20 Impressions Chest X-Ray 05/13/25 02:02 EXAM: XR chest 1V portable CLINICAL HISTORY: Dyspnea. TECHNIQUE: An X-ray image of the chest was obtained in the AP projection. COMPARISON: 03/03/2025 X-ray. FINDINGS: Pulmonary Parenchyma: Both lung ziegler are hyperinflated, with a low, flat diaphragm, suggestive of COPD. There is no evidence of consolidation, collapse, or focal opacities. No pulmonary nodules are identified. Blunting of the right costophrenic angle is suggestive of mild pleural thickening. Heart and Mediastinum: The size and shape of the heart are normal. No mediastinal widening or masses are present. No hilar or mediastinal lymphadenopathy is seen. An opacity is seen at the right cardiophrenic angle, suggestive of pericardial fat, which is stable. Bony Thorax: Old fractures of the left sixth and seventh ribs laterally, with internal fixation, are present. Soft Tissues: The soft tissues overlying the chest wall are unremarkable. IMPRESSION: 1. No acute cardiopulmonary abnormalities are identified. 2. Both lung ziegler are hyperinflated, with a low, flat diaphragm, suggestive of COPD. Stable. 3. Blunting of the right costophrenic angle is suggestive of mild pleural thickening. This is an interval new finding. 4. Old fractures of the left sixth and seventh ribs laterally, with internal fixation, are stable. Electronically signed by Ronnie Guardado 05-13-2025 02:52 AM Code Status & VTE Plan VTE Prophylaxis Plan VTE Prophylaxis will be ordered: Yes PG Care Time/CCT Total # of Minutes Spent Total Time Spent with Patient: Total time spent is greater than 50% in coordination of care (as documented) at patient's floor/unit and/or counseling patient: Coding Level of Care Code 71563 INT INP/OBS CARE 3/75MIN Diagnoses Acute exacerbation of chronic obstructive pulmonary disease (COPD) J44.1 Acute hypoxic respiratory failure J96.01 Presence of drug-eluting stent in right coronary artery Z95.5 Coronary artery disease involving [place] coronary artery of [place] heart without angina pectoris I25.10 Associated angina: without angina Coronary Disease-Associated Artery/Lesion type: [place] artery [place] vs. transplanted heart: [place] heart Enlarged prostate with lower urinary tract symptoms (LUTS) N40.1 Hypertension I10 Hypertension type: essential hypertension Hyperlipidemia, unspecified hyperlipidemia type E78.5 Hyperlipidemia type: unspecified Type 2 diabetes mellitus without complication, with long-term current use of insulin E11.9; Z79.4 Diabetes mellitus complication status: without complication Diabetes mellitus neonatal doctor insulin use: with neonatal doctor use Gastroesophageal reflux disease, esophagitis presence not specified K21.9 Esophagitis presence: esophagitis presence not specified (4) CAD (coronary artery disease) Associated angina: without angina Coronary Disease-Associated Artery/Lesion type: [place] artery [place] vs. transplanted heart: [place] heart Qualified Code(s): I25.10 - Atherosclerotic heart disease of [place] coronary artery without angina pectoris (6) Hypertension Hypertension type: essential hypertension Qualified Code(s): I10 - Essential (primary) hypertension (7) Hyperlipidemia Hyperlipidemia type: unspecified Qualified Code(s): E78.5 - Hyperlipidemia, unspecified (8) Type 2 diabetes mellitus Diabetes mellitus complication status: without complication Diabetes mellitus neonatal doctor insulin use: with usp use Qualified Code(s): E11.9 - Type 2 diabetes mellitus without complications; Z79.4 - director operating room (current) use of insulin (9) GERD (gastroesophageal reflux disease) Esophagitis presence: esophagitis presence not specified Qualified Code(s): K21.9 - Gastro-esophageal reflux disease without esophagitis
[2025-05-13 04:27] LABS: Base Excess VBG 3.6 mEq/L; HCO3 VBG 32 mmol/L; Oxygen Saturation VBG 94.8 %; PCO2 VBG 65 mmHg (38-50); PO2 VBG 69 mmHg; pH VBG 7.30 (7.36-7.41)
[2025-05-13] MEDS ORDERED: ACETAMINOPHEN 325 MG TAB PO PRN (05:26)
[2025-05-13] MEDS ORDERED: DEXTROSE 50% 50 ML SYRINGE IV PRN (05:26)
[2025-05-13] MEDS ORDERED: CYCLOBENZAPRINE HCL 5 MG TAB PO PRN (05:26)
[2025-05-13] MEDS ORDERED: GLUCAGON FOR INJ 1 MG VIAL SQ PRN (05:26)
[2025-05-13] MEDS ORDERED: ONDANSETRON INJ 2 MG/ML 2 ML VIAL IV PRN (05:26)
[2025-05-13] MEDS ORDERED: CARBOHYDRATES FOR HYPOGLYCEMIA PO PRN (05:26)
[2025-05-13] MEDS ORDERED: GLUCOSE 10 TAB/TUBE PO PRN (05:26)
[2025-05-13] MEDS ORDERED: ALBUTEROL 0.083% NEBU SOLN 3 ML VIAL NEB PRN (05:26)
[2025-05-13] MEDS ORDERED: GLUCOSE 40% GEL 15 GM TUBE PO PRN (05:26)
[2025-05-13] MEDS ORDERED: AZITHROMYCIN 250 MG TAB PO ONE (05:45)
[2025-05-13] MEDS: AZITHROMYCIN 500 MG/255 ML BAG IV ONE (06:16)
[2025-05-13] MEDS: ALBUT/IPRATROP 3MG/0.5MG NEB 3 ML VIAL NEB SCH (06:59)
[2025-05-13] MEDS: TAMSULOSIN HCL 0.4 MG CAP PO SCH (08:21)
[2025-05-13] MEDS: CLOPIDOGREL BISULFATE 75 MG TAB PO SCH (08:21)
[2025-05-13] MEDS: guaiFENesin 600 MG TABCR PO SCH (08:21)
[2025-05-13] MEDS: EZETIMIBE 10 MG TAB PO SCH (08:22)
[2025-05-13] MEDS: UMECLIDINIUM/VILANTEROL 62.5/25MCG 7 PUFFS/INHALER INH SCH (08:22)
[2025-05-13] MEDS: ASPIRIN 81 MG ECTAB PO SCH (08:22)
[2025-05-13] MEDS: FLUTICASONE FUROATE 100MCG 14 PUFFS/INHALER INH SCH (08:23)
[2025-05-13] MEDS: LANTUS PER UNIT CHARGE SQ SCH (08:46)
[2025-05-13] MEDS: INSULIN ASPART PER UNIT CHARGE SC SCH (08:46)
[2025-05-13] MEDS ORDERED: NON-FORMULARY MEDICATION (Fluticasone-Umeclidin-Vilanter [Trelegy Ellipta] 100-62.5-25 mcg INH SCH (09:00)
[2025-05-13] MEDS ORDERED: FUROSEMIDE 40 MG TAB PO SCH (09:00)
[2025-05-13] MEDS: SODIUM CHLOR 7% 4 ML NEB NEB SCH (10:41)
[2025-05-13] MEDS ORDERED: COUGH DROP (SUGAR FREE) LOZ 24 LOZ/1 BOX BUCCAL PRN (11:31)
[2025-05-13] MEDS: COUGH DROP (SUGAR FREE) LOZ 24 LOZ/1 BOX BUCCAL ONE (11:40)
--- NOTE | 2025-05-13 13:51 | Hospitalist Progress Note ---
Date of Service May 13, 2025 Assessment & Plan (1) Acute exacerbation of chronic obstructive pulmonary disease (COPD): (2) Acute hypoxic respiratory failure: (3) Presence of drug-eluting stent in right coronary artery: (4) CAD (coronary artery disease): (5) Enlarged prostate with lower urinary tract symptoms (LUTS): (6) Hypertension: (7) Hyperlipidemia: (8) Type 2 diabetes mellitus: (9) GERD (gastroesophageal reflux disease): Plan 60yo male with with PMH of aortic stenosis, CAD, smoking, he has JUANCARLOS x2 to RCA on 04/18/2025, on 05/13/2025, presenting with acute respiratory failure with hypoxia and hypercarbia secondary to acute exacerbation of COPD Patient in respiratory distress upon arrival, now improved on BiPAP he's was placed to PCU and on solumedrol #Acute respiratory failure with hypoxia and hypercarbia secondary to acute exacerbation of COPD (Gold Stage IV, PFT 08/14/24 with FEV1/FVC=31, FEV1=22, FVC=55) -Admit to PCU -Check procalcitonin, BNP -Maintain BiPAP as tolerated -Supplemental O2 as needed, goal saturation 88-92% -Continue Trelegy or formulary equivalent -DuoNebs q 4 hours -Albuterol q 2 hours PRN -Mucinex 1200mg po BID -Incentive spirometry and flutter valve -Solumedrol 40mg IV TID -Azithromycin -Continue Cetirizine 10mg po qHS EARLENE, hold losartan #CAD s/p JUANCARLOS x 2 to RCA on 04/18/25/HTN/HLP. Patient has been compliant with his medications, no missed doses. He denies chest pain. He has mild elevation of troponin at this time - likely secondary to demand ischemia in setting of hypoxia and respiratory distress c/w aspirin 81mg, plavix 75mg, coreeg 3.125 BID, crestor 40mg qHS, zetia 10mg daily amodipine #Aortic stenosis - Patient with severe and symptomatic aortic stenosis. Appears to be euvolemic at this time. He is being evaluated for possible TAVR -Avoid reduction in preload or volume overload #Diabetes-Lantus 12u BID -ISS CF18, CR8 - adjust as needed to maintain blood sugar goal 110 - 180 #GERD-Protonix 40mg po BID #BPH -Flomax 0.4mg po daily Admission and Anticipated Discharge Date Admission Date: May 13, 2025 Subjective he still have significant shortness of breath and hypoxic he still need IV solumedrol he's on 3 liter, baseline room air his medical equipment technician Dr. Yancey is notified about his admission no chest pain no shortness of breath severe aortic stenosis avoid excessive diuretics avoid any nitrate Physical Exam Physical Exam: VITALS: Reviewed. WEIGHT/BMI reviewed. GEN: Healthy appearing, well-developed, NAD. PSYCH: Good Judgment. AOx3. Normal memory, mood, and affect. HEENT -Head: NC/AT; -Eyes: PERRL, EOMI. No discharge or redn ess; -Ears: External ears are normal. Normal TMs. -Nose: Normal nares. -Mouth and throat: MMM. Normal gums, muc haim, palate,. Good dentition. NECK: Supple, with no masses. CV: RRR, no m/r/g. LUNGS: CTAB, no w/r/c. ABD: Soft, NT/ND, NBS, no masses or organomegaly. : N/A SKIN: Warm, well perfused. No skin rashes or abnormal lesions. MSK: No deformities, Normal gait. EXT: No clubbing, cyanosis, or edema. NEURO: Ambulating with no limitations. Normal muscle strength and tone. No focal deficits. Results & Data Results & Data Vital Signs (Past 12 Hours) Vital Signs Temp Pulse Pulse Resp BP BP Pulse Ox 05/13/25 11:00 36.5 C 83 20 103/63 93 05/13/25 10:42 110 H 18 95 05/13/25 09:35 05/13/25 07:28 36.4 C L 109 H 20 118/69 94 05/13/25 06:59 80 21 99 05/13/25 05:30 05/13/25 05:30 105 H 05/13/25 05:26 36.4 C L 116 H 28 H 144/75 H 98 05/13/25 05:26 05/13/25 04:58 110 H 18 137/65 96 05/13/25 04:00 109 H 18 117/59 L 95 05/13/25 03:54 112 H 19 96 05/13/25 03:39 115 H 26 H 108/83 96 05/13/25 03:00 118 H 28 H 137/79 95 05/13/25 02:53 119 H 21 105/79 95 05/13/25 02:17 122 H 20 97 05/13/25 02:17 97 05/13/25 02:13 05/13/25 02:12 121 H 24 96 05/13/25 02:04 137 H 05/13/25 02:02 36.3 C L 126 H 25 H 129/107 H 99 Pulse Ox O2 Del Method O2 Del Method O2 Flow Rate FiO2 05/13/25 11:00 Nasal Cannula 3 05/13/25 10:42 Room Air 05/13/25 09:35 Nasal Cannula 05/13/25 07:28 Nasal Cannula 3 05/13/25 06:59 BiPAP 40 05/13/25 05:30 BiPAP 05/13/25 05:30 05/13/25 05:26 BiPAP 05/13/25 05:26 97 BiPAP 05/13/25 04:58 BiPAP 40 05/13/25 04:00 BiPAP 05/13/25 03:54 40 05/13/25 03:39 Oxymask 4 05/13/25 03:00 Nebulizer 05/13/25 02:53 Nebulizer 05/13/25 02:17 Nebulizer 05/13/25 02:17 Room Air, Nebulizer 05/13/25 02:13 Nebulizer 05/13/25 02:12 Nebulizer 05/13/25 02:04 05/13/25 02:02 Nebulizer PG Care Time/CCT Total # of Minutes Spent Total Time Spent with Patient: Total time spent is greater than 50% in coordination of care (as documented) at patient's floor/unit and/or counseling patient: Coding Level of Care Code 80274 SUB INP/OBS CARE 09/01MIN Diagnoses Acute exacerbation of chronic obstructive pulmonary disease (COPD) J44.1 Acute hypoxic respiratory failure J96.01 Presence of drug-eluting stent in right coronary artery Z95.5 Coronary artery disease involving [place] coronary artery of [place] heart without angina pectoris I25.10 Associated angina: without angina Coronary Disease-Associated Artery/Lesion type: [place] artery [place] vs. 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 transplanted heart: [place] heart Qualified Code(s): I25.10 - Atherosclerotic heart disease of [place] coronary artery without angina pectoris (6) Hypertension Hypertension type: essential hypertension Qualified Code(s): I10 - Essential (primary) hypertension (7) Hyperlipidemia Hyperlipidemia type: unspecified Qualified Code(s): E78.5 - Hyperlipidemia, unspecified (8) Type 2 diabetes mellitus Diabetes mellitus complication status: without complication Diabetes mellitus intermodal owner operator truck driver insulin use: with intermodal owner operator truck driver use Qualified Code(s): E11.9 - Type 2 diabetes mellitus without complications; Z79.4 - assisted (current) use of insulin (9) GERD (gastroesophageal reflux disease) Esophagitis presence: esophagitis presence not specified Qualified Code(s): K21.9 - Gastro-esophageal reflux disease without esophagitis
[2025-05-13] MEDS: HEPARIN SOD 5,000 UNIT/0.5 ML VIAL SQ SCH (14:38)
--- NOTE | 2025-05-13 15:10 | Electrocardiogram Report ---
Test Reason : Blood Pressure : */* mmHG Vent. Rate : 116 BPM Atrial Rate : 116 BPM P-R Int : 130 ms QRS Dur : 144 ms QT Int : 364 ms P-R-T Axes : 83 100 39 degrees QTcB Int : 505 ms Sinus tachycardia Right bundle branch block Cannot rule out Inferior infarct (cited on or before 09-Jan-2025) Abnormal ECG When compared with ECG of 03-Mar-2025 16:42, Premature ventricular complexes are no longer Present Confirmed by Joe Yancey ([id number]) on 05/13/2025 3:10:11 PM Referred By: REFERRED SELF Confirmed By: Joe Yancey
--- NOTE | 2025-05-13 15:12 | Electrocardiogram Report ---
Test Reason : Blood Pressure : */* mmHG Vent. Rate : 100 BPM Atrial Rate : 100 BPM P-R Int : 148 ms QRS Dur : 154 ms QT Int : 396 ms P-R-T Axes : 81 93 31 degrees QTcB Int : 510 ms Normal sinus rhythm Right bundle branch block Cannot rule out Inferior infarct (cited on or before 09-Jan-2025) Abnormal ECG When compared with ECG of 13-May-2025 03:19, (unconfirmed) No significant change was found Confirmed by Joe Yancey ([id number]) on 05/13/2025 3:11:49 PM Referred By: REFERRED SELF Confirmed By: Joe Yancey
[2025-05-13] MEDS: ROSUVASTATIN CALCIUM 20 MG TAB PO SCH (21:03)
[2025-05-13] MEDS: CETIRIZINE HCL 10 MG TABLET PO SCH (21:04)
[2025-05-13] MEDS: LORazepam 0.5 MG TAB PO STA (22:57)
[2025-05-14 07:33] VITALS: BP 116/51; TEMP 97.3
[2025-05-14 07:41] LABS: Hematocrit (blood only) 40.0 % (42.0-52.0); Hemoglobin 12.5 g/dl (14.0-18.0); Mean Corpuscular Hemoglobin 25.5 pg (25.0-34.0); Mean Corpuscular Volume 81.6 fL (80.0-100.0); Platelet Count 209 K/uL (130-400); RDW Standard Deviation 42.9 fL (36.4-46.3); Red Blood Count 4.90 M/uL (4.70-6.10); White Blood Count 19.91 K/ul (4.8-10.8)
[2025-05-14] MEDS: AZITHROMYCIN 250 MG TAB PO SCH (07:59)
[2025-05-14 08:04] LABS: Anion Gap 7.0 (3-11); Blood Urea Nitrogen 25.0 mg/dl (6-23); Calcium 9.2 mg/dl (8.6-10.3); Carbon Dioxide 28.0 mmol/L (21-32); Chloride 100.0 mmol/L (98-107); Creatinine Clr Calc Pharmacy 66.2 ml/min; Glucose 131.0 mg/dl (70-99(Fasting)); Potassium 5.1 mmol/L (3.5-5.1); Sodium 135.0 mmol/L (136-145)
[2025-05-14 10:56] VITALS: RESP 18; O2SAT 90
[2025-05-14 11:17] VITALS: PULSE 82
--- NOTE | 2025-05-14 16:25 | Discharge Summary ---
Discharge Summary Date of Service May 14, 2025 Principal Dx & Hospital Course #1 = Principal Diagnosis (1) Acute exacerbation of chronic obstructive pulmonary disease (COPD): he was admitted for COPD exacerbation; he's has exposure to plant at home he's on on bipap on 05/13/2025 morning he was on bipap treatment and started on IV steroid and nebulizer treatment. he has no sign of volume overload and wean to 3-4 liter on 05/13/2025 on 05/14/2025, he's was wean to room air; and able to ambulate to hallway he's was able to standing for 15-20 minutes socializing with our staffs are nursing station he was dc home with prednisone, duoneb, augmentin he will f/u with his lung specialist Dr. Rutherford ([facility]) he will f/u with Dr. aYncey (with regard to TAVR) evaluation (2) Acute hypoxic respiratory failure: (3) Presence of drug-eluting stent in right coronary artery: (4) CAD (coronary artery disease): (5) Enlarged prostate with lower urinary tract symptoms (LUTS): (6) Hypertension: (7) Hyperlipidemia: (8) Type 2 diabetes mellitus: (9) GERD (gastroesophageal reflux disease): Plan 60yo male with with PMH of aortic stenosis, CAD, smoking, he has JUANCARLOS x2 to RCA on 04/18/2025, on 05/13/2025, presenting with acute respiratory failure with hypoxia and hypercarbia secondary to acute exacerbation of COPD Patient in respiratory distress upon arrival, now improved on BiPAP he's was placed to PCU and on solumedrol #Acute respiratory failure with hypoxia and hypercarbia secondary to acute exacerbation of COPD (Gold Stage IV, PFT 08/14/24 with FEV1/FVC=31, FEV1=22, FVC=55) -Admit to PCU -Check procalcitonin, BNP -Maintain BiPAP as tolerated -Supplemental O2 as needed, goal saturation 88-92% -Continue Trelegy or formulary equivalent -DuoNebs q 4 hours -Albuterol q 2 hours PRN -Mucinex 1200mg po BID -Incentive spirometry and flutter valve -Solumedrol 40mg IV TID -Azithromycin -Continue Cetirizine 10mg po qHS EARLENE, hold losartan #CAD s/p JUANCARLOS x 2 to RCA on 04/18/25/HTN/HLP. Patient has been compliant with his medications, no missed doses. He denies chest pain. He has mild elevation of troponin at this time - likely secondary to demand ischemia in setting of hypoxia and respiratory distress c/w aspirin 81mg, plavix 75mg, coreeg 3.125 BID, crestor 40mg qHS, zetia 10mg daily amodipine #Aortic stenosis - Patient with severe and symptomatic aortic stenosis. Appears to be euvolemic at this time. He is being evaluated for possible TAVR -Avoid reduction in preload or volume overload #Diabetes-Lantus 12u BID -ISS CF18, CR8 - adjust as needed to maintain blood sugar goal 110 - 180 #GERD-Protonix 40mg po BID #BPH -Flomax 0.4mg po daily Notes For Next Care Provider pre-post consider sleep studies annual low dose CT chest, avoid allegron exposure Admission HPI Per Admitting Provider John blanchard is a pleasant 60yo male with history of COPD (Gold Stage 4) presenting with respiratory distress, acute respiratory failure with hypoxia and hypercarbia. Patient reports having a mild cough and some post-nasal drip for the last several days. This AM around 01:00 he developed severe shortness of breath. He went to the kitchen and took a Ohtuvayre neb (ensifentrine - a dual Phosphdiesterase 3 and 4 inhibitor). He experienced minimal relief so he took a second neb then called his and called 911. Before EMS arrived he had taken a third neb with minimal relief. EMS arrived and patient noted to be leaning forward in the tripod position over his counter with audible wheezing, flushed in appearance from coughing and increased WOB. Patient given DuoNeb x 3, Solumedrol 80mg IM by EMS. Unable to tolerate CPAP. Upon arrival to the ER patien noted to be in ongoing respiratory distress, tachycardic and tachypneic. Initial VBG with respiratory acidosis - pH=7.25, pCO2=83. Patient unable to tolerate BiPAP. Ultimately given a small dose of IV Ativan and BiPAP placed successfully - patient calm, breathing comfortably with adequate RR and tidal volumes. Repeat VBG improved to pH=7.3, pCO2=65 ER Course: Magnesium 1gm Albuterol 3mL neb Ativan 0.5 mg IV x 2 Discharge Exam VITALS: Reviewed. WEIGHT/BMI reviewed. GEN: Healthy appearing, well-developed, NAD. -Head: NC/AT; NECK: Supple, with no masses. CV: RRR, + for loud systolic murmur LUNGS: CTAB, no w/r/c. no wheezing; decrease breath sound ABD: Soft, NT/ND, NBS, no masses or organomegaly. : N/A SKIN: Warm, well perfused. No skin rashes or abnormal lesions. NEURO: Ambulating with no limitations. Normal muscle strength and tone. No focal deficits. Discharge Plan Discharge Items Patient Disposition: Home - Self-Care Reason For Visit: SHORTNESS OF BREATH Discharge Diagnosis: acute hypoxic respiratory failure COPD exacerbation hx of severe aortic stenosis Condition on Discharge: Fair Activity: Per Instructions section Lifting: Gradually increase as tolerated Non-emergency contact: Primary Care Provider and Validation Specialist Call non-emergency contact if: you have any medication questions and you have a fever Follow-up/Referrals: Joe Yancey MD [Physician] - (The office will call you to schedule a follow up appointment) Oriana Burrell DO [Primary Care Provider] - 05/22/25 10:00 am (Hospital follow up on May 22 at 10 am.) Diet: Carb Count or DM1 and Heart Healthy Addtl Attending Provider Instructions: you will follow up with pulmonary (lung doctor) and cardiology you will need to have low dose CT chest every year to screen for lung cancer Pending Studies at Discharge: Yes Studies:: TAVR evaluation, low dose CT chest Stand-Alone Forms: My [facility] [employer], Smoking Cessation Medications and DC Order Prescriptions: New ipratropium-albuterol 0.5 mg-3 mg(2.5 mg base)/3 mL Solution For Nebulization 3 ml NEB Q4R 18 Days Qty: 150 0RF guaifenesin [Mucinex] 600 mg Tablet Extended Release 12hr 1,200 mg PO Q12 30 Days Qty: 120 0RF prednisone 50 mg tablet 50 mg PO DAILY 7 Days Qty: 7 0RF amoxicillin-pot clavulanate [Augmentin] 500-125 mg tablet 1 tab PO BID 10 Days Qty: 20 0RF prednisone 50 mg tablet 50 mg PO DAILY 10 Days Qty: 10 0RF Continued carvedilol [Coreg] 3.125 mg tablet 3.125 mg PO BID Qty: 60 3RF Rx Instructions: must administer with a meal/food (to replace Bystolic, Bystolic is not covered) (DME) [employer] 14 Day Sensor Kit See Dose Instructions .ROUTE .MEDSUPPLY Qty: 1 0RF Dose Instruction: As directed Rx Instructions: As directed, testing QID. Dx: E11.9 amlodipine [Norvasc] 10 mg tablet 10 mg PO QAM Qty: 90 3RF ipratropium-albuterol 0.5 mg-3 mg(2.5 mg base)/3 mL solution for nebulization 3 ml INH QID PRN (Reason: Shortness Of Breath) Qty: 90 3RF Trelegy Ellipta 100-62.5-25 mcg blister with device 1 inh inhalation DAILY Qty: 180 1RF ibuprofen 800 mg tablet 800 mg PO TID PRN (Reason: Pain) Qty: 270 1RF pantoprazole 40 mg tablet,delayed release (DR/EC) 40 mg PO BID Qty: 60 5RF cetirizine 10 mg tablet 10 mg PO HS Qty: 30 2RF sildenafil [Viagra] 25 mg tablet 25 mg PO UD PRN (Reason: Sexual Activity) Qty: 90 0RF Rx Instructions: 25 mg PO 30 prior to intercourse.; semaglutide 2 mg/dose (8 mg/3 mL) pen injector 2 mg SUBCUT WK Qty: 4 2RF Rx Instructions: sundays ondansetron 8 mg tablet,disintegrating 8 mg PO Q8H PRN (Reason: nausea and vomiting) Qty: 10 0RF Suflave 178.7-7.3-0.5 gram recon soln See Rx Instructions PO .COMPLEX Qty: 2 0RF Rx Instructions: PO rosuvastatin [Crestor] 40 mg tablet 40 mg PO HS Qty: 30 0RF aspirin 81 mg tablet,delayed release (DR/EC) 81 mg PO DAILY Lantus Solostar U-100 Insulin 100 unit/mL (3 mL) insulin pen 25 unit SQ QAM Qty: 15 5RF Patient Comments: 25 units losartan 100 mg tablet 100 mg PO QAM folic acid 1 mg tablet 1 mg PO DAILY ezetimibe [Zetia] 10 mg tablet 10 mg PO DAILY mecobalamin (vitamin B12) 1,000 mcg tablet,chewable 1,000 mcg PO DAILY cyclobenzaprine 5 mg tablet 5 mg PO TID PRN (Reason: muscle spasm) Qty: 10 0RF Ohtuvayre 3 mg/2.5 mL suspension for nebulization 3 - 6 mg inhalation BID Rx Instructions: 6 mg in the am and 3mg in the evening inhaled twice a day; tamsulosin [Flomax] 0.4 mg capsule 0.4 mg PO DAILY Qty: 30 2RF furosemide 40 mg tablet 40 mg PO DAILY Qty: 90 3RF potassium chloride [Klor-Con M20] 20 mEq tablet,ER particles/crystals 20 meq PO DAILY Qty: 90 3RF albuterol sulfate [Ventolin HFA] 90 mcg/actuation HFA aerosol inhaler 1 - 2 puff inhalation .Q4-6H PRN (Reason: shortness of breath or wheezing) Qty: 8.5 2RF Rx Instructions: 1-2 puffs inhalation 1 puff INH every 4-6 hrs; PRN; insulin lispro [Humalog KwikPen Insulin] 100 unit/mL insulin pen 15 unit SQ BID Patient Comments: 15 units Rx Instructions: 15 Units subcut twice a day; WITH SLIDING SCALE PER BLOOD SUGAR anything over 200 dextromethorphan-guaifenesin [Robitussin Cough-Chest Jaun DM] 5-100 mg/5 mL Liquid 10 ml PO Q6H PRN (Reason: cough) Qty: 500 0RF Praluent Pen 150 mg/mL Pen Injector 150 mg subcut UD Rx Instructions: every 2 weeks clopidogrel 75 mg tablet 75 mg PO DAILY Qty: 30 6RF Discharge Orders: Discharge Order (Routine); Ordered 05/14/25 Ordered By: Ko Gross/Other Patient Handouts: COPD: Coping with Mucus, CT Scan Low Dose, COPD Controlled Breathing Dc, Chronic Lung Disease Avoid These Admission Data Admit Date/Time: 05/13/25 04:02 Attending Provider: Ko Bradford Admit Provider: Geri Bhatt Primary Care Provider: Oriana Burrell. Other Providers: Geri Bhatt Other Interventions: Discharge Summary Assessment (RN) Last Done: 05/14/25 11:17 Hospital Stay Data Consultations 05/13/25 04:10 ED Decision to Admit Stat Pending Results Patient Have Any Pending Studies at Discharge: Yes Discharge Instructions Given to Patient (Per Discharging Provider) you will follow up with pulmonary (lung doctor) and cardiology you will need to have low dose CT chest every year to screen for lung cancer Total Time Total Time Spent Total Time Spent (In Minutes): 25 Coding Level of Care Code 73423 IN/OBS DISCH 30 MIN/LESS Diagnoses Acute exacerbation of chronic obstructive pulmonary disease (COPD) J44.1 Acute hypoxic respiratory failure J96.01 Presence of drug-eluting stent in right coronary artery Z95.5 Coronary artery disease involving [place] coronary artery of [place] heart without angina pectoris I25.10 Coronary Disease-Associated Artery/Lesion type: [place] artery [place] vs. transplanted heart: [place] heart Associated angina: without angina Enlarged prostate with lower urinary tract symptoms (LUTS) N40.1 Hypertension I10 Hypertension type: essential hypertension Hyperlipidemia, unspecified hyperlipidemia type E78.5 Hyperlipidemia type: unspecified Type 2 diabetes mellitus without complication, with long-term current use of insulin E11.9; Z79.4 Diabetes mellitus usp insulin use: with long term acute care registered nurse use Diabetes mellitus complication status: without complication Gastroesophageal reflux disease, esophagitis presence not specified K21.9 Esophagitis presence: esophagitis presence not specified Time Spent (min) 25
== END 2025-05-14 12:29 | disposition home or self-care (01) | DRG 190 ==
LOC: SUATTDRO → ED 01:58 → 2S 04:02 → SUATTDRO 04:02 → 2S 04:58

== ENCOUNTER 2025-06-01 20:24 | Inpatient (IN) ==
--- NOTE | 2025-06-01 20:42 | Emergency Department Note ---
Impression & Plan Acute respiratory distress, Acute exacerbation of chronic obstructive pulmonary disease, Hypoxia, Acute respiratory acidosis ED Provider Note NAME: JACKIE POST AGE: 60 SEX: M : 1965 ARRIVES VIA: Ambulance INFORMANT: Patient, EMS ED PROVIDER(S): Joe Perez DO CHIEF COMPLAINT: Shortness of breath HPI: The patient is a 60-year-old male who presented to the emergency department for an evaluation of shortness of breath. The patient has a history of COPD. He was doing well until this evening. He went to walk into his kitchen and he noticed an acute onset of shortness of breath. The patient does take blood thinners. The patient has a history of COPD. He also has a history of aortic valve disease. The patient has been compliant his outpatient medications. He arrived via ambulance. He did receive nebulizer treatment as well as supplemental oxygen. His oxygen saturations were very low prior to arrival. The patient does state that he feels somewhat improved at this time. ROS: See above HPI for pertinent positives & negatives. A total of 10 systems reviewed and were otherwise negative. PAST MEDICAL HISTORY: See Below PAST SURGICAL HISTORY: See Below FAMILY HISTORY: See Below SOCIAL HISTORY: See Below HOME MEDICATIONS: See Below ALLERGIES: See Below VITALS: See Below PHYSICAL EXAMINATION: GENERAL: The patient is awake and alert. He is very anxious. EYES: The conjunctivae are clear. The pupils are round and reactive. EARS, NOSE, MOUTH AND THROAT: The nose is without any evidence of any deformity. NECK: The neck is nontender and supple. RESPIRATORY: The patient is sitting upright. There is shallow respirations noted. Diminished breath sounds are noted throughout with pursed lip breathing and conversational dyspnea. CARDIOVASCULAR: Regular rate and rhythm noted systolic murmur was suggested. GASTROINTESTINAL: The abdomen is soft. Abdomen is nontender. MUSCULOSKELETAL/EXTREMITIES: There is no evidence of gross deformity full range of motion is noted in the hips and shoulders. SKIN: There is no obvious evidence of any rash. There are no petechiae, pallor or cyanosis noted. NEUROLOGIC: Patient is awake alert and oriented x3 MEDICAL DECISION MAKING: The patient is a 60-year-old male who presented to the emergency department for an evaluation of difficulty breathing. The patient arrived from home. The patient is well-known to me as I have cared for him in the past and I know him personally. The patient does have very severe COPD. The patient was started on a breathing treatment in the emergency department. He was treated with IV fluids and IV steroids. He started to have signs of worsening breathing difficulty with tripoding. He was placed on BiPAP. He was given a dose of Ativan to help him tolerate this modality. This did seem to improve his condition significantly. I discussed the patient's laboratory and radiographic studies with him. On reevaluation he was improved but given his findings I do feel the patient would not be a good candidate for outpatient treatment. [facility] have agreed to evaluate the patient in the emergency department for further management and disposition. Triage Nursing notes reviewed. Prior medical records reviewed Vital Signs: reviewed and remarkable for tachycardia and hypoxia. Differential diagnosis: Reactive airway disease, pneumonia, pneumothorax, COPD, CHF, infections, cardiac ischemia, pulmonary embolism, musculoskeletal, gastrointestinal, as well as other pathologies. ER treatment provided: See below Diagnostics interpreted by me: ECG: EKG was obtained in the emergency department. My interpretation is sinus rhythm at 100 bpm. There was no PVCs noted. Right bundle branch block pattern was appreciated. This was compared to a tracing from May 13, 2025. No specific changes were noted. Cardiac Monitoring: An order was placed for continuous cardiac monitoring. The monitor shows a rate of 100 bpm with sinus rhythm. Laboratory studies: As stated above and show below. Imaging studies: Radiographic imaging was reviewed by myself Consultation(s): I discussed this case with Dr. Miranda who [facility] ED COURSE: Procedures: none Critical Care: I have personally spent greater than 45 minutes of critical care time in the direct management of this patient. This includes bedside care, interpretation of diagnostic studies, and testing, discussion with consultants, patient, and family members, and other required patient management activities. This 45 minutes is in excess of all separately billable procedures. Past Med/Surg History Problem List (Updated 06/01/25 @ 23:09 by Joe Perez DO) Acute respiratory acidosis (Acute) Hypoxia (Acute) Acute exacerbation of chronic obstructive pulmonary disease (Acute) Acute respiratory distress (Acute) Type 2 diabetes mellitus IDDM Acute exacerbation of chronic obstructive pulmonary disease (COPD) (Acute) Acute hypoxic respiratory failure (Acute) Presence of drug-eluting stent in right coronary artery CAD (coronary artery disease) LVH (left ventricular hypertrophy) Mild pulmonary hypertension Diastolic heart failure Microcytosis TIESHA (obstructive sleep apnea) Chronic dyspnea PVD (peripheral vascular disease) COPD, group D, by GOLD 2017 classification History of tobacco abuse "once in awhile" Osteoarthritis, knee Ulnar neuropathy at elbow of right upper extremity Cubital tunnel syndrome Asthma-COPD overlap syndrome TIESHA and COPD overlap syndrome Severe chronic obstructive pulmonary disease (Chronic) Obesity (BMI 30.0-34.9) Chronic pain syndrome Tobacco dependence Abdominal aortic aneurysm s/p PEVAR (2018)--pt states is currently 3.2cm Intercostal neuralgia (Chronic) Vitamin D deficiency Steatohepatitis, non-alcoholic Osteoarthritis Nocturnal hypoxemia Impotence, organic Dry eye syndrome Diaphragmatic hernia Aortic stenosis Severe aortic stenosis 01/10/25 Diverticular disease Medical History Enlarged prostate with lower urinary tract symptoms (LUTS) Hypertension Hyperlipidemia GERD (gastroesophageal reflux disease) controlled Leg swelling Acute exacerbation of chronic obstructive pulmonary disease Dysphagia Abnormal nuclear cardiac imaging test Coronary artery calcification Angina pectoris Acute exacerbation of chronic obstructive pulmonary disease Acute respiratory acidosis Diastolic heart failure follows w/ Dr Yancey Coronary artery calcification HTN (hypertension) Asthma-COPD overlap syndrome Intercostal neuralgia Hyperlipidemia ALONSO (nonalcoholic steatohepatitis) Hx of rotator cuff tear left shoulder, 09/2024; currently doing PT, and will receive injections starting 12/17/24 Aortic stenosis Type 2 diabetes mellitus PVD (peripheral vascular disease) Chronic dyspnea TIESHA (obstructive sleep apnea) no cpap Enlarged prostate with lower urinary tract symptoms (LUTS) started on flomax recently but stopped due to it giving pt. diarrhea Osteoarthritis Anemia hx Cervical radiculopathy Abnormal ECG hx - follows w/ Dr Yancey Opioid dependence hx, not currently on opioids Neuropathy of right radial nerve hx - resolved per pt. History of colon polyps Diverticular disease Diaphragmatic hernia Chronic pain syndrome COPD exacerbation (01/2024) H/O > admitted to [facility]- resolved - follows with pulbraulio maurer at [facility] Esophageal dysphagia 12/07/24 reports somewhat improved History of COVID-19 03/05/22, rushed to hospital ID for low blood pressure and pulse ox 89% on RA; no actual covid symptoms, tested only because he was in the ER>resolved. Hx of fracture of rib fx 6-7 from coughing s/p surigical intervention - titanium plates - 7 yr ago Surgical History S/P cataract extraction (04/2022) b/l eyes History of bronchoscopy History of colonoscopy History of esophagogastroduodenoscopy (EGD) History of arthroplasty of left knee (08/2020) partial replacement Hx of arthroscopy of left knee X2 Hx of cervical spine surgery (1989) full rom Hx of resection of rib (01/16/14) History of vasectomy History of abdominal aortic aneurysm (AAA) repair (06/07/18) repair x2 (+ stent)/PEVAR: 06/07/18:P MAC sedation at [facility] History of tooth extraction 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 Family History Uncle Amyotrophic lateral sclerosis Father Cardiac disorder Grandmother Cardiac disorder Mother Lung disease Brother Myocardial infarction Family history of diabetes mellitus Other No family history of adverse response to anesthesia Denies family history of Ovarian cancer Prostate cancer Breast cancer Colorectal cancer Social History Smoking Status: Former smoker Tobacco Type: Cigarettes Age Started Using Tobacco: 17; Age Quit Using Tobacco: 59; packs per day: 1; Cigarettes Per Day: 8; Second Hand Exposure: Yes; Do You Dip or Chew Tobacco: No; Hx Alcohol Use: No Hx Substance Use: No Preferred Language: Fijian Communication Ability: Effective Visual Impairment: No Limitations Hearing Ability: Normal Orthopedic Physician Required: No Beliefs That Will Affect Care: None marital status: marital status details: 3 children Current Living Situation: Spouse current occupational status: disabled How many Children do You have: 3 Feels Safe at Home: Yes Childhood Exposure to Second-Hand Smoke: Yes Diet: regular Diet Comment: regular caffeine: Yes during the past year weight has: remained stable Dental Care, Regularly: No Physical Activity Frequency: Daily Seatbelt Use: always Sunscreen Use: No Assistive Devices: None Allergies Allergies Allergy/AdvReac Type Severity Reaction Status Date / Time fentanyl Allergy Mild RASH WITH Verified 05/22/25 09:36 PATCH Home Meds Home Medications Medication Instructions Recorded Confirmed losartan 100 mg tablet 100 mg PO QAM 12/09/21 05/22/25 aspirin 81 mg tablet,delayed 81 mg PO DAILY 09/01/23 05/22/25 release alirocumab 150 mg/mL subcutaneous 150 mg subcut UD 01/21/24 05/22/25 pen injector (Praluent Pen) ensifentrine 3 mg/2.5 mL 3 - 6 mg inhalation BID 09/10/24 05/22/25 suspension for nebulization (Ohtuvayre) ezetimibe 10 mg tablet (Zetia) 10 mg PO DAILY 01/21/25 05/22/25 folic acid 1 mg tablet 1 mg PO DAILY 01/21/25 05/22/25 mecobalamin (vitamin B12) 1,000 1,000 mcg PO DAILY 01/21/25 05/22/25 mcg chewable tablet insulin lispro 100 unit/mL See Rx Instructions subcut BID 05/16/25 05/22/25 subcutaneous pen (Humalog KwikPen (U-100) Insulin) Previous Rx's Medication Instructions Recorded rosuvastatin 40 mg tablet (Crestor) 40 mg PO HS #30 tabs 01/31/19 insulin glargine 100 unit/mL (3 25 unit (0.25 mL) subcut QAM #15 mL 08/05/20 mL) subcutaneous pen (Lantus Solostar U-100 Insulin) carvedilol 3.125 mg tablet (Coreg) 3.125 mg PO BID #60 tabs 08/28/20 flash glucose sensor (FreeStyle #1 ea 09/10/21 Fern 14 Day Sensor kit) amlodipine 10 mg tablet (Norvasc) 10 mg PO QAM #90 tabs 05/18/22 ipratropium 0.5 mg-albuterol 3 mg 3 ml inhalation QID PRN Shortness 12/05/23 (2.5 mg base)/3 mL nebulization Of Breath #90 mL soln tamsulosin 0.4 mg capsule (Flomax) 0.4 mg PO DAILY #30 caps 10/02/24 fluticasone fur. 100 mcg-umeclid 1 inh inhalation DAILY #180 ea 10/03/24 62.5 mcg-vilant 25 mcg inhalat.powder (Trelegy Ellipta) ibuprofen 800 mg tablet 800 mg PO TID PRN Pain #270 tabs 12/10/24 pantoprazole 40 mg tablet,delayed 40 mg PO BID #60 tabs 01/11/25 release cyclobenzaprine 5 mg tablet 5 mg PO TID PRN muscle spasm #10 01/21/25 tabs cetirizine 10 mg tablet 10 mg PO HS #30 tabs 02/06/25 sildenafil 25 mg tablet (Viagra) 25 mg PO UD PRN Sexual Activity 02/07/25 #90 tabs dextromethorphan-guaifenesin 5 10 ml PO Q6H PRN cough #500 mL 03/04/25 mg-100 mg/5 mL oral liquid (Robitussin Cough-Chest Congestion DM) semaglutide 2 mg/dose (8 mg/3 mL) 2 mg (0.75 mL) subcut WK DX:E11.9 03/21/25 subcutaneous pen injector #4 syringes furosemide 40 mg tablet 40 mg PO DAILY #90 tabs 04/30/25 potassium chloride 20 mEq 20 meq PO DAILY #90 tabs 04/30/25 tablet,extended release(part/cryst) (Klor-Con M) guaifenesin 600 mg tablet, 1,200 mg (2 x 600 mg) PO Q12 30 05/14/25 extended release 12 hr (Mucinex) days #120 tabs dapagliflozin propanediol 10 mg 10 mg PO DAILY #90 tabs 05/16/25 tablet (Farxiga) clopidogrel 75 mg tablet 75 mg PO DAILY #30 tabs 05/20/25 nitroglycerin 0.4 mg sublingual 0.4 mg sublingual Q5M PRN chest 05/20/25 tablet (Nitrostat) pain #25 tabs albuterol sulfate 90 mcg/actuation 1 - 2 puff inhalation .Q4-6H PRN 05/27/25 aerosol inhaler (Ventolin HFA) shortness of breath or wheezing #25.5 grams Results & Data (ED) Vital Signs Vital Signs - 24 hr 06/01/25 20:35 06/01/25 20:37 06/01/25 20:37 Temperature 36.6 C Temperature Source Oral Pulse Rate 109 H 112 H Pulse Rate [Finger] Pulse Rate from SpO2 Sensor Respiratory Rate 36 H 19 Respiratory Effort / Characteristics Non-Labored Spontaneous Respiratory Depth Normal Respiratory Pattern Blood Pressure 175/110 H Blood Pressure Mean 131 Pulse Oximetry 96 97 Oxygen Delivery Method Oxymask Room Air Oxygen Flow Rate 8 Fraction of Inspired Oxygen Sepsis Recent Fever Within 48 Hours No Sepsis New/Unexplained Change in Mental Status No Sepsis Action Taken by Nursing No Action Required 06/01/25 20:39 06/01/25 20:41 06/01/25 20:41 Temperature Temperature Source Pulse Rate 106 H Pulse Rate [Finger] Pulse Rate from SpO2 Sensor 109 H Respiratory Rate 24 Respiratory Effort / Characteristics Spontaneous Pursed Lip Short of Breath Tripoding Respiratory Depth Shallow Respiratory Pattern Tachypnea Blood Pressure Blood Pressure Mean Pulse Oximetry 97 Oxygen Delivery Method Oxymask Oxymask Oxygen Flow Rate 8 8 Fraction of Inspired Oxygen Sepsis Recent Fever Within 48 Hours Sepsis New/Unexplained Change in Mental Status Sepsis Action Taken by Nursing 06/01/25 20:42 06/01/25 20:50 06/01/25 21:00 Temperature Temperature Source Pulse Rate 106 H 121 H Pulse Rate [Finger] 106 H Pulse Rate from SpO2 Sensor 107 H 121 H Respiratory Rate 29 H 30 H 21 Respiratory Effort / Characteristics Spontaneous Labored Short of Breath Respiratory Depth Respiratory Pattern Blood Pressure Blood Pressure Mean Pulse Oximetry 98 95 98 Oxygen Delivery Method Oxymask Oxygen Flow Rate 7 Fraction of Inspired Oxygen Sepsis Recent Fever Within 48 Hours Sepsis New/Unexplained Change in Mental Status Sepsis Action Taken by Nursing 06/01/25 21:12 06/01/25 21:14 06/01/25 21:14 Temperature Temperature Source Pulse Rate 102 H Pulse Rate [Finger] Pulse Rate from SpO2 Sensor 103 H Respiratory Rate 20 Respiratory Effort / Characteristics Respiratory Depth Respiratory Pattern Blood Pressure 153/83 H Blood Pressure Mean 115 Pulse Oximetry 98 97 Oxygen Delivery Method BiPAP Oxygen Flow Rate Fraction of Inspired Oxygen Sepsis Recent Fever Within 48 Hours Sepsis New/Unexplained Change in Mental Status Sepsis Action Taken by Nursing 06/01/25 21:14 06/01/25 21:15 06/01/25 21:23 Temperature Temperature Source Pulse Rate 102 H Pulse Rate [Finger] Pulse Rate from SpO2 Sensor 99 H Respiratory Rate 20 Respiratory Effort / Characteristics Respiratory Depth Respiratory Pattern Blood Pressure 153/83 H Blood Pressure Mean 115 Pulse Oximetry 98 Oxygen Delivery Method Oxymask Oxygen Flow Rate 8 Fraction of Inspired Oxygen Sepsis Recent Fever Within 48 Hours Sepsis New/Unexplained Change in Mental Status Sepsis Action Taken by Nursing 06/01/25 21:31 06/01/25 21:31 06/01/25 21:36 Temperature Temperature Source Pulse Rate 106 H Pulse Rate [Finger] Pulse Rate from SpO2 Sensor 110 H Respiratory Rate 27 H Respiratory Effort / Characteristics Respiratory Depth Respiratory Pattern Blood Pressure 161/59 H 161/59 H Blood Pressure Mean 92 92 Pulse Oximetry 90 Oxygen Delivery Method Oxygen Flow Rate Fraction of Inspired Oxygen Sepsis Recent Fever Within 48 Hours Sepsis New/Unexplained Change in Mental Status Sepsis Action Taken by Nursing 06/01/25 21:40 06/01/25 21:48 06/01/25 22:24 Temperature Temperature Source Pulse Rate 105 H 103 H 112 H Pulse Rate [Finger] Pulse Rate from SpO2 Sensor 103 H 109 H Respiratory Rate 19 23 32 H Respiratory Effort / Characteristics Spontaneous Labored Pursed Lip Short of Breath Respiratory Depth Respiratory Pattern Blood Pressure Blood Pressure Mean Pulse Oximetry 94 96 91 Oxygen Delivery Method Oxygen Flow Rate Fraction of Inspired Oxygen 30 Sepsis Recent Fever Within 48 Hours Sepsis New/Unexplained Change in Mental Status Sepsis Action Taken by Nursing 06/01/25 22:30 06/01/25 22:31 06/01/25 22:31 Temperature Temperature Source Pulse Rate 100 H Pulse Rate [Finger] Pulse Rate from SpO2 Sensor 95 H Respiratory Rate 26 H Respiratory Effort / Characteristics Respiratory Depth Respiratory Pattern Blood Pressure 145/78 H 145/78 H Blood Pressure Mean 121 121 Pulse Oximetry 92 Oxygen Delivery Method Oxygen Flow Rate Fraction of Inspired Oxygen Sepsis Recent Fever Within 48 Hours Sepsis New/Unexplained Change in Mental Status Sepsis Action Taken by [facility] Medications Current Medication List: was personally reviewed by me Laboratory Data Attestation: I reviewed the patient's lab results. 06/01/25 20:45 06/01/25 20:45 Lab Results 06/01/25 06/01/25 06/01/25 Range/Units 20:45 21:50 22:05 WBC 8.12 (4.8-10.8) K/ul RBC 5.51 (4.70-6.10) M/uL Hgb 13.6 L (14.0-18.0) g/dl POC Hgb 13.6 L (14.0-18.0) g/dl Hct 46.3 (42.0-52.0) % POC Hct 40 L (42-52) % MCV 84.0 (80.0-100.0) fL MCH 24.7 L (25.0-34.0) pg MCHC 29.4 L (32.0-36.0) g/dL RDW Std Deviation 43.9 (36.4-46.3) fL RDW Coeff of Ledy 14.3 (11.5-14.5) % Plt Count 309 (130-400) K/uL MPV 9.3 L (9.4-12.4) fL Immature Gran % (Auto) 0.2 % Neut % (Auto) 70.6 % Lymph % (Auto) 17.4 % Hawkins % (Auto) 8.6 % Eos % (Auto) 2.8 % Baso % (Auto) 0.4 % Neut # (Auto) 5.73 (1.40-6.50) K/uL Lymph # (Auto) 1.41 (1.20-3.40) K/uL Hawkins # (Auto) 0.70 H (0.11-0.59) K/uL Eos # (Auto) 0.23 (0.00-0.50) K/uL Baso # (Auto) 0.03 (0.00-0.20) K/uL Immature Gran # (Auto) 0.02 (0.01-0.20) K/uL PT 10.1 (9.0-12.0) Seconds INR 1.0 (0.9-1.1) APTT 31 (21-31) Seconds PTT Ratio 1.1 Specimen Type Arterial Sample Site R Radial POC pH 7.23 L (7.35-7.45) POC pCO2 71 H (35-46) mmHg POC pO2 23 L (80-95) mmHg POC HCO3 30 H (19-24) mmol/L POC Total CO2 32 H (24-31) mmol/L POC Base Excess 2.0 H (-9-1.8) mmol/L O2 Sat Pulse Oximetry 99 ABG pH (Temp Correct) 7.237 L (7.35-7.45) ABG pCO2 (Temp Corrct 70 H (35-46) mmHg POC ABG pO2 at Pt Temp 23 POC ABG O2 Sat 30.0 L (90-95) % Linus Test Pass VBG pH 7.17 L (7.36-7.41) VBG pCO2 88 H (38-50) mmHg VBG pO2 25 mmHg VBG HCO3 32 mmol/L VBG O2 Saturation < 60.0 % VBG Base Excess 0.9 mEq/L O2 Delivery Device NonRb Mask POC FiO2 100 % POC Sodium 139 (135-144) mmol/L Sodium 137 (136-145) mmol/L POC Potassium 3.9 (3.3-5.0) mmol/L Potassium 4.4 (3.5-5.1) mmol/L Chloride 100 (98-107) mmol/L Carbon Dioxide 31 (21-32) mmol/L Anion Gap 6 (3-11) BUN 11 (6-23) mg/dl Creatinine 1.13 (0.6-1.4) mg/dl Est Cr Clr Drug Dosing 73.5 ml/min eGFR 73.95 BUN/Creatinine Ratio 9.7 L (10-20) Glucose 118 H (70-99(Fasting)) mg/dl Calcium 9.6 (8.6-10.3) mg/dl Magnesium 2.6 H (1.7-2.4) mg/dl Total Bilirubin 0.3 (0.2-1.0) mg/dl AST 18 (13-39) U/L ALT 12 (7-52) U/L Alkaline Phosphatase 114 H (34-104) U/L Troponin I High Sens 41.5 H (0-20) pg/ml B-Natriuretic Peptide 188 H (0-100) pg/ml Total Protein 8.8 H (6.0-8.3) gm/dl Albumin 4.4 (3.4-5.0) gm/dl Globulin 4.4 H (2.5-4.0) gm/dl Albumin/Globulin Ratio 1.0 (0.9-2) Urine Color Urine Appearance (Clear) Urine pH (4.5-7.5) Ur Specific [place] (1.000-1.030) Urine Protein (Negative) Urine Glucose (UA) (Negative) Urine Ketones (Negative) Urine Blood (Negative) Urine Nitrite (Negative) Urine Bilirubin (Negative) Urine Urobilinogen (Negative) Ur Leukocyte Esterase (Negative) Urine WBC (Auto) (0-5) /hpf Urine RBC (Auto) (0-2) /hpf U Hyaline Cast (Auto) (0-2) /lpf U Epithel Cells (Auto) (0-2) /hpf Urine Bacteria (Auto) (None Seen) Urine Comment SARS-CoV-2 (PCR) NEGATIVE (Negative) Influenza Type A (PCR) Negative (Neg) Influenza Type B (PCR) Negative (Neg) RSV (RT-PCR) Negative (Neg) 06/01/25 Range/Units 22:13 WBC (4.8-10.8) K/ul RBC (4.70-6.10) M/uL Hgb (14.0-18.0) g/dl POC Hgb (14.0-18.0) g/dl Hct (42.0-52.0) % POC Hct (42-52) % MCV (80.0-100.0) fL MCH (25.0-34.0) pg MCHC (32.0-36.0) g/dL RDW Std Deviation (36.4-46.3) fL RDW Coeff of Ledy (11.5-14.5) % Plt Count (130-400) K/uL MPV (9.4-12.4) fL Immature Gran % (Auto) % Neut % (Auto) % Lymph % (Auto) % Hawkins % (Auto) % Eos % (Auto) % Baso % (Auto) % Neut # (Auto) (1.40-6.50) K/uL Lymph # (Auto) (1.20-3.40) K/uL Hawkins # (Auto) (0.11-0.59) K/uL Eos # (Auto) (0.00-0.50) K/uL Baso # (Auto) (0.00-0.20) K/uL Immature Gran # (Auto) (0.01-0.20) K/uL PT (9.0-12.0) Seconds INR (0.9-1.1) APTT (21-31) Seconds PTT Ratio Specimen Type Sample Site POC pH (7.35-7.45) POC pCO2 (35-46) mmHg POC pO2 (80-95) mmHg POC HCO3 (19-24) mmol/L POC Total CO2 (24-31) mmol/L POC Base Excess (-9-1.8) mmol/L O2 Sat Pulse Oximetry ABG pH (Temp Correct) (7.35-7.45) ABG pCO2 (Temp Corrct (35-46) mmHg POC ABG pO2 at Pt Temp POC ABG O2 Sat (90-95) % Linus Test VBG pH (7.36-7.41) VBG pCO2 (38-50) mmHg VBG pO2 mmHg VBG HCO3 mmol/L VBG O2 Saturation % VBG Base Excess mEq/L O2 Delivery Device POC FiO2 % POC Sodium (135-144) mmol/L Sodium (136-145) mmol/L POC Potassium (3.3-5.0) mmol/L Potassium (3.5-5.1) mmol/L Chloride (98-107) mmol/L Carbon Dioxide (21-32) mmol/L Anion Gap (3-11) BUN (6-23) mg/dl Creatinine (0.6-1.4) mg/dl Est Cr Clr Drug Dosing ml/min eGFR BUN/Creatinine Ratio (10-20) Glucose (70-99(Fasting)) mg/dl Calcium (8.6-10.3) mg/dl Magnesium (1.7-2.4) mg/dl Total Bilirubin (0.2-1.0) mg/dl AST (13-39) U/L ALT (7-52) U/L Alkaline Phosphatase (34-104) U/L Troponin I High Sens (0-20) pg/ml B-Natriuretic Peptide (0-100) pg/ml Total Protein (6.0-8.3) gm/dl Albumin (3.4-5.0) gm/dl Globulin (2.5-4.0) gm/dl Albumin/Globulin Ratio (0.9-2) Urine Color Yellow Urine Appearance Clear (Clear) Urine pH 5.5 (4.5-7.5) Ur Specific [place] 1.009 (1.000-1.030) Urine Protein 1+ H (Negative) Urine Glucose (UA) 1+ H (Negative) Urine Ketones Negative (Negative) Urine Blood Negative (Negative) Urine Nitrite Negative (Negative) Urine Bilirubin Negative (Negative) Urine Urobilinogen Negative (Negative) Ur Leukocyte Esterase Negative (Negative) Urine WBC (Auto) 0-5 (0-5) /hpf Urine RBC (Auto) 0-2 (0-2) /hpf U Hyaline Cast (Auto) 0-2 (0-2) /lpf U Epithel Cells (Auto) 0-2 (0-2) /hpf Urine Bacteria (Auto) None Seen (None Seen) Urine Comment SARS-CoV-2 (PCR) (Negative) Influenza Type A (PCR) (Neg) Influenza Type B (PCR) (Neg) RSV (RT-PCR) (Neg) Administered Medications Discontinued Medications Albuterol (Albut/Ipratrop 3mg/0.5mg Neb 3 Ml Vial) 12 ml NEB ONE ONE; Protocol Stop: 06/01/25 20:30 Last Admin: 06/01/25 20:50 Dose: 12 ml Documented By: APPLE Magnesium Sulfate/Dextrose (Magnesium Sulfate / D5w) 1 gm in 100 mls @ 100 mls/hr IV NOW STA Stop: 06/01/25 21:29 Last Admin: 06/01/25 21:02 Dose: 100 mls/hr Documented By: MYA Ceftriaxone Sodium (Rocephin) 2,000 mg in 50 mls @ 100 mls/hr IV NOW STA Stop: 06/01/25 21:52 Last Infusion: 06/01/25 22:54 Dose: Infused Documented By: Admin: 06/01/25 22:13 Dose: 100 mls/hr Documented By: KILEY Lorazepam (Lorazepam 1 Mg/1 Ml Syr Ed Inj Use) 1 mg IV ONE STA Stop: 06/01/25 21:24 Last Admin: 06/01/25 21:26 Dose: 1 mg Documented By: KILEY Methylprednisolone (Methylprednisolone 125 Mg/2 Ml Vial) 125 mg IV NOW STA Stop: 06/01/25 20:30 Last Admin: 06/01/25 21:02 Dose: 125 mg Documented By: MYA Imaging Data Attestation: I personally reviewed and interpreted this imaging study as follows: My Impression: 1 view chest x-ray was obtained in the emergency department. My interpretation is hyperinflation, there is no definite infiltrate, final report below. Radiologist's Impression: Chest X-Ray 06/01/25 20:29 Exam(s): XR CXR 1 VIEW EXAM: XR Chest, 1 View CLINICAL HISTORY: Dyspnea. TECHNIQUE: Frontal view of the chest. COMPARISON: Chest radiograph 05/13/2025 FINDINGS: Lungs: Unremarkable. No consolidation. Pleural space: Small right pleural effusion. No pneumothorax. Heart: Unremarkable. No cardiomegaly. Mediastinum: Unremarkable. Normal mediastinal contour. Bones/joints: There are degenerative changes of the spine. No acute fracture. IMPRESSION: Small right pleural effusion. Electronically signed by: Hermila Sneed MD 06/01/25 22:05 PM Discharge Plan Visit Data Chief Complaint: Shortness of Breath/Dyspnea Stated Complaint: SUDDEN SOB, HYPOXIA, IMPROVED WITH O2 AND NEB ED Provider: Joe Perez Discharge Problem: Acute respiratory distress, Acute exacerbation of chronic obstructive pulmonary disease, Hypoxia, Acute respiratory acidosis Patient Disposition: Being Evaluated by Hospitalist Condition: Fair Forms Stand Alone Forms: My [facility] Prescriptions Prescriptions: No Action carvedilol [Coreg] 3.125 mg tablet 3.125 mg PO BID Qty: 60 3RF Rx Instructions: must administer with a meal/food (to replace Bystolic, Bystolic is not covered) (DME) [facility] 14 Day Sensor Kit See Dose Instructions .ROUTE .MEDSUPPLY Qty: 1 0RF Dose Instruction: As directed Rx Instructions: As directed, testing QID. Dx: E11.9 amlodipine [Norvasc] 10 mg tablet 10 mg PO QAM Qty: 90 3RF ipratropium-albuterol 0.5 mg-3 mg(2.5 mg base)/3 mL solution for nebulization 3 ml INH QID PRN (Reason: Shortness Of Breath) Qty: 90 3RF Trelegy Ellipta 100-62.5-25 mcg blister with device 1 inh inhalation DAILY Qty: 180 1RF ibuprofen 800 mg tablet 800 mg PO TID PRN (Reason: Pain) Qty: 270 1RF pantoprazole 40 mg tablet,delayed release (DR/EC) 40 mg PO BID Qty: 60 5RF cetirizine 10 mg tablet 10 mg PO HS Qty: 30 2RF sildenafil [Viagra] 25 mg tablet 25 mg PO UD PRN (Reason: Sexual Activity) Qty: 90 0RF Rx Instructions: 25 mg PO 30 prior to intercourse.; semaglutide 2 mg/dose (8 mg/3 mL) pen injector 2 mg SUBCUT WK Qty: 4 2RF Rx Instructions: sundays clopidogrel 75 mg tablet 75 mg PO DAILY Qty: 30 11RF nitroglycerin [Nitrostat] 0.4 mg tablet, sublingual 0.4 mg sublingual Q5M PRN (Reason: chest pain) Qty: 25 5RF Rx Instructions: do not exceed 3 doses per episode albuterol sulfate [Ventolin HFA] 90 mcg/actuation HFA aerosol inhaler 1 - 2 puff inhalation .Q4-6H PRN (Reason: shortness of breath or wheezing) Qty: 25.5 2RF Rx Instructions: 1-2 puffs inhalation 1 puff INH every 4-6 hrs; PRN; rosuvastatin [Crestor] 40 mg tablet 40 mg PO HS Qty: 30 0RF aspirin 81 mg tablet,delayed release (DR/EC) 81 mg PO DAILY Lantus Solostar U-100 Insulin 100 unit/mL (3 mL) insulin pen 25 unit SQ QAM Qty: 15 5RF Patient Comments: 25 units losartan 100 mg tablet 100 mg PO QAM folic acid 1 mg tablet 1 mg PO DAILY ezetimibe [Zetia] 10 mg tablet 10 mg PO DAILY mecobalamin (vitamin B12) 1,000 mcg tablet,chewable 1,000 mcg PO DAILY cyclobenzaprine 5 mg tablet 5 mg PO TID PRN (Reason: muscle spasm) Qty: 10 0RF Ohtuvayre 3 mg/2.5 mL suspension for nebulization 3 - 6 mg inhalation BID Rx Instructions: 6 mg in the am and 3mg in the evening inhaled twice a day; tamsulosin [Flomax] 0.4 mg capsule 0.4 mg PO DAILY Qty: 30 2RF dapagliflozin propanediol [Farxiga] 10 mg tablet 10 mg PO DAILY Qty: 90 3RF furosemide 40 mg tablet 40 mg PO DAILY Qty: 90 3RF potassium chloride [Klor-Con M20] 20 mEq tablet,ER particles/crystals 20 meq PO DAILY Qty: 90 3RF insulin lispro [Humalog KwikPen Insulin] 100 unit/mL insulin pen See Rx Instructions SQ BID Patient Comments: 15 units Rx Instructions: per sliding scale subcutaneously twice a day; Per patient only uses WITH SLIDING SCALE PER BLOOD SUGAR anything over 200 dextromethorphan-guaifenesin [Robitussin Cough-Chest Jaun DM] 5-100 mg/5 mL Liquid 10 ml PO Q6H PRN (Reason: cough) Qty: 500 0RF Praluent Pen 150 mg/mL Pen Injector 150 mg subcut UD Rx Instructions: every 2 weeks guaifenesin [Mucinex] 600 mg Tablet Extended Release 12hr 1,200 mg PO Q12 30 Days Qty: 120 0RF Referrals Referrals: Oriana Burrell DO [Primary Care Provider] -
[2025-06-01] MEDS: ALBUT/IPRATROP 3MG/0.5MG NEB 3 ML VIAL NEB ONE (20:50)
[2025-06-01 20:59] LABS: Base Excess VBG 0.9 mEq/L; HCO3 VBG 32 mmol/L; Hematocrit (blood only) 46.3 % (42.0-52.0); Hemoglobin 13.6 g/dl (14.0-18.0); Immature Granulocytes # (auto) 0.02 K/uL (0.01-0.20); Immature Granulocytes % (auto) 0.2 %; Mean Corpuscular Hemoglobin 24.7 pg (25.0-34.0); Mean Corpuscular Volume 84.0 fL (80.0-100.0); Oxygen Saturation VBG < 60.0 %; PCO2 VBG 88 mmHg (38-50); PO2 VBG 25 mmHg; Platelet Count 309 K/uL (130-400); RDW Standard Deviation 43.9 fL (36.4-46.3); Red Blood Count 5.51 M/uL (4.70-6.10); White Blood Count 8.12 K/ul (4.8-10.8); pH VBG 7.17 (7.36-7.41)
[2025-06-01] MEDS: MAGNESIUM SULFATE / D5W 1 GM/100 ML BAG IV STA (21:02)
[2025-06-01 21:17] LABS: Alanine Aminotransferase 12.0 U/L (7-52); Albumin Globulin Ratio 1.0 (0.9-2); Albumin Level 4.4 gm/dl (3.4-5.0); Alkaline Phosphatase 114.0 U/L (34-104); Anion Gap 6.0 (3-11); Bilirubin,Total 0.3 mg/dl (0.2-1.0); Blood Urea Nitrogen 11.0 mg/dl (6-23); Calcium 9.6 mg/dl (8.6-10.3); Carbon Dioxide 31.0 mmol/L (21-32); Chloride 100.0 mmol/L (98-107); Creatinine Clr Calc Pharmacy 73.5 ml/min; Globulin 4.4 gm/dl (2.5-4.0); Glucose 118.0 mg/dl (70-99(Fasting)); Magnesium 2.6 mg/dl (1.7-2.4); Potassium 4.4 mmol/L (3.5-5.1); Sodium 137.0 mmol/L (136-145); Total Protein 8.8 gm/dl (6.0-8.3)
[2025-06-01] MEDS: LORazepam 1 MG/1 ML SYR ED Inj Use IV STA (21:26)
[2025-06-01 21:29] LABS: INR 1.0 (0.9-1.1); Partial Thromboplastin Time 31 Seconds (21-31); Prothrombin Time 10.1 Seconds (9.0-12.0)
--- NOTE | 2025-06-01 22:06 | XRay Report ---
Exam(s): XR CXR 1 VIEW EXAM: XR Chest, 1 View CLINICAL HISTORY: Dyspnea. TECHNIQUE: Frontal view of the chest. COMPARISON: Chest radiograph 05/13/2025 FINDINGS: Lungs: Unremarkable. No consolidation. Pleural space: Small right pleural effusion. No pneumothorax. Heart: Unremarkable. No cardiomegaly. Mediastinum: Unremarkable. Normal mediastinal contour. Bones/joints: There are degenerative changes of the spine. No acute fracture. IMPRESSION: Small right pleural effusion. Electronically signed by: Hermila Sneed MD 06/01/25 22:05 PM
[2025-06-01] MEDS: cefTRIAXone SODIUM 2,000 MG/50 ML BAG IV STA (22:13)
[2025-06-01 22:22] LABS: iSTAT Art Bld Gas Base Excess 2.0 mmol/L (-9-1.8); iSTAT Art Bld Gas pCO2 Correct 70 mmHg (35-46); iSTAT Art Bld Gas pH Corrected 7.237 (7.35-7.45); iSTAT Arterial Blood Gas pO2 C 23
--- NOTE | 2025-06-01 22:32 | History & Physical Report ---
Date of Service June 01, 2025 Assessment & Plan (1) Acute on chronic respiratory failure with hypoxia and hypercapnia: (2) Acute exacerbation of chronic obstructive pulmonary disease: (3) CAD (coronary artery disease): (4) Elevated troponin: Plan The patient is a 60-year-old male with a past medical history including severe COPD, TIESHA with CPAP at bedtime, history of tobacco use quit 12/30, CAD, hypertension, hyperlipidemia, status post JUANCARLOS x 2 to RCA on 04/18/2025, aortic stenosis undergoing evaluation for AVR at , diabetes mellitus type 2, CHF, and GERD. The patient presented to the emergency department with acute onset of shortness of breath that began he reports that late this afternoon and early this evening. He was going to walk into his kitchen, and became acutely short of breath. He has known history of COPD. He also has an aortic valve that is in the process of being evaluated for AVR at . He has ongoing swelling on his left leg worse in the right leg, for which he takes Lasix and reports he urinates all the time. He did receive a nebulizer by EMS and route to the hospital. He also had taken 1 nebulizer treatment at home plus his ensifentrine/Ohtuvayre. In the emergency department, he was found to be severely hypoxic, and was placed on BiPAP, which he did not tolerate well. It had to be changed to 100% nonrebreather. In the emergency department he received DuoNeb hour-long treatment, ceftriaxone 2 g IV, Solu-Medrol 125 mg IV, magnesium 1 g IV, lorazepam 1 mg IV. He was then referred for evaluation for admission to the [facility] for. Acute on chronic respiratory failure with hypoxia and hypercapnia/COPD exacerbation- From the ED received the following: Solu-Medrol 125 mg IV, hour-long DuoNeb, ceftriaxone 2 g IV, magnesium 1 g IV, and lorazepam 1 mg IV. VBG with pH 7.17, pCO2 88, PaO2 25. COVID/flu/RSV all negative Patient was initially attempted to be on BiPAP, level, without tolerated, and was changed over to a nonrebreather. Admit on the following: Solu-Medrol 40 mg IV every 8 hours Cefepime 2 g IV every 12 hours Azithromycin 500 mg IV every 24 hours Duonebs every 4 hours while awake and every 2 hours when necessary. Presently more comfortable on nonrebreather mask, which will be continued for now. Continue Ohtuvayre if formulary Continue guaifenesin extended release Elevated troponin/CAD/hypertension/status post JUANCARLOS x 2 to RCA on 04-18-2025/severe aortic stenosis being evaluated for AVR at [facility]- The patient will be admitted to telemetry for serial cardiac enzymes, serial EKG's, cardiac rhythm monitoring Initial troponin is 41.5 with follow-up pending, similar to previous admission BNP 188 Continue aspirin, Plavix, Zetia, Praluent, Coreg, amlodipine, furosemide, losartan, KCl Patient undergoing assessment for AVR at , presently waiting for appointment there. Diabetes mellitus- Continue glargine 25 units SQ every morning Placed on Accu-Cheks with NovoLog SSI Hold semaglutide and Farxiga Placed on Accu-Cheks with NovoLog SSI Lower extremity edema/acute onset of shortness of breath- Order lower extremity venous Dopplers bilaterally. Patient has difficulty lying flat due to respiratory issues, when his symptoms improve, we will attempt to get a CT angiography PE protocol at that time- GERD- Continue pantoprazole Hyperlipidemia- Continue rosuvastatin BPH- Continue tamsulosin History of Present Illness Chief Complaint: The patient presented to the emergency department with acute onset of shortness of breath that began he reports that late this afternoon and early this evening. He was going to walk into his kitchen, and became acutely short of breath. He has known history of COPD. He also has an aortic valve that is in the process of being evaluated for AVR at . He has ongoing swelling on his left leg worse in the right leg, for which he takes Lasix and reports he urinates all the time. He did receive a nebulizer by EMS and route to the hospital. He also had taken 1 nebulizer treatment at home plus his ensifentrine/Ohtuvayre. Primary Care Provider: Oriana Burrell DO The patient is a 60-year-old male with a past medical history including severe COPD, TIESHA with CPAP at bedtime, history of tobacco use quit 12/30, CAD, hypertension, hyperlipidemia, status post JUANCARLOS x 2 to RCA on 04/18/2025, aortic stenosis undergoing evaluation for AVR at , diabetes mellitus type 2, CHF, and GERD. The patient presented to the emergency department with acute onset of shortness of breath that began he reports that late this afternoon and early this evening. He was going to walk into his kitchen, and became acutely short of breath. He has known history of COPD. He also has an aortic valve that is in the process of being evaluated for AVR at . He has ongoing swelling on his left leg worse in the right leg, for which he takes Lasix and reports he urinates all the time. He did receive a nebulizer by EMS and route to the hospital. He also had taken 1 nebulizer treatment at home plus his ensifentrine/Ohtuvayre. In the emergency department, he was found to be severely hypoxic, and was placed on BiPAP, which he did not tolerate well. It had to be changed to 100% nonrebreather. In the emergency department he received DuoNeb hour-long treatment, ceftriaxone 2 g IV, Solu-Medrol 125 mg IV, magnesium 1 g IV, lorazepam 1 mg IV. He was then referred for evaluation for admission to the [facility] Allergies Allergy/AdvReac Type Severity Reaction Status Date / Time fentanyl Allergy Mild RASH WITH Verified 05/22/25 09:36 PATCH Home Medications Medication Instructions Recorded Confirmed Type rosuvastatin 40 mg tablet (Crestor) 40 mg PO HS #30 tabs 01/31/19 05/22/25 Rx insulin glargine 100 unit/mL (3 25 unit (0.25 mL) subcut QAM #15 mL 08/05/20 05/22/25 Rx mL) subcutaneous pen (Lantus Solostar U-100 Insulin) carvedilol 3.125 mg tablet (Coreg) 3.125 mg PO BID #60 tabs 08/28/20 05/22/25 Rx flash glucose sensor (FreeStyle #1 ea 09/10/21 05/22/25 Rx Fern 14 Day Sensor kit) losartan 100 mg tablet 100 mg PO QAM 12/09/21 05/22/25 History amlodipine 10 mg tablet (Norvasc) 10 mg PO QAM #90 tabs 05/18/22 05/22/25 Rx aspirin 81 mg tablet,delayed 81 mg PO DAILY 09/01/23 05/22/25 History release ipratropium 0.5 mg-albuterol 3 mg 3 ml inhalation QID PRN Shortness 12/05/23 05/22/25 Rx (2.5 mg base)/3 mL nebulization Of Breath #90 mL soln alirocumab 150 mg/mL subcutaneous 150 mg subcut UD 01/21/24 05/22/25 History pen injector (Praluent Pen) ensifentrine 3 mg/2.5 mL 3 - 6 mg inhalation BID 09/10/24 05/22/25 History suspension for nebulization (Ohtuvayre) tamsulosin 0.4 mg capsule (Flomax) 0.4 mg PO DAILY #30 caps 10/02/24 05/22/25 Rx fluticasone fur. 100 mcg-umeclid 1 inh inhalation DAILY #180 ea 10/03/24 05/22/25 Rx 62.5 mcg-vilant 25 mcg inhalat.powder (Trelegy Ellipta) ibuprofen 800 mg tablet 800 mg PO TID PRN Pain #270 tabs 12/10/24 05/22/25 Rx pantoprazole 40 mg tablet,delayed 40 mg PO BID #60 tabs 01/11/25 05/22/25 Rx release cyclobenzaprine 5 mg tablet 5 mg PO TID PRN muscle spasm #10 01/21/25 05/22/25 Rx tabs ezetimibe 10 mg tablet (Zetia) 10 mg PO DAILY 01/21/25 05/22/25 History folic acid 1 mg tablet 1 mg PO DAILY 01/21/25 05/22/25 History mecobalamin (vitamin B12) 1,000 1,000 mcg PO DAILY 01/21/25 05/22/25 History mcg chewable tablet cetirizine 10 mg tablet 10 mg PO HS #30 tabs 02/06/25 05/22/25 Rx sildenafil 25 mg tablet (Viagra) 25 mg PO UD PRN Sexual Activity 02/07/25 05/22/25 Rx #90 tabs dextromethorphan-guaifenesin 5 10 ml PO Q6H PRN cough #500 mL 03/04/25 05/22/25 Rx mg-100 mg/5 mL oral liquid (Robitussin Cough-Chest Congestion DM) semaglutide 2 mg/dose (8 mg/3 mL) 2 mg (0.75 mL) subcut WK DX:E11.9 03/21/25 05/22/25 Rx subcutaneous pen injector #4 syringes furosemide 40 mg tablet 40 mg PO DAILY #90 tabs 04/30/25 05/22/25 Rx potassium chloride 20 mEq 20 meq PO DAILY #90 tabs 04/30/25 05/22/25 Rx tablet,extended release(part/cryst) (Klor-Con M) guaifenesin 600 mg tablet, 1,200 mg (2 x 600 mg) PO Q12 30 05/14/25 05/22/25 Rx extended release 12 hr (Mucinex) days #120 tabs dapagliflozin propanediol 10 mg 10 mg PO DAILY #90 tabs 05/16/25 05/22/25 Rx tablet (Farxiga) insulin lispro 100 unit/mL See Rx Instructions subcut BID 05/16/25 05/22/25 History subcutaneous pen (Humalog KwikPen (U-100) Insulin) clopidogrel 75 mg tablet 75 mg PO DAILY #30 tabs 05/20/25 05/22/25 Rx nitroglycerin 0.4 mg sublingual 0.4 mg sublingual Q5M PRN chest 05/20/25 05/22/25 Rx tablet (Nitrostat) pain #25 tabs albuterol sulfate 90 mcg/actuation 1 - 2 puff inhalation .Q4-6H PRN 05/27/25 Rx aerosol inhaler (Ventolin HFA) shortness of breath or wheezing #25.5 grams Past Med/Surg History Problem List (Updated 06/01/25 @ 23:34 by Margarito Carney MD) Elevated troponin Acute on chronic respiratory failure with hypoxia and hypercapnia Acute respiratory acidosis (Acute) Hypoxia (Acute) Acute exacerbation of chronic obstructive pulmonary disease (Acute) Acute respiratory distress (Acute) Type 2 diabetes mellitus IDDM Acute exacerbation of chronic obstructive pulmonary disease (COPD) (Acute) Acute hypoxic respiratory failure (Acute) Presence of drug-eluting stent in right coronary artery CAD (coronary artery disease) LVH (left ventricular hypertrophy) Mild pulmonary hypertension Diastolic heart failure Microcytosis TIESHA (obstructive sleep apnea) Chronic dyspnea PVD (peripheral vascular disease) COPD, group D, by GOLD 2017 classification History of tobacco abuse "once in awhile" Osteoarthritis, knee Ulnar neuropathy at elbow of right upper extremity Cubital tunnel syndrome Asthma-COPD overlap syndrome TIESHA and COPD overlap syndrome Severe chronic obstructive pulmonary disease (Chronic) Obesity (BMI 30.0-34.9) Chronic pain syndrome Tobacco dependence Abdominal aortic aneurysm s/p PEVAR (2018)--pt states is currently 3.2cm Intercostal neuralgia (Chronic) Vitamin D deficiency Steatohepatitis, non-alcoholic Osteoarthritis Nocturnal hypoxemia Impotence, organic Dry eye syndrome Diaphragmatic hernia Aortic stenosis Severe aortic stenosis 01/10/25 Diverticular disease Medical History Enlarged prostate with lower urinary tract symptoms (LUTS) Hypertension Hyperlipidemia GERD (gastroesophageal reflux disease) controlled Leg swelling Acute exacerbation of chronic obstructive pulmonary disease Dysphagia Abnormal nuclear cardiac imaging test Coronary artery calcification Angina pectoris Acute exacerbation of chronic obstructive pulmonary disease Acute respiratory acidosis Diastolic heart failure follows w/ Dr Yancey Coronary artery calcification HTN (hypertension) Asthma-COPD overlap syndrome Intercostal neuralgia Hyperlipidemia ALONSO (nonalcoholic steatohepatitis) Hx of rotator cuff tear left shoulder, 09/2024; currently doing PT, and will receive injections starting 12/17/24 Aortic stenosis Type 2 diabetes mellitus PVD (peripheral vascular disease) Chronic dyspnea TIESHA (obstructive sleep apnea) no cpap Enlarged prostate with lower urinary tract symptoms (LUTS) started on flomax recently but stopped due to it giving pt. diarrhea Osteoarthritis Anemia hx Cervical radiculopathy Abnormal ECG hx - follows w/ Dr Yancey Opioid dependence hx, not currently on opioids Neuropathy of right radial nerve hx - resolved per pt. History of colon polyps Diverticular disease Diaphragmatic hernia Chronic pain syndrome COPD exacerbation (01/2024) H/O > admitted to [facility]- resolved - follows with pulm dr. maurer at [facility] Esophageal dysphagia 12/07/24 reports somewhat improved History of COVID-19 03/05/22, rushed to hospital [place] for low blood pressure and pulse ox 89% on RA; no actual covid symptoms, tested only because he was in the ER>resolved. Hx of fracture of rib fx 6-7 from coughing s/p surigical intervention - titanium plates - 7 yr ago Surgical History S/P cataract extraction (04/2022) b/l eyes History of bronchoscopy History of colonoscopy History of esophagogastroduodenoscopy (EGD) History of arthroplasty of left knee (08/2020) partial replacement Hx of arthroscopy of left knee X2 Hx of cervical spine surgery (1989) full rom Hx of resection of rib (01/16/14) History of vasectomy History of abdominal aortic aneurysm (AAA) repair (06/07/18) repair x2 (+ stent)/PEVAR: 06/07/18:P MAC sedation at [facility] History of tooth extraction 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 Family History Uncle Amyotrophic lateral sclerosis Father Cardiac disorder Grandmother Cardiac disorder Mother Lung disease Brother Myocardial infarction Family history of diabetes mellitus Other No family history of adverse response to anesthesia Denies family history of Ovarian cancer Prostate cancer Breast cancer Colorectal cancer Social History Smoking Status: Former smoker Tobacco Type: Cigarettes Age Started Using Tobacco: 17; Age Quit Using Tobacco: 59; packs per day: 1; Cigarettes Per Day: 8; Second Hand Exposure: Yes; Do You Dip or Chew Tobacco: No; Hx Alcohol Use: No Hx Substance Use: No Preferred Language: Armenian Communication Ability: Effective Visual Impairment: No Limitations Hearing Ability: Normal Creative Services Specialist Required: No Beliefs That Will Affect Care: None marital status: marital status details: 3 children Current Living Situation: Spouse current occupational status: disabled How many Children do You have: 3 Feels Safe at Home: Yes Childhood Exposure to Second-Hand Smoke: Yes Diet: regular Diet Comment: regular caffeine: Yes during the past year weight has: remained stable Dental Care, Regularly: No Physical Activity Frequency: Daily Seatbelt Use: always Sunscreen Use: No Assistive Devices: None Review of Systems Review of Systems: The patient denies sore throat, fevers, chills, sweats, nausea, vomiting, diarrhea , constipation, abdominal pain, pelvic pain, blood in urine or stool, dysuria, urinary frequency or urgency, lightheadedness, dizziness, headache, memory loss, loss of consciousness, rash, abnormal bruising or bleeding, imbalance, focal or generalized weakness, numbness or tingling in arms or legs, generalized arthralgias or myalgias, back or neck pain, or night sweats. The review of systems is otherwise negative other than for that already noted above, and at least 10 systems have been reviewed. Physical Exam Physical Exam: The patient is awake, alert and oriented 3, well developed and well nourished, normocephalic and atraumatic, lying in bed and in moderate respiratory distress. HEENT--PERRL, EOMI, mucous membranes and oropharynx normal Neck--supple. No JVD. No bruits. Thyroid normal, trachea midline, no adenopathy. Heart--normal S1 and S2. No murmurs, rubs or gallops. Lungs--decreased breath sounds throughout. Moderate respiratory distress, with accessory muscle use. Abdomen--normal bowel sounds and soft. Nontender. Nondistended, no hernias or masses, no organomegaly. Extremities--No edema. There are good distal pulses b/l. Dermatologic--normal skin turgor, normal color, no abnormal lymph nodes, no rash. Neurologic--cranial nerves II through XII grossly intact. Rheumatologic--normal range of motion. Psychiatric--mildly anxious Results & Data Results & Data Vital Signs (Past 12 Hours) Vital Signs Temp Pulse Pulse Resp BP Pulse Ox O2 Del Method 06/01/25 21:23 Oxymask 06/01/25 21:14 97 BiPAP 06/01/25 21:12 102 H 20 98 06/01/25 21:00 121 H 21 98 06/01/25 20:50 106 H 30 H 95 Oxymask 06/01/25 20:42 106 H 29 H 98 06/01/25 20:41 Oxymask 06/01/25 20:41 Oxymask 06/01/25 20:39 106 H 24 97 06/01/25 20:37 36.6 C 112 H 19 175/110 H 97 Room Air 06/01/25 20:37 36 H 96 Oxymask 06/01/25 20:35 109 H O2 Flow Rate 06/01/25 21:23 8 06/01/25 21:14 06/01/25 21:12 06/01/25 21:00 06/01/25 20:50 7 06/01/25 20:42 06/01/25 20:41 8 06/01/25 20:41 8 06/01/25 20:39 06/01/25 20:37 06/01/25 20:37 8 06/01/25 20:35 Laboratory Results Laboratory Results WBC 8.12 K/ul (4.8-10.8) 06/01/25 20:45 RBC 5.51 M/uL (4.70-6.10) 06/01/25 20:45 Hgb 13.6 g/dl (14.0-18.0) L 06/01/25 20:45 POC Hgb 13.6 g/dl (14.0-18.0) L 06/01/25 22:05 Hct 46.3 % (42.0-52.0) 06/01/25 20:45 POC Hct 40 % (42-52) L 06/01/25 22:05 MCV 84.0 fL (80.0-100.0) 06/01/25 20:45 MCH 24.7 pg (25.0-34.0) L 06/01/25 20:45 MCHC 29.4 g/dL (32.0-36.0) L 06/01/25 20:45 RDW Std Deviation 43.9 fL (36.4-46.3) 06/01/25 20:45 RDW Coeff of Ledy 14.3 % (11.5-14.5) 06/01/25 20:45 Plt Count 309 K/uL (130-400) 06/01/25 20:45 MPV 9.3 fL (9.4-12.4) L 06/01/25 20:45 Immature Gran % (Auto) 0.2 % 06/01/25 20:45 Neut % (Auto) 70.6 % 06/01/25 20:45 Lymph % (Auto) 17.4 % 06/01/25 20:45 [place] % (Auto) 8.6 % 06/01/25 20:45 Eos % (Auto) 2.8 % 06/01/25 20:45 Baso % (Auto) 0.4 % 06/01/25 20:45 Neut # (Auto) 5.73 K/uL (1.40-6.50) 06/01/25 20:45 Lymph # (Auto) 1.41 K/uL (1.20-3.40) 06/01/25 20:45 [place] # (Auto) 0.70 K/uL (0.11-0.59) H 10/25/25 20:45 Eos # (Auto) 0.23 K/uL (0.00-0.50) 06/01/25 20:45 Baso # (Auto) 0.03 K/uL (0.00-0.20) 06/01/25 20:45 Immature Gran # (Auto) 0.02 K/uL (0.01-0.20) 06/01/25 20:45 PT 10.1 Seconds (9.0-12.0) 06/01/25 20:45 INR 1.0 (0.9-1.1) 06/01/25 20:45 APTT 31 Seconds (21-31) 06/01/25 20:45 PTT Ratio 1.1 06/01/25 20:45 Specimen Type Arterial 06/01/25 22:05 Sample Site R Radial 06/01/25 22:05 POC pH 7.23 (7.35-7.45) L 06/01/25 22:05 POC pCO2 71 mmHg (35-46) H 06/01/25 22:05 POC pO2 23 mmHg (80-95) L 06/01/25 22:05 POC HCO3 30 mmol/L (19-24) H 06/01/25 22:05 POC Total CO2 32 mmol/L (24-31) H 06/01/25 22:05 POC Base Excess 2.0 mmol/L (-9-1.8) H 06/01/25 22:05 O2 Sat Pulse Oximetry 99 06/01/25 22:05 ABG pH (Temp Correct) 7.237 (7.35-7.45) L 06/01/25 22:05 ABG pCO2 (Temp Corrct 70 mmHg (35-46) H 06/01/25 22:05 POC ABG pO2 at Pt Temp 23 06/01/25 22:05 POC ABG O2 Sat 30.0 % (90-95) L 06/01/25 22:05 Linus Test Pass 06/01/25 22:05 VBG pH 7.17 (7.36-7.41) L 06/01/25 20:45 VBG pCO2 88 mmHg (38-50) H 06/01/25 20:45 VBG pO2 25 mmHg 06/01/25 20:45 VBG HCO3 32 mmol/L 06/01/25 20:45 VBG O2 Saturation < 60.0 % 06/01/25 20:45 VBG Base Excess 0.9 mEq/L 06/01/25 20:45 O2 Delivery Device NonRb Mask 06/01/25 22:05 POC FiO2 100 % 06/01/25 22:05 POC Sodium 139 mmol/L (135-144) 06/01/25 22:05 Sodium 137 mmol/L (136-145) 06/01/25 20:45 POC Potassium 3.9 mmol/L (3.3-5.0) 06/01/25 22:05 Potassium 4.4 mmol/L (3.5-5.1) 06/01/25 20:45 Chloride 100 mmol/L (98-107) 06/01/25 20:45 Carbon Dioxide 31 mmol/L (21-32) 06/01/25 20:45 Anion Gap 6 (3-11) 06/01/25 20:45 BUN 11 mg/dl (6-23) 06/01/25 20:45 Creatinine 1.13 mg/dl (0.6-1.4) 06/01/25 20:45 Est Cr Clr Drug Dosing 73.5 ml/min 06/01/25 20:45 eGFR 73.95 06/01/25 20:45 BUN/Creatinine Ratio 9.7 (10-20) L 06/01/25 20:45 Glucose 118 mg/dl (70-99(Fasting)) H 06/01/25 20:45 Calcium 9.6 mg/dl (8.6-10.3) 06/01/25 20:45 Magnesium 2.6 mg/dl (1.7-2.4) H 06/01/25 20:45 Total Bilirubin 0.3 mg/dl (0.2-1.0) 06/01/25 20:45 AST 18 U/L (13-39) 06/01/25 20:45 ALT 12 U/L (7-52) 06/01/25 20:45 Alkaline Phosphatase 114 U/L (34-104) H 06/01/25 20:45 Troponin I High Sens 41.5 pg/ml (0-20) H 06/01/25 20:45 B-Natriuretic Peptide 188 pg/ml (0-100) H 06/01/25 20:45 Total Protein 8.8 gm/dl (6.0-8.3) H 06/01/25 20:45 Albumin 4.4 gm/dl (3.4-5.0) 06/01/25 20:45 Globulin 4.4 gm/dl (2.5-4.0) H 06/01/25 20:45 Albumin/Globulin Ratio 1.0 (0.9-2) 06/01/25 20:45 Urine Color Yellow 06/01/25 22:13 Urine Appearance Clear (Clear) 06/01/25 22:13 Urine pH 5.5 (4.5-7.5) 06/01/25 22:13 Ur Specific [place] 1.009 (1.000-1.030) 06/01/25 22:13 Urine Protein 1+ (Negative) H 06/01/25 22:13 Urine Glucose (UA) 1+ (Negative) H 06/01/25 22:13 Urine Ketones Negative (Negative) 06/01/25 22:13 Urine Blood Negative (Negative) 06/01/25 22:13 Urine Nitrite Negative (Negative) 06/01/25 22:13 Urine Bilirubin Negative (Negative) 06/01/25 22:13 Urine Urobilinogen Negative (Negative) 06/01/25 22:13 Ur Leukocyte Esterase Negative (Negative) 06/01/25 22:13 Urine WBC (Auto) 0-5 /hpf (0-5) 06/01/25 22:13 Urine RBC (Auto) 0-2 /hpf (0-2) 06/01/25 22:13 U Hyaline Cast (Auto) 0-2 /lpf (0-2) 06/01/25 22:13 U Epithel Cells (Auto) 0-2 /hpf (0-2) 06/01/25 22:13 Urine Bacteria (Auto) None Seen (None Seen) 06/01/25 22:13 Urine Comment 06/01/25 22:13 SARS-CoV-2 (PCR) NEGATIVE (Negative) 06/01/25 21:50 Influenza Type A (PCR) Negative (Neg) 06/01/25 21:50 Influenza Type B (PCR) Negative (Neg) 06/01/25 21:50 RSV (RT-PCR) Negative (Neg) 06/01/25 21:50 Impressions Chest X-Ray 06/01/25 20:29 Exam(s): XR CXR 1 VIEW EXAM: XR Chest, 1 View CLINICAL HISTORY: Dyspnea. TECHNIQUE: Frontal view of the chest. COMPARISON: Chest radiograph 05/13/2025 FINDINGS: Lungs: Unremarkable. No consolidation. Pleural space: Small right pleural effusion. No pneumothorax. Heart: Unremarkable. No cardiomegaly. Mediastinum: Unremarkable. Normal mediastinal contour. Bones/joints: There are degenerative changes of the spine. No acute fracture. IMPRESSION: Small right pleural effusion. Electronically signed by: Hermila Sneed MD 06/01/25 22:05 PM Code Status & VTE Plan Code Status Conditional code, patient will except CPR and defibrillation, he is a DO NOT INTUBATE. VTE Prophylaxis Plan VTE Prophylaxis will be ordered: Yes PG Care Time/CCT Total # of Minutes Spent Total Time Spent with Patient: Total time spent is greater than 50% in coordination of care (as documented) at patient's floor/unit and/or counseling patient: 42 minutes Coding Level of Care Code 54847 INT INP/OBS CARE 3/75MIN Diagnoses Acute on chronic respiratory failure with hypoxia and hypercapnia J96.21; J96.22 Acute exacerbation of chronic obstructive pulmonary disease J44.1 Coronary artery disease involving [place] coronary artery of [place] heart without angina pectoris I25.10 Associated angina: without angina Coronary Disease-Associated Artery/Lesion type: [place] artery [place] vs. transplanted heart: [place] heart Elevated troponin R79.89 (3) CAD (coronary artery disease) Associated angina: without angina Coronary Disease-Associated Artery/Lesion type: [place] artery [place] vs. transplanted heart: [place] heart Qualified Code(s): I25.10 - Atherosclerotic heart disease of [place] coronary artery without angina pectoris
[2025-06-01 22:44] LABS: Influenza A virus by PCR Negative (Neg); Influenza B virus by PCR Negative (Neg); SARS CoV2 RNA(COVID-19) Ceph NEGATIVE (Negative)
[2025-06-01 22:47] LABS: Appearance Urine Clear (Clear); Bacteria Urine Automated None Seen (None Seen); Cast Urine Automated 0-2 /lpf (0-2); Epithelial Cell Urine Auto 0-2 /hpf (0-2); Glucose Urine UA 1+ (Negative); RBC Urine Automated 0-2 /hpf (0-2); WBC Urine Automated 0-5 /hpf (0-5)
[2025-06-01] MEDS ORDERED: GLUCAGON FOR INJ 1 MG VIAL SQ PRN (23:37)
[2025-06-01] MEDS ORDERED: ACETAMINOPHEN 325 MG TAB PO PRN (23:37)
[2025-06-01] MEDS ORDERED: CARBOHYDRATES FOR HYPOGLYCEMIA PO PRN (23:37)
[2025-06-01] MEDS ORDERED: NITROGLYCERIN SL 0.4 MG/TAB TAB SL PRN (23:37)
[2025-06-01] MEDS ORDERED: CYCLOBENZAPRINE HCL 5 MG TAB PO PRN (23:37)
[2025-06-01] MEDS ORDERED: DEXTROSE 50% 50 ML SYRINGE IV PRN (23:37)
[2025-06-01] MEDS ORDERED: GLUCOSE 10 TAB/TUBE PO PRN (23:37)
[2025-06-01] MEDS ORDERED: GLUCOSE 40% GEL 15 GM TUBE PO PRN (23:37)
[2025-06-01] MEDS: AZITHROMYCIN 500 MG/255 ML BAG IV SCH (23:39)
--- NOTE | 2025-06-01 23:50 | Billing Data ---
Date of Service June 01, 2025 Coding Level of Care Code 05853 CRITICAL CARE
[2025-06-02] MEDS: CEFEPIME 2000MG 2,000 MG/20 ML SYR IV SCH (00:10)
[2025-06-02] MEDS: INSULIN ASPART PER UNIT CHARGE SC STA (00:32)
--- NOTE | 2025-06-02 02:23 | Ultrasound Report ---
EXAM: US venous doppler LE BI CLINICAL HISTORY: assess for DVT,edema, tachypnea. TECHNIQUE: Ultrasound examination of bilateral lower extremity veins was performed in real time and duplex. One or more of the following were performed- spectral analysis, resistive index, waveform analysis, and pulsed Doppler. COMPARISON: Left lower limb venous doppler dated 12/01/20. FINDINGS: Normal phasic, non-pulsatile, and spontaneous flow is noted in bilateral common femoral, superficial femoral, popliteal, and posterior tibial and peroneal veins. Visualized veins of both lower extremities demonstrate normal compressibility. No sonographic evidence of acute deep vein thrombosis (DVT) is detected in the visualized veins of both lower extremities. Compression and Augmentation: All evaluated veins compress fully with the applied transducer pressure. Augmentation of venous flow is noted with distal compression. Additional Findings: No evidence of intraluminal thrombus. IMPRESSION: 1. No sonographic evidence of acute DVT was detected in the bilateral common femoral, superficial femoral, popliteal, and posterior tibial and peroneal veins at the time of examination. 2. No changes are seen when compared to the previous study. Disclaimer: DVT could be missed early in the disease when clot burden is minimal. For patients with moderate and high pretest probability of DVT and negative ultrasound, the [employer] clinical guidelines recommend testing with a D-dimer assay or repeat ultrasound in 5-7 days. If symptoms worsen, the Society of radiologists in ultrasound recommends repeating ultrasound even earlier. Electronically signed by Ronnie Guardado 06-02-2025 02:23 AM
[2025-06-02 05:54] LABS: Hematocrit (blood only) 44.2 % (42.0-52.0); Hemoglobin 12.8 g/dl (14.0-18.0); Mean Corpuscular Hemoglobin 24.2 pg (25.0-34.0); Mean Corpuscular Volume 83.4 fL (80.0-100.0); Platelet Count 290 K/uL (130-400); RDW Standard Deviation 43.3 fL (36.4-46.3); Red Blood Count 5.30 M/uL (4.70-6.10); White Blood Count 7.10 K/ul (4.8-10.8)
[2025-06-02] MEDS: ALBUT/IPRATROP 3MG/0.5MG NEB 3 ML VIAL NEB SCH (05:58)
[2025-06-02] MEDS ORDERED: methylPREDNISolone 10 mg/mL (For Ped Dose < 7mg) IV SCH (06:00)
[2025-06-02 06:03] LABS: Base Excess VBG 1.0 mEq/L; HCO3 VBG 30 mmol/L; Oxygen Saturation VBG 62.8 %; PCO2 VBG 71 mmHg (38-50); PO2 VBG 34 mmHg; pH VBG 7.24 (7.36-7.41)
[2025-06-02 06:11] LABS: Alanine Aminotransferase 10.0 U/L (7-52); Albumin Globulin Ratio 0.8 (0.9-2); Albumin Level 3.7 gm/dl (3.4-5.0); Alkaline Phosphatase 93.0 U/L (34-104); Anion Gap 5.0 (3-11); Bilirubin,Total 0.2 mg/dl (0.2-1.0); Blood Urea Nitrogen 14.0 mg/dl (6-23); Calcium 9.3 mg/dl (8.6-10.3); Carbon Dioxide 29.0 mmol/L (21-32); Chloride 104.0 mmol/L (98-107); Creatinine Clr Calc Pharmacy 69.3 ml/min; Globulin 4.4 gm/dl (2.5-4.0); Glucose 169.0 mg/dl (70-99(Fasting)); Magnesium 2.8 mg/dl (1.7-2.4); Potassium 5.4 mmol/L (3.5-5.1); Sodium 138.0 mmol/L (136-145); Total Protein 8.1 gm/dl (6.0-8.3)
[2025-06-02 06:32] LABS: Immature Granulocytes # (auto) 0.02 K/uL (0.01-0.20); Immature Granulocytes % (auto) 0.3 %
[2025-06-02 06:34] LABS: Partial Thromboplastin Time 29 Seconds (21-31)
--- NOTE | 2025-06-02 07:09 | Hospitalist Progress Note ---
Date of Service June 02, 2025 Assessment & Plan (1) Acute on chronic respiratory failure with hypoxia and hypercapnia: (2) Acute exacerbation of chronic obstructive pulmonary disease: (3) Acute respiratory acidosis: (4) Type [address] elevation: (5) COPD, group D, by GOLD 2017 classification: (6) Presence of drug-eluting stent in right coronary artery: (7) Chronic heart failure with preserved ejection fraction: (8) Aortic stenosis: (9) TIESHA (obstructive sleep apnea): (10) Controlled type 2 diabetes mellitus with hyperglycemia, with long-term current use of insulin: Plan In summary this is a 60-year-old male admitted for an acute exacerbation of chronic obstructive pulmonary disease #Acute on chronic respiratory failure with hypoxia and hypercapnea // acute exacerbation of chronic obstructive pulmonary disease // acute respiratory acidosis // Type II ND due to hypoxia // COPD Group D The patient's presenting symptoms, sudden onset of associated symptoms, and medical history is most consistent with acute exacerbation of their COPD; pertinent associated comorbidities include there are heart failure with preserved ejection fraction; patient has not prescribed any home oxygen supplementation, currently requiring 2 L by nasal cannula to maintain their oxygen saturation in the range of 90 to 95%; they have been previous diagnosed with obstructive sleep apnea but have not been unable to tolerate positive pre ssure ventilation; most recent PFT results are consistent with Gold stage D; the patient's initial troponin was slightly elevated to measure of 20 that downtrended with subsequent measure, most likely consequential of hypoxia resulting in a type II myocardial infarction -VS every shift with continuous oxygen monitor - Pulmonary hygiene with regular ambulation as the patient tolerates -Provide oxygen supplementation to maintain oxygen saturation 88-92% to reduce risk of carbon dioxide retention - Continue home inhaler therapy - Continue methylprednisolone 40 mg IV every 12 hours - Start levofloxacin 750 mg p.o. daily through 06/06 - Start hypertonic saline nebulizers twice daily - Reassess with plain chest film AP and lateral on 06/03 -Anticipate nocturnal pulse oximetry study to determine need for nocturnal oxygen supplementation to reduce the risk of future hospitalizations related to exacerbations of COPD and heart failure #Coronary atherosclerosis with recent JUANCARLOS to RCA 04/2025 // Heart failure with preserved ejection fraction // Severe aortic stenosis Patient in 04/2025 underwent left heart catheterization requiring drug-eluting stent placement to the right coronary artery; continue dual antiplatelet therapy during hospitalization along with their additional medication regimen #Obstructive sleep apnea, intolerant of PPV Previously diagnosed with obstructive sleep apnea requiring positive pressure ventilation; patient has been unable to tolerate this with multiple attempts made in the past several years; we discussed in length that untreated TIESHA will result in progressive cardiovascular and pulmonary disease, regardless of oxygen supplementation however to minimize risk we will pursue nocturnal pulse oximetry study detailed above during his hospitalization in order to reduce the risk of future rehospitalization; we did discuss, again at length, that excessive oxygen supplementation can result in CO2 retention and subsequent hypercapnic respiratory failure which the patient is understanding of and aware of the signs/symptoms related to this condition that would require evaluation; patient would likely benefit from evaluation for Inspire device for management The patient's remaining medical conditions are chronic, well-controlled at this time and thus no adjustment will be made to their medication regimen at this time Admission and Anticipated Discharge Date Admission Date: June 01, 2025 Subjective Mr. Ashley is a 60-year-old male whose active medical conditions include severe chronic obstructive pulmonary disease, heart failure with preserved ejection fraction and severe aortic stenosis in addition to type 2 diabetes mellitus with peripheral neuropathy, obstructive sleep apnea nonadherent/tolerant with positive pressure ventilation among other chronic medical conditions who presented to the [facility] on 06/01 and was subsequently admitted for acute on chronic respiratory failure with hypoxia and hypercapnia found to be consequential of an acute exacerbation of COPD. No acute overnight events; the patient does feel improved this morning though continues to have some difficulty catching their breath from time to time. Denies chest pain, discomfort, pleuritic chest pain, orthopnea, platypnea, lower extremity swelling, fevers, chills. They are experiencing some increased sputum production this morning compared to the previous day but is without hemoptysis or purulent sputum. Review of Systems Review of Systems: Review of constitutional, cardiovascular, pulmonary systems was unremarkable except for pertinent positive and negative findings discussed above Physical Exam Physical Exam: General: Adult male in no acute distress Vital Signs: Reviewed; currently requiring 2 L by nasal cannula to maintain O2 saturation in the range of 90 to 95% HEENT: Moist mucous membranes; pupils equally round and reactive to light, extraocular motion intact Pulmonary: Symmetric chest wall excursion that is unrestricted; diminished air movement throughout the entire posterior lung ziegler without notable wheezing; anterior and lateral lung ziegler have air movement without notable wheezing, occasional crackles noted throughout Cardiovascular: Regular rate and rhythm with grade 3/6 systolic murmur best heard in the right second intercostal space parasternally; no rubs or gallops; S1 and S2 normal; right radial pulse 2+; no notable lower extremity edema Neurologic: Cranial nerves II through XII grossly intact; no discernible focal weakness nor paresthesia Results & Data Results & Data Vital Signs (Past 12 Hours) Vital Signs Temp Pulse Pulse Resp BP BP Pulse Ox 06/02/25 05:58 92 H 20 94 06/02/25 05:00 85 17 91 06/02/25 04:45 79 18 91 06/02/25 04:01 145/63 H 06/02/25 04:01 145/63 H 06/02/25 04:00 82 13 90 06/02/25 03:30 83 17 94 06/02/25 02:33 85 17 93 06/02/25 02:03 85 14 96 06/02/25 02:00 120/47 L 06/02/25 02:00 120/47 L 06/02/25 02:00 120/47 L 06/02/25 01:57 82 14 97 06/02/25 01:30 83 18 99 06/02/25 01:00 84 15 99 06/02/25 01:00 123/62 06/02/25 01:00 123/62 06/02/25 00:45 06/02/25 00:27 88 06/02/25 00:12 96 H 16 98 06/02/25 00:06 36.6 C 101 H 28 H 147/70 H 100 06/02/25 00:02 141/73 H 06/01/25 23:45 112 H 19 99 06/01/25 23:37 06/01/25 23:37 36.6 C 06/01/25 23:27 147/70 H 06/01/25 23:27 147/70 H 06/01/25 23:10 06/01/25 22:31 145/78 H 06/01/25 22:31 145/78 H 06/01/25 22:30 100 H 26 H 92 06/01/25 22:24 112 H 32 H 91 06/01/25 21:48 103 H 23 96 06/01/25 21:40 105 H 19 94 06/01/25 21:36 106 H 27 H 90 06/01/25 21:31 161/59 H 06/01/25 21:31 161/59 H 06/01/25 21:23 06/01/25 21:15 102 H 20 98 06/01/25 21:14 153/83 H 06/01/25 21:14 153/83 H 06/01/25 21:14 97 06/01/25 21:12 102 H 20 98 06/01/25 21:00 121 H 21 98 06/01/25 20:50 106 H 30 H 95 06/01/25 20:42 106 H 29 H 98 06/01/25 20:41 06/01/25 20:41 06/01/25 20:39 106 H 24 97 06/01/25 20:37 36.6 C 112 H 19 175/110 H 97 06/01/25 20:37 36 H 96 06/01/25 20:35 109 H Pulse Ox O2 Del Method O2 Del Method O2 Flow Rate O2 Flow Rate FiO2 06/02/25 05:58 Nasal Cannula 2 06/02/25 05:00 06/02/25 04:45 06/02/25 04:01 06/02/25 04:01 06/02/25 04:00 06/02/25 03:30 06/02/25 02:33 06/02/25 02:03 06/02/25 02:00 06/02/25 02:00 06/02/25 02:00 06/02/25 01:57 06/02/25 01:30 06/02/25 01:00 06/02/25 01:00 06/02/25 01:00 06/02/25 00:45 Non-rebreather 15 06/02/25 00:27 06/02/25 00:12 06/02/25 00:06 Non-rebreather 15 06/02/25 00:02 06/01/25 23:45 06/01/25 23:37 99 Non-rebreather 14 06/01/25 23:37 06/01/25 23:27 06/01/25 23:27 06/01/25 23:10 BiPAP 15 06/01/25 22:31 06/01/25 22:31 06/01/25 22:30 06/01/25 22:24 06/01/25 21:48 06/01/25 21:40 30 06/01/25 21:36 06/01/25 21:31 06/01/25 21:31 06/01/25 21:23 Oxymask 8 06/01/25 21:15 06/01/25 21:14 06/01/25 21:14 06/01/25 21:14 BiPAP 06/01/25 21:12 06/01/25 21:00 06/01/25 20:50 Oxymask 7 06/01/25 20:42 06/01/25 20:41 Oxymask 8 06/01/25 20:41 Oxymask 8 06/01/25 20:39 06/01/25 20:37 Room Air 06/01/25 20:37 Oxymask 8 06/01/25 20:35 Laboratory Results Elevated potassium 5.4 (4.4) Downtrending troponin 29.5 (40.2) Diagnostic Findings Lower extremity venous Doppler without evidence of DVT PG Care Time/CCT Total # of Minutes Spent Total Time Spent with Patient: Total time spent is greater than 50% in coordination of care (as documented) at patient's floor/unit and/or counseling patient: Coding Level of Care Code 37665 SUB INP/OBS CARE 2/35MIN Diagnoses Acute on chronic respiratory failure with hypoxia and hypercapnia J96.21; J9 6.22 Acute exacerbation of chronic obstructive pulmonary disease J44.1 Acute respiratory acidosis J96.02 Type [address] elevation I21.A1 COPD, group D, by GOLD 2017 classification J44.9 Presence of drug-eluting stent in right coronary artery Z95.5 Chronic heart failure with preserved ejection fraction I50.32 Aortic valve stenosis, etiology of cardiac valve disease unspecified I35.0 Cardiac valve disease etiology: etiology unspecified TIESHA (obstructive sleep apnea) G47.33 Controlled type 2 diabetes mellitus with hyperglycemia, with long-term current use of insulin E11.65; Z79.4 (8) Aortic stenosis Cardiac valve disease etiology: etiology unspecified Qualified Code(s): I35.0 - Nonrheumatic aortic (valve) stenosis
[2025-06-02 07:34] LABS: Hemoglobin A1C 6.4 % (4.5-5.6)
[2025-06-02] MEDS: CYANOCOBALAMIN (B-12) 500 MCG TABLET PO SCH (07:55)
[2025-06-02] MEDS: CLOPIDOGREL BISULFATE 75 MG TAB PO SCH (07:56)
[2025-06-02] MEDS: ASPIRIN 81 MG ECTAB PO SCH (07:56)
[2025-06-02] MEDS: EZETIMIBE 10 MG TAB PO SCH (07:58)
[2025-06-02] MEDS: guaiFENesin 600 MG TABCR PO SCH (07:58)
[2025-06-02] MEDS: LOSARTAN POTASSIUM 50 MG TAB PO SCH (07:58)
[2025-06-02] MEDS: TAMSULOSIN HCL 0.4 MG CAP PO SCH (07:58)
[2025-06-02] MEDS: FOLIC ACID 1 MG TAB PO SCH (07:59)
[2025-06-02] MEDS: UMECLIDINIUM/VILANTEROL 62.5/25MCG 7 PUFFS/INHALER INH SCH (07:59)
[2025-06-02] MEDS: FUROSEMIDE 40 MG TAB PO SCH (07:59)
[2025-06-02] MEDS: FLUTICASONE FUROATE 100MCG 14 PUFFS/INHALER INH SCH (07:59)
[2025-06-02] MEDS: INSULIN ASPART PER UNIT CHARGE SC SCH (08:09)
[2025-06-02] MEDS: LANTUS PER UNIT CHARGE SQ SCH (08:10)
[2025-06-02] MEDS ORDERED: NON-FORMULARY MEDICATION (Fluticasone-Umeclidin-Vilanter [Trelegy Ellipta] 100-62.5-25 mcg INH SCH (09:00)
--- NOTE | 2025-06-02 09:15 | Electrocardiogram Report ---
Test Reason : Blood Pressure : */* mmHG Vent. Rate : 100 BPM Atrial Rate : 100 BPM P-R Int : 140 ms QRS Dur : 140 ms QT Int : 380 ms P-R-T Axes : 84 102 36 degrees QTcB Int : 490 ms Normal sinus rhythm Right bundle branch block Abnormal ECG When compared with ECG of 13-May-2025 06:11, T wave inversion no longer evident in Anterior leads Confirmed by Jose Vieira ([id number]) on 06/02/2025 9:15:05 AM Referred By: REFERRED SELF Confirmed By: Jose Vieira
[2025-06-02] MEDS: POTASSIUM CHLORIDE CRTAB 20 MEQ TABCR PO SCH (11:30)
[2025-06-02] MEDS ORDERED: Nursing to Pharmacy Communication SCH (11:45)
[2025-06-02] MEDS: ENSIFENTRINE EXT SCH ×2 (13:19→20:35)
[2025-06-02] MEDS: ALBUT/IPRATROP 3MG/0.5MG NEB 3 ML VIAL ONE (13:19)
[2025-06-02] MEDS: SODIUM CHLOR 7% 4 ML NEB NEB SCH (19:51)
[2025-06-02] MEDS ORDERED: NON-FORMULARY PATIENT'S OWN MED EXT SCH (21:00)
[2025-06-02] MEDS: ROSUVASTATIN CALCIUM 20 MG TAB PO SCH (21:55)
[2025-06-02] MEDS: CETIRIZINE HCL 10 MG TABLET PO SCH (21:55)
[2025-06-03 04:22] VITALS: TEMP 98.2
--- NOTE | 2025-06-03 07:08 | Hospitalist Progress Note ---
Date of Service June 03, 2025 Assessment & Plan Admission and Anticipated Discharge Date Admission Date: June 01, 2025 Results & Data Results & Data Vital Signs (Past 12 Hours) Vital Signs Temp Pulse Pulse Pulse Resp BP Pulse Ox 06/03/25 06:59 67 18 92 06/03/25 04:00 36.8 C 81 17 128/75 91 06/03/25 03:16 65 06/03/25 01:05 78 06/03/25 00:00 72 06/03/25 00:00 36.8 C 72 17 122/75 92 06/02/25 23:18 06/02/25 21:50 81 06/02/25 21:00 36.3 C L 82 18 117/65 93 06/02/25 20:17 06/02/25 19:51 67 18 92 Pulse Ox Pulse Ox O2 Del Method O2 Del Method O2 Del Method 06/03/25 06:59 Room Air 06/03/25 04:00 Room Air 06/03/25 03:16 90 Room Air 06/03/25 01:05 92 Room Air 06/03/25 00:00 06/03/25 00:00 Room Air 06/02/25 23:18 Room Air 06/02/25 21:50 95 Room Air 06/02/25 21:00 Room Air 06/02/25 20:17 93 Room Air, Non-rebreather 06/02/25 19:51 Room Air PG Care Time/CCT Total # of Minutes Spent Total Time Spent with Patient: Total time spent is greater than 50% in coordination of care (as documented) at patient's floor/unit and/or counseling patient: Coding
[2025-06-03 08:14] VITALS: BP 117/59
[2025-06-03 08:16] LABS: Albumin Level 3.7 gm/dl (3.4-5.0); Anion Gap 8.0 (3-11); Blood Urea Nitrogen 24.0 mg/dl (6-23); Calcium 9.4 mg/dl (8.6-10.3); Carbon Dioxide 27.0 mmol/L (21-32); Chloride 100.0 mmol/L (98-107); Creatinine Clr Calc Pharmacy 57.8 ml/min; Glucose 172.0 mg/dl (70-99(Fasting)); Potassium 5.0 mmol/L (3.5-5.1); Sodium 135.0 mmol/L (136-145)
[2025-06-03 10:54] VITALS: PULSE 69; RESP 18; O2SAT 94
--- NOTE | 2025-06-03 13:18 | XRay Report ---
XR chest 2V PA/lateral CLINICAL HISTORY: Acute COPD exacerbation COMPARISON STUDY: 06/01/2025 FINDINGS: Heart size and pulmonary vasculature are normal. No consolidation or pleural effusion. No p neumothorax. Stable hyperexpanded lungs. Stable plate-screw fixation of a few left mid ribs. IMPRESSION: No pneumonia seen. ACT 112: Negative or not required by law. Electronically signed by: Louis Daniel M.D. 06/03/2025 1:17 PM
--- NOTE | 2025-06-03 19:31 | Discharge Summary ---
Discharge Summary Date of Service June 03, 2025 Principal Dx & Hospital Course #1 = Principal Diagnosis (1) Acute on chronic respiratory failure with hypoxia and hypercapnia: (2) Acute exacerbation of chronic obstructive pulmonary disease: (3) Acute respiratory acidosis: (4) Type [address] elevation: (5) COPD, group D, by GOLD 2017 classification: (6) Presence of drug-eluting stent in right coronary artery: (7) Chronic heart failure with preserved ejection fraction: (8) Aortic stenosis: (9) TIESHA (obstructive sleep apnea): (10) Controlled type 2 diabetes mellitus with hyperglycemia, with long-term current use of insulin: Plan In summary this is a 60-year-old male admitted for an acute exacerbation of chronic obstructive pulmonary disease #Acute on chronic respiratory failure with hypoxia and hypercapnea // acute exacerbation of chronic obstructive pulmonary disease // acute respiratory acidosis // Type II SD due to hypoxia // COPD Group D The patient's presenting symptoms, sudden onset of associated symptoms, and medical history was most consistent with acute exacerbation of their COPD; pertinent associated comorbidities include heart failure with preserved ejection fraction; patient is not prescribed any home oxygen supplementation either while awake or while sleeping; on the day of discharge they are maintaining oxygen saturation greater than 92% on room air; they have been previously diagnosed with obstructive sleep apnea but have not been unable to tolerate positive pressure ventilation; most recent PFT results are consistent with Gold stage D; the patient's initial troponin was slightly elevated to measure of 20 that downtrended with subsequent measure, most likely consequential of hypoxia resulting in a type II myocardial infarction - At the time of discharge we will transition from methylprednisolone 40 mg IV every 12 hours to dexamethasone 6 mg p.o. daily for 4 days followed by 4 mg p.o. daily for 4 days, followed by and ending taper of 2 mg p.o. daily for 4 days with a total 12-day taper - Continue levofloxacin 750 mg p.o. daily through 06/06 - Was recommended at the time of discharge, given the patient's significant symptomatic improvement with hypertonic saline nebulizers that they consider purchasing a bedroom humidifier to assist with airway hygiene, as excessively dry airway mucous membranes can increase the risk of associated exacerbation; it was strongly emphasized that for this to be of benefit to the patient they must maintain adequate cleaning of the water reservoir associated with this humidifier as there are risk factors associated with poorly cleaned humidification devices including precipitating bacterial pneumonia; the patient and his spouse both expressed understanding with respect to this - Repeat chest film AP and lateral obtained on 06/03 shows no acute pulmonary disease - Nocturnal oximetry study performed from 06/02 through 06/03 on room air showed persistent desaturations greater than 80%; after a discussion at bedside with the patient and their spouse regarding the risk of CO2 retention with excessive oxygen supplementation versus the risk of precipitated heart failure exacerbations and COPD exacerbations with recurrent nocturnal hypoxia it was decided that there was greater benefit for the patient to be prescribed supplemental oxygen to wear at bedtime; they will be sent on 3 L by nasal cannula. It was strongly emphasized that for the patient's greatest potential healthcare outcomes with respect to their multiple comorbidities that positive pressure ventilation is of the best options however they have been unable to tolerate this over multiple years and attempts. With this in mind, we recommend the patient be evaluated for possible inspire device placement given the significant multisystem benefits they would have with adequate control of their obstructive sleep apnea #Coronary atherosclerosis with recent JUANCARLOS to RCA 04/2025 // Heart failure with preserved ejection fraction // Severe aortic stenosis Patient in 04/2025 underwent left heart catheterization requiring drug-eluting stent placement to the right coronary artery; continue dual antiplatelet therapy during hospitalization along with their additional medication regimen #Obstructive sleep apnea, intolerant of PPV Previously diagnosed with obstructive sleep apnea requiring positive pressure ventilation; patient has been unable to tolerate this with multiple attempts made in the past several years; we discussed in length that untreated TIESHA will result in progressive cardiovascular and pulmonary disease, regardless of oxygen supplementation however to minimize risk we will pursue nocturnal pulse oximetry study detailed above during his hospitalization in order to reduce the risk of future rehospitalization; we did discuss, again at length, that excessive oxygen supplementation can result in CO2 retention and subsequent hypercapnic respiratory failure which the patient is understanding of and aware of the signs/symptoms related to this condition that would require evaluation; patient would likely benefit from evaluation for Inspire device for management The patient's remaining medical conditions are chronic, well-controlled at this time and thus no adjustment will be made to their medication regimen at this time Notes For Next Care Provider Patient identified high risk for 30- day readmission. Our hospitalist team would be glad to discuss any details of the hospital stay with you, please reach out by [facility] with a good call back number and we will return your call. The patient is at high risk for readmission primarily because of their multiple comorbidities that overlap including their severe stage COPD, heart failure with preserved ejection fraction with associated aortic stenosis, recent SD requiring PCI and JUANCARLOS placement; their pulmonary status is very tenuous, especially with continued uncontrolled obstructive sleep apnea. The patient exhibits good insight to their medical conditions however, even with her best intentions at home there is a degree of inevitability with respect to her current exacerbations until they are able to undergo aortic valve replacement, and obtain more consistent control of their sleep apnea. Admission HPI Per Admitting Provider The patient is a 60-year-old male with a past medical history including severe COPD, TIESHA with CPAP at bedtime, history of tobacco use quit 12/30, CAD, hypertension, hyperlipidemia, status post JUANCARLOS x 2 to RCA on 04/18/2025, aortic stenosis undergoing evaluation for AVR at [facility], diabetes mellitus type 2, CHF, and GERD. The patient presented to the emergency department with acute onset of shortness of breath that began he reports that late this afternoon and early this evening. He was going to walk into his kitchen, and became acutely short of breath. He has known history of COPD. He also has an aortic valve that is in the process of being evaluated for AVR at [facility]. He has ongoing swelling on his left leg worse in the right leg, for which he takes Lasix and reports he urinates all the time. He did receive a nebulizer by EMS and route to the hospital. He also had taken 1 nebulizer treatment at home plus his ensifentrine/Ohtuvayre. In the emergency department, he was found to be severely hypoxic, and was placed on BiPAP, which he did not tolerate well. It had to be changed to 100% nonrebreather. In the emergency department he received DuoNeb hour-long treatment, ceftriaxone 2 g IV, Solu-Medrol 125 mg IV, magnesium 1 g IV, lorazepam 1 mg IV. [facility] then [facility] Exam General: Adult male in no acute distress Vital Signs: Reviewed; currently requiring 2 L by nasal cannula to maintain O2 saturation in the range of 90 to 95% HEENT: Moist mucous membranes; pupils equally round and reactive to light, extraocular motion intact Pulmonary: Symmetric chest wall excursion that is unrestricted; diminished air movement throughout the entire posterior lung ziegler without notable wheezing; anterior and lateral lung ziegler have air movement without notable wheezing, occasional crackles noted throughout Cardiovascular: Regular rate and rhythm with grade 3/6 systolic murmur best heard in the right second intercostal space parasternally; no rubs or gallops; S1 and S2 normal; right radial pulse 2+; no notable lower extremity edema Neurologic: Cranial nerves II through XII grossly intact; no discernible focal weakness nor paresthesia Discharge Plan Discharge Items Patient Disposition: Home - Self-Care Reason For Visit: ACUTE ON CHRONIC RESPIRATORY FIALURE WITH HYPOXIA Discharge Diagnosis: COPD Exacerbation Condition on Discharge: Fair Activity: Per Instructions section Non-emergency contact: Primary Care Provider and Specialist Call non-emergency contact if: you have any medication questions, your symptoms worsen and you have a fever Follow-up/Referrals: Oriana Burrell DO [Primary Care Provider] - 06/10/25 9:20 am (Hospital follow up appointment on June 10 at 9:20 am.) Diet: Carb Consistent or DM2 Fluids: 2000ml (8 cups) Addtl Attending Provider Instructions: You were admitted to [facility] for an acute exacerbation of chronic obstructive pulmonary disease. With respect to your presenting condition, you were treated with intravenous steroids in addition to oral antibiotic therapy and increased frequency of inhaler therapy including your home inhalers. You had rapid improvement with your symptomatology. At discharge, we recommend continuing levofloxacin 750 mg p.o. daily through 06/06 as well as a 12-day taper of dexamethasone. As we discussed during her hospitalization, recommend obtaining a bedroom humidifier to maintain airway moisture and reduce the risk of future exacerbations, as long as you maintain adequate cleaning of this device. Furthermore recommend following with your blood donor unit assistant upon discharge within the next 1 to 2 weeks if possible to discuss this exacerbation and recommendations for any adjustment to your plan of care if necessary or possible. We performed a nocturnal oximetry study from 06/02 to 06/03 to determine if there is need for supplemental oxygen while you sleep; your average SpO2 was 90%, though you had several desaturations that were sustained for greater than 3 minutes that were less than 88%. With this in mind, we recommend starting 2 L of supplemental oxygen while sleeping. Though you have been previously diagnosed with TIESHA, we ideally recommend use of PPV which you have been unable to tolerate previously. We recommend discussing with your PCP additional interventions, including the Inspire device, for continued management of this condition. Thank you for choosing [facility] as your healthcare provider. Pending Studies at Discharge: No Stand-Alone Forms: [facility], Smoking Cessation Medications and DC Order Prescriptions: New levofloxacin 750 mg Tablet 750 mg PO DAILY@1100 4 Days Qty: 4 0RF dexamethasone 2 mg tablet 2 mg PO DAILY 12 Days Qty: 24 0RF Rx Instructions: Please take 3 tablets for 4 days, then 2 tablets for 4 days, then 1 tablet for 4 days Continued carvedilol [Coreg] 3.125 mg tablet 3.125 mg PO BID Qty: 60 3RF Rx Instructions: must administer with a meal/food (to replace Bystolic, Bystolic is not covered) (DME) [employer] 14 Day Sensor Kit See Dose Instructions .ROUTE .MEDSUPPLY Qty: 1 0RF Dose Instruction: As directed Rx Instructions: As directed, testing QID. Dx: E11.9 amlodipine [Norvasc] 10 mg tablet 10 mg PO QAM Qty: 90 3RF ipratropium-albuterol 0.5 mg-3 mg(2.5 mg base)/3 mL solution for nebulization 3 ml INH QID PRN (Reason: Shortness Of Breath) Qty: 90 3RF Trelegy Ellipta 100-62.5-25 mcg blister with device 1 inh inhalation DAILY Qty: 180 1RF ibuprofen 800 mg tablet 800 mg PO TID PRN (Reason: Pain) Qty: 270 1RF pantoprazole 40 mg tablet,delayed release (DR/EC) 40 mg PO BID Qty: 60 5RF cetirizine 10 mg tablet 10 mg PO HS Qty: 30 2RF sildenafil [Viagra] 25 mg tablet 25 mg PO UD PRN (Reason: Sexual Activity) Qty: 90 0RF Rx Instructions: 25 mg PO 30 prior to intercourse.; semaglutide 2 mg/dose (8 mg/3 mL) pen injector 2 mg SUBCUT WK Qty: 4 2RF Rx Instructions: sundays clopidogrel 75 mg tablet 75 mg PO DAILY Qty: 30 11RF nitroglycerin [Nitrostat] 0.4 mg tablet, sublingual 0.4 mg sublingual Q5M PRN (Reason: chest pain) Qty: 25 5RF Rx Instructions: do not exceed 3 doses per episode albuterol sulfate [Ventolin HFA] 90 mcg/actuation HFA aerosol inhaler 1 - 2 puff inhalation .Q4-6H PRN (Reason: shortness of breath or wheezing) Qty: 25.5 2RF Rx Instructions: 1-2 puffs inhalation 1 puff INH every 4-6 hrs; PRN; rosuvastatin [Crestor] 40 mg tablet 40 mg PO HS Qty: 30 0RF aspirin 81 mg tablet,delayed release (DR/EC) 81 mg PO DAILY Lantus Solostar U-100 Insulin 100 unit/mL (3 mL) insulin pen 25 unit SQ QAM Qty: 15 5RF Patient Comments: 25 units losartan 100 mg tablet 100 mg PO QAM folic acid 1 mg tablet 1 mg PO DAILY ezetimibe [Zetia] 10 mg tablet 10 mg PO DAILY mecobalamin (vitamin B12) 1,000 mcg tablet,chewable 1,000 mcg PO DAILY cyclobenzaprine 5 mg tablet 5 mg PO TID PRN (Reason: muscle spasm) Qty: 10 0RF Ohtuvayre 3 mg/2.5 mL suspension for nebulization 3 - 6 mg inhalation BID Rx Instructions: 6 mg in the am and 3mg in the evening inhaled twice a day; tamsulosin [Flomax] 0.4 mg capsule 0.4 mg PO DAILY Qty: 30 2RF dapagliflozin propanediol [Farxiga] 10 mg tablet 10 mg PO DAILY Qty: 90 3RF furosemide 40 mg tablet 40 mg PO DAILY Qty: 90 3RF potassium chloride [Klor-Con M20] 20 mEq tablet,ER particles/crystals 20 meq PO DAILY Qty: 90 3RF insulin lispro [Humalog KwikPen Insulin] 100 unit/mL insulin pen See Rx Instructions SQ BID Patient Comments: 15 units Rx Instructions: per sliding scale subcutaneously twice a day; Per patient only uses WITH SLIDING SCALE PER BLOOD SUGAR anything over 200 dextromethorphan-guaifenesin [Robitussin Cough-Chest Jaun DM] 5-100 mg/5 mL Liquid 10 ml PO Q6H PRN (Reason: cough) Qty: 500 0RF Praluent Pen 150 mg/mL Pen Injector 150 mg subcut UD Rx Instructions: every 2 weeks guaifenesin [Mucinex] 600 mg Tablet Extended Release 12hr 1,200 mg PO Q12 30 Days Qty: 120 0RF Discharge Orders: Discharge Order (Routine); Ordered 06/03/25 Ordered By: Vinnie Garcia Left Against Medical Advice (Routine); Ordered 06/03/25 Ordered By: Vinnie Garcia Admission Data Admit Date/Time: 06/01/25 22:25 Attending Provider: Margarito Carney Admit Provider: Margarito Carney Primary Care Provider: Oriana Burrell Other Providers: Margarito Carney Other Interventions: Discharge Summary Assessment (RN) Last Done: 06/03/25 10:07 Hospital Stay Data Consultations 06/01/25 21:43 ED Decision to Admit Stat Diagnostic Imagining Performed 06/02/25 US venous doppler LE BI Stat Pending Results Patient Have Any Pending Studies at Discharge: No Discharge Instructions Given to Patient (Per Discharging Provider) You were admitted to [facility] for an acute exacerbation of chronic obstructive pulmonary disease. With respect to your presenting condition, you were treated with intravenous steroids in addition to oral antibiotic therapy and increased frequency of inhaler therapy including your home inhalers. You had rapid improvement with your symptomatology. At discharge, we recommend continuing levofloxacin 750 mg p.o. daily through 06/06 as well as a 12-day taper of dexamethasone. As we discussed during her hospitalization, recommend obtaining a bedroom humidifier to maintain airway moisture and reduce the risk of future exacerbations, as long as you maintain adequate cleaning of this device. Furthermore recommend following with your blood donor unit assistant upon discharge within the next 1 to 2 weeks if possible to discuss this exacerbation and recommendations for any adjustment to your plan of care if necessary or possible. We performed a nocturnal oximetry study from 06/02 to 06/03 to determine if there is need for supplemental oxygen while you sleep; your average SpO2 was 90%, though you had several desaturations that were sustained for greater than 3 minutes that were less than 88%. With this in mind, we recommend starting 2 L of supplemental oxygen while sleeping. Though you have been previously diagnosed with TIESHA, we ideally recommend use of PPV which you have been unable to tolerate previously. We recommend discussing with your PCP additional interventions, including the Inspire device, for continued management of this condition. Thank you for choosing [facility] as your healthcare provider. Total Time Total Time Spent Total Time Spent (In Minutes): I personally spent 55 minutes in today's discharge including bedside counseling, physical exam, medication reconciliation, coordination of DME at the time of discharge with the assistance of case management Coding Level of Care Code 38351 INP/OBS DISCH >30 MIN Diagnoses Acute on chronic respiratory failure with hypoxia and hypercapnia J96.21; J96.22 Acute exacerbation of chronic obstructive pulmonary disease J44.1 Acute respiratory acidosis J96.02 Type [address] elevation I21.A1 COPD, group D, by GOLD 2017 classification J44.9 Presence of drug-eluting stent in right coronary artery Z95.5 Chronic heart failure with preserved ejection fraction I50.32 Aortic valve stenosis, etiology of cardiac valve disease unspecified I35.0 Cardiac valve disease etiology: etiology unspecified TIESHA (obstructive sleep apnea) G47.33 Controlled type 2 diabetes mellitus with hyperglycemia, with long-term current use of insulin E11.65; Z79.4
== END 2025-06-03 11:45 | disposition home or self-care (01) | DRG 190 ==
LOC: ED 20:24 → 1E 22:25 → SUATTDRO 22:25 → 1E 23:10